=== PATIENT | female | born 1940 | race Caucasian/White ===

== ENCOUNTER 2020-07-30 08:57 | Outpatient (REF) | payer MEDICARE, SELFPAY ==
[2020-07-30 10:14] LABS: MANUAL DIFF FLAG NO
[2020-07-30 10:38] LABS: Basophils Absolute Auto 0.1 X10*3/uL (0.0-0.2); Basophils Percent Auto 0.8 % (0-2); Eosinophils Absolute Auto 0.1 X10*3/uL (0.0-0.4); Eosinophils Percent Auto 1.7 % (0-4); Hematocrit 41.1 % (37-47); Hemoglobin 13.2 g/dl (12.0-16.0); Imm Gran Abs Auto 0.02 X10*3/uL (0.00-0.03); Imm Gran Pct Auto 0.3 % (0.0-0.4); Lymphocytes Absolute Auto 2.2 X10*3/uL (1.2-4.9); Mean Corpuscular HGB Conc 32.1 g/dl (31.0-35.0); Mean Corpuscular Hemoglobin 30.7 pg (27.0-33.0); Mean Corpuscular Volume 95.6 fL (80-98); Mean Platelet Volume 9.7 fL (9.4-12.3); Monocytes Absolute Auto 0.6 X10*3/uL (0.1-1.2); Monocytes Percent Auto 9.7 % (2-11); Neutrophils Absolute Auto 3.4 X10*3/uL (2.0-8.3); Neutrophils Percent Auto 53.5 % (45-73); Platelet Count 222 X10*3/uL (160-400); Red Cell Distribution Width 13.2 % (11.0-16.0); White Blood Count 6.4 X10*3/uL (4.8-10.8)
[2020-07-30 10:57] LABS: Alanine Aminotransferase 15 U/L (0-31); Alkaline Phosphatase 66 U/L (39-117); Aspartate Amino Transferase 17 U/L (5-31); Bilirubin Total 0.7 mg/dL (0.0-1.0); Blood Urea Nitrogen 15 mg/dL (9-16); Calcium 9.6 mg/dL (8.4-10.2); Cholesterol 188 mg/dL; Estimated Glomerular Filt Rate > 60; Glucose Random 90 mg/dL (60-115); HDL Cholesterol 73 mg/dL; LDL Cholesterol Calculated 100 mg/dl; Total Protein 6.7 g/dL (6.5-8.0); Triglycerides 75 mg/dL
[2020-07-30 11:13] LABS: Anion Gap 10 (12-20); Carbon Dioxide 34 mmol/L (22-29); Chloride 100 mmol/L (96-108); Potassium 4.2 mmol/l (3.3-5.1); Sodium 140 mmol/L (135-145)
== END 2020-07-30 08:58 | disposition home or self-care (01) ==
LOC: HO.10HDL 08:57
PROVIDERS: Visit Provider Physician Assistant
DX: Z00.00 Encounter for general adult medical examination without abnormal findings (principal); Z13.6 Encounter for screening for cardiovascular disorders
CPT/HCPCS: 36415; 80053; 80061; 85025

== ENCOUNTER 2021-04-15 17:35 | Emergency (ER) | payer MEDICARE, SELFPAY ==
--- NOTE | ~2021-04-15 | XR_ITS ---
EXAMINATION: XR HAND, LEFT CLINICAL INFORMATION: Rule out foreign body COMPARISON: None TECHNIQUE: PA, lateral, and oblique views of the left hand. XR/XR hand LT 2V FINDINGS/IMPRESSION: No radiopaque foreign body. No acute fracture or dislocation. Small marginal osteophytes present throughout the interphalangeal joints. Small marginal osteophytes at the radiocarpal joint. 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 No radiopaque foreign body.
--- NOTE | ~2021-04-15 | XR_ITS ---
EXAMINATION: XR KNEE, LEFT CLINICAL INFORMATION: Rule out foreign body, glass. COMPARISON: None TECHNIQUE: AP and lateral views of the left knee. FINDINGS: Bones are osteopenic. There is moderate osteoarthritis in the lateral compartment with nonuniform joint space narrowing and marginal osteophytes. More mild osteoarthritis is present in the patellofemoral and medial compartment. Chondrocalcinosis is noted. Trace joint effusion. No acute fractures. Alignment is normal. Calcific atherosclerosis is present in the runoff arteries. No appreciable radiodense foreign bodies are identified. XR/XR knee LT 2V IMPRESSION: No radiodense foreign bodies are identified. Mild to moderate tricompartmental osteoarthritis, most pronounced in the lateral compartment
[2021-04-15 18:42] VITALS: BP 212/83; PULSE 69; RESP 18; TEMP 36.7; O2SAT 98; BMI 23.1
[2021-04-15 19:40] VITALS: BP 224/103; PULSE 73; RESP 12; O2SAT 97
[2021-04-15 19:48] VITALS: BP 200/86
[2021-04-15 20:27] VITALS: BP 200/86; PULSE 73
[2021-04-15] MEDS: hydroCHLOROthiazide 12.5 MG TABLET PO (20:27)
[2021-04-15] MEDS: Metoprolol Tartrate 25 MG TABLET PO (20:27)
[2021-04-15] MEDS: Diphth,Pertus(ACell),Tet Adult 0.5 ML SYRINGE IM (20:27)
[2021-04-15 20:39] VITALS: BP 200/86; PULSE 73
[2021-04-15] MEDS: Lidocaine HCl 1 % MPF 5 ML VIAL INFILTRATI (20:40)
[2021-04-15 21:13] VITALS: BP 176/80; PULSE 76; RESP 15
--- NOTE | 2021-04-15 21:19 | ED.SKABFB ---
HPI - Skin/Abscess/Foreign Bdy General Chief complaint: Skin/Abscess/Foreign Body Stated complaint: finger lac + fall Time Seen by Provider: 04/15/21 20:13 Source: patient Mode of arrival: ambulatory Limitations: no limitations History of Present Illness HPI narrative: 80-year-old female who presents emergency department for evaluation of lacerations to her left hand elbow and knee after falling at home. Patient states she was carrying a glass globe when she was walking upstairs and fell. The glass globe broken front of her and she states she landed on the globe with her left hand. The patient sustained multiple superficial lacerations with 1 full skin thickness laceration to the left ulnar aspect of the ring finger. The patient believes that her last tetanus vaccination was greater than 5 years prior but less than 10 years prior. She denies any other injury from the fall. She states she was feeling well prior to the fall and she believes that she does tripped causing her to fall forward on the stairs. She denied head injury, neck injury, chest injury, abdominal injury. Related Data Allergies Allergy/AdvReac Type Severity Reaction Status Date / Time No Known Allergies Allergy Verified 04/15/21 18:42 [No Known Allergies*] Review of Systems Review of Systems: Yes all other systems are reviewed and are negative [facility] Past Medical History [facility] Narrative: Social history: She denies tobacco, alcohol and drug use. Medical History Breast cancer COPD (chronic obstructive pulmonary disease) HTN (hypertension) Social History Social History Alcohol intake: never Patient Tobacco Use Status: Never used Tobacco Use of substances other than those prescribed or required for medical reasons: No Advance Directives: No Advance Directives Information Provided: Yes Physical Exam Vital Signs: Vital Signs: Last Vital Signs Temp 98.1 F 04/15/21 18:42 Pulse 76 04/15/21 21:13 Resp 15 04/15/21 21:13 BP 176/80 H 04/15/21 21:13 Pulse Ox 97 04/15/21 19:40 Body Mass Index 23.1 Const: General: cooperative and healthy appearing Orientation/consciousness: oriented to person and oriented to place Limitations: no limitations HENMT: Head: Yes normal to inspection, Yes normocephalic and Yes atraumatic Ears: external ears normal General nose exam: Normal external nose present Face and sinus: Yes normal facial exam Mouth: Normal oral and palatal mucosa present Throat: Yes posterior oropharynx normal Eyes: Periorbital: periorbital findings normal Eyelids: Yes eyelids normal Conjunctivae: conjunctivae normal Sclerae: sclerae normal Corneas: corneas normal Pupils: Equal, round and reactive pupils present Direct Ophthalmoscopy: normal light reflex Neck: Neck: Yes full ROM, Yes no lymphadenopathy, Yes no meningeal signs, Yes trachea midline and Yes supple Chest: Chest palpation & inspection: normal inspection of the chest and normal palpation of entire chest wall Resp: Effort & Inspection: normal respiratory effort and able to speak in complete sentences Auscultation: clear to auscultation bilaterally Cardio: Rate: regular rate Rhythm: regular rhythm Heart sounds: S1 normal heart sound present, S2 normal heart sound present and no murmurs GI: Inspection: Yes normal to inspection Palpation (GI): Soft to palpation, nontender, no guarding, not rigid and No hepatosplenomegaly present : General: Yes no CVA tenderness Back/Spine/Pelvis: Back: no CVA tenderness Cervical Spine: normal cervical lordosis Thoracic/Lumbar Spine: thoracic and lumbar spine normal to inspection Skin: Other: There is a 1.0 cm laceration to the left ulnar aspect of the ring finger which is a full skin thickness with a very small skin bleeding which did not stop with direct pressure. She has a full skin thickness laceration to the left middle finger, left ulnar aspect of the wrist, left elbow, each 1 of these lacerations are less than 1 cm in length. Neuro: General: oriented to person, oriented to place and no meningeal signs Cranial nerves: Yes CN's II-XII intact bilaterally and Yes Equal, round and reactive pupils present Cognition (Neuro): normal cognition Motor exam (neuro): 5/5 motor strength present throughout Extrem: General: Yes normal to inspection and Yes full ROM Psych: Appearance: well kempt Mental Status: mental status grossly normal Speech and movement: Normal speech and movement present Affect: normal affect Course Course Course Narrative: the patient did have 1 laceration to the ulnar aspect of the left ring finger required suture repair secondary to an active small skin bleeder. The other 3 lacerations repaired with Dermabond. The patient did have elevated blood pressure, she has essential hypertension and she was given her nighttime medications ( hydrochlorothiazide, metoprolol and lisinopril) in the emergency department with improvement of her hypertension. X-rays were obtained of the patient's knee and hand which revealed no glass foreign bodies. The patient's left he had an abrasion which was cleaned and dressed with bacitracin and a dry sterile dressing. Patient was advised to follow-up with her PCP to have the sutures removed in 7 days. The patient was given a Tdap vaccination in the emergency department. The patient was discharged home. The patient was given verbal and printed instructions prior to discharge. The patient was advised to follow-up with their PCP in 2 days and to return to the emergency department if their symptoms get worse or if they develop any new symptoms that are concerning to them . Procedures Procedure Narrative Procedure Narrative: 1. Left ring finger 1.0 cm laceration repair: The patient give me informed verbal consent to proceed. The laceration was clean sterile water and Betadine. The wound was then anesthetized with 1% lidocaine, 3 cc was used. The patient had a small active superficial skin bleeder which required 3 crossing sutures in order to stop the bleed, the patient had a total of 5 sutures. 5.0 Vicryl suture was used. The patient tolerated the procedure well. 2. lacerations to left hand ( 0.75 cm ), laceration to left wrist ( 0.75 cm), and left elbow ( V shaped, 0.75 cm ). These lacerations were cleaned with sterile water and Betadine . The lacerations were then repaired using skin glue. The patient tolerated the procedure well. Discharge Plan Discharge Clinical Impression: Laceration of multiple sites, Benign essential hypertension Fall Qualifiers: Encounter type: initial encounter Qualified Code(s): W19.XXXA - Unspecified fall, initial encounter Abrasion of knee, left Qualifiers: Encounter type: initial encounter Qualified Code(s): S80.212A - Abrasion, left knee, initial encounter Patient Disposition: Home, Self-Care Instructions: Laceration (ED), Skin Adhesive Care (ED) Additional Instructions: You have 5 stitches on the left ring finger laceration. These were needed to stop the small skin bleeders that you had in order to close the skin tightly. The stitches need to stay in for 7 days and your doctor should be able to remove these in their office. If they are unable to remove stitches then you can follow-up with the on-call surgeon. Apply bacitracin twice a day to this wound and keep it covered with gauze. Your other lacerations repaired with skin glue. Do not apply any bacitracin, ointments, gels or other products to the use wounds since oil based ointment skin breakdown the glue. You do not need to keep these lacerations covered. The glue should dissolve in 3-7 days. Watch for signs of infection which would include increased pain, increased swelling, redness around the lacerations and red streaks going away from the wounds. Follow-up with your doctor in 2 days. Please return to the emergency department if your symptoms get worse or if you develop any symptoms that are concerning to you. Interventions: ED Discharge Assessment Last Done: 04/15/21 21:33 Discharge Date/Time: 04/15/21 21:34
== END 2021-04-15 21:34 | disposition home or self-care (01) ==
PROVIDERS: Emergency Provider Emergency Medicine Emergency Medical Services; PCP Internal Medicine
DX: S61.215A Laceration without foreign body of left ring finger without damage to nail, initial encounter (principal); S61.512A Laceration without foreign body of left wrist, initial encounter; S51.012A Laceration without foreign body of left elbow, initial encounter; S60.512A Abrasion of left hand, initial encounter; W01.110A Fall on same level from slipping, tripping and stumbling with subsequent striking against sharp glass, initial encounter; I10 Essential (primary) hypertension; Y93.89 Activity, other specified; Y92.018 Other place in single-family (private) house as the place of occurrence of the external cause; Y99.9 Unspecified external cause status
CPT/HCPCS: 12002; 73120; 73560; 90471; 90715; 99284

== ENCOUNTER 2021-08-15 09:02 | Outpatient (REF) | payer MEDICARE, SELFPAY ==
[2021-08-15 10:29] LABS: MANUAL DIFF FLAG NO
[2021-08-15 10:31] LABS: Basophils Percent Auto 0.6 % (0-2); Eosinophils Absolute Auto 0.1 X10*3/uL (0.0-0.4); Eosinophils Percent Auto 2.9 % (0-4); Hematocrit 40.7 % (37.0-47.0); Hemoglobin 13.5 g/dl (12.0-16.0); Imm Gran Abs Auto 0.01 X10*3/uL (0.00-0.03); Imm Gran Pct Auto 0.2 % (0.0-0.4); Lymphocytes Absolute Auto 1.8 X10*3/uL (1.2-4.9); Mean Corpuscular HGB Conc 33.2 g/dl (31.0-35.0); Mean Corpuscular Hemoglobin 30.5 pg (27.0-33.0); Mean Corpuscular Volume 92.1 fL (80.0-98.0); Mean Platelet Volume 9.8 fL (9.4-12.3); Monocytes Absolute Auto 0.5 X10*3/uL (0.1-1.2); Monocytes Percent Auto 10.6 % (2-11); Neutrophils Absolute Auto 2.3 x10*3/uL (2.0-8.3); Neutrophils Percent Auto 47.7 % (45-73); Platelet Count 208 X10*3/uL (160-400); Red Blood Count 4.42 X10*6/uL (4.20-5.50); Red Cell Distribution Width 14.1 % (11.0-16.0); White Blood Count 4.8 X10*3/uL (4.8-10.8)
[2021-08-15 11:00] LABS: Alanine Aminotransferase 16 U/L (0-31); Albumin Level 3.8 g/dL (3.5-5.0); Alkaline Phosphatase 66 U/L (39-117); Anion Gap 9 (12-20); Aspartate Amino Transferase 18 U/L (5-31); Bilirubin Total 0.9 mg/dL (0.0-1.0); Blood Urea Nitrogen 14 mg/dL (9-16); Carbon Dioxide 34 mmol/L (22-29); Chloride 102 mmol/L (96-108); Cholesterol 186 mg/dL; Estimated Glomerular Filt Rate > 60; Glucose Random 94 mg/dL (60-115); HDL Cholesterol 69 mg/dL; LDL Cholesterol Calculated 104 mg/dl; Potassium 3.8 mmol/L (3.3-5.1); Sodium 141 mmol/L (135-145); Total Protein 6.4 g/dL (6.5-8.0); Triglycerides 66 mg/dL
== END 2021-08-15 09:03 | disposition home or self-care (01) ==
LOC: HO.10HDL 09:02
PROVIDERS: Visit Provider Physician Assistant
DX: I10 Essential (primary) hypertension (principal)
CPT/HCPCS: 36415; 80053; 80061; 85025

== ENCOUNTER 2021-10-08 17:54 | Emergency (ER) | payer MEDICARE, SELFPAY ==
--- NOTE | 2021-10-08 | ECG_ITS ---
Test Reason : HEADACHE Blood Pressure : / mmHG Vent. Rate : 054 BPM Atrial Rate : 054 BPM P-R Int : 162 ms QRS Dur : 140 ms QT Int : 450 ms P-R-T Axes : 061 083 -02 degrees QTc Int : 426 ms Sinus bradycardia Possible Left atrial enlargement Right bundle branch block T wave abnormality, consider inferior ischemia Abnormal ECG When compared with ECG of 22-NOV-2017 16:12, Premature atrial complexes are no longer Present Referred By: Generic ED Physician Electronically Signed By:Otto Ray
[2021-10-08 19:48] VITALS: BP 205/89; PULSE 57; RESP 16; TEMP 36.6; O2SAT 98; BMI 23.6
[2021-10-08 20:53] LABS: MANUAL DIFF FLAG NO
[2021-10-08 20:54] LABS: Basophils Percent Auto 0.5 % (0-2); Eosinophils Absolute Auto 0.1 X10*3/uL (0.0-0.4); Eosinophils Percent Auto 2.4 % (0-4); Hematocrit 43.3 % (37.0-47.0); Hemoglobin 14.5 g/dl (12.0-16.0); Imm Gran Abs Auto 0.01 X10*3/uL (0.00-0.03); Imm Gran Pct Auto 0.2 % (0.0-0.4); Lymphocytes Absolute Auto 2.6 X10*3/uL (1.2-4.9); Lymphocytes Percent Auto 44.4 % (20-40); Mean Corpuscular HGB Conc 33.5 g/dl (31.0-35.0); Mean Corpuscular Hemoglobin 30.5 pg (27.0-33.0); Mean Corpuscular Volume 91.2 fL (80.0-98.0); Mean Platelet Volume 9.2 fL (9.4-12.3); Monocytes Absolute Auto 0.5 X10*3/uL (0.1-1.2); Monocytes Percent Auto 8.6 % (2-11); Neutrophils Absolute Auto 2.5 x10*3/uL (2.0-8.3); Neutrophils Percent Auto 43.9 % (45-73); Platelet Count 204 X10*3/uL (160-400); Red Blood Count 4.75 X10*6/uL (4.20-5.50); Red Cell Distribution Width 13.5 % (11.0-16.0); White Blood Count 5.8 X10*3/uL (4.8-10.8)
[2021-10-08 21:14] LABS: Troponin-I High Sensitivity 41.3 ng/L (<3.5-17.0)
[2021-10-08 21:25] LABS: Alanine Aminotransferase 21 U/L (0-31); Alkaline Phosphatase 71 U/L (39-117); Anion Gap 9 (12-20); Aspartate Amino Transferase 22 U/L (5-31); Bilirubin Total 0.9 mg/dL (0.0-1.0); Blood Urea Nitrogen 8 mg/dL (9-16); Calcium 10.3 mg/dL (8.4-10.2); Carbon Dioxide 34 mmol/L (22-29); Chloride 102 mmol/L (96-108); Creatinine Clr Calc Pharmacy 50.6; Estimated Glomerular Filt Rate > 60; Glucose Random 104 mg/dL (60-115); Potassium 3.6 mmol/L (3.3-5.1); Sodium 141 mmol/L (135-145); Total Protein 7.1 g/dL (6.5-8.0)
[2021-10-08 21:28] VITALS: BP 207/100; PULSE 60; RESP 16; TEMP 36.7; O2SAT 98
--- NOTE | 2021-10-08 21:57 | ED_ITS ---
HPI - General Adult General Chief complaint: Headache Stated complaint: elevated blood pressure Time Seen by Provider: 10/08/21 20:51 Source: patient Mode of arrival: ambulatory Limitations: no limitations History of Present Illness HPI narrative: 80-year-old female who presents emergency department for evaluation of elevated blood pressure and headache. The patient states she has been on blood pressure medications for many years and normally her blood pressure is under good control. She states that the day after [place] (10/06/2021) she noted that her blood pressure was high in the 200/100 range. She states that she was getting an intermittent frontal headache which was a throbbing like sensation which was moderate in intensity that was associated with her higher readings She states she also felt a stiffness in her neck associated with high blood pressure. She states that over the past 1-2 days her blood pressure has been consistently high and she was concerned about her high reading so she came to the emergency department for evaluation. The patient has been compliant with her blood pressure medications. She states she does take a diuretic. She has not changed her fluid intake but she may have the more salty meals over the holiday. She denied fever, chills, chest pain, shortness of b reath, change in her urine output. She denied numbness, weakness. 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 She denies tobacco use. She drinks 4 half glasses of wine per week. She denies drug use. Medical History Breast cancer COPD (chronic obstructive pulmonary disease) HTN (hypertension) Social History Social History Alcohol intake: never Patient Tobacco Use Status: Never used Tobacco Advance Directives: No Advance Directives Information Provided: No Physical Exam Vital Signs: Vital Signs: Last Vital Signs Temp 97.8 F 10/08/21 22:36 Pulse 60 10/08/21 23:25 Resp 20 10/08/21 23:25 BP 182/66 H 10/08/21 23:25 Pulse Ox 96 10/08/21 23:25 BMI result Body Mass Index 23.6 Const: General: cooperative and no acute distress Orientation/consciousness: oriented to person and oriented to place Limitations: no limitations HENMT: Head: Yes normal to inspection, Yes normocephalic and Yes atraumatic Ears: external ears normal General nose exam: Normal external nose present Face and sinus: Yes normal facial exam Mouth: Normal oral and palatal mucosa present Throat: Yes posterior oropharynx normal Eyes: General: appearance normal, both eyes and all related structures Pupils: Equal, round and reactive pupils present Neck: Neck: Yes normal visual inspection, Yes no lymphadenopathy, Yes trachea midline and Yes supple Chest: Chest palpation & inspection: normal inspection of the chest and normal palpation of entire chest wall Resp: Effort & Inspection: normal respiratory effort and able to speak in complete sentences Auscultation: clear to auscultation bilaterally Cardio: Rate: regular rate Rhythm: regular rhythm Heart sounds: S1 normal heart sound present, S2 normal heart sound present and Murmur heart sound present systolic II/ (Mid systolic) GI: Inspection: Yes normal to inspection Palpation (GI): Soft to palpation, nontender and no guarding Auscultation: normal bowel sounds : General: Yes no CVA tenderness Back/Spine/Pelvis: Back: no CVA tenderness Skin: General skin exam: no rashes or lesions noted Neuro: General: oriented to person and oriented to place Cranial nerves: Yes CN's II-XII intact bilaterally and Yes Equal, round and reactive pupils present Cognition (Neuro): normal cognition Motor exam (neuro): 5/5 motor strength present throughout Extrem: General: Yes normal to inspection Psych: Appearance: grossly normal Speech and movement: Normal speech and movement present Affect: normal affect Attitude: cooperative Thought process: Normal thought process present Thought content: Normal thought content present Course Course Course Narrative: 80-year-old female with a history of hypertension who has been compliant with her medications presents emergency department for evaluation elevated blood pressure readings over the past several days with associated headache. The patient's vital signs did reveal an elevated blood pressures 205/89 and 207/100 otherwise were unremarkable. Patient's physical examination did reveal a mid systolic heart murmur but I do not think that this is related to hypertension. Patient's exam was otherwise unremarkable. Patient had no tenderness palpation over her temporal artery region of her head. Laboratory evaluation was obtained and the patient had a normal CBC. The patient's CMP revealed an elevated bicarb of 34 which she has had in the past. Her kidney function and liver tests were normal. Patient's 1st high sensitive troponin was elevated at 41.3 and I have no other values on the patient. A 3 hour troponin was ordered for 11:45 p.m.. Patient's 12 EKG revealed a right bundle-branch block which I believe is old. Patient's blood pressure elevation is most likely secondary to dietary indiscretions I did discuss this with her. 0051: The patient's repeat 3 hour high sensitivity troponin I was 47.5, this is not a greater than 50% increase from the 1st value. This time I do not think the patient has had any myocardial injury. The patient will be discharged home with printed and verbal instructions on managing essential hypertension. Medical Decision Making Lab Data Result diagrams: 10/08/21 20:48 10/08/21 20:48 Labs: Lab Results 10/08/21 10/08/21 10/08/21 Range/Units 20:48 20:48 20:48 WBC 5.8 (4.8-10.8) X10*3/uL RBC 4.75 (4.20-5.50) X10*6/uL Hgb 14.5 (12.0-16.0) g/dl Hct 43.3 (37.0-47.0) % MCV 91.2 (80.0-98.0) fL MCH 30.5 (27.0-33.0) pg MCHC 33.5 (31.0-35.0) g/dl RDW 13.5 (11.0-16.0) % Plt Count 204 (160-400) X10*3/uL MPV 9.2 L (9.4-12.3) fL Immature Gran % (Auto) 0.2 (0.0-0.4) % Neut % (Auto) 43.9 L (45-73) % Lymph % (Auto) 44.4 H (20-40) % Norton % (Auto) 8.6 (2-11) % Eos % (Auto) 2.4 (0-4) % Baso % (Auto) 0.5 (0-2) % Lymph # (Auto) 2.6 (1.2-4.9) X10*3/uL Norton # (Auto) 0.5 (0.1-1.2) X10*3/uL Eos # (Auto) 0.1 (0.0-0.4) X10*3/uL Baso # (Auto) 0.0 (0.0-0.2) X10*3/uL Abs Immat Gran (auto) 0.01 (0.00-0.03) X10*3/uL Absolute Neuts (auto) 2.5 (2.0-8.3) x10*3/uL Absolute Nucleated RBC 0.000 (0.0-0.012) X10*3/uL Nucleated RBC % (auto) 0.0 (0.0-0.2) /100WBC ESR (0-20) MM/HR Sodium 141 (135-145) mmol/L Potassium 3.6 (3.3-5.1) mmol/L Chloride 102 (96-108) mmol/L Carbon Dioxide 34 H (22-29) mmol/L Anion Gap 9 L (12-20) BUN 8 L (9-16) mg/dL Creatinine 0.63 (0.5-1.4) mg/dL Estim Creat Clear Calc 50.6 Estimated GFR > 60 Random Glucose 104 (60-115) mg/dL Calcium 10.3 H (8.4-10.2) mg/dL Total Bilirubin 0.9 (0.0-1.0) mg/dL AST 22 (5-31) U/L ALT 21 (0-31) U/L Alkaline Phosphatase 71 (39-117) U/L Troponin I High Sens 41.3 H (<3.5-17.0) ng/L Total Protein 7.1 (6.5-8.0) g/dL Albumin 4.0 (3.5-5.0) g/dL 10/08/21 10/08/21 Range/Units 20:48 23:44 WBC (4.8-10.8) X10*3/uL RBC (4.20-5.50) X10*6/uL Hgb (12.0-16.0) g/dl Hct (37.0-47.0) % MCV (80.0-98.0) fL MCH (27.0-33.0) pg MCHC (31.0-35.0) g/dl RDW (11.0-16.0) % Plt Count (160-400) X10*3/uL MPV (9.4-12.3) fL Immature Gran % (Auto) (0.0-0.4) % Neut % (Auto) (45-73) % Lymph % (Auto) (20-40) % Norton % (Auto) (2-11) % Eos % (Auto) (0-4) % Baso % (Auto) (0-2) % Lymph # (Auto) (1.2-4.9) X10*3/uL Norton # (Auto) (0.1-1.2) X10*3/uL Eos # (Auto) (0.0-0.4) X10*3/uL Baso # (Auto) (0.0-0.2) X10*3/uL Abs Immat Gran (auto) (0.00-0.03) X10*3/uL Absolute Neuts (auto) (2.0-8.3) x10*3/uL Absolute Nucleated RBC (0.0-0.012) X10*3/uL Nucleated RBC % (auto) (0.0-0.2) /100WBC ESR 13 (0-20) MM/HR Sodium (135-145) mmol/L Potassium (3.3-5.1) mmol/L Chloride (96-108) mmol/L Carbon Dioxide (22-29) mmol/L Anion Gap (12-20) BUN (9-16) mg/dL Creatinine (0.5-1.4) mg/dL Estim Creat Clear Calc Estimated GFR Random Glucose (60-115) mg/dL Calcium (8.4-10.2) mg/dL Total Bilirubin (0.0-1.0) mg/dL AST (5-31) U/L ALT (0-31) U/L Alkaline Phosphatase (39-117) U/L Troponin I High Sens 47.5 H (<3.5-17.0) ng/L Total Protein (6.5-8.0) g/dL Albumin (3.5-5.0) g/dL Discharge Plan Discharge Clinical Impression: Headache, BP (high blood pressure) Patient Disposition: Home, Self-Care Additional Instructions: Your laboratory evaluation was unremarkable. You did have a elevated high sensitivity troponin I but this did not change after 3 hours (1st value 41.3, 2nd value 47.5) which suggest that you did not have a heart attack as the cause your symptoms today. Your 12 EKG showed that you have a right bundle-branch block but I think that this is old and not new and not related to her symptoms. Sometimes high blood pressure can be caused by increase salt in your diet. Restrict the amount of salt that you take and also try to restrict the amount of fluid that you drink over the next 3-4 days to see if this improves her blood pressure. Keep taking your blood pressure medications. The reason to check your blood pressure at home is to give your doctor an idea of what your blood pressure does when you are not in the doctor's office. Take your blood pressure in the morning, Wednesday through Wednesday and then write down these readings to discuss them with your doctor at your next visit. If you doctor decides that your blood pressure readings are high than your doctor will start you on medications. If you get started you on medications or increases 1 of your medications, it often takes 1-2 months or longer to get your blood pressure under control. Lowering your blood pressure to rapidly or getting your blood pressure too low quickly can make you feel bad. Please return to the emergency department if you develops concerning symptoms such as severe headache, chest pain, shortness of breath, difficulty walking se condary to shortness of breath, numbness, weakness, difficulty talking. Take Tylenol (acetaminophen) 500 mg pills, 2 pills every 4 to 6 hours as needed for pain. Follow-up with your doctor to discuss your blood pressure readings. Please return to the emergency department if your symptoms get worse or if you develop any new symptoms that are concerning to you.
[2021-10-08 22:14] LABS: Erythrocyte Sedimentation Rate 13 MM/HR (0-20)
[2021-10-08 22:36] VITALS: BP 181/73; PULSE 70; RESP 16; TEMP 36.6; O2SAT 94
[2021-10-08 23:25] VITALS: BP 182/66; PULSE 60; RESP 20; O2SAT 96
[2021-10-08] MEDS: Acetaminophen 325 MG TABLET 975 MG PO (23:53)
[2021-10-09 00:11] LABS: Troponin-I High Sensitivity 47.5 ng/L (<3.5-17.0)
== END 2021-10-09 01:33 | disposition home or self-care (01) ==
PROVIDERS: Emergency Provider Emergency Medicine Emergency Medical Services; PCP Internal Medicine
DX: R51.9 Headache, unspecified (principal); I10 Essential (primary) hypertension; Z79.899 Other long term (current) drug therapy; Z85.3 Personal history of malignant neoplasm of breast
CPT/HCPCS: 36415; 80053; 84484; 85025; 85652; 93005; 99283; 99284

== ENCOUNTER 2022-08-03 08:04 | Outpatient (REF) | payer MEDICARE, SELFPAY ==
[2022-08-03 10:33] LABS: MANUAL DIFF FLAG NO
[2022-08-03 10:47] LABS: Basophils Percent Auto 0.9 % (0-2); Eosinophils Absolute Auto 0.1 X10*3/uL (0.0-0.4); Eosinophils Percent Auto 2.6 % (0-4); Hematocrit 39.9 % (37.0-47.0); Hemoglobin 13.4 g/dl (12.0-16.0); Lymphocytes Absolute Auto 2.1 X10*3/uL (1.2-4.9); Mean Corpuscular HGB Conc 33.6 g/dl (31.0-35.0); Mean Corpuscular Hemoglobin 29.5 pg (27.0-33.0); Mean Corpuscular Volume 87.9 fL (80.0-98.0); Monocytes Absolute Auto 0.5 X10*3/uL (0.1-1.2); Monocytes Percent Auto 10.6 % (2-11); Neutrophils Absolute Auto 1.9 x10*3/uL (2.0-8.3); Neutrophils Percent Auto 39.9 % (45-73); Platelet Count 212 X10*3/uL (160-400); Red Blood Count 4.54 X10*6/uL (4.20-5.50); Red Cell Distribution Width 13.7 % (11.0-16.0); White Blood Count 4.6 X10*3/uL (4.8-10.8)
[2022-08-03 11:18] LABS: Alanine Aminotransferase 19 U/L (0-31); Alkaline Phosphatase 69 U/L (39-117); Anion Gap 15 (12-20); Aspartate Amino Transferase 20 U/L (5-31); Bilirubin Total 0.8 mg/dL (0.0-1.0); Blood Urea Nitrogen 12 mg/dL (9-16); Calcium 9.7 mg/dL (8.4-10.2); Carbon Dioxide 30 mmol/L (22-29); Chloride 97 mmol/L (96-108); Cholesterol 178 mg/dL; Estimated Glomerular Filt Rate > 60; Glucose Fasting 89 mg/dL (60-99); HDL Cholesterol 63 mg/dL; LDL Cholesterol Calculated 99 mg/dl; Potassium 3.9 mmol/L (3.3-5.1); Sodium 138 mmol/L (135-145); Total Protein 6.9 g/dL (6.5-8.0); Triglycerides 82 mg/dL
== END 2022-08-03 08:05 | disposition home or self-care (01) ==
LOC: HO.10HDL 08:04
PROVIDERS: Visit Provider Physician Assistant
DX: J41.0 Simple chronic bronchitis (principal)
CPT/HCPCS: 36415; 80053; 80061; 85025

== ENCOUNTER 2023-03-29 08:16 | Outpatient (REF) | payer MEDICARE, SELFPAY ==
[2023-03-29 10:27] LABS: MANUAL DIFF FLAG NO
[2023-03-29 10:31] LABS: Basophils Absolute Auto 0.1 X10*3/uL (0.0-0.2); Basophils Percent Auto 1.1 % (0-2); Eosinophils Absolute Auto 0.2 X10*3/uL (0.0-0.4); Eosinophils Percent Auto 2.9 % (0-4); Hematocrit 40.6 % (37.0-47.0); Hemoglobin 13.3 g/dl (12.0-16.0); Imm Gran Abs Auto 0.02 X10*3/uL (0.00-0.03); Imm Gran Pct Auto 0.4 % (0.0-0.4); Lymphocytes Absolute Auto 1.7 X10*3/uL (1.2-4.9); Lymphocytes Percent Auto 31.4 % (20-40); Mean Corpuscular HGB Conc 32.8 g/dl (31.0-35.0); Mean Corpuscular Hemoglobin 29.5 pg (27.0-33.0); Mean Platelet Volume 9.9 fL (9.4-12.3); Monocytes Absolute Auto 0.5 X10*3/uL (0.1-1.2); Monocytes Percent Auto 9.1 % (2-11); Neutrophils Percent Auto 55.1 % (45-73); Platelet Count 266 X10*3/uL (160-400); Red Blood Count 4.51 X10*6/uL (4.20-5.50); Red Cell Distribution Width 13.6 % (11.0-16.0); White Blood Count 5.5 X10*3/uL (4.8-10.8)
[2023-03-29 10:53] LABS: Alanine Aminotransferase 15 U/L (0-31); Albumin Level 3.8 g/dL (3.5-5.0); Alkaline Phosphatase 77 U/L (39-117); Anion Gap 14 (12-20); Aspartate Amino Transferase 19 U/L (5-31); Bilirubin Total 0.8 mg/dL (0.0-1.0); Blood Urea Nitrogen 11 mg/dL (9-16); Calcium 10.4 mg/dL (8.4-10.2); Carbon Dioxide 31 mmol/L (22-29); Chloride 97 mmol/L (96-108); Cholesterol 176 mg/dL; Estimated Glomerular Filt Rate > 60; Glucose Random 84 mg/dL (60-115); HDL Cholesterol 62 mg/dL; Iron 88 mcg/dL (30-160); LDL Cholesterol Calculated 99 mg/dl; Percent Iron Saturation 33 % (15-50); Potassium 3.5 mmol/L (3.3-5.1); Sodium 138 mmol/L (135-145); Total Iron Binding Capacity 267 mcg/dL (228-428); Total Protein 7.2 g/dL (6.5-8.0); Triglycerides 78 mg/dL; Unsaturated Iron Binding 179 ug/dL
[2023-03-29 11:01] LABS: Ferritin 109 ng/mL (10-250)
== END 2023-03-29 08:17 | disposition home or self-care (01) ==
LOC: HO.10HDL 08:16
PROVIDERS: Visit Provider Physician Assistant
DX: J41.0 Simple chronic bronchitis (principal); I10 Essential (primary) hypertension; D64.9 Anemia, unspecified
CPT/HCPCS: 36415; 80053; 80061; 82728; 83540; 85025

== ENCOUNTER 2023-11-22 09:02 | Outpatient (REF) | payer MEDICARE, SELFPAY ==
[2023-11-22 11:14] LABS: MANUAL DIFF FLAG NO
[2023-11-22 11:23] LABS: Basophils Absolute Auto 0.1 X10*3/uL (0.0-0.2); Eosinophils Absolute Auto 0.1 X10*3/uL (0.0-0.4); Eosinophils Percent Auto 2.3 % (0-4); Hematocrit 40.4 % (37.0-47.0); Hemoglobin 13.6 g/dl (12.0-16.0); Imm Gran Abs Auto 0.01 X10*3/uL (0.00-0.03); Imm Gran Pct Auto 0.2 % (0.0-0.4); Lymphocytes Percent Auto 35.5 % (20-40); Mean Corpuscular HGB Conc 33.7 g/dl (31.0-35.0); Mean Platelet Volume 9.5 fL (9.4-12.3); Monocytes Absolute Auto 0.6 X10*3/uL (0.1-1.2); Monocytes Percent Auto 10.3 % (2-11); Neutrophils Absolute Auto 2.9 x10*3/uL (2.0-8.3); Neutrophils Percent Auto 50.7 % (45-73); Platelet Count 268 X10*3/uL (160-400); Red Blood Count 4.54 X10*6/uL (4.20-5.50); Red Cell Distribution Width 13.2 % (11.0-16.0); White Blood Count 5.7 X10*3/uL (4.8-10.8)
[2023-11-22 12:29] LABS: Alanine Aminotransferase 19 U/L (0-31); Albumin Level 3.9 g/dL (3.5-5.0); Alkaline Phosphatase 75 U/L (39-117); Anion Gap 11 (12-20); Aspartate Amino Transferase 20 U/L (5-31); Bilirubin Total 0.7 mg/dL (0.0-1.0); Blood Urea Nitrogen 12 mg/dL (9-16); Calcium 9.9 mg/dL (8.4-10.2); Carbon Dioxide 32 mmol/L (22-29); Chloride 99 mmol/L (96-108); Cholesterol 190 mg/dL (<200); Estimated Glomerular Filt Rate > 60; Glucose Random 68 mg/dL (60-115); HDL Cholesterol 71 mg/dL (>40); LDL Cholesterol Calculated 105 mg/dL (<100); Potassium 3.7 mmol/L (3.3-5.1); Sodium 138 mmol/L (135-145); Total Protein 7.2 g/dL (6.5-8.0); Triglycerides 72 mg/dL (<150)
== END 2023-11-22 09:03 | disposition home or self-care (01) ==
LOC: HO.10HDL 09:02
PROVIDERS: Visit Provider Physician Assistant
DX: Z00.00 Encounter for general adult medical examination without abnormal findings (principal)
CPT/HCPCS: 36415; 80053; 80061; 85025

== ENCOUNTER 2025-01-29 17:10 | Inpatient (IN) | payer MEDICARE, SELFPAY ==
--- NOTE | ~2025-01-29 | XR_ITS ---
CLINICAL HISTORY: high bp Two views of the chest. COMPARISON: None FINDINGS: Surgical clips in the right axilla. Cardiomegaly. Mitral annular calcifications. Globular configuration of the heart borders. Prominence of the central pulmonary vasculature. Blunting of the bilateral costophrenic angles. No pneumothorax. No consolidation. Scoliosis. Moderate spondylosis. No acute fracture identified. IMPRESSION: 1. Cardiomegaly with pulmonary vascular congestion. Appearance of the heart raises suspicion for pericardial effusion. 2. Small bilateral pleural effusions. This document has been electronically signed by: Hao Zee MD on 01/29/2025 18:33:30
--- NOTE | 2025-01-29 17:24 | ECG_ITS ---
Test Reason : chest pain Blood Pressure : */* mmHG Vent. Rate : 126 BPM Atrial Rate : * BPM P-R Int : * ms QRS Dur : 132 ms QT Int : 340 ms P-R-T Axes : * 91 -47 degrees QTcB Int : 492 ms Atrial fibrillation with rapid ventricular response Right bundle branch block T wave abnormality, consider inferolateral ischemia Abnormal ECG When compared with ECG of 08-Oct-2021 20:41, Atrial fibrillation has replaced Sinus rhythm Vent. rate has increased by 72 bpm Referred By: Codi Renee Electronically Signed By: CHRISTINE CAMPBELL
--- NOTE | 2025-01-29 17:24 | ED_ITS ---
HPI - General Adult General Chief complaint: Arrhythmia/Palpitations Stated complaint: high bp Time Seen by Provider: 01/29/25 17:48 Related Data Allergies Allergy/AdvReac Type Severity Reaction Status Date / Time No Known Allergies Allergy Verified 01/29/25 17:27 [No Known Allergies*] [facility] Past Medical History Medical History Breast cancer COPD (chronic obstructive pulmonary disease) HTN (hypertension) Social History Social History Alcohol intake: never Patient Tobacco Use Status: Never used Tobacco Smoked in Last 30 Days: No Use of substances other than those prescribed or required for medical reasons: No Advance Directives: No Advance Directives Information Provided: Yes Physical Exam ED Vital Signs: Vital Signs - 24 hr 01/29/25 17:25 01/29/25 18:00 01/29/25 18:01 Temperature 97.5 F 97.6 F Pulse Rate 133 H 120 H 127 H Respiratory Rate 16 17 Blood Pressure 168/112 H 145/105 H 145/105 H Pulse Oximetry 95 98 Oxygen Delivery Method Room Air Room Air Oxygen Flow Rate 01/29/25 18:05 01/29/25 19:10 Temperature 97.8 F Pulse Rate 75 50 Respiratory Rate 11 L 13 Blood Pressure 147/72 H 140/76 H Pulse Oximetry 99 Oxygen Delivery Method Nasal Cannula Oxygen Flow Rate 3 BMI result Body Mass Index 22.3 Course Course Course Narrative: This is a rapid medical exam performed by Jimi Renee NP: Additional HPI, ROS, PE not included below will be deferred to primary provider. Patient is an 84-year-old female with history of HTN, COPD, breast CA presenting with complaint of high blood pressure and palpitations which started yesterday, sxs worse today. Plan: EKG, labs, CXR Medications Administered Discontinued Medications Generic Name Dose Route Start Last Admin Trade Name Freq PRN Reason Stop Dose Admin Diltiazem HCl 25 mg 01/29/25 17:59 01/29/25 18:01 Diltiazem Hcl 50 Mg/10 Ml Vial IVPUSH 01/29/25 18:00 25 mg STAT STA Administration Medical Decision Making Medical Decision Making MDM Narrative: Patient is an 84-year-old female with no history of atrial fibrillation in the past. On arrival patient felt palpitation that is been ongoing for the last few hours. Heart rate was 150 my interpretation patient's initial EKG shows a new atrial fibrillation pattern heart rate is about 150. Patient has no history of congestive heart failure has a history of hypertension elected to give patient a dose of Cardizem only about 12 mg of Cardizem was given at the time when patient's heart rate came down tremendously. Heart rate is down to approximately 70 at times down to 50 in what appears to be an atrial fibrillation pattern. We repeated the EKG my interpretation of the 2nd EKG showed an atrial fibrillation pattern heart rate is 60. Patient troponin was negative TSH was normal no history drinking history consistent with having new onset atrial fibrillation cardiology was consulted hospitalist team consulted will admit for further evaluation and monitoring currently in stable condition. Differential Diagnosis Differential Diagnoses: The differential diagnosis associated with the presentation includes Atrial fibrillation, hyperthyroid, ACS Admission/Observation Consideration of admission/observation: Escalation of care including admission/observation considered Consult Healthcare Provider Management of the patient was discussed with: Hospitalist and Detail Technician (Cardiology) Lab Data MDM Lab Attestation statement: I reviewed the patient's lab results. 01/29/25 17:35 01/29/25 17:35 Labs: Lab Results 01/29/25 Range/Units 17:35 WBC 6.3 (4.8-10.8) X10*3/uL RBC 4.58 (4.20-5.50) X10*6/uL Hgb 13.7 (12.0-16.0) g/dl Hct 40.4 (37.0-47.0) % MCV 88.2 (80.0-98.0) fL MCH 29.9 (27.0-33.0) pg MCHC 33.9 (31.0-35.0) g/dl RDW 14.3 (11.0-16.0) % Plt Count 209 (160-400) X10*3/uL MPV 9.6 (9.4-12.3) fL Immature Gran % (Auto) 0.3 (0.0-0.4) % Neut % (Auto) 41.2 L (45-73) % Lymph % (Auto) 46.0 H (20-40) % [place] % (Auto) 9.7 (2-11) % Eos % (Auto) 2.2 (0-4) % Baso % (Auto) 0.6 (0-2) % Lymph # (Auto) 2.9 (1.2-4.9) X10*3/uL [place] # (Auto) 0.6 (0.1-1.2) X10*3/uL Eos # (Auto) 0.1 (0.0-0.4) X10*3/uL Baso # (Auto) 0.0 (0.0-0.2) X10*3/uL Abs Immat Gran (auto) 0.02 (0.00-0.03) X10*3/uL Absolute Neuts (auto) 2.6 (2.0-8.3) x10*3/uL Absolute Nucleated RBC 0.000 (0.0-0.012) X10*3/uL Nucleated RBC % (auto) 0.0 (0.0-0.2) /100WBC PT 13.1 H (10.9-12.4) SEC INR 1.1 (0.9-1.1) Sodium 141 (135-145) mmol/L Potassium 3.2 L (3.3-5.1) mmol/L Chloride 100 (96-108) mmol/L Carbon Dioxide 29 (22-29) mmol/L Anion Gap 15 (12-20) BUN 11 (9-16) mg/dL Creatinine 0.67 (0.5-1.4) mg/dL Estim Creat Clear Calc 40.3 Estimated GFR > 60 Random Glucose 100 (60-115) mg/dL Calcium 9.6 (8.4-10.2) mg/dL Magnesium 1.5 L (1.6-2.6) mg/dL Total Bilirubin 1.1 H (0.0-1.0) mg/dL AST 54 H (5-31) U/L ALT 92 H (0-31) U/L Alkaline Phosphatase 104 (39-117) U/L Troponin I High Sens 6.0 (<3.5-17.0) ng/L B-Natriuretic Peptide 593 H (<100) pg/mL Total Protein 6.8 (6.5-8.0) g/dL Albumin 3.9 (3.5-5.0) g/dL TSH 3.60 (0.32-4.0) uIU/mL Independent Interpretation I performed an independent interpretation of an: EKG (Please see above for EKG interpretation) External Record Review External record reviewed: Inpatient record Chronic Conditions Patient?s care impacted by: Hypertension Critical Care Time Critical Care Time Critical Care Time: Yes Total Critical Care Time: 40 Attestation: I have personally provided 40 minutes of critical care time exclusive of time spent on separately billable procedures. ?Time includes review of lab data, radiology results, discussion with consultants, and monitoring for potential decompensation. ?Interventions were performed as documented above Discharge Plan Discharge Clinical Impression: Atrial fibrillation Patient Disposition: Admitted As Inpatient Print Language: [place]erratian
[2025-01-29 17:25] VITALS: BP 168/112; PULSE 133; RESP 16; TEMP 36.4; O2SAT 95; BMI 22.3
[2025-01-29 17:48] LABS: MANUAL DIFF FLAG NO
[2025-01-29 17:52] LABS: Basophils Percent Auto 0.6 % (0-2); Eosinophils Absolute Auto 0.1 X10*3/uL (0.0-0.4); Eosinophils Percent Auto 2.2 % (0-4); Hematocrit 40.4 % (37.0-47.0); Hemoglobin 13.7 g/dl (12.0-16.0); Imm Gran Abs Auto 0.02 X10*3/uL (0.00-0.03); Imm Gran Pct Auto 0.3 % (0.0-0.4); Lymphocytes Absolute Auto 2.9 X10*3/uL (1.2-4.9); Mean Corpuscular HGB Conc 33.9 g/dl (31.0-35.0); Mean Corpuscular Hemoglobin 29.9 pg (27.0-33.0); Mean Corpuscular Volume 88.2 fL (80.0-98.0); Mean Platelet Volume 9.6 fL (9.4-12.3); Monocytes Absolute Auto 0.6 X10*3/uL (0.1-1.2); Monocytes Percent Auto 9.7 % (2-11); Neutrophils Absolute Auto 2.6 x10*3/uL (2.0-8.3); Neutrophils Percent Auto 41.2 % (45-73); Platelet Count 209 X10*3/uL (160-400); Red Blood Count 4.58 X10*6/uL (4.20-5.50); Red Cell Distribution Width 14.3 % (11.0-16.0); White Blood Count 6.3 X10*3/uL (4.8-10.8)
[2025-01-29 17:58] LABS: INTERNATIONAL NORM RATIO 1.1 (0.9-1.1); Prothrombin Time 13.1 SEC (10.9-12.4)
--- NOTE | 2025-01-29 17:59 | ED_ITS ---
HPI - Arrhythmia/Palpitations General Chief Complaint: Arrhythmia/Palpitations Stated Complaint: high bp Time Seen by Provider: 01/29/25 17:48 History of Present Illness HPI narrative: Patient is an 84-year-old female presented today with having palpitation starting approximately 2 hour prior to arrival. There is no chest pain there is no diaphoresis. There is no change in sleep pattern. Patient feels weak feels her heart was beating real fast no history of congestive heart failure no history of echocardiogram done in the past. No bloody stool. Seems to be fast and irregular. Related Data Allergies Allergy/AdvReac Type Severity Reaction Status Date / Time No Known Allergies Allergy Verified 01/29/25 17:27 [No Known Allergies*] Review of Systems 2 Review of Systems: Positive irregular heartbeat Yes all other systems are reviewed and are negative [facility] Past Medical History Attestation statement: The following information was validated with the patient. Medical History Breast cancer COPD (chronic obstructive pulmonary disease) HTN (hypertension) Social History Social History Alcohol intake: never Patient Tobacco Use Status: Never used Tobacco Physical Exam 2 Vital Signs: Vital Signs: Last Vital Signs Temp 97.5 F 01/29/25 17:25 Pulse 133 H 01/29/25 17:25 Resp 16 01/29/25 17:25 BP 168/112 H 01/29/25 17:25 Pulse Ox 95 01/29/25 17:25 O2 Del Method Room Air 01/29/25 17:25 BMI result Body Mass Index 22.3 Appearance: Alert. Oriented X3. No acute distress. Eyes: Pupils equal, round and reactive to light. ENT: Pharynx normal. Neck: Normal inspection. Neck supple. No lymph nodes noted. No crepitus CVS: Irregularly irregular tachycardic Respiratory: No respiratory distress. Breath sounds normal. No Wheezing. No rales Abdomen: Soft and nontender. No rigidity. No distention. good BS x4 Skin: Skin warm and dry. Normal skin color. Normal skin turgor. Extremities: No lower extremity edema. Neurovascular intact to all extremities. No Lacerations. No Rash Neuro: Oriented X 3. No motor deficit. No sensory deficit. Moving all extermities. No slurred speech Medical Decision Making Lab Data 01/29/25 17:35 01/29/25 17:35 Labs: Lab Results 01/29/25 Range/Units 17:35 WBC 6.3 (4.8-10.8) X10*3/uL RBC 4.58 (4.20-5.50) X10*6/uL Hgb 13.7 (12.0-16.0) g/dl Hct 40.4 (37.0-47.0) % MCV 88.2 (80.0-98.0) fL MCH 29.9 (27.0-33.0) pg MCHC 33.9 (31.0-35.0) g/dl RDW 14.3 (11.0-16.0) % Plt Count 209 (160-400) X10*3/uL MPV 9.6 (9.4-12.3) fL Immature Gran % (Auto) 0.3 (0.0-0.4) % Neut % (Auto) 41.2 L (45-73) % Lymph % (Auto) 46.0 H (20-40) % [place] % (Auto) 9.7 (2-11) % Eos % (Auto) 2.2 (0-4) % Baso % (Auto) 0.6 (0-2) % Lymph # (Auto) 2.9 (1.2-4.9) X10*3/uL [place] # (Auto) 0.6 (0.1-1.2) X10*3/uL Eos # (Auto) 0.1 (0.0-0.4) X10*3/uL Baso # (Auto) 0.0 (0.0-0.2) X10*3/uL Abs Immat Gran (auto) 0.02 (0.00-0.03) X10*3/uL Absolute Neuts (auto) 2.6 (2.0-8.3) x10*3/uL Absolute Nucleated RBC 0.000 (0.0-0.012) X10*3/uL Nucleated RBC % (auto) 0.0 (0.0-0.2) /100WBC PT 13.1 H (10.9-12.4) SEC INR 1.1 (0.9-1.1) Discharge Plan Discharge Print Language: [place]ian
[2025-01-29 18:00] VITALS: BP 145/105; PULSE 120; RESP 17; TEMP 36.4; O2SAT 98
[2025-01-29 18:01] VITALS: BP 145/105; PULSE 127
[2025-01-29] MEDS: dilTIAZem HCL 50 MG/10 ML VIAL 25 MG IVPUSH (18:01)
[2025-01-29 18:05] VITALS: BP 147/72; PULSE 75; RESP 11
[2025-01-29 18:07] LABS: Alanine Aminotransferase 92 U/L (0-31); Albumin Level 3.9 g/dL (3.5-5.0); Alkaline Phosphatase 104 U/L (39-117); Anion Gap 15 (12-20); Aspartate Amino Transferase 54 U/L (5-31); Bilirubin Total 1.1 mg/dL (0.0-1.0); Blood Urea Nitrogen 11 mg/dL (9-16); Calcium 9.6 mg/dL (8.4-10.2); Carbon Dioxide 29 mmol/L (22-29); Chloride 100 mmol/L (96-108); Creatinine Clr Calc Pharmacy 40.3; Estimated Glomerular Filt Rate > 60; Glucose Random 100 mg/dL (60-115); Magnesium 1.5 mg/dL (1.6-2.6); Potassium 3.2 mmol/L (3.3-5.1); Sodium 141 mmol/L (135-145); Total Protein 6.8 g/dL (6.5-8.0)
--- NOTE | 2025-01-29 18:07 | ECG_ITS ---
Test Reason : A-FIB Blood Pressure : */* mmHG Vent. Rate : 61 BPM Atrial Rate : * BPM P-R Int : * ms QRS Dur : 140 ms QT Int : 464 ms P-R-T Axes : * 92 -25 degrees QTcB Int : 467 ms Atrial fibrillation Right bundle branch block T wave abnormality, consider inferior ischemia Abnormal ECG When compared with ECG of 29-Jan-2025 17:30, Vent. rate has decreased by 65 bpm Referred By: Sarahi De Los Santos Electronically Signed By: CHRISTINE CAMPBELL
[2025-01-29 18:13] LABS: B Type Natriuretic Peptide 593 pg/mL (<100)
--- OUTSIDE RECORDS SUMMARY | 2025-01-29 18:57 | XMS_ITS | Data Portability ---
Author Organization [facility], Home Service Address [address] [place] [address] Assessment Encounter Date Assessment Date Assessment LastModified by Organization Details LastModified Time 11/03/2022 11/03/2022 The patient denies recent falls or recurrent falls. Denies instability, weakness, abnormal gait, or difficulties with movement. The patient wears correct, supportive shoes and is not otherwise severely visually impaired. The patient is full weight bearing and if using the assistance of a cane or walker feels supported and stable with the use of such devices. All medical conditions have been taken into account that may pose a risk for the patient for falls. Home steve, carpets and/or rugs do not pose a challenge for the patient. The patient has been educated about the use of vitamin D supplementation for bone health and prevention of hypotensive episodes that may increase risk for fall. All question and concerns were answered to the patient's satisfaction. [email or web address] Not available 11/03/2022 10:11:12 04/26/2023 04/26/2023 The patient denies little pleasure in activities they find enjoyable, feeling depressed, difficulties sleeping, feeling tired or having little energy, change in appetite, feeling guilty, overwhelmed or unmotivated. The patient denies suicidal ideation, thoughts of hurting themselves or others. Their mood is appropriate, they show good judgement and clear understanding of the conversation. They are orientated to time, place and person. They are not expressing any concerning thoughts or actions that would need further investigation and treatment for mental health. The patient denies recent falls or recurrent falls. Denies instability, weakness, abnormal gait, or difficulties with movement. The patient wears correct, supportive shoes and is not otherwise severely visually impaired. The patient is full weight bearing and if using the assistance of a cane or walker feels supported and stable with the use of such devices. All medical conditions have been taken into account that may pose a risk for the patient for falls. Home steve, carpets and/or rugs do not pose a challenge for the patient. The patient has been educated about the use of vitamin D supplementation for bone health and prevention of hypotensive episodes that may increase risk for fall. All question and concerns were answered to the patient's satisfaction. [email or web address] Not available 04/26/2023 09:42:05 10/19/2023 10/19/2023 Patient agreed and verbally consents to this audio and video Telehealth appt via a secure platform [email or web address] Not available 10/19/2023 10:04:49 04/04/2024 04/04/2024 The patient denies little pleasure in activities they find enjoyable, feeling depressed, difficulties sleeping, feeling tired or having little energy, change in appetite, feeling guilty, overwhelmed or unmotivated. The patient denies suicidal ideation, thoughts of hurting themselves or others. Their mood is appropriate, they show good judgement and clear understanding of the conversation. They are orientated to time, place and person. They are not expressing any concerning thoughts or actions that would need further investigation and treatment for mental health. The patient denies recent falls or recurrent falls. Denies instability, weakness, abnormal gait, or difficulties with movement. The patient wears correct, supportive shoes and is not otherwise severely visually impaired. The patient is full weight bearing and if using the assistance of a cane or walker feels supported and stable with the use of such devices. All medical conditions have been taken into account that may pose a risk for the patient for falls. Home steve, carpets and/or rugs do not pose a challenge for the patient. The patient has been educated about the use of vitamin D supplementation for bone health and prevention of hypotensive episodes that may increase risk for fall. All question and concerns were answered to the patient's satisfaction. [email or web address] Not available 04/04/2024 10:18:06 Plan of Treatment Reminders Order Date Submit Date Provider Last Modified By Organization Details Last Modified Time Details Appointments None recorded. Lab None recorded. Referral None recorded. Procedures None recorded. Surgeries None recorded. Imaging None recorded. Medication Orders albuterol sulfate HFA 90 mcg/actuat ion aerosol inhaler 2022 023 [email or web address] [facility] #[id number], [address] [facility], [place], [address], 09:54:01 Patient TargetsNo targets recorded. Patient Instructions Encounter Date Encounter Id Patient Instructions Last Modified By Organization Details Last Modified Time 04/26/2023 [id number] pulse oximetry* ARIANNA Not available 04/26/2023 09:49:45 Reason for Referral None Reported. Results Created Date Observation Date Name Description Value Unit Range Abnormal Flag Note LastModifiedBy Organization Detail LastModifiedTime 06/16/2006/16/2023 MAMMO , scree savannah, digit al, bilat eral No observ ation record ed. [email or web address] [facility] [address] [place] [address], [address], 06/16/2023 12:11:50 06/19/20 24 06/19/2024 MAMMO , scree savannah, digit al, bilat eral No observ ation record ed. [email or web address] [facility] [address] [place], [address], 06/19/2024 19:54:57 01/30/20 25 01/29/2025 imagi ng/daina mongeos tic resul t No observ ation record ed. [facility] (Medical Records) [address] [place] [address], [address], 01/29/2025 18:36:15 Result Notes None recorded. Problems Name Problem SNOMED Code Status Onset Date Resolution Date Notes Provider Name and Address Organization Details Recorded Time Osteopen ia 485849072 Active [address] [facility] 0 10:11:37 Chronic obstruct chriss pulmonar y disease 09017934 Active 2018 Zena flower [place] [facility] 0 10:11:36 Mild chronic obstruct chriss pulmonar y disease 355808121 Active 2017 Dr[address] Bojorquez, [facility] 10:[facility] Solitary nodule of lung 532408799 Active 2017 right upper lobe [facility] 10:11:[facility] hyperten shazia 66109782 Active 2017 [facility] 0 10:11:37 Personal history of primary malignan t neoplasm of breast 426882323 Active 1989 right, lumpecto my & radiatio n [employer] [facility] 0 10:11:37 Ventricu lar prematur e beats 64702982 Active 2017 [facility] 0 10:11:37 History of adenomat ous polyp of colon 180800634 Active 2012 [facility] 0 10:11:37 History of colonosc opy 0415726618 09 Completed 201201/12/2018 Removal Reason: to put in history Ora Bunch NP, S [address] [place] [address], [phone], [facility] 8 10:00:05 Problem Notes None recorded. Procedures Surgical History Date Name Laterality Status Provider Name and Address Organization Details Recorded Time 04/23/20 21 Suture/Staple removal completed SHAHRZAD ACEVES [address] [place] [address], [phone], [facility] 04/23/2021 10:32:54 10/11/18 99 Breast Surgery completed Ora Bunch NP, S [address] [place] [address], [phone], [facility] 12/21/2017 15:16:31 Unlisted px arthroscopy completed Ora Bunch NP, S [address] [place] [address], [phone], [facility] 12/21/2017 15:07:01 Imaging Results Imaging Date Name Status LastModified by Organiz ation Details LastModified Time 06/16/2023 MAMMO, screening, digital, bilateral completed [email or web address] [facility] [address] [place], [address], 06/16/2023 12:11:50 06/19/2024 MAMMO, screening, digital, bilateral completed [email or web address] [facility] [address] [place], [address], 06/19/2024 19:54:57 01/29/2025 imaging/diagno stic result active [facility] (Medical Records) [address] [place], [address], 01/29/2025 18:36:15 Procedure Notes None recorded. Medical Equipment None Reported. Allergies No known drug allergies Medications Name Sig Start Date Stop Date Status Note LastModified by Organization Details LastModified Time amoxicillin 500 mg capsule Take 1 capsule every 8 hours by oral route. 09/26 completed Not Available Not Available Not Available nystatin 100,000 unit/mL oral suspension Take 5 mL 4 times a day by oral route. 09/26 completed Not Available Not Available Not Available doxycycline hyclate 100 mg capsule Take 1 capsule twice a day by oral route for 7 days. 04/20 completed Not Available Not Available Not Available lisinopril 20 mg tablet TAKE 1 TABLET BY MOUTH DAILY active Not Available Not Available No t Available atenolol 25 mg tablet Take 1 tablet every day by oral route. 01/28 completed Not Available Not Available Not Available biotin 10,000 mcg capsule Take by oral route. 04/20 completed Not Available Not Available Not Available albuterol sulfate HFA 90 mcg/actuati on aerosol inhaler INHALE 2 PUFFS INTO THE LUNGS EVERY 4 HOURS NEEDED FOR 30 DAYS 04/04 completed Not Available Not Available Not Available Tylenol 650 mg tablet,exte nded release Take 2 tablets every 8 hours by oral route. 03/11 completed Not Available Not Available Not Available metoprolol tartrate 25 mg tablet TAKE 1 TABLET BY MOUTH TWICE DAILY 2023 active Not Available Not Available Not Avai lable multivitami n active Not Available Not Available Not Available Calcium with Vitamin D active Not Available Not Available No t Available hydrochloro thiazide 12.5 mg tablet TAKE 1 TABLET BY MOUTH TWICE DAILY active Not Available Not Available No t Available Breo Ellipta 100 mcg-25 mcg/dose powder for inhalation USE 1 INHALATIO N BY MOUTH DAILY 03/11 completed Not Available Not Available Not Available Probiotic (B. coagulans) active Not Available Not Available N ot Available Flowflex COVID-19 Antigen Home Test kit USE DIRECTED ON PACKAGING 11/03 completed Not Available Not Available Not Available Vitals Date Recorded Body height Body mass index (BMI) Body weight Oxygen saturation Oxygen saturation in Arterial blood by Pulse oximetry Heart rate Systolic blood pressure Diastolic blood pressure Provider Name and Address Organization Details Last Updated DateTime 3 147.32 cm 22.5 kg/m2 41126.2 6 g 99 % 99 % 95 /min 140 mm[Hg] 70 mm[Hg] Cyndi Ramesh [facility] 3 10:05:21 Date Recorded Body height Body mass index (BMI) Body weight Heart rate Oxygen saturation Oxygen saturation in Arterial blood by Pulse oximetry Systolic blood pressure Diastolic blood pressure Provider Name and Address Organization Details Last Updated DateTime 3 147.32 cm 21.6 kg/m2 68748.8 1 g 53 /min 99 % 99 % 152 mm[Hg] 70 mm[Hg] Indio Leigh [facility] 3 09:33:40 Date Recorded Body height Body mass index (BMI) Body weight Heart rate Oxygen saturation Oxygen saturation in Arterial blood by Pulse oximetry Systolic blood pressure Diastolic blood pressure Provider Name and Address Organization Details Last Updated DateTime 4 147.32 cm 20.7 kg/m2 85394.6 4 g 47 /min 99 % 99 % 118 mm[Hg] 68 mm[Hg] Nora Crawford [facility] 4 09:55:30 Date Recorded Body height Body mass index (BMI) Body weight Systolic blood pressure Diastolic blood pressure Provider Name and Address Organization Details Last Updated DateTime 10/09/2024 147.32 cm 21.1 kg/m2 28946.83 g 160 mm[Hg] 80 mm[Hg] Nora Crawford [facility] 4 16:26:22 Social History Question Answer Notes LastModified by Organizat ion Details LastModified Time Tobacco Smoking Status Former Smoker Ora Bunch NP, S [address] [facility], [place], [address], [facility] 12/21/2017 15:06:09 What Was The Date Of Your Most Recent Tobacco Screening? 10/09/2024 [email or web address] Information not available 10/09/2024 How Many Years Have You Smoked Tobacco? 45 [email or web address] Information not available 12/21/2017 Do You Or Have You Ever Used Any Other Forms Of Tobacco Or Nicotine? No [email or web address] Information not available 04/04/2024 Sex: Unknown Functional Status None recorded. Mental Status None recorded. Family History Nothing Reported. Medical History Condition Response Hypertension Y Polyps Y COPD Y Breast Cancer Y Gynecological HistoryNo gynecological history recorded. Obstetrics History GPAL:G 0 P 0 0 0 0 Immunizations Vaccine Type Date Status Note Provider Nam e and Address Organization Details Recorded Time Influenza, split virus, quadrivalent, preservative [address] [facility] 09/10/2020 10:11:31 COVID-19, mRNA, LNP-S, PF, 30 mcg/0.3 mL dose [address] [facility] 04/20/2022 08:14:02 COVID-19, mRNA, LNP-S, PF, 30 mcg/0.3 mL dose [address] [facility] 04/20/2022 08:14:10 COVID-19, mRNA, LNP-S, PF, 30 mcg/0.3 mL dose [address] [facility] 04/20/2022 08:14:17 COVID-19, mRNA, LNP-S, PF, 30 mcg/0.3 mL dose [address] [facility] 04/20/2022 08:14:24 COVID-19, mRNA, LNP-S, PF, 30 mcg/0.3 mL dose 2 completed Cyndi flower [facility] 11/03/2022 08:01:51 influenza, unspecified formulation 2 [facility] 11/03/2022 08:02:05 Pneumococcal conjugate PCV 13 2 completed [facility] 11/03/2022 08:02:30 Tdap 1 completed [facility] 11/03/2022 08:03:07 Pneumococcal Conjugate, unspecified formulation 3 completed SHAHRZAD ACEVES [address] [place], [address], [facility] 04/04/2024 10:09:09 Respiratory syncytial virus (RSV) MAB, unspecified 3 completed SHAHRZAD ACEVES [address] [place], [address], [facility] 04/04/2024 10:11:30 Influenza, split virus, quadrivalent, preservative 9 [facility] 09/10/2020 10:11:31 Influenza, split virus, quadrivalent, preservative 0 completed [facility] 09/10/2020 10:11:31 Influenza, adjuvanted, trivalent, PF 7 completed Zena flower [facility] 09/10/2020 10:11:31 Tdap 5 completed Zena flower [facility] 09/10/2020 10:11:31 pneumococcal, unspecified formulation 6 completed Zena flower [facility] 09/10/2020 10:11:31 pneumococcal, unspecified formulation 1 completed Zena flower [facility] 09/10/2020 10:11:31 Past Encounters Encounter ID Performer Location Encounter Start Date Encounter Closed Date Diagnosis/Indication Diagnosis SNOMED-CT Code Diagnosis ICD10 Code Diagnosis Note [id number] Ora Bunch NP, S [facility] [address] [facility] [address],[place] [address] 01/28/2018 11:08:11 01/28/2018 13:01:36 Candidiasis of mouth 62199170 B37.0 Essential hypertension 29013435 I10 stable [id number] Ora Bunch NP, S [facility] [address] [facility] [place] [address] 02/04/2018 09:35:54 02/04/2018 10:31:51 Chronic obstructive pulmonary disease 19651879 J44.9 stable with inhalers, no use rescue inhaler Solitary n odule of lung 381190545 R91.1 f/u Dr. Bojorquez Ventricula r premature beats 73120234 I49.3 stable with metoprolol Essential hypertension 40355457 I10 stable, given lab slip, pt. more comfortabl e with paper form Personal h istory of primary malignant neoplasm of breast 899651951 Z85.3 mammo due in March, order for diagnostic mammo provided, pt to schedule at [place] [id number] Ora Bunch NP, S [facility] [address] [facility] [place] [address] 06/10/2018 09:17:53 06/10/2018 12:18:07 Ventricular premature beats 54501741 I49.3 stable with metoprolol History of adenomatous polyp of colon 079469544 Z86.010 Personal h istory of primary malignant neoplasm of breast 013337113 Z85.3 up to date mammo Essential hypertension 83111478 I10 stable Solitary n odule of lung 062024682 R91.1 f/u Dr. Bojorquez External hordeolum 32828 08 H00.016 [id number] Ora Bunch NP, S [facility] [address] [facility] [address], [place] [address] 09/26/2018 09:33:52 09/26/2018 11:22:31 Essential hypertension 30842834 I10 stable History of adenomatous polyp of colon 035874006 Z86.010 up to date colonoscop y Ventricula r premature beats 62531916 I49.3 stable with metoprolol Solitary n odule of lung 980020578 R91.1 f/u Dr. Bojorquez, 2 mm no need f/u CT Mild chron ic obstructive pulmonary disease 252604925 J44.9 Breo helpful [id number] Ora Bunch NP, S [facility] [address] [facility],[place] [facility] [place] [address] 02/01/2019 09:22:00 02/01/2019 10:36:37 Screening procedure 63647424 Z13.9 Decreased estrogen level 160109505 E28.39 Essential hypertension 06755037 I10 stable Mild chron ic obstructive pulmonary disease 019081701 J44.9 Breo helpful History of adenomatous polyp of colon 452599427 Z86.010 up to date colonoscop y Ventricula r premature beats 02364450 I49.3 stable with metoprolol Solitary n odule of lung 676957036 R91.1 f/u Dr. Bojorquez, recent visit, will f/u 1 year [id number] January [facility] [address] [facility], [place] [address] 08/30/2019 09:28:17 08/30/2019 10:01:54 Chronic obstructive pulmonary disease 88902028 J44.9 breathing well sees pulm once per year Essential hypertension 52544664 I10 well controlled Ventricula r premature beats 08791775 I49.3 under control Solitary n odule of lung 852676493 R91.1 followed by pulm as well Advance care planning 71 2397730 Z71.89 HCP - daughter - tonai barton has advanced directives at home ppw provided to reevaluate Osteopenia 097528713 M85 .80 on vitamin d [id number] January [facility] [address] [facility],[place] [employer] [facility] [place] [address] 11/08/2019 09:19:25 11/08/2019 10:01:04 Chronic obstructive pulmonary disease 95678678 J44.9 breathing well sees pulm once per year Pain in ri ght hip joint 8572624495 61554 M25.551 Chronic back pain 020612 002 M54.5 [id number] SHAHRZAD ACEVES [facility] [address] [facility], [place] [address] 03/05/2020 09:18:58 03/05/2020 10:28:43 Adult health examination 730038285 Z00.00 no concerns Screening for cardiovascular system disease 944702730 Z13.6 bw Screening for malignant neoplasm of colon 153426561 Z12.11 no longer needs them per GI doctor had it done at [place] Screening for osteoporosis 342535063 Z13.820 had it done at [facility] Screening mammography 24 887704 Z12.31 already had it done at [facility] has it done every year Chronic ob structive pulmonary disease 58812309 J44.9 stable [id number] SHAHRZAD ACEVES [facility] [address] [facility], [facility] [place] [address] 09/10/2020 09:51:49 09/10/2020 10:41:08 Chronic obstructive pulmonary disease 42862974 J44.9 stable Ventricula r premature beats 09156613 I49.3 stable on metoprolol , will need refill med soon Essential hypertension 42968067 I10 BP stable, no side effects [id number] SHAHRZAD ACEVES [facility] [address] [facility] [place] [address] 03/11/2021 09:31:38 03/11/2021 10:00:40 Essential hypertension 52682083 I10 BP stable, no side effects Chronic ob structive pulmonary disease 56984804 J44.9 stable Degenerati on of lumbar intervertebral disc 18665496 M51.36 [place] [id number] SHAHRZAD ACEVES [facility] [address] [facility], [place] [address] 04/23/2021 10:11:11 04/23/2021 11:20:36 Cellulitis 957511226 L03.90 will start on doxy for infection Removal of suture 721414 01 Z48.02 sutures removeddue to infection wound did not close correctly Dehiscence of surgical wound 42964485 T81.30XA sutures did not take, the wound was open and underlying infectiona lot of pain with removal of sutures [id number] SHAHRZAD ACEVES [facility] [address] [facility],[place] [address] 09/24/2021 09:28:32 09/24/2021 11:30:07 Chronic obstructive pulmonary disease 98876936 J41.0 stable Essential hypertension 61627288 I10 BP stable, no side effects Osteopenia 549592515 M85 .80 stable Active or passive immunization 618178138 Z23 given locations for a pna vaccine [id number] SHAHRZAD ACEVES Internal [facility] [address] [facility] [address],[place] [address] 10/17/2021 09:02:59 10/17/2021 14:26:45 Chronic obstructive pulmonary disease 38457839 J41.0 stable Essential hypertension 55483085 I10 improved with HTCZ increasewi ll continue without changes for now [id number] SHAHRZAD ACEVES Internal [facility] [address] [facility] [address],[place] [address] 04/20/2022 11:07:58 04/20/2022 15:33:58 Chronic obstructive pulmonary disease 25585571 J41.0 stable Essential hypertension 34974129 I10 excellent control on her medication currently [id number] SHAHRZAD ACEVES Internal [facility] [address] [facility] [address],[place] [address] 11/03/2022 09:57:08 11/04/2022 10:12:19 Chronic obstructive pulmonary disease 03278134 J41.0 stablehas a f/u in the spring with Dr. Bojorquez will wait until she sees Dr. Bojorquez Essential hypertension 45347722 I10 excellent control on her medication currently Osteopenia 033449855 M85 .80 stabledecl ined repeat bone density at this time [id number] SHAHRZAD ACEVES Internal [facility] [address] [facility] [address],[place] [address] 04/26/2023 09:28:39 04/26/2023 10:46:43 Chronic obstructive pulmonary disease 43871345 J41.0 stable Essential hypertension 19783346 I10 excellent control on her medication currently (at ome is stable) recheck in office is always excellent [id number] SHAHRZAD ACEVES Internal [facility] [address] [facility] [address],[place] [address] 10/19/2023 08:00:18 10/19/2023 11:32:18 Chronic obstructive pulmonary disease 71507183 J41.0 stableno flare upsdoesn't use inhaler Essential hypertension 96822837 I10 excellent control on her medication currently Chronic ob structive pulmonary disease 08479904 J44.9 stable [id number] SHAHRZAD ACEVES Internal [facility] [address] [facility] [address],[place] [address] 04/04/2024 09:39:10 04/04/2024 10:39:12 Depression screening 338092559 Z13.31 negative Essential hypertension 07751838 I10 excellent control on her medication currently Chronic ob structive pulmonary disease 41237041 J41.0 J44.9 stableno flare upsdoesn't use inhaler [id number] SHAHRZAD ACEVES Internal [facility] [address] [facility] [address],[place] [address] 10/09/2024 15:52:29 10/10/2024 09:01:00 Essential hypertension 10241264 I10 excellent control on her medication currentlys tressed today about driving in the dark Chronic ob structive pulmonary disease 59821743 J41.0 J44.9 stableno flare upsdoesn't use inhaler Health Concerns Section Related Observation LastModified by Organization Detai ls LastModified Time None Recorded Concern Status LastModified by Organization Details LastModified Time None Recorded Advance Directives Directive None Recorded Payers Encounter Date Sequence Insurance Name Policy Number Policy Bai Covered Member ID Bai Member ID Guarantor Name 11/03/2022 2 [employer] OPTIONS (MEDICARE SUPPLEMENT) Ora Davis [id number] Ora Davis 11/03/2022 1 [place] Ora Davis [id number] Ora Davis 04/26/2023 2 [employer] OPTIONS (MEDICARE SUPPLEMENT) Ora Davis [id number] Ora Davis 04/26/2023 1 [place] Ora Davis [id number] Ora Davis 10/19/2023 2 [employer] OPTIONS (MEDICARE SUPPLEMENT) Ora Davis [id number] Ora Davis 10/19/2023 1 [place] Ora Davis [id number] Ora Davis 04/04/2024 2 [employer] OPTIONS (MEDICARE SUPPLEMENT) Ora Davis [id number] Ora Davis 04/04/2024 1 [place] Ora Davis [id number] Ora Davis 10/09/2024 2 [employer] OPTIONS (MEDICARE SUPPLEMENT) Ora Davis [id number] Ora Davis 10/09/2024 1 [place] Ora Davis [id number] Ora Davis Notes Date Note Type Note Provider Name and Address Organization Details Recorded Time 3 text/html 6 mos f/u COPD: stable, mild increase in symptoms after being sick after [facility] a fu with pulila in the [facility] hold off HTN: today in the office the patient BP is 140/70 L arm sitting; lower at home the patient is doing well on the BP medication with no side effects and no adjustment of their medications needed today at the appointment well-controlled on medication denies chest pain, sob, ankle swelling, orthopnea, palpitations will fu again in 6 mos osteopenia: declined repeat bone densityon top of her MMdoesn't feel like anything changed so will hold for now SHAHRZAD ACEVES [address] [place] [address], [place], [phone], [facility] 11/03/2022 10:21:50 3 text/html f/u COPD the patient reports that she did injury her toe while walking at [facility], stepped into a divot and most likely sprained it COPD: stabledoing wellthat patient sometimes uses the inhaler before she goes walking but it doesn't make much of a difference HTN: stable with recheckmedication list is still complete will set up with bannerelise call back for her regular fu and physical going on vacation (ruth) when she leaves appt today otherwise doing really well discussed her mood, did have a slump for a bit but is doing much better SHAHRZAD ACEVES [address] [place], [phone], [facility] 04/26/2023 09:47:37 4 text/html 6 mos f/u The patient is participating in this appointment via telemedicine communication with a phone call/video calling service ([employer])The patient consents to use of these platforms in place of an in-person appointment due to either sick symptoms the patient is presenting with or current office closure due to COVID exposure in order to keep our office staff and patients safe HTN is stable per patient, doing well on medicationsno side effects BP is 125/72 left arm sittingHR is 52 bpmO2 sat isWeight 104 pounds her breathing is good; she only notices it with muggy weather does admit she needs to get more activeshe is trying to start walking and pilates denies chest pain, sob, fever, chills, headaches, dizziness, urinary changes, bowel changes, MSK changes SHAHRZAD ACEVES [address] [place], [address], [facility] 10/19/2023 10:06:06 4 text/html 6 mos f/u depression screening is negative the patient is here for her 6 mos f/u appointmentreports no changes per the patient HTN: today in the office the patient BP is 118/68 L arm sitting the patient is doing well on the BP medication with no side effects and no adjustment of their medications needed today at the appointment well-controlled on medication denies chest pain, sob, ankle swelling, orthopnea, palpitations went through her vaccine h/xwould only be due for the Flu vaccine at this time, during may - july will f/u with patient in 6 mos SHAHRZAD ACEVES [address] [place], [phone], [facility] 04/04/2024 10:18:52 4 text/html 6 mos f/u HTN: today in the office the patient BP is 120/80 at home (hasn't taken her second dose of her meds)the patient is doing well on the BP medication with no side effects and no adjustment of their medications needed today at the appointmentwell-control led on medicationdenies chest pain, sob, ankle swelling, orthopnea, palpitations the patient is otherwise doing really wellwill fu with refills when do SHAHRZAD ACEVES [address] [place], [address], [facility] 10/09/2024 16:56:12 OBGyn Episode No OBEpisode recorded.
[2025-01-29 19:10] VITALS: BP 140/76; PULSE 50; RESP 13; TEMP 36.6; O2SAT 99
--- NOTE | 2025-01-29 19:10 | PC.NURSE ---
Patient continually desatting to 97 - 90% on RA. Placed on 3L sats 99%
--- NOTE | 2025-01-29 22:00 | PC.NURSE ---
This comic writer assumed care of this Pt at 1900. Pt A&Ox3, denies any pain/palpitations at this time. Pt SpO2 92% on RA, placed back on 2L via NC. Pt ambulated to BR independently with steady gait.
[2025-01-29 22:32] VITALS: BP 162/86; PULSE 68; RESP 16; O2SAT 94
--- NOTE | 2025-01-29 23:36 | PM.IMHP ---
History of Present Illness Date of Service: 01/29/25 Chief Complaint: Palpitations 84-year-old female with a past medical history of hypertension presented to the hospital with a chief complaint of palpitations. Patient reports since Wednesday she has been not feeling well. And yesterday she felt palpitations without any other associated nausea vomiting, lightheadedness, dizziness, chest pain, shortness of breath. Patient denies any fever chills. Denies any abdominal pain. Denies any urinary symptoms. Review of all other systems is negative except mentioned above ER course: Per ER team, patient reported having palpitations; EKG showed new onset AFib with rapid ventricular response. Patient's heart rate improved without any intervention. But remained in AFib. [facility] Medical History Breast cancer COPD (chronic obstructive pulmonary disease) HTN (hypertension) Social History Household Members: None Housing: Homeless Do you presently have visiting nurse or other home services: No Alcohol intake: never Patient Tobacco Use Status: Never used Tobacco Smoked in Last 30 Days: No Use of substances other than those prescribed or required for medical reasons: No Have you been hit, kicked, punched, or otherwise hurt by someone within the past year? If so, by whom?: No Are you made to feel afraid or neglected: No Advance Directives: No Advance Directives Information Provided: Yes Do you have a plan to hurt others: No Plan Recently lost weight without trying: No Patient : No Meds Allergies Allergy/AdvReac Type Severity Reaction Status Date / Time No Known Allergies Allergy Verified 01/29/25 17:27 [No Known Allergies*] Active Medications: Current Medications Acetaminophen (Acetaminophen 325 Mg Tablet) 650 mg PO Q6H PRN PRN Reason: Pain, Mild 1-3,fever,headache Calcium Carbonate (Calcium Carbonate 750 Mg Tab.Chew) 750 mg PO Q4H PRN PRN Reason: Heartburn Enoxaparin Sodium (Enoxaparin Sodium 40 Mg/0.4 Ml Syringe) 40 mg SUBCUT Q24H JOEY Magnesium Hydroxide (Milk Of Magnesia 30 Ml Oral.Susp) 30 ml PO DAILY PRN PRN Reason: Constipation Melatonin (Melatonin 3 Mg Tablet) 6 mg PO BEDTIME PRN PRN Reason: Insomnia Sodium Chloride (0.9 % Sodium Chloride Flush 3 Ml Syringe) 3 ml IVFLUSH QSHIFT JOEY Physical Exam Vital Signs and Narrative: Vital Signs: Last Vital Signs Temp 97.8 F 01/29/25 19:10 Pulse 68 01/29/25 22:32 Resp 16 01/29/25 22:32 BP 162/86 H 01/29/25 22:32 Pulse Ox 94 01/29/25 22:32 O2 Del Method Nasal Cannula 01/29/25 22:32 O2 Flow Rate 2 01/29/25 22:32 BMI result Body Mass Index 22.3 Gen: Appears be in no acute distress HEENT: NCAT, Moist mucosa. Pulmonary: Vesicular breath sounds, fair air entry CVS: Normal S1-S2 Abdomen: BS+, Soft, Nontender Extremities: Warm well perfused Neuro: Alert and awake. Results Labs 01/29/25 17:35 01/29/25 17:35 Labs: Laboratory Results - last 24 hr 01/29/25 17:35 MCV 88.2 MCH 29.9 MCHC 33.9 RDW 14.3 Plt Count 209 MPV 9.6 Immature Gran % (Auto) 0.3 Neut % (Auto) 41.2 L Lymph % (Auto) 46.0 H [place] % (Auto) 9.7 Eos % (Auto) 2.2 Baso % (Auto) 0.6 Lymph # (Auto) 2.9 [place] # (Auto) 0.6 Eos # (Auto) 0.1 Baso # (Auto) 0.0 Abs Immat Gran (auto) 0.02 Absolute Neuts (auto) 2.6 Absolute Nucleated RBC 0.000 Nucleated RBC % (auto) 0.0 PT 13.1 H INR 1.1 Anion Gap 15 Estim Creat Clear Calc 40.3 Estimated GFR > 60 Random Glucose 100 Calcium 9.6 Magnesium 1.5 L Total Bilirubin 1.1 H AST 54 H ALT 92 H Alkaline Phosphatase 104 B-Natriuretic Peptide 593 H Total Protein 6.8 Albumin 3.9 TSH 3.60 Assessment and Plan (1) Atrial fibrillation: Qualifiers: Atrial fibrillation type: unspecified Qualified Code(s): I48.91 - Unspecified atrial fibrillation Status: Acute Plan 84-year-old female with a past medical history of hypertension presented to the hospital with a chief complaint of palpitations. Noted have new onset AFib. New onset AFib: Patient initially had tachycardia which improved currently. Patient's CHADS-VASc score is 2 Will defer to Cardiology in regards to anticoagulation Will obtain echocardiogram Telemetry New onset CHF: Chest x-ray showed pulmonary congestion ProBNP elevated to 500s. Echocardiogram pending Daily weights and I's and O's Cardiology follow-up Hypertension: Hold hydrochlorothiazide. Continue metoprolol. DVT prophylaxis: Lovenox Code status: Full code Quality Stroke Does the patient have a stroke diagnosis?: No VTE Prior VTE?: No VTE Risk Level:: Medical - moderate - high VTE Device Contraindication: Treatment Not Indicated VTE Drug Contraindication: N/A - Med Ordered
[2025-01-30] VITALS (9 sets, daily range): BP systolic 145–184; BP diastolic 78–96; PULSE 77–122; RESP 13–20; TEMP 36.3–36.9; O2SAT 92–96; BMI 21.8
[2025-01-30] MEDS: 0.9 % Sodium Chloride Flush 3 ML SYRINGE IVFLUSH ×3 (00:22→21:15)
[2025-01-30] MEDS: Enoxaparin Sodium 40 MG/0.4 ML SYRINGE SUBCUT (00:22)
[2025-01-30] MEDS: Acetaminophen 325 MG TABLET 650 MG PO (03:14)
[2025-01-30] MEDS: Metoprolol Tartrate 25 MG TABLET PO (06:11)
[2025-01-30 06:36] LABS: MANUAL DIFF FLAG NO
[2025-01-30 06:46] LABS: Basophils Percent Auto 0.7 % (0-2); Eosinophils Absolute Auto 0.1 X10*3/uL (0.0-0.4); Eosinophils Percent Auto 1.9 % (0-4); Hematocrit 40.3 % (37.0-47.0); Hemoglobin 13.5 g/dl (12.0-16.0); Imm Gran Abs Auto 0.01 X10*3/uL (0.00-0.03); Imm Gran Pct Auto 0.2 % (0.0-0.4); Lymphocytes Absolute Auto 2.1 X10*3/uL (1.2-4.9); Lymphocytes Percent Auto 36.4 % (20-40); Mean Corpuscular HGB Conc 33.5 g/dl (31.0-35.0); Mean Corpuscular Hemoglobin 29.9 pg (27.0-33.0); Mean Corpuscular Volume 89.2 fL (80.0-98.0); Mean Platelet Volume 9.6 fL (9.4-12.3); Monocytes Absolute Auto 0.6 X10*3/uL (0.1-1.2); Monocytes Percent Auto 10.1 % (2-11); Neutrophils Percent Auto 50.7 % (45-73); Platelet Count 179 X10*3/uL (160-400); Red Blood Count 4.52 X10*6/uL (4.20-5.50); Red Cell Distribution Width 14.3 % (11.0-16.0); White Blood Count 5.8 X10*3/uL (4.8-10.8)
--- NOTE | 2025-01-30 07:00 | CA_ITS ---
Transthoracic Echocardiogram Patient (Last, First, Middle): Ora Davis, Gender: Female Date of : 1940 Age: 84 Procedure Date: 01/30/2025 Procedure Type: [place]ansthoracic [place] [facility] [place]: 147.32 cm Weight: 47.17 kg BSA: 1.38 m2 Heart Rate: bpm BP: 150 / 78 mmHg Stained Glass Window Designer: SB Referring MD: Jevon Lehman MD Symptoms: afib Study Quality: Adequate ECG Rhythm: Atrial Fibrillation Conclusions: - The left ventricular systolic function is normal. The visually estimated ejection fraction is between 55-60%. - The left atrium is severely dilated. - There is moderate to severe mitral valve regurgitation. - There is mild to moderate tricuspid valve regurgitation. - Mild pulmonary hypertension is present. - There is a moderate pericardial effusion. Findings Left Ventricle Normal left ventricular cavity size. There is mildly increased left ventricular wall thickness. The left ventricular systolic function is normal. The visually estimated ejection fraction is between 55-60%. There is no evidence of regional wall motion abnormalities. Diastolic function is indeterminate on the basis of available data. Right Ventricle Normal right ventricular cavity size. There is mildly decreased right ventricular systolic function. Atria The left atrium is severely dilated. The right atrium is normal in size. Aortic Valve There is a normal trileaflet aortic valve. There is no aortic valve stenosis. There is no aortic valve regurgitation. Mitral Valve There is moderate mitral annular calcification. There is moderate to severe mitral valve regurgitation. There is no mitral valve stenosis. Posterior mitral leaflet not well visualized, possible restriction. Pulmonic Valve There is trace to mild pulmonic valve regurgitation. Tricuspid Valve There is mild to moderate tricuspid valve regurgitation. Mild pulmonary hypertension is present. Great Vessels The asc aorta is normal in size. Venous The inferior vena cava is normal in size and collapses less than 50% with inspiration. Pericardium/Pleural There is a moderate pericardial effusion. There is a left sided pleural effusion. There are no definitive echocardiographic findings of tamponade physiology. Prior Study Comparison Changes noted compared to prior study dated: 07/16/2016. Increase in pericardial effusion. Moderate mitral regurgitation previously noted. Measurements 2D Linear Measurements IVSd: 1.21 0.6-0.9/0.6-1.0 cm LVIDd: 4.18 3.9-5.3/4.2-5.9 cm LVIDd Index: 3.03 2.4-3.2/2.2-3.1 cm/m2 LVIDs: 2.68 2.0-3.6 cm LVPWd: 1.17 0.7-1.1 cm LA Diam: 3.60 2.7-3.8/3.0-4.0 cm LAIDs Index: 2.61 1.5-2.3 cm/m2 LV Mass: 217.64 67-162/88-224 g LV Mass Index: 157.71 43-95/49-115 g/m2 LVOT Diam: 1.70 3.0+(-)1.3 cm 2D Systolic Function EF 4C: 47.80 >55% EF 2C: 58.00 >55% EF BiP: 54.20 >55% Mitral Valve MV Pk E: 1.29 MV Decel Time: 174.00 MR Vol - PW Dopp: 11.62 MR VTI: 1.66 MR ERO: 7.00 MR Alias Lavon: 0.39 MR RAD: 0.40 Aortic Valve AoV Pk Lavon: 1.43 AoV Pk Grad: 8.00 GLENDA: 1.35 LVOT LVOT Pk Lavon: 0.85 LVOT Mn Lavon: 0.57 LVOT VTI: 0.13 LVOT Pk Grad: 3.00 LVOT Mn Grad: 2.00 LVOT Diam: 1.70 LVOT Area: 2.27 Diastolic Function MV Pk E: 1.29 Right Ventricle TAPSE (mm): 15.70 TVS' Lavon: 9.14 Tricuspid Valve TR Pk Lavon: 2.75 TR Pk Grad: 30.00 RA Press: 8.00 RVSP: 38.00 Great Vessels Aorta Sinus of Valsalva: 3.00 2.0-3.5 cm Ao Asc: 3.20 2.1-3.4 cm Pulmonary Valve PV Pk Lavon: 0.74 Peak PV Grad: 2.00 AL Pk Lavon: 2.33 Updated in Other Vendor System with Status of Final Donnell Sapp MD electronically signed on 01/30/2025 3:21:25 PM with status of Final
[2025-01-30 07:05] LABS: Alanine Aminotransferase 74 U/L (0-31); Albumin Level 3.5 g/dL (3.5-5.0); Alkaline Phosphatase 93 U/L (39-117); Anion Gap 13 (12-20); Aspartate Amino Transferase 36 U/L (5-31); Bilirubin Total 1.3 mg/dL (0.0-1.0); Blood Urea Nitrogen 9 mg/dL (9-16); Calcium 9.1 mg/dL (8.4-10.2); Carbon Dioxide 29 mmol/L (22-29); Chloride 102 mmol/L (96-108); Creatinine Clr Calc Pharmacy 42.8; Estimated Glomerular Filt Rate > 60; Glucose Random 82 mg/dL (60-115); Sodium 141 mmol/L (135-145); Total Protein 6.1 g/dL (6.5-8.0)
--- NOTE | 2025-01-30 09:02 | P.CONCA_ITS ---
History of Present Illness History of Present Illness Date of Service: 01/30/25 Chief complaint: Afib Narrative: This is a cardiology consultation regarding atrial fibrillation. Apparently has a history of hypertension. Over this weekend, she apparently felt palpitations. She did not have any other complaints like angina or shortness of breath. No previous cardiac history. Denies any history of coronary disease or myocardial infarction or cardiomyopathy. She presented to the ER and found to have atrial fibrillation with rapid ventricular response. Subsequently, admitted for further care. Today, she states that she is feeling better. Review of Systems 2 Review of Systems: Yes all other systems are reviewed and are negative Constitutional: Constitutional: Reports as per HPI and Reports no additional constitutional complaints Eyes: Eyes: Reports as per HPI and Denies no additional eye complaints ENT: Denies system reviewed and no additional complaints, except as documented and Reports as per HPI Cardiovascular: Cardiovascular: Reports as per HPI, Reports no additional cardiovascular complaints, Denies acrocyanosis, Denies cool extremities, Denies chest pain, Denies leg edema, Denies lightheadedness, Reports palpitations and Denies dyspnea Respiratory: Respiratory: Reports as per HPI, Denies no additional respiratory complaints and Denies dyspnea Gastrointestinal: Gastrointestinal: Reports as per HPI and Denies no additional gastrointestinal complaints Genitourinary: Genitourinary: Reports as per HPI Musculoskeletal: Musculoskeletal: Reports no additional musculoskeletal complaints and Reports as per HPI Integumentary/Breasts: Skin/Breast: Reports system reviewed and no additional complaints, except as docu Neurologic: Reports system reviewed and no additional complaints, except as documented and Reports as per HPI Psychiatric: Psychiatric: Reports no additional psychiatric complaints and Reports as per HPI Endocrine: Endocrine: Reports no additional endocrine complaints, Reports as per HPI and Reports palpitations Hematologic/Lymphatic: Hematologic/Lymphatic: Reports no additional hematologic/lymphatic complaints and Reports as per HPI Allergic/Immunologic: Allergic/Immunologic: Reports no additional allergic/immunologic complaints and Reports as per HPI [facility] Past Medical History Medical History (Updated 01/30/25 @ 09:07 by Donnell Sapp MD) Primary hypertension Breast cancer COPD (chronic obstructive pulmonary disease) Family History Family History (Updated 01/30/25 @ 09:04 by Donnell Sapp MD) Unknown No problems noted. Pertinent family history: Patient not aware of family history details. Social History Social History (Updated 01/30/25 @ 09:04 by Donnell Sapp MD) Household Members: None Do you presently have visiting nurse or other home services: No Alcohol intake: never Patient Tobacco Use Status: Never used Tobacco Meds Allergies Allergy/AdvReac Type Severity Reaction Status Date / Time No Known Allergies Allergy Verified 01/29/25 17:27 [No Known Allergies*] Active Medications: Current Medications Acetaminophen (Acetaminophen 325 Mg Tablet) 650 mg PO Q6H PRN PRN Reason: Pain, Mild 1-3,fever,headache Last Admin: 01/30/25 03:14 Dose: 650 mg Calcium Carbonate (Calcium Carbonate 750 Mg Tab.Chew) 750 mg PO Q4H PRN PRN Reason: Heartburn Enoxaparin Sodium (Enoxaparin Sodium 40 Mg/0.4 Ml Syringe) 40 mg SUBCUT Q24H [facility] Last Admin: 01/30/25 00:22 Dose: 40 mg Magnesium Hydroxide (Milk Of Magnesia 30 Ml Oral.Susp) 30 ml PO DAILY PRN PRN Reason: Constipation Melatonin (Melatonin 3 Mg Tablet) 6 mg PO BEDTIME PRN PRN Reason: Insomnia Metoprolol Tartrate (Metoprolol Tartrate 25 Mg Tablet) 25 mg PO BID [facility]; Protocol Last Admin: 01/30/25 08:42 Dose: Not Given Sodium Chloride (0.9 % Sodium Chloride Flush 3 Ml Syringe) 3 ml IVFLUSH [facility] Last Admin: 01/30/25 08:43 Dose: Not Given Home Medications ?Medication ?Instructions ?Recorded ?Confirmed ?Last Taken ?Type hydrochlorothiazide 12.5 mg tablet 12.5 mg PO BID 01/30/25 Unknown History lisinopril 20 mg tablet 20 mg PO DAILY 01/30/25 Unknown History metoprolol tartrate 25 mg tablet 25 mg PO BID 01/30/25 Unknown History Physical Exam 2 Vital Signs: Vital Signs: Last Vital Signs Temp 98.0 F 01/30/25 07:30 Pulse 77 01/30/25 07:30 Resp 20 01/30/25 07:30 BP 150/78 H 01/30/25 07:30 Pulse Ox 95 01/30/25 07:30 O2 Del Method Room Air 01/30/25 07:30 O2 Flow Rate 2 01/29/25 22:32 BMI result Body Mass Index 21.8 Const: General: comfortable and no acute distress O rientation/consciousness: patient oriented x3 HEENT: Other: Unremarkable Head: Yes normal to inspection Neck: Neck: Yes normal visual inspection Chest: Chest palpation & inspection: normal inspection of the chest Resp: Auscultation: clear to auscultation bilaterally Cardio: Palpation: normal PMI Heart sounds: S1 normal heart sound present, S2 normal heart sound present, no gallops, no murmurs and no rubs GI: Palpation (GI): Soft to palpation Back/Spine/Pelvis: Other: unremarkable Skin: General skin exam: no rashes or lesions noted Neuro: General: patient oriented x3 Extrem: General: Yes normal to inspection Psych: Mental Status: mental status grossly normal Objective Labs and Meds 01/30/25 06:18 01/30/25 06:18 Lab results: Laboratory Results - last 24 hr 01/29/25 01/30/25 17:35 06:18 WBC 6.3 5.8 RBC 4.58 4.52 Hgb 13.7 13.5 Hct 40.4 40.3 MCV 88.2 89.2 MCH 29.9 29.9 MCHC 33.9 33.5 RDW 14.3 14.3 Plt Count 209 179 MPV 9.6 9.6 Immature Gran % (Auto) 0.3 0.2 Neut % (Auto) 41.2 L 50.7 Lymph % (Auto) 46.0 H 36.4 [place] % (Auto) 9.7 10.1 Eos % (Auto) 2.2 1.9 Baso % (Auto) 0.6 0.7 Lymph # (Auto) 2.9 2.1 [place] # (Auto) 0.6 0.6 Eos # (Auto) 0.1 0.1 Baso # (Auto) 0.0 0.0 Abs Immat Gran (auto) 0.02 0.01 Absolute Neuts (auto) 2.6 3.0 Absolute Nucleated RBC 0.000 0.000 Nucleated RBC % (auto) 0.0 0.0 PT 13.1 H INR 1.1 Sodium 141 141 Potassium 3.2 L 3.0 L Chloride 100 102 Carbon Dioxide 29 29 Anion Gap 15 13 BUN 11 9 Creatinine 0.67 0.63 Estim Creat Clear Calc 40.3 42.8 Estimated GFR > 60 > 60 Random Glucose 100 82 Calcium 9.6 9.1 Magnesium 1.5 L Total Bilirubin 1.1 H 1.3 H AST 54 H 36 H ALT 92 H 74 H Alkaline Phosphatase 104 93 Troponin I High Sens 6.0 B-Natriuretic Peptide 593 H Total Protein 6.8 6.1 L Albumin 3.9 3.5 TSH 3.60 ECG Interpretation: EKG with atrial fibrillation rate of 126/Min. Right bundle-branch block pattern. Inferior T inversions. In the follow-up EKG, atrial flutter possibly with rate of 61/Min. In a prior EKG from 2020, sinus bradycardia at 54/Min. Right bundle-branch block is again noted with inferior T inversions. Assessment and Plan (1) Atrial fibrillation with rapid ventricular response: Status: Acute Increase metoprolol dose to 50 mg b.i.d.. Leonel. She has got no bleeding concerns. Obtain echocardiogram. Possible outpatient cardioversion after 4 weeks of adequate anticoagulation. (2) Primary hypertension: Status: Acute Elevated blood pressures. Home medications listed as metoprolol, lisinopril, hydrochlorothiazide. Increase beta-az dose should help. Further titrations possibly as an outpatient. Plan Chest x-ray reported pulmonary vascular congestion but even the previous x-ray from few years back looks similar. Hence may be a chronic finding. Clinically, she has no overt CHF. No need for aggressive diuretics. Obtain echocardiogram. Procedures Date of Service Date of Service: 01/30/25
--- NOTE | 2025-01-30 09:37 | PHA.MEDREC ---
Addendum entered by Sima Fitch RPh 01/30/25 09:41: Reviewed by [facility] Original Note: Pharmacy Consult ? Medication Reconciliation Pharmacy has completed the medication reconciliation. Spoke with patient and she was able to confirm her medications. Patient states she takes Ibuprofen 200mg once a day as needed and Tylenol 325mg tabs only when absolutely needed.
--- NOTE | 2025-01-30 09:44 | P.PNIM_ITS ---
Subjective Subjective Date of Service: 01/30/25 Interval History: f/u on new afib with RVR HR is better but still in AFIB Physical Exam 2 Vital Signs: Vital Signs: Last Vital Signs Temp 98.0 F 01/30/25 07:30 Pulse 77 01/30/25 07:30 Resp 20 01/30/25 07:30 BP 150/78 H 01/30/25 07:30 Pulse Ox 95 01/30/25 07:30 O2 Del Method Room Air 01/30/25 07:30 O2 Flow Rate 2 01/29/25 22:32 BMI result Body Mass Index 21.8 General: AO X 3, no acute distress Resp: CTA bilateral CVS: S1,S2, iregular iregular GI: +BS, NT, no distention Skin: No rash Neuro: motor grossly intact Psych: appropriate affect Objective Data Active Medications Acetaminophen (Acetaminophen 325 Mg Tablet) 650 mg PO Q6H PRN PRN Reason: Pain, Mild 1-3,fever,headache Last Admin: 01/30/25 03:14 Dose: 650 mg Documented By: JASBIR Apixaban (Apixaban 5 Mg Tablet) 5 mg PO BID JOEY Calcium Carbonate (Calcium Carbonate 750 Mg Tab.Chew) 750 mg PO Q4H PRN PRN Reason: Heartburn Magnesium Hydroxide (Milk Of Magnesia 30 Ml Oral.Susp) 30 ml PO DAILY PRN PRN Reason: Constipation Melatonin (Melatonin 3 Mg Tablet) 6 mg PO BEDTIME PRN PRN Reason: Insomnia Metoprolol Tartrate (Metoprolol Tartrate 25 Mg Tablet) 25 mg PO Q6H JOEY; Protocol Sodium Chloride (0.9 % Sodium Chloride Flush 3 Ml Syringe) 3 ml IVFLUSH QSHIFT [facility] Last Admin: 01/30/25 08:43 Dose: Not Given Documented By: JOSE Non-Admin Reason: Patient eating Labs 01/30/25 06:18 01/30/25 06:18 Labs: Laboratory Results - last 24 hr 01/29/25 01/30/25 17:35 06:18 MCV 88.2 89.2 MCH 29.9 29.9 MCHC 33.9 33.5 RDW 14.3 14.3 Plt Count 209 179 MPV 9.6 9.6 Immature Gran % (Auto) 0.3 0.2 Neut % (Auto) 41.2 L 50.7 Lymph % (Auto) 46.0 H 36.4 [place] % (Auto) 9.7 10.1 Eos % (Auto) 2.2 1.9 Baso % (Auto) 0.6 0.7 Lymph # (Auto) 2.9 2.1 [place] # (Auto) 0.6 0.6 Eos # (Auto) 0.1 0.1 Baso # (Auto) 0.0 0.0 Abs Immat Gran (auto) 0.02 0.01 Absolute Neuts (auto) 2.6 3.0 Absolute Nucleated RBC 0.000 0.000 Nucleated RBC % (auto) 0.0 0.0 PT 13.1 H INR 1.1 Anion Gap 15 13 Estim Creat Clear Calc 40.3 42.8 Estimated GFR > 60 > 60 Random Glucose 100 82 Calcium 9.6 9.1 Magnesium 1.5 L Total Bilirubin 1.1 H 1.3 H AST 54 H 36 H ALT 92 H 74 H Alkaline Phosphatase 104 93 B-Natriuretic Peptide 593 H Total Protein 6.8 6.1 L Albumin 3.9 3.5 TSH 3.60 Assessment and Plan (1) Primary hypertension: Status: Acute (2) Atrial fibrillation: Status: Acute (3) Atrial fibrillation with rapid ventricular response: Status: Acute Plan 84-year-old female with a past medical history of hypertension on HCTZ and Lisinopril presented with palpitations and was found to have new-onset atrial fibrillation with rapid ventricular response (AFib with RVR) and a possible concern for heart failure.She was initially treated with IV Cardizem, followed by transition to metoprolol, with overall improvement in heart rate control. She was evaluated by cardiology, who recommended increasing metoprolol to 50 mg twice daily and initiating Eliquis for stroke prevention. No bleeding concerns were identified. An echocardiogram was also recommended. Regarding possible heart failure, the elevated BNP and CXR findings suggestive of CHF are likely related to AFib with RVR. The patient appears euvolemic at this time, so aggressive diuresis will be avoided. Hypertension: Restart home meds of lisinopril, metorprolol and HCTZ DVT prophylaxis: Lovenox Code status: Full code Probably dc later today after echocardiogrram Quality Stroke Does the patient have a stroke diagnosis?: No VTE Prior VTE?: No VTE Risk Level:: Medical - moderate - high VTE Device Contraindication: Treatment Not Indicated VTE Drug Contraindication: N/A - Med Ordered
--- NOTE | 2025-01-30 11:07 | MHC.CM.PN ---
CM met with Patient and her Daughter/HCP/Celia at bedside and addressed IMM with them (original was given to Patient and a copy has been placed on the chart). Patient lives alone in a house and required no services nor DME [employer]. Home/self care is the goal and CM has initiated and will follow for dc planning. PCP is Dr. Devante Leigh and Daughter will transport to home at time of dc.
[2025-01-30] MEDS: lisinopriL 20 MG TABLET PO (11:38)
[2025-01-30] MEDS: hydroCHLOROthiazide 12.5 MG TABLET PO ×2 (11:38→19:49)
[2025-01-30] MEDS: Apixaban 5 MG TABLET PO ×2 (11:38→19:49)
[2025-01-30] MEDS: Potassium Chloride Packet 20 MEQ PACKET 40 MEQ PO (16:09)
[2025-01-30] MEDS: Metoprolol Tartrate 5 MG/5 ML VIAL IVPUSH (16:10)
[2025-01-30] MEDS: Digoxin 0.5 MG/2 ML AMPUL 0.25 MG IVPUSH ×2 (16:14→21:15)
[2025-01-30] MEDS: Furosemide 20 MG/2 ML VIAL IVPUSH (16:16)
[2025-01-30] MEDS: lisinopriL 10 MG TABLET PO (18:14)
[2025-01-30] MEDS: Metoprolol Tartrate 50 MG TABLET PO (19:49)
[2025-01-31] VITALS: BP 147/70; PULSE 75; RESP 18; TEMP 36.8; O2SAT 97
[2025-01-31 03:21] VITALS: BP 139/69; PULSE 62; RESP 18; TEMP 36.8; O2SAT 95
[2025-01-31 07:02] VITALS: BP 156/84; PULSE 71; RESP 14; TEMP 36.8; O2SAT 92
[2025-01-31] MEDS: Apixaban 5 MG TABLET PO (08:09)
[2025-01-31] MEDS: hydroCHLOROthiazide 12.5 MG TABLET PO (08:09)
[2025-01-31] MEDS: 0.9 % Sodium Chloride Flush 3 ML SYRINGE IVFLUSH (08:10)
[2025-01-31] MEDS: Metoprolol Tartrate 50 MG TABLET PO (08:10)
[2025-01-31] MEDS: lisinopriL 40 MG TABLET PO (08:10)
[2025-01-31] MEDS: Metoprolol Tartrate 25 MG TABLET PO (08:52)
[2025-01-31] MEDS: Furosemide 20 MG TABLET PO (08:52)
[2025-01-31] MEDS: Digoxin 0.5 MG/2 ML AMPUL 0.25 MG IVPUSH (08:53)
--- NOTE | 2025-01-31 09:18 | PM.PNCARD ---
Subjective Subjective Date of Service: 01/31/25 Interval history: She states she is feeling better. Review of Systems Review of Systems Yes all other systems are reviewed and are negative Constitutional: Reports as per HPI and Reports no additional constitutional complaints Eyes: Reports as per HPI and Denies no additional eye complaints Denies system reviewed and no additional complaints, except as documented and Reports as per HPI Cardiovascular: Reports as per HPI, Reports no additional cardiovascular complaints, Denies acrocyanosis, Denies cool extremities, Denies chest pain, Denies leg edema, Denies lightheadedness, Denies palpitations and Denies dyspnea Respiratory: Reports as per HPI, Denies no additional respiratory complaints and Denies dyspnea Gastrointestinal: Reports as per HPI and Denies no additional gastrointestinal complaints Genitourinary: Reports as per HPI Musculoskeletal: Reports no additional musculoskeletal complaints and Reports as per HPI Skin/Breast: Reports system reviewed and no additional complaints, except as docu Reports system reviewed and no additional complaints, except as documented and Reports as per HPI Psychiatric: Reports no additional psychiatric complaints and Reports as per HPI Endocrine: Reports no additional endocrine complaints, Reports as per HPI and Denies palpitations Hematologic/Lymphatic: Reports no additional hematologic/lymphatic complaints and Reports as per HPI Allergic/Immunologic: Reports no additional allergic/immunologic complaints and Reports as per HPI Physical Exam Vital Signs: Last Vital Signs Temp 98.2 F 01/31/25 07:02 Pulse 71 01/31/25 07:02 Resp 14 01/31/25 07:02 BP 156/84 H 01/31/25 07:02 Pulse Ox 92 01/31/25 07:02 O2 Del Method Room Air 01/31/25 07:02 O2 Flow Rate 2 01/29/25 22:32 BMI result Body Mass Index 21.8 Const General: comfortable and no acute distress Orientation/consciousness: patient oriented x3 HEENT Other: Unremarkable Head: Yes normal to inspection Neck Neck: Yes normal visual inspection Chest Chest palpation & inspection: normal inspection of the chest Resp Other: Fine basal crackles Cardio Palpation: normal PMI Heart sounds: S1 normal heart sound present, S2 normal heart sound present, no gallops, Murmur heart sound present systolic II/ and at the apex and no rubs GI Palpation (GI): Soft to palpation Back/Spine/Pelvis Other: unremarkable Skin General skin exam: no rashes or lesions noted Neuro General: patient oriented x3 Extrem General: Yes normal to inspection Psych Mental Status: mental status grossly normal Objective Labs and Meds 01/30/25 06:18 01/30/25 06:18 Progress Note: A&P Assessment and plan (1) Atrial fibrillation with rapid ventricular response: Status: Acute Assessment and Plan: Increase metoprolol dose 75 mg b.i.d.. Add digoxin. Eliquis. Rates are reasonably well controlled on telemetry at around 90/Min. Some increase with activity. Hopefully with the additional meds, it should settle down. (2) Nonrheumatic mitral valve regurgitation: Status: Acute Assessment and Plan: In the echocardiogram, suggestion of [id number] mitral regurgitation. Previously, she indeed had moderate mitral regurgitation several years ago. We will follow up as an outpatient and decide if she needs a ELVIN extra. (3) Pericardial effusion: Status: Acute Assessment and Plan: Moderate pericardial effusion on echocardiogram. No indication for drainage at this time. We will follow. (4) Primary hypertension: Status: Acute Assessment and Plan: Lisinopril dose has been increased. Increase beta-az dose should also help. Plan Discussed with Dr. Adames and RN. Time Spent With Patient Time: Total time managing care of this patient today ____ minutes. Progress Note: Quality Stroke Does the patient have a stroke diagnosis?: No Procedures Date of Service Date of Service: 01/31/25
--- NOTE | 2025-01-31 09:40 | P.DS_ITS ---
DS: Providers Provider Date of Service: 01/31/25 Date of admission: 01/29/25 22:39 Date of discharge: 01/31/25 Primary care physician: Devante Leigh MD Consults: 01/29/25 22:39 Consult to Cardiology Routine Consulting Provider: [facility] Reason for consultation: afib DS: Diagnosis Discharge Diagnosis (1) Primary hypertension: Status: Acute (2) Atrial fibrillation: Status: Acute (3) Atrial fibrillation with rapid ventricular response: Status: Acute DS: Summary Hospital Course Hospital Course: 84-year-old female with a past medical history of hypertension on HCTZ and Lisinopril presented with palpitations and was found to have new-onset atrial fibrillation with rapid ventricular response (AFib with RVR) and a possible concern for heart failure.She was initially treated with IV Cardizem, followed by transition to metoprolol, with overall improvement in heart rate control. She was evaluated by cardiology, who recommended increasing metoprolol to 75 mg twice daily, digoxin 125 mcg daily (loaded with IV in the hospital ) and initiating Eliquis for stroke prevention. No bleeding concerns were identified. An echocardiogram . And cardiology will arrage for outpatient cardioversion in 4 to 6 weeks. Regarding possible heart failure, the elevated BNP and CXR findings suggestive of CHF are likely related to AFib with RVR. The patient appears euvolemic at this time, so aggressive diuresis will be avoided. Hypertension: Restart home meds of lisinopril, metorprolol and HCTZ Time Attestation Discharge Coordination Time (in mins): 40 Quality: Safe Use of Opioids Does Pt have an Active Cancer Diagnosis on the Problem List?: No Quality: Stroke Does the patient have a stroke diagnosis?: No Physical Exam Vital Signs: Vital Signs: Selected Entries 01/31/25 07:02 Temperature 98.2 F Pulse Rate 71 Respiratory Rate 14 Blood Pressure 156/84 H Pulse Oximetry 92 Oxygen Delivery Me thod Room Air General: AO X 3, no acute distress Resp: CTA bilateral CVS: S1,S2, iregular iregular GI: +BS, NT, no distention Skin: No rash Neuro: motor grossly intact Psych: appropriate affect DS: Data Data Completed and Pending Labs on day of discharge: Laboratory Results - last 24 hr 01/29/25 01/30/25 17:35 06:18 WBC 6.3 5.8 RBC 4.58 4.52 Hgb 13.7 13.5 Hct 40.4 40.3 MCV 88.2 89.2 MCH 29.9 29.9 MCHC 33.9 33.5 RDW 14.3 14.3 Plt Count 209 179 MPV 9.6 9.6 Immature Gran % (Auto) 0.3 0.2 Neut % (Auto) 41.2 L 50.7 Lymph % (Auto) 46.0 H 36.4 [place] % (Auto) 9.7 10.1 Eos % (Auto) 2.2 1.9 Baso % (Auto) 0.6 0.7 Lymph # (Auto) 2.9 2.1 [place] # (Auto) 0.6 0.6 Eos # (Auto) 0.1 0.1 Baso # (Auto) 0.0 0.0 Abs Immat Gran (auto) 0.02 0.01 Absolute Neuts (auto) 2.6 3.0 Absolute Nucleated RBC 0.000 0.000 Nucleated RBC % (auto) 0.0 0.0 PT 13.1 H INR 1.1 Sodium 141 141 Potassium 3.2 L 3.0 L Chloride 100 102 Carbon Dioxide 29 29 Anion Gap 15 13 BUN 11 9 Creatinine 0.67 0.63 Estim Creat Clear Calc 40.3 42.8 Estimated GFR > 60 > 60 Random Glucose 100 82 Calcium 9.6 9.1 Magnesium 1.5 L Total Bilirubin 1.1 H 1.3 H AST 54 H 36 H ALT 92 H 74 H Alkaline Phosphatase 104 93 Troponin I High Sens 6.0 B-Natriuretic Peptide 593 H Total Protein 6.8 6.1 L Albumin 3.9 3.5 TSH 3.60 Discharge Plan Discharge Anticipated Discharge Date/Time: 01/31/25 09:46 Patient Disposition: Home, Self-Care Discharge Diagnosis: New onset of AFIB Referrals: Devante Leigh MD [Primary Care Provider] - 1 Week Discharge Medications: New metoprolol tartrate 50 mg Tablet 50 mg PO BID Qty: 180 0RF Protocol: Hold for SBP/HR < HOLD for SBP < : 90 HOLD for HR < : 60 digoxin 125 mcg (0.125 mg) tablet 125 mcg PO DAILY Qty: 90 0RF Eliquis 5 mg Tablet 5 mg PO BID Qty: 180 0RF lisinopril 40 mg Tablet 40 mg PO DAILY Qty: 90 0RF Protocol: Hold for SBP< HOLD for SBP < : 90 metoprolol tartrate 25 mg Tablet 75 mg PO BID Qty: 180 0RF Protocol: Hold for SBP/HR < HOLD for SBP < : 90 HOLD for HR < : 60 Continued hydrochlorothiazide 12.5 mg tablet 12.5 mg PO BID acetaminophen [Tylenol] 325 mg Tablet 325 mg PO DAILY PRN (Reason: Pain) ibuprofen 200 mg Tablet 200 mg PO Q6H PRN (Reason: Pain) Discontinued lisinopril 20 mg tablet 20 mg PO DAILY metoprolol tartrate 25 mg tablet 25 mg PO BID Diet: Advance to usual diet Activity on Discharge: As tolerated Stand Alone Forms: Patient Portal Discharge page Print Language: Faroese Care Plan Goals: Achieve and maintain rate control in atrial fibrillation, initiate stroke prevention with anticoagulation, monitor for signs of heart failure, and optimize volume status without over-diuresis Health Concerns: New AFIB with RVR Plan of Treatment: Continue metoprolol at increased dose of 75 mg BID for heart rate control and blood pressure control Take digoxin 125 mcg daily Take Eliquis for stroke prevention, follow up on outpatient basis with cardiology Lisinopril dose doubled to 40 mg daily for better blood pressure control Follow up with your Doctot in a week Follow up with cardiology office Assessment: see above
[2025-01-31 10:54] VITALS: BP 146/71; PULSE 73; RESP 14; TEMP 36.3; O2SAT 92
--- NOTE | 2025-01-31 15:18 | MHC.CM.PN ---
Patient has been medically cleared for dc to home today, self care. Last IMM was addressed on 01/30/25.
[2025-01-31 15:57] VITALS: BP 136/76; PULSE 98; RESP 16; TEMP 37.6; O2SAT 95
== END 2025-01-31 16:00 | disposition home or self-care (01) | DRG 310 ==
LOC: HO.ED 20:13 → HO.EDOVER 22:43 → HO.IMC 01-30 01:42
PROVIDERS: Registered Nurse Emergency; Admitting Provider Hospitalist; Emergency Provider Emergency Medicine Emergency Medical Services; PCP Internal Medicine; Visit Provider Internal Medicine
DX: I48.91 Unspecified atrial fibrillation (principal); I45.10 Unspecified right bundle-branch block; I10 Essential (primary) hypertension; I34.0 Nonrheumatic mitral (valve) insufficiency; Z79.899 Other long term (current) drug therapy
CPT/HCPCS: 36415; 71046; 80053; 83735; 83880; 84443; 84484; 85025; 85610; 93005; 93306; 99285; J1160; J1650; J1938; Q9957

== ENCOUNTER → 2025-01-29 17:24 | Outpatient (BNV) | payer MEDICARE, SELFPAY | PROVIDERS: Emergency Provider Emergency Medicine Emergency Medical Services; PCP Internal Medicine; Visit Provider Radiology Diagnostic Radiology | DX: J90 Pleural effusion, not elsewhere classified (principal) | CPT/HCPCS: 71046 ==

== ENCOUNTER 2025-01-29 22:39 | Outpatient (BNV) | payer MEDICARE, SELFPAY | END 2025-01-30 07:00 | PROVIDERS: Admitting Provider Hospitalist; Emergency Provider Emergency Medicine Emergency Medical Services; PCP Internal Medicine; Visit Provider Internal Medicine | DX: I48.91 Unspecified atrial fibrillation (principal) | CPT/HCPCS: 93306 ==

== ENCOUNTER → 2025-01-29 22:39 | Outpatient (BNV) | payer MEDICARE, SELFPAY | PROVIDERS: Admitting Provider Hospitalist; Emergency Provider Emergency Medicine Emergency Medical Services; PCP Internal Medicine; Visit Provider Internal Medicine | DX: I48.91 Unspecified atrial fibrillation (principal); I34.0 Nonrheumatic mitral (valve) insufficiency; I31.39 Other pericardial effusion (noninflammatory); I10 Essential (primary) hypertension | CPT/HCPCS: 93010; 99223; 99233 ==

== ENCOUNTER → 2025-01-29 22:39 | Outpatient (BNV) | payer MEDICARE, SELFPAY | PROVIDERS: Admitting Provider Hospitalist; Emergency Provider Emergency Medicine Emergency Medical Services; PCP Internal Medicine; Visit Provider Internal Medicine | DX: I10 Essential (primary) hypertension (principal); I48.91 Unspecified atrial fibrillation | CPT/HCPCS: 99223; 99232; 99239 ==

== ENCOUNTER 2025-02-03 08:32 | Outpatient (REF) | payer MEDICARE, SELFPAY ==
--- OUTSIDE RECORDS SUMMARY | 2025-02-03 08:36 | XMS_ITS | Data Portability ---
Author Organization [facility], Home Service Address [address] [place] [address] Assessment Encounter Date Assessment Date Assessment LastModified [...] ion aerosol inhaler 2022 023 [email or web address] 5 [facility]/Pharmacy #[id number], [address] [facility], [place], [address], 09:54:01 Patient TargetsNo targets recorded. Patient Instructions Encounter Date Encounter Id Patient Instructions Last Modified By Organization Details Last Modified Time 04/26/2023 [id number] pulse oximetry* ARIANNA Not available 04/26/2023 09:49:45 Reason for Referral None Reported. Results Created Date Observation Date Name Description Value Unit Range Abnormal Flag Note LastModifiedBy Organization Detail LastModifiedTime 06/16/2006/16/2023 MAMMO , scree savannah, digit al, bilat eral No observ ation record ed. [email or web address] [facility] [address] [place] [address], [address], 06/16/2023 12:11:50 06/19/20 24 06/19/2024 MAMMO , scree savannah, digit al, bilat eral No observ ation record ed. [email or web address] [facility] [address] [place], [address], 06/19/2024 19:54:57 01/30/20 25 01/29/2025 XR, chest , 2 view No observ ation record ed. [email or web address] [facility] (Medical Records) [address] [facility], [place], [address], 01/30/2025 08:41:52 Result Notes None recorded. Problems Name Problem SNOMED Code Status Onset Date Resolution Date Notes Provider Name and Address Organization Details Recorded Time Osteopen ia 853313907 Active 2018 [facility] 0 10:11:37 Chronic obstruct chriss pulmonar y disease 57106665 Active 2018 [facility] 0 10:11:36 Mild chronic obstruct chriss pulmonar y disease 395114401 Active 2017 Dr. Bojorquez, pulmonol ogist [facility] 0 10:11:37 Solitary nodule of lung 807891886 Active 2017 right upper lobe [facility] 0 10:11:36 [facility] hyperten shazia 09870217 Active 2017 [facility] 0 10:11:37 Personal history of primary malignan t neoplasm of breast 592191252 Active 1989 right, lumpecto my & radiatio n [facility] 0 10:11:37 Ventricu lar prematur e beats 65131223 Active [address] [facility] 0 10:11:37 History of adenomat ous polyp of colon 403522241 Active [address] [facility] [address] [facility] 0 10:11:37 History of colonosc opy 1792376847 09 Completed 201201/12/2018 Removal Reason: to put in history Ora Bunch NP, S [address] [place] [address], [phone], [facility] 8 10:00:05 Problem Notes None recorded. Procedures Surgical History Date Name Laterality Status Provider Name and Address Organization Details Recorded Time 04/23/20 21 Suture/Staple removal completed SHAHRZAD ACEVES [address] [place] [address], [address], [facility] 04/23/2021 10:32:54 10/11/18 99 Breast Surgery completed Ora Bunch NP, S [address] [place] [address], [address], [facility] 12/21/2017 15:16:31 Unlisted px arthroscopy completed Ora Bunch NP, S [address] [place] [address], [phone], [facility] 12/21/2017 15:07:01 Imaging Results Imaging Date Name Status LastModified by Organiz ation Details LastModified Time 06/16/2023 MAMMO, screening, digital, bilateral completed [email or web address] [facility] [address] [place], [address], 06/16/2023 12:11:50 06/19/2024 MAMMO, screening, digital, bilateral completed [email or web address] [facility] [address] [place], [address], 06/19/2024 19:54:57 01/29/2025 XR, chest, 2 view completed [email or web address] [facility] (Medical Records) [address] [place], [address], 01/30/2025 08:41:52 Procedure Notes None recorded. Medical Equipment None [...] Updated DateTime 3 147.32 cm 22.5 kg/m2 11075.2 6 g 99 % 99 % 95 /min 140 mm[Hg] 70 mm[Hg] Cyndi Ramesh [facility] 3 10:05:21 Date Recorded Body height Body mass index (BMI) Body weight Heart rate Oxygen saturation Oxygen saturation in Arterial blood by Pulse oximetry Systolic blood pressure Diastolic blood pressure Provider Name and Address Organization Details Last Updated DateTime 3 147.32 cm 21.6 kg/m2 07181.8 1 g 53 /min 99 % 99 % 152 mm[Hg] 70 mm[Hg] Indio Leigh [facility] 3 09:33:40 Date Recorded Body height Body mass index (BMI) Body weight Heart rate Oxygen saturation Oxygen saturation in Arterial blood by Pulse oximetry Systolic blood pressure Diastolic blood pressure Provider Name and Address Organization Details Last Updated DateTime 4 147.32 cm 20.7 kg/m2 76354.6 4 g 47 /min 99 % 99 % 118 mm[Hg] 68 mm[Hg] Nora Crawford [facility] 4 09:55:30 Date Recorded Body height Body mass index (BMI) Body weight Systolic blood pressure Diastolic blood pressure Provider Name and Address Organization Details Last Updated DateTime 10/09/2024 147.32 cm 21.1 kg/m2 29250.83 g 160 mm[Hg] 80 mm[Hg] Nora Crawford [facility] 4 16:26:22 Social History Question Answer Notes LastModified by Organizat ion Details LastModified Time Tobacco Smoking Status Former Smoker Ora Bunch, DILMA, S [address] [facility], [place], [address], [facility] 12/21/2017 15:06:09 What Was The Date Of Your Most Recent Tobacco Screening? 10/09/2024 [email or web address] Information not available 10/09/2024 How Many Years Have You Smoked Tobacco? 45 [email or web address] Information not available 12/21/2017 Do You Or Have You Ever Used Any Other Forms Of Tobacco Or Nicotine? No [email or web address] Information not available 04/04/2024 Sex: Unknown Functional Status None recorded. Mental Status None recorded. Family History Nothing Reported. Medical History Condition Response Polyps Y Breast Cancer Y Hypertension Y COPD Y Gynecological HistoryNo gynecological history recorded. Obstetrics History GPAL:G 0 P 0 0 0 0 Immunizations Vaccine Type Date Status Note Provider Nam e and Address Organization Details Recorded Time Influenza, split virus, quadrivalent, preservative 8 completed Zena flower [facility] 09/10/2020 10:11:31 COVID-19, mRNA, LNP-S, PF, 30 mcg/0.3 mL dose 1 completed [facility] 04/20/2022 08:14:02 COVID-19, mRNA, LNP-S, PF, 30 mcg/0.3 mL dose 1 completed Cyndi flower [facility] 04/20/2022 08:14:10 COVID-19, mRNA, LNP-S, PF, 30 mcg/0.3 mL dose 1 completed Cyndi flower [facility] 04/20/2022 08:14:17 COVID-19, mRNA, LNP-S, PF, 30 mcg/0.3 mL dose 2 completed Cyndi flower [facility] 04/20/2022 08:14:24 COVID-19, mRNA, LNP-S, PF, 30 mcg/0.3 mL dose 2 completed Cyndi flower [facility] 11/03/2022 08:01:51 influenza, unspecified formulation 2 completed [facility] 11/03/2022 08:02:05 Pneumococcal conjugate PCV 13 2 completed [facility] 11/03/2022 08:02:30 Tdap 1 completed Cyndi flower, [facility] 11/03/2022 08:03:07 Pneumococcal Conjugate, unspecified formulation 3 completed SHAHRZAD ACEVES [address] [place], [address], [facility] 04/04/2024 10:09:09 Respiratory syncytial virus (RSV) MAB, unspecified 3 completed SHAHRZAD ACEVES [address] [place], [address], [facility] 04/04/2024 10:11:30 Influenza, split virus, quadrivalent, preservative 9 completed [facility] 09/10/2020 10:11:31 Influenza, split virus, quadrivalent, preservative 0 completed [facility] 09/10/2020 10:11:31 Influenza, adjuvanted, trivalent, PF 7 completed Zena flower [facility] 09/10/2020 10:11:31 Tdap 5 completed Zena flower [facility] 09/10/2020 10:11:31 pneumococcal, unspecified formulation 6 completed Zena flower [facility] 09/10/2020 10:11:31 pneumococcal, unspecified formulation 1 completed Zena flower [facility] 09/10/2020 10:11:31 Past Encounters Encounter ID Performer Location Encounter Start Date Encounter Closed Date Diagnosis/Indication Diagnosis SNOMED-CT Code Diagnosis ICD10 Code Diagnosis Note [id number] Ora Bunch NP, S [facility] [address] [facility] [place], [place] [address] 01/28/2018 11:08:11 01/28/2018 13:01:36 Candidiasis of mouth 63615381 B37.0 Essential hypertension 04228014 I10 stable [id number] Ora Bunch NP, S [facility] [address] [facility], [facility] [place] [address] 02/04/2018 09:35:54 02/04/2018 10:31:51 Chronic obstructive pulmonary disease 99621425 J44.9 stable with inhalers, no use rescue inhaler Solitary n odule of lung 889107315 R91.1 f/u Dr. Bojorquez Ventricula r premature beats 83915325 I49.3 stable with metoprolol Essential hypertension 64480242 I10 stable, given lab slip, pt. more comfortabl e with paper form Personal h istory of primary malignant neoplasm of breast 697511567 Z85.3 mammo due in March, order for diagnostic mammo provided, [place] to [place] [id number] Ora Bunch NP, S [facility] Internal [facility] [address] [facility], [place] [facility] [place] [address] 06/10/2018 09:17:53 06/10/2018 12:18:07 Ventricular premature beats 77050353 I49.3 stable with metoprolol History of adenomatous polyp of colon 515513274 Z86.010 Personal h istory of primary malignant neoplasm of breast 061598392 Z85.3 up to date mammo Essential hypertension 96568777 I10 stable Solitary n odule of lung 747867928 R91.1 f/u Dr. Bojorquez External hordeolum 04232 08 H00.016 [id number] Ora Bunch NP, S [facility] [address] [facility], [place] [facility] [place] [address] 09/26/2018 09:33:52 09/26/2018 11:22:31 Essential hypertension 14436357 I10 stable History of adenomatous polyp of colon 404639806 Z86.010 up to date colonoscop y Ventricula r premature beats 67090056 I49.3 stable with metoprolol Solitary n odule of lung 963016857 R91.1 f/u Dr. Bojorquez, 2 mm no need f/u CT Mild chron ic obstructive pulmonary disease 563504046 J44.9 Breo helpful [id number] Ora Bunch NP, S [facility] Internal Medicine [address] [facility],[place] [address] 02/01/2019 09:22:00 02/01/2019 10:36:37 Screening procedure 82700307 Z13.9 Decreased estrogen level 315389828 E28.39 Essential hypertension 22722975 I10 stable Mild chron ic obstructive pulmonary disease 360106448 J44.9 Breo helpful History of adenomatous polyp of colon 007816261 Z86.010 up to date colonoscop y Ventricula r premature beats 69368331 I49.3 stable with metoprolol Solitary n odule of lung 333724210 R91.1 f/u Dr. Bojorquez, recent visit, will f/u 1 year [id number] January [facility] [address] [facility],[place] [address] 08/30/2019 09:28:17 08/30/2019 10:01:54 Chronic obstructive pulmonary disease 36285322 J44.9 breathing well sees pulm once per year Essential hypertension 69596097 I10 well controlled Ventricula r premature beats 19308363 I49.3 under control Solitary n odule of lung 895643251 R91.1 followed by pulm as well Advance care planning 71 4302821 Z71.89 HCP - daughter - tonia barton has advanced directives at home ppw provided to reevaluate Osteopenia 829722944 M85 .80 on vitamin d [id number] January [facility] Medicine [address] [facility],[place] [address] 11/08/2019 09:19:25 11/08/2019 10:01:04 Chronic obstructive pulmonary disease 12732739 J44.9 breathing well sees pulm once per year Pain of ri ght hip joint 3541656204 14428 M25.551 Chronic back pain 259927 002 M54.5 [id number] SHAHRZAD ACEVES [facility] Internal Medicine [address] [facility],[place] [address] 03/05/2020 09:18:58 03/05/2020 10:28:43 Adult health examination 195242913 Z00.00 no concerns Screening for cardiovascular system disease 533716790 Z13.6 bw Screening for malignant neoplasm of colon 599767386 Z12.11 no longer needs them per GI doctor had it done at [facility] Screening for osteoporosis 572014890 Z13.820 had it done at [facility] Screening mammography 24 652667 Z12.31 already had it done at [facility] has it done every year Chronic ob structive pulmonary disease 59055970 J44.9 stable [id number] SHAHRZAD ACEVES [facility] Internal Medicine [address] [facility], [place] [address] 09/10/2020 09:51:49 09/10/2020 10:41:08 Chronic obstructive pulmonary disease 68357478 J44.9 stable Ventricula r premature beats 77687668 I49.3 stable on metoprolol , will need refill med soon Essential hypertension 67220535 I10 BP stable, no side effects [id number] SHAHRZAD ACEVES [facility] Internal Medicine [address] [facility], [place] [address] 03/11/2021 09:31:38 03/11/2021 10:00:40 Essential hypertension 75901962 I10 BP stable, no side effects Chronic ob structive pulmonary disease 30850113 J44.9 stable Degenerati on of lumbar intervertebral disc 45429942 M51.36 [place] [id number] SHAHRZAD ACEVES [facility] Internal Medicine [address] [facility], [place] [address] 04/23/2021 10:11:11 04/23/2021 11:20:36 Cellulitis 161352778 L03.90 will start on doxy for infection Removal of suture 695623 01 Z48.02 sutures removeddue to infection wound did not close correctly Dehiscence of surgical wound 35406754 T81.30XA sutures did not take, the wound was open and underlying infectiona lot of pain with removal of sutures [id number] SHAHRZAD ACEVES [facility] Internal Medicine [address] [facility],[place] [address] 09/24/2021 09:28:32 09/24/2021 11:30:07 Chronic obstructive pulmonary disease 82852287 J41.0 stable Essential hypertension 48303348 I10 BP stable, no side effects Osteopenia 441023781 M85 .80 stable Active or passive immunization 819249736 Z23 given locations for a pna vaccine [id number] SHAHRZAD ACEVES Internal [facility] [address] [facility],[place] [address] 10/17/2021 09:02:59 10/17/2021 14:26:45 Chronic obstructive pulmonary disease 25121620 J41.0 stable Essential hypertension 85176276 I10 improved with HTCZ increasewi ll continue without changes for now [id number] SHAHRZAD ACEVES Internal [facility] [address] [facility],[place] [address] 04/20/2022 11:07:58 04/20/2022 15:33:58 Chronic obstructive pulmonary disease 34867702 J41.0 stable Essential hypertension 68015395 I10 excellent control on her medication currently [id number] SHAHRZAD ACEVES [facility] [address] [facility],[place] [address] 11/03/2022 09:57:08 11/04/2022 10:12:19 Chronic obstructive pulmonary disease 66412888 J41.0 stablehas a f/u in the spring with Dr. Bojorquez will wait until she sees Dr. Bojorquez Essential hypertension 42115745 I10 excellent control on her medication currently Osteopenia 940334314 M85 .80 stabledecl ined repeat bone density at this time [id number] SHAHRZAD ACEVES [facility] [address] [facility],[place] [address] 04/26/2023 09:28:39 04/26/2023 10:46:43 Chronic obstructive pulmonary disease 64916550 J41.0 stable Essential hypertension 01666303 I10 excellent control on her medication currently (at ome is stable) recheck in office is always excellent [id number] SHAHRZAD ACEVES Internal [facility] [address] [facility] [address],[place] [address] 10/19/2023 08:00:18 10/19/2023 11:32:18 Chronic obstructive pulmonary disease 33358690 J41.0 stableno flare upsdoesn't use inhaler Essential hypertension 67533135 I10 excellent control on her medication currently Chronic ob structive pulmonary disease 08522388 J44.9 stable [id number] SHAHRZAD ACEVES Internal [facility] [address] [facility] [address],[place] [address] 04/04/2024 09:39:10 04/04/2024 10:39:12 Depression screening 710457684 Z13.31 negative Essential hypertension 28637985 I10 excellent control on her medication currently Chronic ob structive pulmonary disease 24112689 J41.0 J44.9 stableno flare upsdoesn't use inhaler [id number] SHAHRZAD ACEVES Internal [facility] [address] [facility] [address],[place] [address] 10/09/2024 15:52:29 10/10/2024 09:01:00 Essential hypertension 51016590 I10 excellent control on her medication currentlys tressed today about driving in the dark Chronic ob structive pulmonary disease 47052833 J41.0 J44.9 stableno flare upsdoesn't use inhaler Health Concerns Section Related Observation LastModified by Organization Detai ls LastModified Time None Recorded Concern Status LastModified by Organization Details LastModified Time None Recorded Advance Directives Directive None Recorded Payers Encounter Date Sequence Insurance Name Policy Number Policy Bai Covered Member ID Bai Member ID Guarantor Name 11/03/2022 2 [employer] (MEDICARE SUPPLEMENT) Ora Davis [id number] Ora Davis 11/03/2022 1 [place] [employer] Ora Davis [id number] Ora Davis 04/26/2023 2 [employer] (MEDICARE SUPPLEMENT) Ora Davis [id number] Ora Davis 04/26/2023 1 [place] [employer] [place] Ora Davis [id number] Ora Davis 10/19/2023 2 [employer] OPTIONS (MEDICARE SUPPLEMENT) Ora Davis [id number] Ora Davis 10/19/2023 1 [place] Ora Davis [id number] Ora Davis 04/04/2024 2 [employer] OPTIONS (MEDICARE SUPPLEMENT) Ora Davis [id number] Ora Davis 04/04/2024 1 [place] Ora Davis [id number] Ora Davis 10/09/2024 2 [employer] OPTIONS (MEDICARE SUPPLEMENT) Ora Dvais [id number] Ora Davis 10/09/2024 1 [place] Ora Davis [id number] Ora Davis Notes Date Note Type Note Provider Name and Address Organization Details Recorded Time 3 text/html 6 mos f/u COPD: stable, mild increase in symptoms [facility] hold off HTN: today in the office [...] so will hold for now SHAHRZAD ACEVES [address] [place] [address], [address], [facility] 11/03/2022 10:21:50 3 text/html f/u COPD the patient reports that she did injury her toe while walking at [facility], stepped into a divot and most likely sprained it COPD: stabledoing wellthat patient sometimes uses the inhaler before she goes walking but it doesn't make much of a difference HTN: stable with recheckmedication list is still complete will set up with manjinder call back for her regular fu and physical going on vacation ([place]) when she leaves appt today otherwise doing really well discussed her mood, did have a slump for a bit but is doing much better SHAHRZAD ACEVES [address] [place], [address], [facility] 04/26/2023 09:47:37 4 text/html 6 mos f/u The patient is participating in this appointment via telemedicine communication with a phone call/video calling service ([employer])The patient consents to use of these platforms [...] bowel changes, MSK changes SHAHRZAD ACEVES [address] [place], [address], [facility] 10/19/2023 10:06:06 4 text/html 6 [...] patient in 6 mos SHAHRZAD ACEVES [address] [place], [address], [facility] 04/04/2024 10:18:52 4 text/html 6 mos f/u [...] fu with refills when do SHAHRZAD ACEVES [address] [place] [address], [address], [place] [facility] 10/09/2024 16:56:12 OBGyn Episode No OBEpisode recorded.
[2025-02-03 11:19] LABS: Anion Gap 12 (12-20); Blood Urea Nitrogen 17 mg/dL (9-16); Calcium 9.8 mg/dL (8.4-10.2); Carbon Dioxide 32 mmol/L (22-29); Chloride 99 mmol/L (96-108); Estimated Glomerular Filt Rate > 60; Glucose Fasting 94 mg/dL (60-99); Potassium 3.5 mmol/L (3.3-5.1); Sodium 139 mmol/L (135-145)
== END 2025-02-03 08:33 | disposition home or self-care (01) ==
LOC: HO.LAB 08:32
PROVIDERS: PCP Internal Medicine; Visit Provider Internal Medicine
DX: E87.6 Hypokalemia (principal)
CPT/HCPCS: 36415; 80048

== ENCOUNTER → 2025-02-05 08:47 | Outpatient (REF) | payer MEDICARE, SELFPAY ==
--- OUTSIDE RECORDS SUMMARY | 2025-02-05 09:20 | XMS_ITS | Data Portability ---
Author Organization [facility] Internal Medicine, Home Service Address [address] [place] [address] Assessment Encounter Date Assessment Date Assessment LastModified [...] ion aerosol inhaler 2022 023 [email or web address] 5 [facility]/Pharmacy #[id number], [address], [place], [address], 09:54:01 Patient TargetsNo targets recorded. Patient Instructions Encounter Date Encounter Id Patient Instructions Last Modified By Organization Details Last Modified Time 04/26/2023 [id number] pulse oximetry* ARIANNA Not available 04/26/2023 09:49:45 Reason for Referral None Reported. Results Created Date Observation Date Name Description Value Unit Range Abnormal Flag Note LastModifiedBy Organization Detail LastModifiedTime 06/16/2006/16/2023 MAMMO , scree savannah, digit al, bilat eral No observ ation record ed. [email or web address] [facility] Imaging [facility] [address] [place] [address], [address], 06/16/2023 12:11:50 06/19/20 24 06/19/2024 MAMMO , scree savannah, digit al, bilat eral No observ ation record ed. [email or web address] [facility]osit Imaging Dept [address] [place], [address], 06/19/2024 19:54:57 01/30/20 25 01/29/2025 XR, chest , 2 view No observ ation record ed. [email or web address] [facility] (Medical Records) [address] [facility], [place], [address], 01/30/2025 08:41:52 Result Notes None recorded. Problems Name Problem SNOMED Code Status Onset Date Resolution Date Notes Provider Name and Address Organization Details Recorded Time Osteopen ia 824539414 Active 2018 YUAN Salcedo [facility] 0 10:11:37 Chronic obstruct chriss pulmonar y disease 51075963 Active 2018 YUAN Salcedo [facility] 0 10:11:36 Mild chronic obstruct chriss pulmonar y disease 033517107 Active 2017 Dr. Bojorquez, pulmonol ogist [facility] 0 10:11:37 Solitary nodule of lung 826774273 Active 2017 right upper lobe [facility] 0 10:11:36 Essentia l hyperten shazia 78533338 Active 2017 [facility] 0 10:11:37 Personal history of primary malignan t neoplasm of breast 624086302 Active 1989 right, lumpecto my & radiatio n Zenaper [facility] 0 10:11:37 Ventricu lar prematur e beats 35051959 Active 2017 Zenaper Caceresyajaira [facility] 0 10:11:37 History of adenomat ous polyp of colon 465324266 Active 2012 [facility] Morrisyajaira [facility] 0 10:11:37 History of colonosc opy 8279773734 09 Completed 201201/12/2018 Removal Reason: to put in history Ora Bunch NP, S [address] [place] [address], [phone], [facility] 8 10:00:05 Problem Notes None recorded. Procedures Surgical History Date Name Laterality Status Provider Name and Address Organization Details Recorded Time 04/23/20 21 Suture/Staple removal completed SHAHRZAD ACEVES [address] [place] [address], [phone], [facility] 04/23/2021 10:32:54 10/11/18 99 Breast Surgery completed Ora Bunch NP, S [address] [place] [address], [address], [facility] 12/21/2017 15:16:31 Unlisted px arthroscopy completed Ora Bunch NP, S [address] [place] [address], [address], [facility] 12/21/2017 15:07:01 Imaging Results Imaging Date Name Status LastModified by Organiz ation Details LastModified Time 06/16/2023 MAMMO, screening, digital, bilateral completed [email or web address] [facility] [address] [place], [address], 06/16/2023 12:11:50 06/19/2024 MAMMO, screening, digital, bilateral completed [email or web address] [facility] Dept [address] [place], [address], 06/19/2024 19:54:57 01/29/2025 XR, chest, 2 view completed [email or web address] [facility] (Medical Records) [address] [place], [address], 01/30/2025 08:41:52 Procedure Notes None recorded. Medical [...] Updated DateTime 3 147.32 cm 22.5 kg/m2 34098.2 6 g 99 % 99 % 95 /min 140 mm[Hg] 70 mm[Hg] Cyndi Ramesh [facility] 3 10:05:21 Date Recorded Body height Body mass index (BMI) Body weight Heart rate Oxygen saturation Oxygen saturation in Arterial blood by Pulse oximetry Systolic blood pressure Diastolic blood pressure Provider Name and Address Organization Details Last Updated DateTime 3 147.32 cm 21.6 kg/m2 85644.8 1 g 53 /min 99 % 99 % 152 mm[Hg] 70 mm[Hg] Indio Leigh [facility] 3 09:33:40 Date Recorded Body height Body mass index (BMI) Body weight Heart rate Oxygen saturation Oxygen saturation in Arterial blood by Pulse oximetry Systolic blood pressure Diastolic blood pressure Provider Name and Address Organization Details Last Updated DateTime 4 147.32 cm 20.7 kg/m2 03029.6 4 g 47 /min 99 % 99 % 118 mm[Hg] 68 mm[Hg] Nora Crawford [facility] 4 09:55:30 Date Recorded Body height Body mass index (BMI) Body weight Systolic blood pressure Diastolic blood pressure Provider Name and Address Organization Details Last Updated DateTime 10/09/2024 147.32 cm 21.1 kg/m2 09942.83 g 160 mm[Hg] 80 mm[Hg] Nora Crawford [facility] 4 16:26:22 Social History Question Answer Notes LastModified by Organizat ion Details LastModified Time Tobacco Smoking Status Former Smoker Ora Bunch, DILMA, S [address] [facility], [place], [address], [facility] Internal [facility] 12/21/2017 15:06:09 What Was The Date Of Your Most Recent Tobacco Screening? 10/09/2024 Information not available 10/09/2024 How Many Years Have You Smoked Tobacco? 45 reanna Information not available 12/21/2017 Do You Or Have You Ever Used Any Other Forms Of Tobacco Or Nicotine? No Information not available 04/04/2024 Sex: Unknown Functional Status None recorded. Mental Status None recorded. Family History Nothing Reported. Medical History Condition Response Hypertension Y COPD Y Polyps Y Breast Cancer Y Gynecological HistoryNo gynecological history recorded. Obstetrics History GPAL:G 0 P 0 0 0 0 Immunizations Vaccine Type Date Status Note Provider Nam e and Address Organization Details Recorded Time Influenza, split virus, quadrivalent, preservative 8 completed Zena flower [facility] Internal [facility] 09/10/2020 10:11:31 COVID-19, mRNA, LNP-S, PF, 30 mcg/0.3 mL dose 1 completed [facility] 04/20/2022 08:14:02 COVID-19, mRNA, LNP-S, PF, 30 mcg/0.3 mL dose 1 completed Cyndi flower [facility] Internal [facility] 04/20/2022 08:14:10 COVID-19, mRNA, LNP-S, PF, 30 mcg/0.3 mL dose 1 completed Cyndi flower [facility] Internal [facility] 04/20/2022 08:14:17 COVID-19, mRNA, LNP-S, PF, 30 mcg/0.3 mL dose 2 completed Cyndi flower [facility] Internal [facility] 04/20/2022 08:14:24 COVID-19, mRNA, LNP-S, PF, 30 mcg/0.3 mL dose 2 completed Cyndi flower [facility] 11/03/2022 08:01:51 influenza, unspecified formulation 2 completed [facility] 11/03/2022 08:02:05 Pneumococcal conjugate PCV 13 2 completed [facility] 11/03/2022 08:02:30 Tdap 1 completed Cyndi flower, [facility] 11/03/2022 08:03:07 Pneumococcal Conjugate, unspecified formulation 3 completed SHAHRZAD ACEVES [address] [place], [address], [facility] 04/04/2024 10:09:09 Respiratory syncytial virus (RSV) MAB, unspecified 3 completed SHAHRZAD ACEVES [address] [place], [address], [facility] 04/04/2024 10:11:30 Influenza, split virus, quadrivalent, preservative 9 completed [facility] 09/10/2020 10:11:31 Influenza, split virus, quadrivalent, preservative 0 completed [facility] 09/10/2020 10:11:31 Influenza, adjuvanted, trivalent, PF 7 completed Zena flower [facility] 09/10/2020 10:11:31 Tdap 5 completed Zena flower [facility] 09/10/2020 10:11:31 pneumococcal, unspecified formulation 6 completed Zena flower [facility] 09/10/2020 10:11:31 pneumococcal, unspecified formulation 1 completed Zena flower [facility] 09/10/2020 10:11:31 Past Encounters Encounter ID Performer Location Encounter Start Date Encounter Closed Date Diagnosis/Indication Diagnosis SNOMED-CT Code Diagnosis ICD10 Code Diagnosis Note [id number] Ora Bunch NP, S [facility] Internal Medicine [address] [facility] [address], [place] [address] 01/28/2018 11:08:11 01/28/2018 13:01:36 Candidiasis of mouth 27331121 B37.0 Essential hypertension 68232429 I10 stable [id number] Ora Bunch NP, S [facility] Internal Medicine [address] [facility], [place] [facility] [place] [address] 02/04/2018 09:35:54 02/04/2018 10:31:51 Chronic obstructive pulmonary disease 00166380 J44.9 stable with inhalers, no use rescue inhaler Solitary n odule of lung 471916107 R91.1 f/u Dr. Bojorquez Ventricula r premature beats 09090434 I49.3 stable with metoprolol Essential hypertension 72649736 I10 stable, given lab slip, pt. more comfortabl e with paper form Personal h istory of primary malignant neoplasm of breast 873177595 Z85.3 mammo due in March, order for diagnostic mammo provided, pt to schedule [place] [id number] Ora Bunch NP, S [facility] Internal Medicine [address] [facility], [place] [facility] [place] [place] [address] 06/10/2018 09:17:53 06/10/2018 12:18:07 Ventricular premature beats 64261651 I49.3 stable with metoprolol History of adenomatous polyp of colon 114005948 Z86.010 Personal h istory of primary malignant neoplasm of breast 816541365 Z85.3 up to date mammo Essential hypertension 72768155 I10 stable Solitary n odule of lung 619162672 R91.1 f/u Dr. Bojorquez External hordeolum [address]697 08 H00.016 [id number] Ora Bunch NP, S [facility] Internal Medicine [address] [facility], [place] [facility] [place] [place] [address] 09/26/2018 09:33:52 09/26/2018 11:22:31 Essential hypertension 10654553 I10 stable History of adenomatous polyp of colon 132940142 Z86.010 up to date colonoscop y Ventricula r premature beats 64518828 I49.3 stable with metoprolol Solitary n odule of lung 393875606 R91.1 f/u Dr. Bojorquez, 2 mm no need f/u CT Mild chron ic obstructive pulmonary disease 109211218 J44.9 Breo helpful [id number] Ora Bunch NP, S [facility] Internal Medicine [address] [facility],[place] [address] 02/01/2019 09:22:00 02/01/2019 10:36:37 Screening procedure 94019218 Z13.9 Decreased estrogen level 913134745 E28.39 Essential hypertension 24859970 I10 stable Mild chron ic obstructive pulmonary disease 732180274 J44.9 Breo helpful History of adenomatous polyp of colon 144888685 Z86.010 up to date colonoscop y Ventricula r premature beats 87762395 I49.3 stable with metoprolol Solitary n odule of lung 481775033 R91.1 f/u Dr. Bojorquez, recent visit, will f/u 1 year [id number] January [facility] Internal Medicine [address] [facility],[place] [address] 08/30/2019 09:28:17 08/30/2019 10:01:54 Chronic obstructive pulmonary disease 67780576 J44.9 breathing well sees pulm once per year Essential hypertension 25101741 I10 well controlled Ventricula r premature beats 36718362 I49.3 under control Solitary n odule of lung 280180935 R91.1 followed by pulm as well Advance care planning 71 6928197 Z71.89 HCP - daughter - tonia braton has advanced directives at home ppw provided to reevaluate Osteopenia 896486829 M85 .80 on vitamin d [id number] January [facility] Medicine [address] [facility],[place] [address] 11/08/2019 09:19:25 11/08/2019 10:01:04 Chronic obstructive pulmonary disease 34248127 J44.9 breathing well sees pulm once per year Pain of ri ght hip joint 6558105989 88354 M25.551 Chronic back pain 810494 002 M54.5 [id number] SHAHRZAD ACEVES [facility] Internal Medicine [address] [facility],[place] [address] 03/05/2020 09:18:58 03/05/2020 10:28:43 Adult health examination 997106977 Z00.00 no concerns Screening for cardiovascular system disease 531153994 Z13.6 bw Screening for malignant neoplasm of colon 025621622 Z12.11 no longer needs them per GI doctor had it done at [facility] Screening for osteoporosis 089797891 Z13.820 had it done at [facility] Screening mammography 24 826550 Z12.31 already had it done at [facility] has it done every year Chronic ob structive pulmonary disease 85727058 J44.9 stable [id number] SHAHRZAD ACEVES [facility] Internal Medicine [address] [facility], [place] [address] 09/10/2020 09:51:49 09/10/2020 10:41:08 Chronic obstructive pulmonary disease 40021017 J44.9 stable Ventricula r premature beats 52471731 I49.3 stable on metoprolol , will need refill med soon Essential hypertension 97805061 I10 BP stable, no side effects [id number] SHAHRZAD ACEVES [facility] Internal Medicine [address] [facility], [employer] [facility] [place] [address] 03/11/2021 09:31:38 03/11/2021 10:00:40 Essential hypertension 21760761 I10 BP stable, no side effects Chronic ob structive pulmonary disease 96754575 J44.9 stable Degenerati on of lumbar intervertebral disc 82082068 M51.36 [place] [id number] SHAHRZAD ACEVES [facility] Internal Medicine [address] [facility], [place] [address] 04/23/2021 10:11:11 04/23/2021 11:20:36 Cellulitis 695717362 L03.90 will start on doxy for infection Removal of suture 418905 01 Z48.02 sutures removeddue to infection wound did not close correctly Dehiscence of surgical wound 30864905 T81.30XA sutures did not take, the wound was open and underlying infectiona lot of pain with removal of sutures [id number] SHAHRZAD ACEVES [facility] Internal Medicine [address] [facility],[place] [address] 09/24/2021 09:28:32 09/24/2021 11:30:07 Chronic obstructive pulmonary disease 60742775 J41.0 stable Essential hypertension 05707605 I10 BP stable, no side effects Osteopenia 555563660 M85 .80 stable Active or passive immunization 849307479 Z23 given locations for a pna vaccine [id number] SHAHRZAD ACEVES Internal Medicine [address] [facility],[place] [address] 10/17/2021 09:02:59 10/17/2021 14:26:45 Chronic obstructive pulmonary disease 10602525 J41.0 stable Essential hypertension 79371289 I10 improved with HTCZ increasewi ll continue without changes for now [id number] SHAHRZAD ACEVES Internal Medicine [address] [facility],[place] [address] 04/20/2022 11:07:58 04/20/2022 15:33:58 Chronic obstructive pulmonary disease 10624272 J41.0 stable Essential hypertension 18431771 I10 excellent control on her medication currently [id number] SHAHRZAD ACEVES Internal Medicine [address] [facility],[place] [address] 11/03/2022 09:57:08 11/04/2022 10:12:19 Chronic obstructive pulmonary disease 69009522 J41.0 stablehas a f/u in the spring with Dr. Bojorquez will wait until she sees Dr. Bojorquez Essential hypertension 09756841 I10 excellent control on her medication currently Osteopenia 337115111 M85 .80 stabledecl ined repeat bone density at this time [id number] SHAHRZAD ACEVES Internal Medicine [address] [facility],[place] [address] 04/26/2023 09:28:39 04/26/2023 10:46:43 Chronic obstructive pulmonary disease 92744784 J41.0 stable Essential hypertension 02669513 I10 excellent control on her medication currently (at ome is stable) recheck in office is always excellent [id number] SHAHRZAD ACEVES Internal Medicine [address] [facility] [address],[place] [address] 10/19/2023 08:00:18 10/19/2023 11:32:18 Chronic obstructive pulmonary disease 54211599 J41.0 stableno flare upsdoesn't use inhaler Essential hypertension 34284302 I10 excellent control on her medication currently Chronic ob structive pulmonary disease 82655192 J44.9 stable [id number] SHAHRZAD ACEVES Internal Medicine [address] [facility] [address],[place] [address] 04/04/2024 09:39:10 04/04/2024 10:39:12 Depression screening 884699557 Z13.31 negative Essential hypertension 02953665 I10 excellent control on her medication currently Chronic ob structive pulmonary disease 54472453 J41.0 J44.9 stableno flare upsdoesn't use inhaler [id number] SHAHRZAD ACEVES Internal Medicine [address] [facility] [address],[place] [address] 10/09/2024 15:52:29 10/10/2024 09:01:00 Essential hypertension 95305099 I10 excellent control on her medication currentlys tressed today about driving in the dark Chronic ob structive pulmonary disease 08031607 J41.0 J44.9 stableno flare upsdoesn't use inhaler Health Concerns Section Related Observation LastModified by Organization Detai ls LastModified Time None Recorded Concern Status LastModified by Organization Details LastModified Time None Recorded Advance Directives Directive None Recorded Payers Encounter Date Sequence Insurance Name Policy Number Policy Bai Covered Member ID Bai Member ID Guarantor Name 11/03/2022 2 [employer] (MEDICARE SUPPLEMENT) Ora Davis [id number] Ora Davis 11/03/2022 1 [place] [employer] Ora Davis [id number] Ora Davis 04/26/2023 2 [employer] OPT[employer] (MEDICARE SUPPLEMENT) Ora Davis [id number] Ora Davis 04/26/2023 1 [place] [employer]MENT [employer] Ora Davis [id number] Ora Davis 10/19/2023 2 [employer] HE[employer] OPTIONS (MEDICARE SUPPLEMENT) Ora Dvais [id number] Ora Davis 10/19/2023 1 [place] Ora Davis [id number] Ora Davis 04/04/2024 2 [employer] OPTIONS (MEDICARE SUPPLEMENT) Ora Davis [id number] Ora Davis 04/04/2024 1 [place] Ora Davis [id number] Ora Davis 10/09/2024 2 [employer] HE[employer] OPTIONS (MEDICARE SUPPLEMENT) Ora Davis [id number] Ora Davis 10/09/2024 1 [place] Ora Davis [id number] Ora Davis Notes Date Note Type Note Provider Name and Address Organization Details Recorded Time 3 text/html 6 mos f/u COPD: stable, mild increase in symptoms [facility] HTN: today in the [...] so will hold for now SHAHRZAD ACEVES [address] [place] [address], [address], [facility] 11/03/2022 10:21:50 3 text/html f/u COPD the patient reports that she did injury her toe while walking at [facility], stepped into a divot and most likely sprained it COPD: stabledoing wellthat patient sometimes uses the inhaler before she goes walking but it doesn't make much of a difference HTN: stable with recheckmedication list is still complete will set up with manjinder call back for her regular fu and physical [place] when she leaves appt today otherwise doing really well discussed her mood, did have a slump for a bit but is doing much better SHAHRZAD ACEVES [address] [place], [address], [facility] Internal Medicine 04/26/2023 09:47:37 4 text/html 6 mos f/u The patient is participating in this appointment via telemedicine communication with a phone call/video calling service ([employer])The patient consents to use of these platforms [...] bowel changes, MSK changes SHAHRZAD ACEVES [address] [place], [address], [facility] Internal Medicine 10/19/2023 10:06:06 4 text/html [...] patient in 6 mos SHAHRZAD ACEVES [address] [place], [address], [facility] Internal [facility] 04/04/2024 10:18:52 4 text/html 6 mos f/u [...] fu with refills when do SHAHRZAD ACEVES [address] [place] [address], [address], [place] YUAN Fisher Internal [facility] 10/09/2024 16:56:12 OBGyn Episode No OBEpisode recorded.
--- OUTSIDE RECORDS SUMMARY | 2025-02-05 09:21 | XMS_ITS | Clinical Summary ---
Author Organization [facility] Address [address] [place] [address] Care Team Providers Care Hair Or Beauty Salon Manager Name Role Phone Devante Leigh DO Primary Care Provider Unavaila ble Allergies Active Allergy Reactions Severity Noted Date Comments No Known Drug Allergies 01/19/2017 Medications Medication Sig Dispensed Refills Start Date End Date Status lisinopril (PRINIVIL,ZESTRIL) 20 MG tablet Take 20 mg by mouth daily. 0 Active hydrochlorothiazide (MICROZIDE) 12.5 MG capsule Take 12.5 mg by mouth 2 times daily. 0 Active metoprolol (TOPROL-XL) 25 MG 24 hr tablet Take 25 mg by mouth 2 times daily. 0 Active Active Problems Problem Noted Date Sprain of sacroiliac ligament 07/31/2019 Somatic dysfunction of pelvic region Chronic obstructive pulmonary disease Restrictive lung disease 07/05/2017 Pulmonary nodule 03/24/2017 Immunizations Name Administration Dates Next Due COVID-19 (Pfizer) Pt Reported 08/04/2022 ,01/14/2022,07/15/2021,12/06,11/15/2020 Influenza Flu (PT Reported) 06/11/2021 Pneumoccoccal(Adult) Polysac charide PPSV23 01/01/2023 Social History Tobacco Use Types Packs/Day Years Used Date Smoking Tobacco: Former Cigarettes 1 40 Smokeless Tobacco: Former Quit: 1992 Alcohol Use Standard Drinks/Week Comments No 0 (1 standard drink = 0.6 oz pur e alcohol) Sex Assigned at Date Recorded Not on file Job Start Date Occupation Industry Not on file Not on file Not on file Last Filed Vital Signs Vital Sign Reading Time Taken Comments Blood Pressure 148/66 01/15/2023 11:09 AM EDT Pulse 62 01/15/2023 11:09 AM EDT Temperature 36.2 ??C (97.1 ??F) 01/15/2023 1 1:09 AM EDT Respiratory Rate 16 01/15/2023 11:0 9 AM EDT Oxygen Saturation 98% 01/15/2023 11: 09 AM EDT Inhaled Oxygen Concentration - - Weight 47.5 kg (104 lb 12.8 oz) 023 11:09 AM EDT Height 147.3 cm (4' 10 ) 01/15/2023 11: 09 AM EDT Body Mass Index 21.9 01/15/2023 11:09 AM EDT Plan of Treatment Health Maintenance Due Date Last Done Comments DEPRESSION SCREEN 1952 CHOLESTEROL SCREENING 1960 MAMMOGRAM 1980 SHINGLES VACCINE (1 of 2) 1990 BONE DENSITY SCREENING 2005 FALL RISK ASSESSMENT 2005 PNEUMOCOCCAL VACCINE (2 - PCV) 01/02/2024 01/01/2023 Covid-19 Vaccine (6 - 2022-2 4 season) 2024 08/04/2022, 01/14/2022, 07/15/2021, Additional history exists INFLUENZA (Season Ended) 2025 06/11/2021, 12/2017 DTAP/TDAP/TD (3 - Td or Tdap) 04/15/2031 04/15/2021, 12/09/2014 Insurance Payer Benefit Plan / Group Subscriber ID Effective Dates Phone Address Type [place]/MEDICA RE/$0 [id number] 2005-Pre sent [phone] [address] [place] [address] MEDICARE [id number]-HTZ-ERYEVAC [facility]/AARP/20%/ F/MEDSUP [id number] 2018-Pre sent [facility] CARE/AARP [address] [place] [address] MEDICARE SUPPLE[place]AL [place] [id number] 2005-Pre sent [address] [place] [address] MEDICARE [id number] [facility] AARP MEDICARE SUPP $0 IRRIGON [id number] 2018-Pre sent [phone] [facility] CLAIM DIVISION [address] [place] [address] MEDICARE SUPPLEMENTAL Care Teams Hair Or Beauty Salon Manager Relationship Specialty Start Date End Date Devante Leigh DO PCP - General Internal Medicine 12/23/17
--- OUTSIDE RECORDS SUMMARY | 2025-02-05 09:21 | XMS_ITS | Encounter Summary ---
Author Organization [facility] Address [facility] [place] [address] Care Team Providers Care Planning Consultant Name Role Phone Devante Leigh DO Primary Care Provider Unavaila ble Encounter Details Date Type Department Care Team Description 01/26/2018 Transfer Records Medical Records [address] [place] [id number] Abstract, Provider Social History Tobacco Use Types Packs/Day Years Used Date Smoking Tobacco: Former Cigarettes 1 40 Smokeless Tobacco: Former Quit: 1992 Alcohol Use Standard Drinks/Week Comments No 0 (1 standard drink = 0.6 oz pur e alcohol) Sex Assigned at Date Recorded Not on file Job Start Date Occupation Industry Not on file Not on file Not on file documented as of this encounter Plan of Treatment Not on file documented as of this encounter Visit Diagnoses Not on filedocumented in this encounter Care Teams Planning Consultant Relationship Specialty Start Date End Date Devante Leigh DO PCP - General Internal Medicine 12/23/17 documented as of this encounter
--- OUTSIDE RECORDS SUMMARY | 2025-02-05 09:21 | XMS_ITS | Encounter Summary ---
Author Organization [facility] Address [address] [place] [address] Care Team Providers Care Concrete Mixer Name Role Phone Community, Pcp Primary Care Provider Devante Cook DO Primary Care Provider Kailee masters Encounter Details Date Type Department Care Team Description 07/11/2012 Old Medical Records Medical Records [address] [place] [address] Abstract, Provider Social History Tobacco Use Types Packs/Day Years Used Date Smoking Tobacco: Never Assessed Sex Assigned at Date Recorded Not on file Job Start Date Occupation Industry Not on file Not on file Not on file documented as of this encounter Plan of Treatment Not on file documented as of this encounter Visit Diagnoses Not on filedocumented in this encounter Care Teams Concrete Mixer Relationship Specialty Start Date End Date Community, Pcp PCP - General 09/07/05 12/22/17 Devante Leigh DO PCP - General Internal Medicine 12/23/17 documented as of this encounter
--- OUTSIDE RECORDS SUMMARY | 2025-02-05 09:21 | XMS_ITS | Encounter Summary ---
Author Organization [facility] Address [facility] [place] [address] Care Team Providers Care Pipe And Boiler Covers Supervisor Name Role Phone Devante Leigh DO Primary Care Provider Unavaila ble Encounter Details Date Type Department Care Team Description 01/27/2018 Release of Information Medical Records [address] [place] [id number] Abstract, Provider Social History Tobacco Use Types [...] on filedocumented in this encounter Care Teams Pipe And Boiler Covers Supervisor Relationship Specialty Start Date End Date Devante Leigh DO PCP - General Internal Medicine 12/23/17 documented as of this encounter
--- OUTSIDE RECORDS SUMMARY | 2025-02-05 09:21 | XMS_ITS | Encounter Summary ---
Author Organization [facility] Address [address] [place] [address] Care Team Providers Care Copywriting Intern Name Role Phone Devante Leigh DO Primary Care Provider Unavaila ble Encounter Details Date Type Department Care Team Description 01/26/2018 Orders Only Medical Records [address] [place] [id number] Abstract, Provider Social History Tobacco Use Types [...] on file documented as of this encounter Procedures Procedure Name Priority Date/Time Associated Diagnosis Comments OUTSIDE CT Routine 06/21/[address] Routine 01/05/2017 documented in this encounter Results * OUTSIDE CT (06/21/2017) Provider Abstract RADIOLOGY * OUTSIDE CT (01/05/2017) Provider Abstract RADIOLOGY documented in this encounter Visit Diagnoses Not on filedocumented in this encounter Care Teams Copywriting Intern Relationship Specialty Start Date End Date Devante Leigh DO PCP - General Internal Medicine 12/23/17 documented as of this encounter
[2025-02-05 14:36] LABS: Alanine Aminotransferase 33 U/L (0-31); Albumin Level 4.1 g/dL (3.5-5.0); Alkaline Phosphatase 82 U/L (39-117); Anion Gap 13 (12-20); Aspartate Amino Transferase 23 U/L (5-31); Bilirubin Total 0.9 mg/dL (0.0-1.0); Blood Urea Nitrogen 21 mg/dL (9-16); Calcium 9.4 mg/dL (8.4-10.2); Carbon Dioxide 34 mmol/L (22-29); Chloride 101 mmol/L (96-108); Estimated Glomerular Filt Rate > 60; Glucose Random 84 mg/dL (60-115); Potassium 3.8 mmol/L (3.3-5.1); Sodium 144 mmol/L (135-145); Total Protein 7.6 g/dL (6.5-8.0)
== END ==
LOC: HO.CARD 08:47
PROVIDERS: Physician Assistant; Absent Provider Internal Medicine; PCP Internal Medicine; Visit Provider Internal Medicine
DX: I48.91 Unspecified atrial fibrillation (principal); E87.6 Hypokalemia
CPT/HCPCS: 36415; 80053; 93242

== ENCOUNTER → 2025-02-05 08:50 | Outpatient (BNV) | payer MEDICARE, SELFPAY | PROVIDERS: Absent Provider Internal Medicine; PCP Internal Medicine; Visit Provider Internal Medicine | DX: I48.91 Unspecified atrial fibrillation (principal) | CPT/HCPCS: 93227 ==

== ENCOUNTER 2025-02-26 08:55 | Outpatient (AMB) | payer MEDICARE, SELFPAY ==
--- OUTSIDE RECORDS SUMMARY | 2025-02-26 09:05 | XMS_ITS | Data Portability ---
Author Organization [facility], Home Service Address [address] [place] [address] Assessment Encounter Date Assessment Date Assessment LastModified by Organization Details LastModified Time 04/26/2023 04/26/2023 The patient denies little pleasure [...] Organization Details Last Modified Time Details Appointments FOLLOW UP 15 2024 10:45A M SHAHRZAD ACEVES Not available Not available Not available Lab CMP, serum or plasma 2024 025 [facility], [address] [place] [address], [place], [address], 02/12/2025 15:30:09 Referral None recorded . Procedures None recorded . Surgeries None recorded . Imaging None recorded . Medication Orders None recorded . Patient TargetsNo targets recorded. Patient Instructions Encounter Date Encounter Id Patient Instructions Last Modified By Organization Details Last Modified Time 04/26/2023 [id number] pulse oximetry* ARIANNA Not available 04/26/2023 09:49:45 Reason for Referral None Reported. Results Created Date Observation Date Name Description Value Unit Range Abnormal Flag Note LastModifiedBy Organization Detail LastModifiedTime 06/16/20 23 06/16/2023 zafar BELLO, nadine al, bilat eraclifford No observ ation record ed. [email or web address] [facility] Imaging Dept [address] [place], [address], 06/16/2023 12:11:50 06/19/20 24 06/19/2024 MAMMO , scree savannah, digit al, bilat eral No observ ation record ed. [email or web address] [facility] Diagnosit Imaging Dept [address] [place], [address], 06/19/2024 19:54:57 01/30/20 25 01/29/2025 XR, chest , 2 view No observ ation record ed. [facility] (Medical Records) [address] [place], [address], 02/12/2025 15:26:22 Result Notes None recorded. Problems Name Problem SNOMED Code Status Onset Date Resolution Date Notes Provider Name and Address Organization Details Recorded Time Osteopen ia 241601864 Active 2018 Zena flower [facility] 0 10:11:37 Chronic obstruct chriss pulmonar y disease 93845746 Active 2018 Zena flower [facility] 0 10:11:36 Mild chronic obstruct chriss pulmonar y disease 228410591 Active 2017 Dr. Bojorquez, pulmonol ogist Zenaper flower [facility] 0 10:11:37 Solitary nodule of lung 195253310 Active 2017 right upper lobe Zena flower [facility] 0 10:11:36 [facility] l hyperten shazia 38949250 Active 2017 Zena flower [facility] Internal [facility] 0 10:11:37 Personal history of primary malignan t neoplasm of breast 668620835 Active 1989 right, lumpecto my & radiatio n Zena flower [facility] 0 10:11:37 Ventricu lar prematur e beats 70432850 Active 2017 [facility] 0 10:11:37 History of adenomat ous polyp of colon 027666095 [facility] 10:11:37 History of colonosc opy 6078043222 09 Completed 201201/12/2018 Removal Reason: to put in history Ora Bunch NP, S [address] [place] [address], [phone], [facility] 8 10:00:05 Hypokale jeanine 83662047 Active 2024 SHAHRZAD ACEVES [address] [place] [address], [address], [facility] 5 10:19:06 Paroxysm al atrial fibrilla tion 467657000 Active 2024 SHAHRZAD ACEVES [address] [place] [address], [phone], [facility] 5 15:20:47 Problem Notes None recorded. Procedures Surgical History Date Name Laterality Status Provider Name and Address Organization Details Recorded Time 04/23/20 21 Suture/Staple removal completed SHAHRZAD ACEVES [address] [place] [address], [phone], [facility] Internal [facility] 04/23/2021 10:32:54 10/11/18 99 Breast Surgery completed Ora Bunch NP, S [address] [place] [address], [phone], [facility] Internal [facility] 12/21/2017 15:16:31 Unlisted px arthroscopy completed Ora Bunch NP, Raina [address] [place] [address], [address], [facility] 12/21/2017 15:07:01 Imaging Results Imaging Date Name Status LastModified by Organiz ation Details LastModified Time 06/16/2023 MAMMO, screening, digital, bilateral completed [facility] Diagnosit Imaging Dept [address] [place] [address], [address], 06/16/2023 12:11:50 06/19/2024 MAMMO, screening, digital, bilateral completed [email or web address] [facility] Diagnosit Imaging Dept [address] [place], [address], 06/19/2024 19:54:57 01/29/2025 XR, chest, 2 view completed [facility] (Medical Records) [address] [place], [address], 02/12/2025 15:26:22 Procedure Notes None recorded. Medical Equipment None [...] tablet TAKE 1 TABLET BY MOUTH DAILY 02/12 completed Not Available Not Available Not Available atenolol 25 mg tablet Take 1 tablet every day by oral route. 01/28 completed Not Available Not Available Not Available potassium chloride 20 mEq/15 mL oral liquid TAKE 15ML BY MOUTH DAILY FOR 30 DAYS 02/12 completed Not Available Not Available Not Available biotin 10,000 mcg capsule Take by oral route. 04/20 completed Not Available Not Available Not Available digoxin 125 mcg (0.125 mg) tablet TAKE 1 TABLET BY MOUTH DAILY active Not Available Not Available No t Available furosemide 20 mg tablet TAKE 1 TABLET BY MOUTH DAILY active Not Available Not Available No t Available albuterol sulfate HFA 90 mcg/actuati on aerosol inhaler INHALE 2 PUFFS INTO THE LUNGS EVERY 4 HOURS NEEDED FOR 30 DAYS 04/04 completed Not Available Not Available Not Available lisinopril 40 mg tablet TAKE 1 TABLET BY MOUTH DAILY active Not Available Not Available No t Available Tylenol 650 mg tablet,exte nded release Take 2 tablets every 8 hours by oral route. 03/11 completed Not Available Not Available Not Available metoprolol tartrate 25 mg tablet TAKE 1 TABLET BY MOUTH TWICE DAILY 2023 active 3X TABS BID Not Available Not Available Not Available multivitami n active Not Available Not Available Not Available Calcium with Vitamin D active Not Available Not Available No t Available hydrochloro thiazide 12.5 mg tablet TAKE 1 TABLET BY MOUTH TWICE DAILY 02/12 completed Not Available Not Available Not Available Eliquis 5 mg tablet TAKE 1 TABLET BY MOUTH [...] Updated DateTime 3 147.32 cm 21.6 kg/m2 60167.8 1 g 53 /min 99 % 99 % 152 mm[Hg] 70 mm[Hg] Indio Leigh [facility] 3 09:33:40 Date Recorded Body height Body mass index (BMI) Body weight Heart rate Oxygen saturation Oxygen saturation in Arterial blood by Pulse oximetry Systolic blood pressure Diastolic blood pressure Provider Name and Address Organization Details Last Updated DateTime 4 147.32 cm 20.7 kg/m2 20885.6 4 g 47 /min 99 % 99 % 118 mm[Hg] 68 mm[Hg] Nora Crawford [facility] 4 09:55:30 Date Recorded Body height Body mass index (BMI) Body weight Systolic blood pressure Diastolic blood pressure Provider Name and Address Organization Details Last Updated DateTime 10/09/2024 147.32 cm 21.1 kg/m2 68308.83 g 160 mm[Hg] 80 mm[Hg] Nora Crawford MA [facility] 4 16:26:22 Date Recorded Body height Body mass index (BMI) Body weight Heart rate Oxygen saturation Oxygen saturation in Arterial blood by Pulse oximetry Systolic blood pressure Diastolic blood pressure Provider Name and Address Organization Details Last Updated DateTime 5 147.32 cm 21.2 kg/m2 94445.5 5 g 56 /min 97 % 97 % 128 mm[Hg] 86 mm[Hg] Julia Herrera [facility] 5 15:11:00 Social History Question Answer Notes LastModified by Organizat ion Details LastModified Time Tobacco Smoking Status Former Smoker Ora Bunch, PREVENTIVE MEDICINE SPECIALIST, [address] [place], [address], [facility] 12/21/2017 15:06:09 What Was The Date Of Your Most Recent Tobacco Screening? 02/12/2025 [email or web address] Information not available 02/12/2025 How Many Years Have You Smoked Tobacco? 45 [email or web address] Information not available 12/21/2017 Sex: Unknown Functional Status Question Answer Note LastModified by Organization D etails LastModified Time Do you or have you ever used any other forms of tobacco or nicotine? No [email or web address] Information not available 04/04/2024 Mental Status None recorded. Family History Nothing Reported. Medical History Condition Response Breast Cancer Y COPD Y Polyps Y Hypertension Y Gynecological HistoryNo gynecological history recorded. Obstetrics History GPAL:G 0 P 0 0 0 0 Immunizations Vaccine Type Date Status Note Provider Nam e and Address Organization Details Recorded Time Influenza, split virus, quadrivalent, preservative 8 completed Zena flower [facility] 09/10/2020 10:11:31 COVID-19, mRNA, LNP-S, PF, 30 mcg/0.3 mL dose 1 completed Cyndi flower [facility] Internal [facility] 04/20/2022 08:14:02 COVID-19, mRNA, LNP-S, PF, 30 mcg/0.3 mL dose 1 completed Cyndi flower [facility] Internal [facility] 04/20/2022 08:14:10 COVID-19, mRNA, LNP-S, PF, 30 mcg/0.3 mL dose 1 completed [facility] [place] [facility] 04/20/2022 08:14:17 COVID-19, mRNA, LNP-S, PF, 30 mcg/0.3 mL dose 2 completed [facility] 04/20/2022 08:14:24 COVID-19, mRNA, LNP-S, PF, 30 mcg/0.3 mL dose 2 completed [facility] 11/03/2022 08:01:51 influenza, unspecified formulation 2 completed [facility] 11/03/2022 08:02:05 Pneumococcal conjugate PCV 13 2 completed [facility] 11/03/2022 08:02:30 Tdap 1 completed [facility] 11/03/2022 08:03:07 Pneumococcal Conjugate, unspecified formulation 3 completed SHAHRZAD ACEVES [address] [place], [address], [facility] 04/04/2024 10:09:09 Respiratory syncytial virus (RSV) MAB, unspecified 3 completed SHAHRZAD ACEVES [address] [place], [address], [facility] 04/04/2024 10:11:30 Influenza, split virus, quadrivalent, preservative 9 completed [facility] 09/10/2020 10:11:31 Influenza, split virus, quadrivalent, preservative 0 completed Zena flower [facility] 09/10/2020 10:11:31 Influenza, adjuvanted, trivalent, PF 7 completed [facility] 09/10/2020 10:11:31 Tdap 5 completed Zena flower [facility] 09/10/2020 10:11:31 pneumococcal, unspecified formulation 6 completed Zena flower [facility] 09/10/2020 10:11:31 pneumococcal, unspecified formulation 1 completed Zena flower [facility] 09/10/2020 10:11:31 Past Encounters Encounter ID Performer Location Encounter Start Date Encounter Closed Date Diagnosis/Indication Diagnosis SNOMED-CT Code Diagnosis ICD10 Code Diagnosis Note [id number] Devante Leigh [address],[place] [address] 01/28/2018 11:08:11 01/28/2018 13:01:36 Candidiasis of mouth 51571837 B37.0 Essential hypertension 56682514 I10 stable [id number],[place] [address] 02/04/2018 09:35:54 02/04/2018 10:31:51 Chronic obstructive pulmonary disease 57682839 J44.9 stable with inhalers, no use rescue inhaler Solitary n odule of lung 552294004 R91.1 f/u Dr. Bojorquez Ventricula r premature beats 53679005 I49.3 stable with metoprolol Essential hypertension 47141956 I10 stable, given lab slip, pt. more comfortabl e with paper form Personal h istory of primary malignant neoplasm of breast 507947392 Z85.3 mammo due in March, order for diagnostic mammo provided, pt to schedule at [place] [id number] Devante Leigh [address],[place] [address] 06/10/2018 09:17:53 06/10/2018 12:18:07 Ventricular premature beats 35957732 I49.3 stable with metoprolol History of adenomatous polyp of colon 171129017 Z86.010 Personal h istory of primary malignant neoplasm of breast 365754144 Z85.3 up to date mammo Essential hypertension 49750413 I10 stable Solitary n odule of lung 563404462 R91.1 f/u Dr. Bojorquez External hordeolum 62510 08 H00.016 [id number] Devante Leigh [address],[place] [address] 09/26/2018 09:33:52 09/26/2018 11:22:31 Essential hypertension 16730591 I10 stable History of adenomatous polyp of colon 371212086 Z86.010 up to date colonoscop y Ventricula r premature beats 28862189 I49.3 stable with metoprolol Solitary n odule of lung 521398761 R91.1 f/u Dr. Bojorquez, 2 mm no need f/u CT Mild chron ic obstructive pulmonary disease 217916302 J44.9 [facility] [id number] [facility] [address] [facility],[place] [address] 02/01/2019 09:22:00 02/01/2019 10:36:37 Screening procedure 50591301 Z13.9 Decreased estrogen level 980384305 E28.39 Essential hypertension 59732039 I10 stable Mild chron ic obstructive pulmonary disease 404166520 J44.9 Breo helpful History of adenomatous polyp of colon 176081408 Z86.010 up to date colonoscop y Ventricula r premature beats 24926187 I49.3 stable with metoprolol Solitary n odule of lung 978709929 R91.1 f/u Dr. Bojorquez, recent visit, will f/u 1 year [id number] [facility] [address] [facility],[place] [address] 08/30/2019 09:28:17 08/30/2019 10:01:54 Chronic obstructive pulmonary disease 50337202 J44.9 breathing well sees pulm once per year Essential hypertension 72360573 I10 well controlled Ventricula r premature beats 90186305 I49.3 under control Solitary n odule of lung 393243809 R91.1 followed by pulm as well Advance care planning 71 8039234 Z71.89 HCP - daughter - tonia barton has advanced directives at home ppw provided to reevaluate Osteopenia 856573750 M85 .80 on vitamin d [id number] [facility] [address] [facility], [place] [address] 11/08/2019 09:19:25 11/08/2019 10:01:04 Chronic obstructive pulmonary disease 83007900 J44.9 breathing well sees pulm once per year Pain of ri ght hip joint 0139590163 40389 M25.551 Chronic back pain 218763 002 M54.5 [id number] Devante Leigh [facility] [address] [facility],[place] [address] 03/05/2020 09:18:58 03/05/2020 10:28:43 Adult health examination 315003618 Z00.00 no concerns Screening for cardiovascular system disease 868519267 Z13.6 bw Screening for malignant neoplasm of colon 120060271 Z12.11 no longer needs them per GI doctor had it done at [place] Screening for osteoporosis 771798169 Z13.820 had it done at [facility] Screening mammography 24 757174 Z12.31 already had it done at [facility] has it done every year Chronic ob structive pulmonary disease 47367908 J44.9 stable [id number] Devante Leigh [facility] [address] [facility],[place] [address] 09/10/2020 09:51:49 09/10/2020 10:41:08 Chronic obstructive pulmonary disease 48564846 J44.9 stable Ventricula r premature beats 15375221 I49.3 stable on metoprolol , will need refill med soon Essential hypertension 92490587 I10 BP stable, no side effects [id number] Devante Leigh [facility] [address] [facility],[place] [address] 03/11/2021 09:31:38 03/11/2021 10:00:40 Essential hypertension 85965761 I10 BP stable, no side effects Chronic ob structive pulmonary disease 01676373 J44.9 stable Degenerati on of lumbar intervertebral disc 53561939 M51.36 [place] [id number] Devante Leigh [facility] [address] [facility],[place] [address] 04/23/2021 10:11:11 04/23/2021 11:20:36 Cellulitis 989634169 L03.90 will start on doxy for infection Removal of suture 329360 01 Z48.02 sutures removeddue to infection wound did not close correctly Dehiscence of surgical wound 16132052 T81.30XA sutures did not take, the wound was open and underlying infectiona lot of pain with removal of sutures [id number] Devante Leigh [facility] [address] [facility],[place] [address] 09/24/2021 09:28:32 09/24/2021 11:30:07 Chronic obstructive pulmonary disease 07590405 J41.0 stable Essential hypertension 40435811 I10 BP stable, no side effects Osteopenia 857041222 M85 .80 stable Active or passive immunization 604322626 Z23 given locations for a pna vaccine [id number] Devante Leigh [facility] [address] [facility],[place] [address] 10/17/2021 09:02:59 10/17/2021 14:26:45 Chronic obstructive pulmonary disease 57688877 J41.0 stable Essential hypertension 20086286 I10 improved with HTCZ increasewi ll continue without changes for now [id number] Devante Leigh [facility] [address] [facility],[place] [address] 04/20/2022 11:07:58 04/20/2022 15:33:58 Chronic obstructive pulmonary disease 62048066 J41.0 stable Essential hypertension 72952157 I10 excellent control on her medication currently [id number] Devante Leigh [facility] [address] [facility],[place] [address] 11/03/2022 09:57:08 11/04/2022 10:12:19 Chronic obstructive pulmonary disease 40998488 J41.0 stablehas a f/u in the spring with Dr. Bojorquez will wait until she sees Dr. Bojorquez Essential hypertension 07332974 I10 excellent control on her medication currently Osteopenia 972308532 M85 .80 stabledecl ined repeat bone density at this time [id number] Devante Leigh [facility] [address] [facility] [address],[place] [address] 04/26/2023 09:28:39 04/26/2023 10:46:43 Chronic obstructive pulmonary disease 01858947 J41.0 stable Essential hypertension 08447065 I10 excellent control on her medication currently (at ome is stable) recheck in office is always excellent [id number] Devante Leigh [facility] [address] [facility], [place] [address] 10/19/2023 08:00:18 10/19/2023 11:32:18 Chronic obstructive pulmonary disease 35607325 J41.0 stableno flare upsdoesn't use inhaler Essential hypertension 52771166 I10 excellent control on her medication currently Chronic ob structive pulmonary disease 79258829 J44.9 stable [id number] Devante Leigh [facility] [address] [facility], [place] [address] 04/04/2024 09:39:10 04/04/2024 10:39:12 Depression screening 561929013 Z13.31 negative Essential hypertension 38164706 I10 excellent control on her medication currently Chronic ob structive pulmonary disease 20986869 J41.0 J44.9 stableno flare upsdoesn't use inhaler [id number] Devante Leigh [facility] [address] [facility], [place] [address] 10/09/2024 15:52:29 10/10/2024 09:01:00 Essential hypertension 84560870 I10 excellent control on her medication currentlys tressed today about driving in the dark Chronic ob structive pulmonary disease 23261130 J41.0 J44.9 stableno flare upsdoesn't use inhaler [id number] Devante Leigh [facility] [address] [facility], [place] [address] 02/12/2025 14:55:43 02/12/2025 15:59:44 Paroxysmal atrial fibrillation 385630567 I48.0 all meds reviewed with patientswi tched the dose of the metoprolol Hypokalemia 10612911 E87 .6 will need a recheck after she stops it in two to three weeks Essential hypertension 94896757 I10 stable Health Concerns Section Related Observation LastModified by Organization Detai ls LastModified Time None Recorded Concern Status LastModified by Organization Details LastModified Time None Recorded Advance Directives Directive None Recorded Payers Encounter Date Sequence Insurance Name Policy Number Policy Bai Covered Member ID Bai Member ID Guarantor Name 04/26/2023 2 [employer] OPTIONS (MEDICARE SUPPLEMENT) Ora Davis [id number] Ora Davis 04/26/2023 1 [place] Ora F Davis [id number] Ora Davis 10/19/2023 2 [employer] OPTIONS (MEDICARE SUPPLEMENT) Ora Davis [id number] Ora Davis 10/19/2023 1 [place] Ora F Davis [id number] Ora Davis 04/04/2024 2 [employer] OPTIONS (MEDICARE SUPPLEMENT) Ora Davis [id number] Ora Davis 04/04/2024 1 [place] Ora F Davis [id number] Ora Davis 10/09/2024 2 [employer] OPTIONS (MEDICARE SUPPLEMENT) Ora Davis [id number] Ora Davis 10/09/2024 1 [place] Ora F Davis [id number] Ora Davis 02/12/2025 2 [employer] OPTIONS (MEDICARE SUPPLEMENT) Ora Davis [id number] Ora Davis 02/12/2025 1 [place] Ora F Davis [id number] Ora Davis Notes Date Note Type Note Provider Name and Address Organization Details Recorded Time 3 text/html f/u COPD the patient reports that she did injury her toe while walking at [facility], stepped into a divot and most likely sprained it COPD: stabledoing wellthat patient sometimes uses the inhaler before she goes walking but it doesn't make much of a difference HTN: stable with recheckmedication list is still complete will set up with manjinder call back for her regular fu and physical going on vacation ([place]) when she leaves [facility] today otherwise doing really well discussed her mood, did have a slump for a bit but is doing much better SHAHRZAD ACEVES [address] [place], [address], [facility] 04/26/2023 09:47:37 4 text/html 6 mos f/u The patient is participating in this appointment via telemedicine communication with a phone call/video calling service ([employer])The patient consents to use of these platforms [...] bowel changes, MSK changes SHAHRZAD ACEVES [address] [place], [address], [facility] 10/19/2023 10:06:06 4 text/html 6 [...] patient in 6 mos SHAHRZAD ACEVES [address] [place], [address], [facility] 04/04/2024 10:18:52 4 text/html 6 [...] with refills when do SHAHRZAD ACEVES [address] [place], [address], [facility] 10/09/2024 16:56:12 5 text/html hospital. f/u the patient reports that she was admitted to the hospitalthe patient reports she was having increased afib symptomswas started on potassium supplement due to hypokalemiathe patient will d/c and f/u with repeat bw has a cardio f/u on 03/02 is feeling better, her breathing is fine, no sob today in the office the patient BP is 128/86 L arm sitting the patient is doing well on the BP medication with no side effects and no adjustment of their medications needed today at the appointment well-controlled on medication denies chest pain, sob, ankle swelling, orthopnea, palpitations the patient weight has been consistent at homeno sig swelling will recheck her K levels in a few weeks SHAHRZAD ACEVES [address] [facility], [place], [address], [facility] 02/12/2025 15:30:55 OBGyn Episode No OBEpisode recorded.
[2025-02-26 09:12] VITALS: BP 140/60; PULSE 50; BMI 21.7
--- NOTE | 2025-02-26 09:12 | MHC.OFFVIS ---
Vital Signs 02/26/25 09:12 Height 4 ft 10 in Weight 103 lb 9.876 oz BMI 21.7 BP 140/60 H Blood Pressure Location Lt brachial Position Sitting Pulse 50 Pulse Source Monitor Intake Visit Reasons: PERSONAL INJURY LITIGATION [facility]-Discharge/AFIB/Follow up Web Site Specialist Required: No Allergies No Known Allergies [No Known Allergies*] Allergy (Verified 02/26/25 09:14) HPI HPI PERSONAL INJURY LITIGATION [place]/C-Discharge/AFIB/Follow up: Details: Ora is an 84-year-old female with past medical history of hypertension, mitral regurgitation who was recently admitted to [facility] with heart palpitations and found to have atrial fibrillation. She was treated with heart rate control using metoprolol and digoxin. She was started on Eliquis for anticoagulation. An echocardiogram showed normal EF, moderate to severe mitral regurgitation with moderate pericardial effusion. Today she reports that she has not been feeling well overall. She notices the heart palpitations and anxiety feeling in her chest. She denies chest discomfort at rest or with activity. She is noticing more shortness of breath and fatigue with activity, no PND, orthopnea or edema. No lightheadedness, presyncope, syncope, falls. She did have a nosebleed on 02/24 and stopped her Eliquis for 2 days. She did take Eliquis this morning. She states that even prior to going into the hospital and starting anticoagulation she had a nosebleed as well. She has no signs of active bleeding at this time. He has been doing only light physical activity. Her blood pressure has been variable at home with systolic 120 to as high as 170. [facility] Medical History Primary hypertension Breast cancer COPD (chronic obstructive pulmonary disease) Family History Unknown No problems noted. Social History Household Members: None Do you presently have visiting nurse or other home services: No Alcohol intake: never Comment: Independent Patient Tobacco Use Status: Never used Tobacco service: No Review of Systems Const All systems reviewed & are unremarkable except as noted in HPI and below ENT Denies dizziness Card Details: palpitations, anxiety in chest Denies chest pain, Denies chest pain at rest, Denies chest pain with activity, Denies rapid heart rate, Denies pedal edema, Denies edema, Denies leg edema, Denies lightheadedness, Denies palpitations, Denies dyspnea, Reports dyspnea on exertion and Denies orthopnea Resp Denies cough, Denies dyspnea and Reports dyspnea on exertion GI Denies hematochezia and Denies change in stool character Musc Denies abnormal gait, Reports limited range of motion, Reports muscle cramps, Denies muscle weakness, Denies numbness, Denies radiating pain into limb, Denies stiffness and Denies tingling Neuro Denies abnormal gait, Denies dizziness, Denies numbness and Denies tingling Endo Denies palpitations Physical Exam Vital Signs: Last Vital Signs Pulse 50 02/26/25 09:12 BP 140/60 H 02/26/25 09:12 BMI result Body Mass Index 21.7 Const General: cooperative, healthy appearing, comfortable and no acute distress Orientation/consciousness: patient oriented x3 Neck Neck: Yes normal visual inspection Resp Effort & Inspection: normal respiratory effort Auscultation: clear to auscultation bilaterally, no crackles, no rales, no rhonchi and no wheezes Cardio Rate: regular rate Rhythm: abnormal rhythm Heart sounds: S2 normal heart sound present, no gallops, Murmur heart sound present (systolic, mitral region) and no rubs Neuro General: patient oriented x3 Extrem General: Yes normal to inspection, No no pedal edema and No calf tenderness Psych Appearance: grossly normal Mental Status: mental status grossly normal Speech and movement: Normal speech and movement present Office Procedures EKG Details: Today, read by me, atrial flutter with variable AV block, RBBB, T wave abnromality inferolateral leads, rate 50, Qtc 390ms [id number], Complete Results Reviewed Results Reviewed: 01/30/25 Echocardiogram Conclusions: - The left ventricular systolic function is normal. The visually estimated ejection fraction is between 55-60%. - The left atrium is severely dilated. - There is moderate to severe mitral valve regurgitation. - There is mild to moderate tricuspid valve regurgitation. - Mild pulmonary hypertension is present. - There is a moderate pericardial effusion. 02/05/25 Holter Total monitoring time 2 days. Underlying rhythm is atrial fibrillation with an average rate of 68/Min. Ventricular ectopy noted with a burden of 1.9%. Rare couplets, bigeminy, trigeminy. One run of 4 beats. Cannot exclude aberrant conduction. No significant pauses or high-grade AV blocks. No patient markers or diary events. Assessment & Plan Assessment & Plan (1) Atrial fibrillation: Code(s): I48.91 - Unspecified atrial fibrillation Category: Medical Qualifiers: Atrial fibrillation type: unspecified Qualified Code(s): I48.91 - Unspecified atrial fibrillation Plan: New atrial fibrillation during admission January 2025 that is currently being treated with heart rate control. She is on Eliquis for anticoagulation and did stop Eliquis for 48 hours due to epistaxis and restarted it this a.m.. Reviewed that she will need to take Eliquis 3-4 weeks prior to a cardioversion procedure. She is fearful for recurrent epistaxis. Will refer her to ENT for evaluation. Suggested the use of saline nasal spray. A Holter monitor was done 01/30/2025 which did show atrial fibrillation with average heart rate 68. Her echocardiogram had shown EF 55-60% with left atrium severely dilated, right atrium normal. Will plan for a cardioversion in 3-4 weeks. Procedure reviewed with her in detail. If she needs to stop Eliquis, this will interfere with plan for cardioversion. She will notify this office if she has bleeding issues. Will have her check digoxin level and plan to stop digoxin 1 day prior to cardioversion. (2) Nonrheumatic mitral valve regurgitation: Code(s): I34.0 - Nonrheumatic mitral (valve) insufficiency Category: Medical Plan: Recent echocardiogram showing moderate to severe mitral regurgitation which could be exacerbated by atrial fibrillation. Plan for repeat echocardiogram once sinus rhythm has been restored and maintained. (3) Pericardial effusion: Code(s): I31.39 - Other pericardial effusion (noninflammatory) Category: Medical Plan: Last echocardiogram showed moderate effusion, asymptomatic. Will reassess this on repeat echo. (4) Epistaxis: Code(s): R04.0 - Epistaxis Category: Medical Plan: As above (5) Anticoagulated: Code(s): Z79.01 - prison (current) use of anticoagulants Category: Medical Plan: As above Plan Time spent on chart review, documentation, interview assessment Patient was informed and verbally consented to the use of an ambient scribe for clinic note documentation during this visit. We discussed the management of atrial fibrillation and flutter, highlighting the etiology linked to mitral valve regurgitation. After reviewing symptoms, I suggested cardioversion with continued Eliquis use, despite the patient's prior epistaxis, emphasizing the importance of anticoagulation in stroke prevention.The necessity of controlling her blood pressure via metoprolol, lisinopril was reinforced, with lifestyle modifications mentioned for reducing risk factors. Potential risks related to future interventions, benefits, and alternatives, including possible diagnostics, were explained without additional recommendations during this visit. Orders: Referrals Ear/Nose/Throat Referral I48.91 - Unspecified atrial fibrillation, R04.0 - Epistaxis, Z79.01 - prison (current) use of anticoagulants Medications: Discontinued apixaban (Eliquis) Discontinued Reason: Patient no longer taking 5 mg PO BID 180 tabs 0RF potassium chloride Discontinued Reason: Patient Completed Course 20 mEq (15 mL) PO DAILY 30 days 450 mL 0RF Patient Instructions: - Take Eliquis as prescribed to reduce stroke risk - Referral to ENT will be ordered - Monitor blood pressure regularly and report significant changes - Use saline nasal spray to keep nasal passages moist - Continue medications as prescribed; monitor how symptoms respond - Report recurrent or worsening symptoms promptly - Attend follow-up appointments as scheduled - Seek immediate care for uncontrolled bleeding or severe symptoms Coding Level of Care Code Est Pt Level 4 (28618) Complex EM visit Add On G2211 Diagnoses Atrial fibrillation, unspecified type I48.91 Atrial fibrillation type: unspecified Nonrheumatic mitral valve regurgitation I34.0 Pericardial effusion I31.39 Epistaxis R04.0 Anticoagulated Z79.01 CPT Codes EKG - CPT: 19434-[id number], Complete ([id number]) Time Spent (min) 36
== END 2025-02-26 10:09 | disposition home or self-care (01) ==
LOC: HO.HCS 08:56
PROVIDERS: PCP Internal Medicine; Visit Provider Nurse Practitioner Family
DX: I48.91 Unspecified atrial fibrillation (principal); I34.0 Nonrheumatic mitral (valve) insufficiency; I31.39 Other pericardial effusion (noninflammatory); R04.0 Epistaxis; Z79.01 Long term (current) use of anticoagulants
CPT/HCPCS: 93010; 99214; G2211

== ENCOUNTER → 2025-02-26 08:55 | Outpatient (BNVA) | payer MEDICARE, SELFPAY | PROVIDERS: PCP Internal Medicine; Visit Provider Nurse Practitioner Family | DX: I48.91 Unspecified atrial fibrillation (principal); I34.0 Nonrheumatic mitral (valve) insufficiency; I31.39 Other pericardial effusion (noninflammatory); R04.0 Epistaxis; Z79.01 Long term (current) use of anticoagulants | CPT/HCPCS: 93005; 99212 ==

== ENCOUNTER 2025-03-20 11:42 | Outpatient (REF) | payer MEDICARE, SELFPAY ==
[2025-03-20 12:00] LABS: MANUAL DIFF FLAG NO
[2025-03-20 12:35] LABS: Basophils Absolute Auto 0.1 X10*3/uL (0.0-0.2); Basophils Percent Auto 1.3 % (0-2); Eosinophils Absolute Auto 0.2 X10*3/uL (0.0-0.4); Eosinophils Percent Auto 2.8 % (0-4); Hematocrit 43.3 % (37.0-47.0); Hemoglobin 13.9 g/dl (12.0-16.0); Imm Gran Abs Auto 0.02 X10*3/uL (0.00-0.03); Imm Gran Pct Auto 0.4 % (0.0-0.4); Lymphocytes Percent Auto 37.6 % (20-40); Mean Corpuscular HGB Conc 32.1 g/dl (31.0-35.0); Mean Corpuscular Hemoglobin 29.3 pg (27.0-33.0); Mean Corpuscular Volume 91.4 fL (80.0-98.0); Mean Platelet Volume 9.7 fL (9.4-12.3); Monocytes Absolute Auto 0.6 X10*3/uL (0.1-1.2); Monocytes Percent Auto 11.2 % (2-11); Neutrophils Absolute Auto 2.5 x10*3/uL (2.0-8.3); Neutrophils Percent Auto 46.7 % (45-73); Platelet Count 226 X10*3/uL (160-400); Red Blood Count 4.74 X10*6/uL (4.20-5.50); Red Cell Distribution Width 14.7 % (11.0-16.0); White Blood Count 5.4 X10*3/uL (4.8-10.8)
[2025-03-20 12:58] LABS: Digoxin 1.2 ng/mL (0.8-2.0)
[2025-03-20 13:02] LABS: Alanine Aminotransferase 50 U/L (0-31); Albumin Level 4.1 g/dL (3.5-5.0); Alkaline Phosphatase 90 U/L (39-117); Anion Gap 9 (12-20); Aspartate Amino Transferase 29 U/L (5-31); Bilirubin Total 1.3 mg/dL (0.0-1.0); Blood Urea Nitrogen 15 mg/dL (9-16); Calcium 9.4 mg/dL (8.4-10.2); Carbon Dioxide 37 mmol/L (22-29); Chloride 103 mmol/L (96-108); Estimated Glomerular Filt Rate > 60; Glucose Random 75 mg/dL (60-115); Potassium 3.7 mmol/L (3.3-5.1); Sodium 145 mmol/L (135-145)
--- OUTSIDE RECORDS SUMMARY | 2025-03-20 14:03 | XMS_ITS | Data Portability ---
Author Organization [facility] Internal Medicine, Telehealth Patient Home Address [address] [place] [address] Assessment Encounter Date Assessment Date Assessment LastModified by Organization Details LastModified Time 10/19/2023 10/19/2023 Patient agreed and verbally consents [...] Time Details Appointments FOLLOW UP 15 2024 10:15A M SHAHRZAD ACEVES Not available Not available Not available Lab digoxin, serum 2024 025 [facility], [address] [place] [address], [id number], 03/19/2025 11:14:30 CBC w/ auto diff 2024 025 [facility], [address] [place] [address], [id number], 03/19/2025 11:14:29 CMP, serum or plasma 2024 025 [facility], [address] [place] [address], [id number], 03/19/2025 11:14:29 CMP, serum or plasma 2024 025 [facility], [address] [place] [address], [id number], 02/12/2025 15:30:09 Referral None recorded. Procedures None recorded. Surgeries None recorded. Imaging None recorded. Medication Orders albuterol sulfate HFA 90 mcg/actua tion aerosol inhaler 2024 025 [id number], [address], [place], [id number], 03/19/2025 11:08:23 Trelegy Ellipta 100 mcg-62.5 mcg-25 mcg powder for inhalatio n 2024 025 [facility] #[id number], [address], [place], [id number], 03/19/2025 11:08:22 Patient TargetsNo targets recorded. Patient InstructionsNo instructions recorded. Reason for Referral None Reported. Results Created Date Observation Date Name Description Value Unit Range Abnormal Flag Note LastModifiedBy Organization Detail LastModifiedTime 06/19/20 24 06/19/2024 MAMMO , scree savannah, digit al, bilat eral No observ ation record ed. [email or web address] [facility] [address] [place], [address], 06/19/2024 19:54:57 01/30/20 25 01/29/2025 XR, chest , 2 view No observ ation record ed. [facility] (Medical Records) [address] [place] [address], [id number], 02/12/2025 15:26:22 Result Notes None recorded. Problems Name Problem SNOMED Code Status Onset Date Resolution Date Notes Provider Name and Address Organization Details Recorded Time Osteopen ia 463270248 Active 2018 Zena flower [facility] 0 10:11:37 Chronic obstruct chriss pulmonar y disease 44050043 Active 2018 Zena flower [facility] 0 10:11:36 Mild chronic obstruct chriss pulmonar y disease 382262551 Active 2017 Dr. Bojorquez, pulmonol ogist Zenaper flower [facility] 0 10:11:37 Solitary nodule of lung 821239859 Active 2017 right upper lobe Zena flower [facility] 0 10:11:36 [facility] l hyperten shazia 63142187 Active 2017 Zena flower [facility] 0 10:11:37 Personal history of primary malignan t neoplasm of breast 672029190 Active 1989 right, lumpecto my & radiatio n Zena flower [facility] 0 10:11:37 Ventricu lar prematur e beats 05597456 Active 2017 Zena flower [facility] 0 10:11:37 History of adenomat ous polyp of colon 081165605 Active 2012 Zena flower [facility] 0 10:11:37 History of colonosc opy 7872641789 09 Completed 201201/12/2018 Removal Reason: to put in history Ora Bunch NP, S [address] [place] [address], [phone], [facility] 8 10:00:05 Hypokale jeanine 78023487 Active 2024 SHAHRZAD ACEVES [address] [place] [address], [phone], [facility] 5 10:19:06 Paroxysm al atrial fibrilla tion 674921245 Active 2024 SHAHRZAD ACEVES [address] [place] [address], [address], [facility] 5 15:20:47 Non-rheu matic mitral regurgit ation 285381482 Active 2024 SHAHRZAD ACEVES [address] [place] [address], [address], [facility] 5 09:30:26 Problem Notes None recorded. Procedures Surgical History Date Name Laterality Status Provider Name and Address Organization Details Recorded Time 04/23/20 21 Suture/Staple removal completed SHAHRZAD ACEVES [address] [place] [address], [phone], [facility] 04/23/2021 10:32:54 10/11/18 99 Breast Surgery completed Ora Bunch NP, S [address] [place] [address], [phone], [facility] 12/21/2017 15:16:31 Unlisted px arthroscopy completed Ora Bunch NP, Raina [address] [place] [address], [phone], [facility] 12/21/2017 15:07:01 Imaging Results None recorded. Procedure Notes None recorded. Medical Equipment None [...] sulfate HFA 90 mcg/actuati on aerosol inhaler Inhale 2 puffs every 4 hours by inhalatio n route as needed for 30 days. 2024 active Not Available Not Available Not Avai lable lisinopril 40 mg tablet TAKE 1 TABLET [...] Not Available Not Available N ot Available Trelegy Ellipta 100 mcg-62.5 mcg-25 mcg powder for inhalation Inhale 1 puff every day by inhalatio n route as directed for 30 days. 2024 active Not Available Not Available Not Avai lable Flowflex COVID-19 Antigen Home Test kit USE DIRECTED ON PACKAGING 11/03 completed Not Available Not Available Not Available Vitals Date Recorded Body height Body mass index (BMI) Body weight Heart rate Oxygen saturation Oxygen saturation in Arterial blood by Pulse oximetry Systolic blood pressure Diastolic blood pressure Provider Name and Address Organization Details Last Updated DateTime 5 147.32 cm 21.2 kg/m2 20430.5 5 g 56 /min 97 % 97 % 128 mm[Hg] 86 mm[Hg] Julia Herrera [facility] 5 15:11:00 Date Recorded Body height Body mass index (BMI) Body weight Heart rate Oxygen saturation Oxygen saturation in Arterial blood by Pulse oximetry Systolic blood pressure Diastolic blood pressure Provider Name and Address Organization Details Last Updated DateTime 5 147.32 cm 21.4 kg/m2 85920.8 6 g 41 /min 96 % 96 % 130 mm[Hg] 88 mm[Hg] [facility] 5 10:52:08 Date Recorded Body height Body mass index (BMI) Body weight Heart rate Oxygen saturation Oxygen saturation in Arterial blood by Pulse oximetry Systolic blood pressure Diastolic blood pressure Provider Name and Address Organization Details Last Updated DateTime 4 147.32 cm 20.7 kg/m2 41832.6 4 g 47 /min 99 % 99 % 118 mm[Hg] 68 mm[Hg] Nora Crawford [facility] Internal Medicine 4 09:55:30 Date Recorded Body height Body mass index (BMI) Body weight Systolic blood pressure Diastolic blood pressure Provider Name and Address Organization Details Last Updated DateTime 10/09/2024 147.32 cm 21.1 kg/m2 85084.83 g 160 mm[Hg] 80 mm[Hg] Nora Crawford [facility] Internal Medicine 4 16:26:22 Social History Question Answer Notes LastModified by Organizat ion Details LastModified Time Tobacco Smoking Status Former Smoker Ora Bunch NP, S [address] [place], [address], [facility] 12/21/2017 15:06:09 What Was The Date Of Your Most Recent Tobacco Screening? 03/19/2025 [email or web address] Information not available 03/19/2025 How Many Years Have You Smoked Tobacco? 45 [email or web address] Information not available 12/21/2017 Sex: Unknown Functional Status Question Answer Note LastModified by Organization D etails LastModified Time Do you or have you ever used any other forms of tobacco or nicotine? No [email or web address] Information not available 04/04/2024 Mental Status None recorded. Family History Nothing Reported. Medical History Condition Response Breast Cancer Y COPD Y Polyps Y Hypertension Y Gynecological HistoryNo gynecological history recorded. Obstetrics History GPAL:G 0 P 0 0 0 0 Immunizations Vaccine Type Date Status Note Provider Nam e and Address Organization Details Recorded Time Influenza, split virus, quadrivalent, preservative 8 [facility] 10:11:31 COVID-19, mRNA, LNP-S, PF, 30 mcg/0.3 mL dose 1 completed Cyndi Ramesh [facility] 04/20/2022 08:14:02 COVID-19, mRNA, LNP-S, PF, 30 mcg/0.3 mL dose 1 completed Cyndi Ramesh [facility] 04/20/2022 08:14:10 COVID-19, mRNA, LNP-S, PF, 30 mcg/0.3 mL dose 1 completed Cyndi Ramesh null, [facility] 04/20/2022 08:14:17 COVID-19, mRNA, LNP-S, PF, 30 mcg/0.3 mL dose 2 [facility] 04/20/2022 08:14:24 COVID-19, mRNA, LNP-S, PF, 30 mcg/0.3 mL dose 2 [facility] 11/03/2022 08:01:51 influenza, unspecified formulation 2 completed Cyndi flower [facility] 11/03/2022 08:02:05 Pneumococcal conjugate PCV 13 2 completed Cyndi flower [facility] 11/03/2022 08:02:30 Tdap 1 completed Cyndi flower [facility] 11/03/2022 08:03:07 Pneumococcal Conjugate, unspecified formulation 3 completed SHAHRZAD ACEVES [address] [place] [address], [address], [facility] 04/04/2024 10:09:09 Respiratory syncytial virus (RSV) MAB, unspecified 3 completed SHAHRZAD ACEVSE [address] [place] [address], [address], [facility] 04/04/2024 10:11:30 Influenza, split virus, quadrivalent, preservative 9 completed Zena flower [facility] 09/10/2020 10:11:31 Influenza, split virus, quadrivalent, preservative 0 completed Zena flower [facility] 09/10/2020 10:11:31 Influenza, adjuvanted, trivalent, PF 7 completed Zena flower [facility] 09/10/2020 10:11:31 Tdap 5 completed eZna flower [facility] 09/10/2020 10:11:31 pneumococcal, unspecified formulation 6 mariela flower [facility] 09/10/2020 10:11:31 pneumococcal, unspecified formulation 1 mariela flower [facility] 09/10/2020 10:11:31 Past Encounters Encounter ID Performer Location Encounter Start Date Encounter Closed Date Diagnosis/Indication Diagnosis SNOMED-CT Code Diagnosis ICD10 Code Diagnosis Note [id number] Devante Leigh DO [facility] [address] [facility],[place] [address] 01/28/2018 11:08:11 01/28/2018 13:01:36 Candidiasis of mouth 73606502 B37.0 Essential hypertension 25845589 I10 stable [id number] [facility] [address],[place] [address] 02/04/2018 09:35:54 02/04/2018 10:31:51 Chronic obstructive pulmonary disease 31508700 J44.9 stable with inhalers, no use rescue inhaler Solitary n odule of lung 885458040 R91.1 f/u Dr. Bojorquez Ventricula r premature beats 03707010 I49.3 stable with metoprolol Essential hypertension 02583936 I10 stable, given lab slip, pt. more comfortabl e with paper form Personal h istory of primary malignant neoplasm of breast 150723615 Z85.3 mammo due in March, order for diagnostic mammo provided, [place] to [place] [id number] Devante Leigh [facility] [address],[place] [address] 06/10/2018 09:17:53 06/10/2018 12:18:07 Ventricular premature beats 00443100 I49.3 stable with metoprolol History of adenomatous polyp of colon 269770574 Z86.010 Personal h istory of primary malignant neoplasm of breast 892822832 Z85.3 up to date mammo Essential hypertension 25901879 I10 stable Solitary n odule of lung 040397897 R91.1 f/[facility] [address] 08 H00.016 [id number] [facility] [address],[place] [address] 09/26/2018 09:33:52 09/26/2018 11:22:31 Essential hypertension 23516902 I10 stable History of adenomatous polyp of colon 267816508 Z86.010 up to date colonoscop y Ventricula r premature beats 74917859 I49.3 stable with metoprolol Solitary n odule of lung 832315084 R91.1 f/u Dr. Bojorquez, 2 mm no need f/u CT Mild chron ic obstructive pulmonary disease 842103509 J44.9 Breo helpful [id number] Devante Leigh [facility] Internal Medicine [address] [facility],[place] [address] 02/01/2019 09:22:00 02/01/2019 10:36:37 Screening procedure 95825842 Z13.9 Decreased estrogen level 010247377 E28.39 Essential hypertension 45376462 I10 stable Mild chron ic obstructive pulmonary disease 408756324 J44.9 Breo helpful History of adenomatous polyp of colon 904473407 Z86.010 up to date colonoscop y Ventricula r premature beats 78058040 I49.3 stable with metoprolol Solitary n odule of lung 969693527 R91.1 f/u Dr. Bojorquez, recent visit, will f/u 1 year [id number] Devante Leigh [facility] [address] [facility] [address] 08/30/2019 09:28:17 08/30/2019 10:01:54 Chronic obstructive pulmonary disease 11809558 J44.9 breathing well sees pulm once per year Essential hypertension 22365012 I10 well controlled Ventricula r premature beats 37364162 I49.3 under control Solitary n odule of lung 427600991 R91.1 followed by pulm as well Advance care planning 71 2322333 Z71.89 HCP - daughter - tonia barton has advanced directives at home ppw provided to reevaluate Osteopenia 295669811 M85 .80 on vitamin d [id number] Devante Leigh [facility] Internal Medicine [address] [facility] [address] 11/08/2019 09:19:25 11/08/2019 10:01:04 Chronic obstructive pulmonary disease 18543373 J44.9 breathing well sees pulm once per year Pain of ri ght hip joint 9546754906 46874 M25.551 Chronic back pain 910506 002 M54.5 [id number] Devante Leigh [facility] Internal [facility] [address] [facility],[place] [address] 03/05/2020 09:18:58 03/05/2020 10:28:43 Adult health examination 011950776 Z00.00 no concerns Screening for cardiovascular system disease 362922122 Z13.6 bw Screening for malignant neoplasm of colon 994772310 Z12.11 no longer needs them per GI doctor had it done at [place] Screening for osteoporosis 551643105 Z13.820 had it done at [facility] Screening mammography 24 231972 Z12.31 already had it done at [facility] has it done every year Chronic ob structive pulmonary disease 62407524 J44.9 stable [id number] Devante Leigh [facility] Internal Medicine [address] [facility],[place] [address] 09/10/2020 09:51:49 09/10/2020 10:41:08 Chronic obstructive pulmonary disease 63112263 J44.9 stable Ventricula r premature beats 58460394 I49.3 stable on metoprolol , will need refill med soon Essential hypertension 95798026 I10 BP stable, no side effects [id number] Devante Leigh [facility] [address] [facility],[place] [address] 03/11/2021 09:31:38 03/11/2021 10:00:40 Essential hypertension 16530063 I10 BP stable, no side effects Chronic ob structive pulmonary disease 27641310 J44.9 stable Degenerati on of lumbar intervertebral disc 11255600 M51.36 [place] [id number] Devante Leigh [facility] Internal Medicine [address] [facility],[place] [address] 04/23/2021 10:11:11 04/23/2021 11:20:36 Cellulitis 389678436 L03.90 will start on doxy for infection Removal of suture 317670 01 Z48.02 sutures removeddue to infection wound did not close correctly Dehiscence of surgical wound 43247060 T81.30XA sutures did not take, the wound was open and underlying infectiona lot of pain with removal of sutures [id number] Devante Leigh [facility] [address] [facility],[place] [address] 09/24/2021 09:28:32 09/24/2021 11:30:07 Chronic obstructive pulmonary disease 57124233 J41.0 stable Essential hypertension 62004384 I10 BP stable, no side effects Osteopenia 656166732 M85 .80 stable Active or passive immunization 665655369 Z23 given locations for a pna vaccine [id number] Devante Leigh [facility] [address] [facility] [address],[place] [address] 10/17/2021 09:02:59 10/17/2021 14:26:45 Chronic obstructive pulmonary disease 35320099 J41.0 stable Essential hypertension 29554978 I10 improved with HTCZ increasewi ll continue without changes for now [id number] Devante Leigh [facility] [address] [facility] [address],[place] [address] 04/20/2022 11:07:58 04/20/2022 15:33:58 Chronic obstructive pulmonary disease 53017824 J41.0 stable Essential hypertension 60880303 I10 excellent control on her medication currently [id number] Devante Leigh [facility] [address] [facility] [address],[place] [address] 11/03/2022 09:57:08 11/04/2022 10:12:19 Chronic obstructive pulmonary disease 33693912 J41.0 stablehas a f/u in the spring with Dr. Bojorquez will wait until she sees Dr. Bojorquez Essential hypertension 14684385 I10 excellent control on her medication currently Osteopenia 652246089 M85 .80 stabledecl ined repeat bone density at this time [id number] Devante Leigh [facility] [address] [facility] [address],[place] [address] 04/26/2023 09:28:39 04/26/2023 10:46:43 Chronic obstructive pulmonary disease 72483395 J41.0 stable Essential hypertension 88784273 I10 excellent control on her medication currently (at ome is stable) recheck in office is always excellent [id number] Devante Leigh [facility] [address] [facility] [address],[place] [address] 10/19/2023 08:00:18 10/19/2023 11:32:18 Chronic obstructive pulmonary disease 94499646 J41.0 stableno flare upsdoesn't use inhaler Essential hypertension 37421115 I10 excellent control on her medication currently Chronic ob structive pulmonary disease 32382514 J44.9 stable [id number] Devante Leigh [facility] [address] [facility] [address],[place] [address] 04/04/2024 09:39:10 04/04/2024 10:39:12 Depression screening 137616512 Z13.31 negative Essential hypertension 22508038 I10 excellent control on her medication currently Chronic ob structive pulmonary disease 94915314 J41.0 J44.9 stableno flare upsdoesn't use inhaler [id number] Devante Leigh [facility] [address] [facility] [address], [place] [address] 10/09/2024 15:52:29 10/10/2024 09:01:00 Essential hypertension 22211413 I10 excellent control on her medication currentlys tressed today about driving in the dark Chronic ob structive pulmonary disease 98074825 J41.0 J44.9 stableno flare upsdoesn't use inhaler [id number] Devante Leigh, [facility] [address] [facility] [address] [address] 02/12/2025 14:55:43 02/12/2025 15:59:44 Paroxysmal atrial fibrillation 001997751 I48.0 all meds reviewed with patientswi tched the dose of the metoprolol Hypokalemia 70660868 E87 .6 will need a recheck after she stops it in two to three weeks Essential hypertension 86676977 I10 stable [id number] Devante Leigh [facility] [address] [facility] [address],[place] [address] 03/19/2025 10:40:16 03/19/2025 16:07:28 Essential hypertension 93742112 I10 stable Paroxysmal atrial fibrillation 855103574 I48.0 all meds reviewed with patientswi tched the dose of the metoprolol Hypokalemia 75805661 E87 .6 will need a recheck after she stops it in two to three weeks Non-rheuma tic mitral regurgitation 041319919 I34.0 will fu with cardio about the echo Depression screening 171 321350 Z13.31 negative Chronic ob structive pulmonary disease 76198187 J41.0 J44.9 stableno flare upsdoesn't use inhaler Health Concerns Section Related Observation LastModified by Organization Detai ls LastModified Time None Recorded Concern Status LastModified by Organization Details LastModified Time None Recorded Advance Directives Directive None Recorded Payers Encounter Date Sequence Insurance Name Policy Number Policy Bai Covered Member ID Bai Member ID Guarantor Name 10/19/2023 2 [employer] (MEDICARE SUPPLEMENT) Ora Davis [id number] Ora Davis 10/19/2023 1 MEDICARE B-DE: NATIONAL [employer] Ora F Davis [id number] Ora Davis 04/04/2024 2 [employer] (MEDICARE SUPPLEMENT) Ora Davis [id number] Ora Davis 04/04/2024 1 MEDICARE B-DE: NATIONAL [employer]MENT [employer] Ora F Davis [id number] Ora Davis 10/09/2024 2 [employer] (MEDICARE SUPPLEMENT) Ora Davis [id number] Ora Davis 10/09/2024 1 MEDICARE B-DE: [employer] Ora F Davis [id number] Ora Davis 02/12/2025 2 [employer] (MEDICARE SUPPLEMENT) Ora Davis [id number] Ora Davis 02/12/2025 1 MEDICARE B-DE: [employer]ATIONAL [employer] Ora F Davis [id number] Ora Davis 03/19/2025 2 [employer] (MEDICARE SUPPLEMENT) Ora Davis [id number] Ora Davis 03/19/2025 1 MEDICARE B-DE: [employer] Ora F Davis [id number] Ora Davis Notes Date Note Type Note Provider Name and Address Organization Details Recorded Time 4 text/html 6 mos f/u The patient is participating in this appointment via telemedicine communication with a phone call/video calling service (Doxy)The patient consents to use of these platforms [...] bowel changes, MSK changes SHAHRZAD ACEVES [address] [place], [address], [facility] 10/19/2023 10:06:06 [...] patient in 6 mos SHAHRZAD ACEVES [address] [place], [address], [facility] 04/04/2024 10:18:52 [...] with refills when do SHAHRZAD ACEVES [address] [place], [address], [facility] 10/09/2024 16:56:12 [...] in a few weeks SHAHRZAD ACEVES [address] [facility], [place], [address], [facility] 02/12/2025 15:30:55 5 text/html one month f/u patient had recent new diagnosis of afib with moderate mitral regurgitation and severely dilated left atriathe patient's EF was normalher HR was low, though in afib at the time of check at cardio they are planning a cardioversion procedure which she will need to hold digoxin a day prior to the procedureshe is also having some issues with the eliquis, noted recurrent nosebleeds, though not sure if it is specifically the eliquis as she had them prior to starting the blood thinnercardio recommended normal saline nasal spray and referred out for an ENT consultwill not be able to get the cardioversion unless she maintains consistent use of the blood thinner patient noted a cardio still getting the uncomfortable palpitation sensation which feels like anxiety current on digoxin (levels monitored by cardio), metoprolol, eliquis for treatment of her afiblast draw for her K levels was normal will be having a repeat echo in one month after the cardioversion for better eval during normal sinus rhythmno plans for treatment of mitral regurg until more accurate studies can be performed s/p cardioversion TODAY:the patient reports that she was doing wellthe patient reports that she cancelled the cardioversion [facility] will be starting her on treatment for her breathing, COPD seems to be worsening on top of everything else will set up [place] Echo if cardio hasn't put in for the referral will fu with screening with lab work SHAHRZAD ACEVES [address] [facility], [place], [address], [facility] 03/19/2025 11:13:09 OBGyn Episode No OBEpisode recorded.
== END 2025-03-20 11:43 | disposition home or self-care (01) ==
LOC: HO.LAB 11:42
PROVIDERS: PCP Physician Assistant; Visit Provider Physician Assistant
DX: I48.0 Paroxysmal atrial fibrillation (principal); E87.6 Hypokalemia
CPT/HCPCS: 36415; 80053; 80162; 85025

== ENCOUNTER 2025-04-05 13:42 | Outpatient (AMB) | payer MEDICARE, SELFPAY ==
[2025-04-05 13:51] VITALS: BP 162/80; PULSE 81; BMI 21.6
--- NOTE | 2025-04-05 13:51 | MHC.OFFVIS ---
Vital Signs 04/05/25 13:51 Height 4 ft 10 in Weight 103 lb 2.821 oz BMI 21.6 BP 162/80 H Blood Pressure Location Lt brachial Position Sitting Pulse 81 Pulse Source Monitor Intake Visit Reasons: f/up pt canc cvr HS Public Health Internship Required: No Allergies No Known Allergies (No Known Allergies*) Allergy (Verified 04/05/25 13:53) Medication List - Last Reconciled 04/05/25 by Sabi Guallpa NP-C acetaminophen (Tylenol) 325 mg PO DAILY PRN apixaban (Eliquis) 5 mg PO BID 90 days digoxin 125 mcg PO DAILY furosemide (Lasix) 20 mg PO DAILY ibuprofen 200 mg PO Q6H PRN lisinopril 40 mg See Protocol PO DAILY metoprolol tartrate 75 mg See Protocol PO BID HPI HPI f/up pt canc cvr HS: Details: Ora is an 84-year-old female with past medical history of hypertension, mitral regurgitation who was recently admitted to [facility] with heart palpitations and found to have atrial fibrillation. She was treated with heart rate control using metoprolol and digoxin. She was started on Eliquis for anticoagulation. An echocardiogram showed normal EF, moderate to severe mitral regurgitation with moderate pericardial effusion. On last visit the plan was for cardioversion however she called and canceled the procedure stating she was feeling fine. Today she reports that she has not been feeling well well in the last few weeks. She is noticing increased shortness of breath. She is waking up in the night at times with shortness of breath and then needs to lay on the couch. She has leg edema which is increasing. No chest discomfort at rest or with activity. No lightheadedness, presyncope, syncope, falls. No recurrent epistaxis. She has been taking Eliquis b.i.d. without interruption since last visit.. Has been doing only light physical activity. Her blood pressure has been variable at home with systolic 120 to as high as 170. [facility] History Primary hypertension Breast cancer COPD (chronic obstructive pulmonary disease) Family History Unknown No problems noted. Social History Household Members: None Do you presently have visiting nurse or other home services: No Alcohol intake: never Comment: Independent Patient Tobacco Use Status: Never used Tobacco service: No Review of Systems Const All systems reviewed & are unremarkable except as noted in HPI and below ENT Denies dizziness Card Denies chest pain, Denies chest pain at rest, Denies chest pain with activity, Denies rapid heart rate, Denies pedal edema, Denies edema, Reports leg edema, Denies lightheadedness, Reports palpitations, Reports dyspnea, Denies dyspnea on exertion and Reports orthopnea Resp Denies cough, Reports dyspnea and Denies dyspnea on exertion GI Denies hematochezia and Denies change in stool character Musc Denies abnormal gait, Denies limited range of motion, Denies muscle cramps, Denies muscle weakness, Denies numbness, Denies radiating pain into limb, Denies stiffness and Denies tingling Neuro Denies abnormal gait, Denies dizziness, Denies numbness and Denies tingling Endo Reports palpitations Physical Exam Vital Signs: BMI result Body Mass Index 21.6 Const General: cooperative, healthy appearing, comfortable and no acute distress Orientation/consciousness: patient oriented x3 Neck Neck: Yes normal visual inspection Resp Other: fine rales noted in bases Effort & Inspection: normal respiratory effort Auscultation: clear to auscultation bilaterally, rales, no rhonchi and no wheezes Cardio Rate: regular rate Rhythm: abnormal rhythm Heart sounds: S2 normal heart sound present, no gallops, Murmur heart sound present (systolic, mitral region) and no rubs Neuro General: patient oriented x3 Extrem Other: bilateral lower leg and foot edema to level of upper calf General: No calf tenderness Psych Appearance: grossly normal Mental Status: mental status grossly normal Speech and movement: Normal speech and movement present Office Procedures EKG Details: Today, read by me atrial fibrillation with PVC, right bundle branch block, T-wave abnormality inferior lateral leads, rate 81, QTC 436 milliseconds [id number], Complete Assessment & Plan Assessment & Plan (1) Atrial fibrillation: Code(s): I48.91 - Unspecified atrial fibrillation Category: Medical Qualifiers: Atrial fibrillation type: unspecified Qualified Code(s): I48.91 - Unspecified atrial fibrillation Plan: New atrial fibrillation during admission January 2025 that is currently being treated with heart rate control. She is on Eliquis for anticoagulation without interruption since last visit ( 02/26/25). A Holter monitor was done 01/30/2025 which did show atrial fibrillation with average heart rate 68. Her echocardiogram had shown EF 55-60% with left atrium severely dilated, right atrium normal. After last visit we plan for cardioversion which she called and canceled as she did not feel she needed it. At this time she has evidence of fluid retention. Will increase her Lasix from 20 mg up to 40 mg daily. Labs in 1 week. Will plan for cardioversion in the next few weeks. Reason for the procedure, risks, potential outcomes reviewed. Will have her hold digoxin the morning of the cardioversion. - for now continue Eliquis without interruption, continue metoprolol and will have her reduce digoxin to 5 days weekly. She did have a digoxin level on 03/20/2025 which was 1.2 however she believes she took her medication that day. (2) Nonrheumatic mitral valve regurgitation: Code(s): I34.0 - Nonrheumatic mitral (valve) insufficiency Category: Medical Plan: Recent echocardiogram showing moderate to severe mitral regurgitation which could be exacerbated by atrial fibrillation. Plan for repeat echocardiogram once sinus rhythm has been restored and maintained. (3) Pericardial effusion: Code(s): I31.39 - Other pericardial effusion (noninflammatory) Category: Medical Plan: Last echocardiogram showed moderate effusion, asymptomatic. Will reassess this on repeat echo. (4) Epistaxis: Code(s): R04.0 - Epistaxis Category: Medical Plan: One episode after the start of anticoagulation however none since then. She was referred to ENT last visit and she did not go. (5) Anticoagulated: Code(s): Z79.01 - debone supervisor (current) use of anticoagulants Category: Medical Plan: As above (6) Edema: Code(s): R60.9 - Edema, unspecified Category: Medical Plan: On exam she has bilateral pitting lower leg edema from the knees to her feet. She also has fine rales in her bases on examination and reports of PND. Increasing Lasix. Plan T Orders: Orders B Type Natriuretic Peptide 04/12/25 I48.91 - Unspecified atrial fibrillation Cardioversion Today I48.91 - Unspecified atrial fibrillation Medications: New furosemide (Lasix) dose increased 40 mg PO DAILY 90 tabs 1RF 90 days Changed From digoxin 125 mcg PO DAILY 90 tabs 0RF To digoxin 125 mcg orally 5 days per week; HOLD on Wednesday and Wednesday ( may not need refill yet) 60 tabs 1RF 90 days Discontinued furosemide (Lasix) Discontinued Reason: Doctor's Order 20 mg PO DAILY 90 tabs 0RF Coding Level of Care Code Est Pt Level 4 (07480) Complex EM visit Add On G2211 Diagnoses Atrial fibrillation, unspecified type I48.91 Atrial fibrillation type: unspecified Nonrheumatic mitral valve regurgitation I34.0 Pericardial effusion I31.39 Epistaxis R04.0 Anticoagulated Z79.01 Edema R60.9 CPT Codes EKG - CPT: [id number], Complete ([id number]) Time Spent (min) 30
--- OUTSIDE RECORDS SUMMARY | 2025-04-05 16:33 | XMS_ITS | Patient Health Record ---
Author Organization [facility] Address [address] [place] [address] Care Team Providers Care Life Sciences Instructor Name Role Phone Osiel Maxwell MD Primary Care Provider Benson Carey Unavailable [phone] Reason For Referral No Information Medications Medication SIG (Take, Route, Frequency, Duration) Notes Start Date End Date Status hydroCHLOROthiazide 12.5mg Active Atenolol 25mg Active Lisinopril 20mg Acti ve Multi Vitamin/Minerals 10/11/20242024 Active Colyte with Flavor Packs 240 GM As directed Orally once for 1 dose 10/28/2012 Active Problems Problem Type SNOMED Code ICD Code Onset Dates Problem Status W/U Status Risk Notes Problem Long-term current use of drug therapy (581228234) Encounter for long-term (current) use of other medications (V58.69) Active confirmed Problem Colon cancer screening (V76.51) Active confirmed Problem History of adenomatous polyp of colon (568330961) History of adenomatous polyp of colon (V12.72) Active confirmed Plan Of Treatment Future Test Test Name Order Date COLONOSCOPY 10/28/2012 Insurance Providers Payer Name Payer Address Payer Phone Subscriber Number Group Number Insured Name Patient Relationship to Insured Coverage Start Date Coverage End Date MEDICARE OF [place] [address] [place] [id number] DARIN THOMPSON Self - patient is the insured [facility] [employer] [address] [place] [address] [id number] DARIN THOMPSON Self - patient is the insured Medical (General) History Medical History History ICD Code colonoscopy 04-17-2008-negative colon polyps-tubular adenomas removed in 2002 Right breast cancer with lumpectomy and radiation in November of 1998 hypertension Denies HI,DM,CVA,Lung disease,renal dise ase Surgical History Surgery Date(Month/Year) breast lumpectomy on right in 1998 for c carl, and had XRT 1998 left knee surgery 2010
== END 2025-04-05 14:28 | disposition home or self-care (01) ==
LOC: HO.HCS 13:42
PROVIDERS: PCP Internal Medicine; Visit Provider Nurse Practitioner Family
DX: I48.91 Unspecified atrial fibrillation (principal); I34.0 Nonrheumatic mitral (valve) insufficiency; I31.39 Other pericardial effusion (noninflammatory); Z79.01 Long term (current) use of anticoagulants; R60.9 Edema, unspecified; R04.0 Epistaxis
CPT/HCPCS: 93010; 99214; G2211

== ENCOUNTER → 2025-04-05 13:42 | Outpatient (BNVA) | payer MEDICARE, SELFPAY | PROVIDERS: PCP Internal Medicine; Visit Provider Nurse Practitioner Family | DX: I34.0 Nonrheumatic mitral (valve) insufficiency (principal); R60.9 Edema, unspecified; I48.91 Unspecified atrial fibrillation; I31.39 Other pericardial effusion (noninflammatory); R04.0 Epistaxis; R94.31 Abnormal electrocardiogram [ECG] [EKG]; I45.10 Unspecified right bundle-branch block; Z79.01 Long term (current) use of anticoagulants | CPT/HCPCS: 93005; 99212 ==

== ENCOUNTER 2025-04-07 08:05 | Emergency (ER) | payer MEDICARE, SELFPAY ==
--- NOTE | 2025-04-07 08:07 | ECG_ITS ---
Test Reason : aFIB Blood Pressure : */* mmHG Vent. Rate : 96 BPM Atrial Rate : * BPM P-R Int : * ms QRS Dur : 134 ms QT Int : 388 ms P-R-T Axes : * 95 -52 degrees QTcB Int : 490 ms Atrial fibrillation with premature ventricular or aberrantly conducted complexes Right bundle branch block T wave abnormality, consider inferolateral ischemia Abnormal ECG When compared with ECG of 29-Jan-2025 18:10, Vent. rate has increased by 35 bpm Referred By: Generic ED Physician Electronically Signed By: CHRISTINE CAMPBELL
--- NOTE | 2025-04-07 08:13 | ED_ITS ---
HPI - General Adult General Chief complaint: Arrhythmia/Palpitations Stated complaint: afib Time Seen by Provider: 04/07/25 08:12 Source: patient and family (patient's daughter) Mode of arrival: ambulatory Limitations: no limitations History of Present Illness ED Provider: Geovanna Roberson PA-C HPI narrative: Patient is an 84 year old assigned female at with a history of atrial fib on eliquis and mitral valve regurg presenting to the emergency department today after feeling her heart begin to race. Patient states that she was recently hospitalized for atrial fibrillation with RVR for days and has been feeling better then this morning had an episode of her heart racing. Patient states she has a cardioversion scheduled on April 10, 2025. Patient denies any dizziness, lightheadedness, abdominal pain, nausea, vomiting, fever, chills, blurry vision, double vision, loss of vision, chest pain, difficulty breathing, shortness of breath, back pain, night sweats, pain with urination, increased urinary frequency, increased urinary urgency, blood in her urine or stool, syncope or a near syncopal episode, recent trauma or falls, bowel incontinence, bladder incontinence, or any other complaints at this time. Relieving factors: none Exacerbating factors: none Associated symptoms: denies other symptoms Related Data Home Medications ?Medication ?Instructions ?Recorded ?Confirmed acetaminophen 325 mg tablet 325 mg PO DAILY PRN Pain 0 01/30/25 04/05/25 (Tylenol) ibuprofen 200 mg tablet 200 mg PO Q6H PRN Pain 01/3004/05/25 Previous Rx's ?Medication ?Instructions ?Recorded lisinopril 40 mg tablet 40 mg PO DAILY #90 tabs 01/10 01/02 metoprolol tartrate 25 mg tablet 75 mg PO BID #180 tab s 01/31/25 apixaban 5 mg tablet (Eliquis) 5 mg PO BID 90 days #18 0 tabs 02/27/25 digoxin 125 mcg (0.125 mg) tablet 125 mcg PO .COMPLEX 90 days #60 04/05/25 tabs furosemide 40 mg tablet (Lasix) 40 mg PO DAILY 90 days #90 tabs 04/05/25 Allergies Allergy/AdvReac Type Severity Reaction Status Date / Time No Known Allergies (No Known Allergy Verified 04/07/25 08:18 Allergies*) Review of Systems 2 Constitutional: Constitutional: Reports no additional constitutional complaints, Denies chills, Denies fever(s) and Denies night sweats Eyes: Eyes: Reports no additional eye complaints, Denies blurry vision, Denies change in vision, Denies diplopia, Denies eye discharge, Denies loss of vision and Denies eye pain ENT: Denies dizziness Cardiovascular: Cardiovascular: Reports no additional cardiovascular complaints, Denies chest pain, Denies lightheadedness, Denies Loss of Consciousness, Reports palpitations and Denies dyspnea Respiratory: Respiratory: Reports no additional respiratory complaints and Denies dyspnea Gastrointestinal: Gastrointestinal: Reports no additional gastrointestinal complaints, Denies abdominal pain, Denies melena, Denies hematochezia, Denies change in bowel habits and Denies change in stool character Genitourinary: Genitourinary: Denies hematuria, Denies urinary frequency, Denies dysuria, Denies urinary incontinence, Denies urinary hesitancy and Denies urinary urgency Musculoskeletal: Musculoskeletal: Reports no additional musculoskeletal complaints, Denies numbness and Denies tingling Neurologic: Denies dizziness, Denies loss of vision, Denies numbness and Denies tingling Psychiatric: Psychiatric: Reports no additional psychiatric complaints Endocrine: Endocrine: Reports no additional endocrine complaints and Reports palpitations Hematologic/Lymphatic: Hematologic/Lymphatic: Reports no additional hematologic/lymphatic complaints Allergic/Immunologic: Allergic/Immunologic: Reports no additional allergic/immunologic complaints PMF Past Medical History Attestation statement: The following information was validated with the patient. (all information validated with the patient's daughter) Source: old records reviewed, obtained from family (patient's daughter provided additional history and confirmed the history provided by the patient) and nursing notes reviewed Medical History Primary hypertension Breast cancer COPD (chronic obstructive pulmonary disease) Family History Family History Unknown No problems noted. Social History Social History Household Members: None Do you presently have visiting nurse or other home services: No Alcohol intake: never Comment: Independent Patient Tobacco Use Status: Never used Tobacco Smoked in Last 30 Days: No Use of substances other than those prescribed or required for medical reasons: No Advance Directives: No Advance Directives Information Provided: Yes Do you have a plan to hurt others: No Plan service: No Physical Exam ED Vital Signs: Vital Signs - 24 hr 04/07/25 08:14 04/07/25 08:42 04/07/25 09:19 Temperature 98.3 F 98.5 F Pulse Rate 86 69 Pulse Rate [Left Apical] 82 Respiratory Rate 20 19 Blood Pressure 195/95 H 167/62 H Pulse Oximetry 94 100 Oxygen Delivery Method Room Air Room Air BMI result Body Mass Index 21.2 Const General: cooperative, no acute distress, alert and awake Nutritional Appearance: well nourished Orientation/consciousness: patient oriented x3 HENMT Head: Yes normal to inspection and Yes atraumatic Ears: hearing grossly normal bilaterally and external ears normal General nose exam: Normal external nose present, no nasal discharge noted and no epistaxis Face and sinus: Yes normal facial exam, No abrasion and No laceration Mouth: Normal oral and palatal mucosa present, no drooling and no muffled voice Eyes General: appearance normal, both eyes and all related structures Periorbital: periorbital findings normal Eyelids: Yes eyelids normal Conjunctivae: conjunctivae normal Pupils: Equal, round and reactive pupils present EOM: EOMs intact bilaterally Neck Neck: Yes normal visual inspection, Yes full ROM and Yes no lymphadenopathy Resp Effort & Inspection: normal respiratory effort and able to speak in complete sentences Cardio Rate: regular rate Rhythm: abnormal rhythm irregularly irregular Neuro General: patient oriented x3, moves all extremities and CN's II-XI intact bilaterally Cranial nerves: Yes Equal, round and reactive pupils present Cognition (Neuro): normal cognition Extrem General: Yes normal to inspection, Yes full ROM and Yes capillary refill normal Psych Appearance: grossly normal Mental Status: mental status grossly normal Affect: normal affect Attitude: cooperative Thought process: Normal thought process present Thought content: Normal thought content present Insight: Good insight present (Psych) Medical Decision Making Medical Decision Making MDM Narrative: Patient is an 84 year old assigned female at with a history of atrial fib on eliquis and mitral valve regurg presenting to the emergency department today after feeling her heart begin to race. Patient's physical exam was as noted in the physical exam portion of this note. Patient is in atrial fib with a normal rate. Patient's blood work was unremarkable. Patient's EKG showed rate controlled atrial fib. I explained my physical exam findings as well as all test results to the patient. I answered all questions asked by the patient. I stressed the importance of the patient taking her medication as directed (either prescribed or as the over the counter packaging recommends). I stressed the importance of the patient following up with her primary care provider and her counter tender. I stressed the importance of the patient returning to the emergency department immediately if her symptoms were to worsen or if she were to develop any dizziness, shortness of breath, difficulty breathing, chest pain, blurry vision, loss of vision, nausea, vomiting, abdominal pain, fever, chills, back pain, or any other complaints. Patient verbalized agreement and understanding with this treatment plan and discharge. Differential Diagnosis Differential Diagnoses: The differential diagnosis associated with the presentation includes Atrial fibrillation Atrial fibrillation with RVR Admission/Observation Consideration of admission/observation: Escalation of care including admission/observation considered Patient would have been admitted to the hospital had her work up had any findings where hospital admission was appropriate and her clinical presentation warranted hospital admission. Lab Data [facility] Lab Attestation statement: I reviewed the patient's lab results. My interpretation of these results are in the [facility] Rationale portion of this note. 04/07/25 08:27 04/07/25 08:55 Labs: Lab Results 04/07/25 04/07/25 Range/Units 08:27 08:55 WBC 6.1 (4.8-10.8) X10*3/uL RBC 4.71 (4.20-5.50) X10*6/uL Hgb 14.0 (12.0-16.0) g/dl Hct 41.6 (37.0-47.0) % MCV 88.3 (80.0-98.0) fL MCH 29.7 (27.0-33.0) pg MCHC 33.7 (31.0-35.0) g/dl RDW 14.6 (11.0-16.0) % Plt Count 226 (160-400) X10*3/uL MPV 9.0 L (9.4-12.3) fL Immature Gran % (Auto) 0.3 (0.0-0.4) % Neut % (Auto) 55.8 (45-73) % Lymph % (Auto) 31.0 (20-40) % Saline % (Auto) 10.1 (2-11) % Eos % (Auto) 2.1 (0-4) % Baso % (Auto) 0.7 (0-2) % Lymph # (Auto) 1.9 (1.2-4.9) X10*3/uL Saline # (Auto) 0.6 (0.1-1.2) X10*3/uL Eos # (Auto) 0.1 (0.0-0.4) X10*3/uL Baso # (Auto) 0.0 (0.0-0.2) X10*3/uL Abs Immat Gran (auto) 0.02 (0.00-0.03) X10*3/uL Absolute Neuts (auto) 3.4 (2.0-8.3) x10*3/uL Absolute Nucleated RBC 0.000 (0.0-0.012) X10*3/uL Nucleated RBC % (auto) 0.0 (0.0-0.2) /100WBC Sodium 142 (135-145) mmol/L Potassium 3.4 (3.3-5.1) mmol/L Chloride 101 (96-108) mmol/L Carbon Dioxide 31 H (22-29) mmol/L Anion Gap 13 (12-20) BUN 18 H (9-16) mg/dL Creatinine 0.68 (0.5-1.4) mg/dL Estim Creat Clear Calc 39.7 Estimated GFR > 60 Random Glucose 94 (60-115) mg/dL Calcium 9.4 (8.4-10.2) mg/dL Magnesium 1.7 (1.6-2.6) mg/dL Total Bilirubin 1.6 H (0.0-1.0) mg/dL Direct Bilirubin 0.4 (0.0-0.5) mg/dL AST 33 H (5-31) U/L ALT 42 H (0-31) U/L Alkaline Phosphatase 96 (39-117) U/L Troponin I High Sens 11.3 D (<3.5-17.0) ng/L B-Natriuretic Peptide 558 H (<100) pg/mL Total Protein 7.1 (6.5-8.0) g/dL Albumin 4.1 (3.5-5.0) g/dL Independent Interpretation I performed an independent interpretation of an: EKG Interpretation: I independently interpreted this EKG and am in agreement with the below findings: Vent. Rate: 96 BPM Atrial Rate: * BPM P-R Int: * ms QRS Dur: 134 ms QT Int: 388 ms P-R-T Axes: * 95 -52 degrees QTcB Int: 490 ms Atrial fibrillation with premature ventricular or aberrantly conductedcomplexes Right bundle branch block T wave abnormality, consider inferolateral ischemia When compared with ECG of 29-Jan-2025 18:10, Vent. rate has increased by 35 bpm Inverted T waves have replaced nonspecific T wave abnormality in Lateral leads DD/ 0810 Independent Historian Clinical information obtained from an independent historian. History obtained from or confirmed by: Other (Patient's daughter provided additional history and confirmed the history provided by the patient.) Discharge Plan Discharge Clinical Impression: Atrial fibrillation Qualifiers: Atrial fibrillation type: unspecified Qualified Code(s): I48.91 - Unspecified atrial fibrillation Patient Disposition: Home, Self-Care Instructions: A-fib (Atrial Fibrillation) (ED) Additional Instructions: Continue taking your medication as prescribed. Follow up with your counter tender as scheduled. Follow up with your primary care provider. Return to the emergency department immediately if your symptoms worsen or if you develop any numbness, tingling, dizziness, shortness of breath, difficulty breathing, chest pain, blurry vision, loss of vision, nausea, vomiting, abdominal pain, fever, chills, back pain, or any other complaints. Please see the information below about our Patient Portal. If you are not yet enrolled in the [facility] Patient Portal, you will receive an enrollment email invitation following your visit to any [facility] care setting. You may also self-enroll in the Patient Portal by visiting our website: [email or web address] The following information is required to access the Patient Portal: - Your [facility] Medical Record Number - Your personal home email address (must match what is in your electronic medical record, Registration staff can assist with this) - Name - Date of Capabilities of the Patient Portal: - Message some providers - View upcoming appointments - Access your health summary, medical history, and visit history - View current conditions and allergies - View procedure and lab results - View your medications, including guidelines, side effects, and precautions - Complete pre-appointment questionnaires requested by your provider - Ready summary reports of your office visits and procedures To access the Patient Portal Mobile [employer], follow these directions: - Search Admeld in the [employer] Store or [employer] Store - Download the [employer] - Search for [facility] - Enter your login/password Prescriptions: No Action Eliquis 5 mg tablet 5 mg PO BID 90 Days Qty: 180 3RF acetaminophen [Tylenol] 325 mg Tablet 325 mg PO DAILY PRN (Reason: Pain) ibuprofen 200 mg Tablet 200 mg PO Q6H PRN (Reason: Pain) lisinopril 40 mg Tablet 40 mg PO DAILY Qty: 90 0RF Protocol: Hold for SBP< HOLD for SBP < : 90 metoprolol tartrate 25 mg Tablet 75 mg PO BID Qty: 180 0RF Protocol: Hold for SBP/HR < HOLD for SBP < : 90 HOLD for HR < : 60 digoxin 125 mcg (0.125 mg) tablet 125 mcg PO .COMPLEX 90 Days Qty: 60 1RF Rx Instructions: 125 mcg orally 5 days per week; HOLD on Wednesday and Wednesday ( may not need refill yet) furosemide [Lasix] 40 mg tablet 40 mg PO DAILY 90 Days Qty: 90 1RF Rx Instructions: dose increased Referrals: Devante Leigh MD [Primary Care Provider, Medical] Interventions: ED Discharge Assessment Last Done: 04/07/25 09:37 Print Language: Romanian
[2025-04-07 08:14] VITALS: BP 195/95; PULSE 86; RESP 20; TEMP 36.8; O2SAT 94; BMI 21.2
[2025-04-07 08:31] LABS: MANUAL DIFF FLAG NO
[2025-04-07 08:33] LABS: Basophils Percent Auto 0.7 % (0-2); Eosinophils Absolute Auto 0.1 X10*3/uL (0.0-0.4); Eosinophils Percent Auto 2.1 % (0-4); Hematocrit 41.6 % (37.0-47.0); Imm Gran Abs Auto 0.02 X10*3/uL (0.00-0.03); Imm Gran Pct Auto 0.3 % (0.0-0.4); Lymphocytes Absolute Auto 1.9 X10*3/uL (1.2-4.9); Mean Corpuscular HGB Conc 33.7 g/dl (31.0-35.0); Mean Corpuscular Hemoglobin 29.7 pg (27.0-33.0); Mean Corpuscular Volume 88.3 fL (80.0-98.0); Monocytes Absolute Auto 0.6 X10*3/uL (0.1-1.2); Monocytes Percent Auto 10.1 % (2-11); Neutrophils Absolute Auto 3.4 x10*3/uL (2.0-8.3); Neutrophils Percent Auto 55.8 % (45-73); Platelet Count 226 X10*3/uL (160-400); Red Blood Count 4.71 X10*6/uL (4.20-5.50); Red Cell Distribution Width 14.6 % (11.0-16.0); White Blood Count 6.1 X10*3/uL (4.8-10.8)
[2025-04-07 08:42] VITALS: PULSE 82
[2025-04-07 08:52] LABS: Troponin-I High Sensitivity 11.3 ng/L (<3.5-17.0)
[2025-04-07 08:53] LABS: B Type Natriuretic Peptide 558 pg/mL (<100)
[2025-04-07 09:15] LABS: Alanine Aminotransferase 42 U/L (0-31); Albumin Level 4.1 g/dL (3.5-5.0); Alkaline Phosphatase 96 U/L (39-117); Anion Gap 13 (12-20); Aspartate Amino Transferase 33 U/L (5-31); Bilirubin Direct 0.4 mg/dL (0.0-0.5); Bilirubin Total 1.6 mg/dL (0.0-1.0); Blood Urea Nitrogen 18 mg/dL (9-16); Calcium 9.4 mg/dL (8.4-10.2); Carbon Dioxide 31 mmol/L (22-29); Chloride 101 mmol/L (96-108); Creatinine Clr Calc Pharmacy 39.7; Estimated Glomerular Filt Rate > 60; Glucose Random 94 mg/dL (60-115); Magnesium 1.7 mg/dL (1.6-2.6); Potassium 3.4 mmol/L (3.3-5.1); Sodium 142 mmol/L (135-145); Total Protein 7.1 g/dL (6.5-8.0)
[2025-04-07 09:19] VITALS: BP 167/62; PULSE 69; RESP 19; TEMP 36.9; O2SAT 100
[2025-04-07 09:37] VITALS: BP 167/62; PULSE 69; RESP 19; TEMP 36.9; O2SAT 100
== END 2025-04-07 09:38 | disposition home or self-care (01) ==
PROVIDERS: Physician Assistant Medical; Emergency Provider Emergency Medicine; PCP Internal Medicine
DX: I48.91 Unspecified atrial fibrillation (principal); I49.9 Cardiac arrhythmia, unspecified; Z79.01 Long term (current) use of anticoagulants; Z79.899 Other long term (current) drug therapy
CPT/HCPCS: 36415; 80048; 80076; 83735; 83880; 84484; 85025; 93005; 99285

== ENCOUNTER → 2025-04-07 08:07 | Outpatient (BNV) | payer MEDICARE, SELFPAY | PROVIDERS: Emergency Provider Emergency Medicine; PCP Internal Medicine; Visit Provider Internal Medicine | DX: I48.92 Unspecified atrial flutter (principal); I45.10 Unspecified right bundle-branch block | CPT/HCPCS: 93010 ==

== ENCOUNTER 2025-04-10 08:53 | Day surgery (SDC) | payer MEDICARE, SELFPAY ==
--- NOTE | 2025-04-09 13:16 | P.CONAN_ITS ---
Documented by User: Rubia Aguilar NP 04/09/25 13:19 HPI - Anesthesia Eval Consult details Narrative: 84yo F for Cardioversion Eliquis for afib PMFSH Active Problems Active Problems: All Active Problems Edema (Acute) Anticoagulated (Acute) Epistaxis (Acute) Hypokalemia (Acute) Pericardial effusion (Acute) Nonrheumatic mitral valve regurgitation (Acute) Atrial fibrillation (Acute) Past Medical History Medical History Primary hypertension Breast cancer COPD (chronic obstructive pulmonary disease) Family History Family History Unknown No problems noted. Social History Social History Household Members: None Are you a primary resident care manager rn to a significant other at home: No Do you presently have visiting nurse or other home services: No Alcohol intake: never Comment: Independent Patient Tobacco Use Status: Former Tobacco user Use of substances other than those prescribed or required for medical reasons: No Have you been hit, kicked, punched, or otherwise hurt by someone within the past year? If so, by whom?: No Advance Directives: No Advance Directives Information Provided: Yes Patient : No Poor oral hygiene: Yes service: No Meds Allergies Allergy/AdvReac Type Severity Reaction Status Date / Time No Known Allergies (No Known Allergy Verified 04/10/25 09:17 Allergies*) Home Medications ?Medication ?Instructions ?Recorded ?Confirmed ?Last Taken ?Type acetaminophen 325 mg tablet 325 mg PO DAILY PRN Pain 0 01/30/25 04/05/25 Unknown History (Tylenol) ibuprofen 200 mg tablet 200 mg PO Q6H PRN Pain 01/3004/05/25 Unknown History Exam Pertinent Lab Results Pertinent Lab Results: Laboratory Tests 04/07/25 04/07/25 08:27 08:55 WBC 6.1 Hgb 14.0 Hct 41.6 Plt Count 226 Sodium 142 Potassium 3.4 Chloride 101 Carbon Dioxide 31 H BUN 18 H Creatinine 0.68 Narrative Narrative: EKG 03/2025 Vent. Rate: 96 BPM Atrial Rate: * BPM P-R Int: * ms QRS Dur: 134 ms QT Int: 388 ms P-R-T Axes: * 95 -52 degrees QTcB Int: 490 ms Atrial fibrillation with premature ventricular or aberrantly conductedcomplexes Right bundle branch block T wave abnormality, consider inferolateral ischemia When compared with ECG of 29-Jan-2025 18:10, Vent. rate has increased by 35 bpm Inverted T waves have replaced nonspecific T wave abnormality in Lateral leads ECHO 01/2025 Conclusions: - The left ventricular systolic function is normal. The visually estimated ejection fraction is between 55-60%. - The left atrium is severely dilated. - There is moderate to severe mitral valve regurgitation. - There is mild to moderate tricuspid valve regurgitation. - Mild pulmonary hypertension is present. - There is a moderate pericardial effusion. Assessment and Plan Assessment Anesthesia Assessment: Chart Reviewed Documented by User: Irma Grimm MD 04/10/25 10:08 [facility] Past Medical History Medical History Primary hypertension Breast cancer COPD (chronic obstructive pulmonary disease) Family History Family History Unknown No problems noted. Surgical History History of Problems with Anesthesia: No Social History Social History Household Members: None Are you a primary resident care manager rn to a significant other at home: No Do you presently have visiting nurse or other home services: No Alcohol intake: never Comment: Independent Patient Tobacco Use Status: Former Tobacco user Use of substances other than those prescribed or required for medical reasons: No Have you been hit, kicked, punched, or otherwise hurt by someone within the past year? If so, by whom?: No Advance Directives: No Advance Directives Information Provided: Yes Patient : No Poor oral hygiene: Yes service: No Meds Allergies Allergy/AdvReac Type Severity Reaction Status Date / Time No Known Allergies (No Known Allergy Verified 04/10/25 09:17 Allergies*) Home Medications ?Medication ?Instructions ?Recorded ?Confirmed ?Last Taken ?Type acetaminophen 325 mg tablet 325 mg PO DAILY PRN Pain 0 01/30/25 04/05/25 Unknown History (Tylenol) ibuprofen 200 mg tablet 200 mg PO Q6H PRN Pain 01/3004/05/25 Unknown History Exam Airway Mallampati Class: II TM Dist: >3cm Neck ROM: Full Denture: Upper Partial: Lower Loose/Missing/Broken Teeth: Yes, Upper and Lower Heart: irregularly irregular rhythm Lungs: CTA Assessment and Plan Assessment Anesthesia Assessment: Anesthesia Plan Discussed Final Anesthetic Review History of Problems with Anesthesia: No NPO: Yes ASA Class: III Final Preanesthetic Review: Meds/Allgs Chart Reviewed, Consent Obtained/Reviewed and Anes Risks/Benef Reviewed Patient Risk: Intermediate Procedure Risk: Intermediate Anesthetic Plan Anesthetic Plan: MAC: Disposition: Standard PACU
--- NOTE | 2025-04-10 08:30 | MHC.SHP ---
Pre-Procedural Eval Section A - 24 Hr Update-Section A only Date of Service: 04/10/25 The patient is an INPATIENT: No Changes since office visit: Yes Patient answered all questions; No Cold of Flu in the past 2 weeks, No New Medical Problems and No Changes in Medication The patient has been examined within 24 hours of the surgical procedure. The History & Physical has been completed within 30 days and I have reviewed it.: Yes Section B - Complete if H&P > 30 days Chief Complaint: Paroxysmal atrial fibrillation Allergies: Allergies Allergy/AdvReac Type Severity Reaction Status Date / Time No Known Allergies (No Known Allergy Verified 04/07/25 08:18 Allergies*) Plan I have reviewed the history and physical and performed a pertinent physical examination on my patient. No changes have occurred unless specified. Time Spent With Patient Time: Total time managing care of this patient today ____ minutes.
[2025-04-10 09:21] VITALS: BP 154/88; PULSE 69; RESP 12; TEMP 36.9; O2SAT 95; BMI 20.7
[2025-04-10] MEDS: Lactated Ringers 1,000 ML 50 ML IVCONT (09:33)
--- NOTE | 2025-04-10 10:28 | ECG_ITS ---
Test Reason : post cardioversion Blood Pressure : */* mmHG Vent. Rate : 65 BPM Atrial Rate : 65 BPM P-R Int : 176 ms QRS Dur : 134 ms QT Int : 442 ms P-R-T Axes : 70 91 -42 degrees QTcB Int : 459 ms Sinus rhythm with marked sinus arrhythmia with Premature supraventricular complexes Right bundle branch block T wave abnormality, consider inferolateral ischemia Abnormal ECG When compared with ECG of 07-Apr-2025 08:10, Sinus rhythm has replaced Atrial fibrillation Referred By: Hima Ochoa Electronically Signed By: HIMA OCHOA MD
[2025-04-10 10:30] VITALS: BP 92/50; PULSE 57; RESP 18; TEMP 36.2; O2SAT 99
[2025-04-10 10:35] VITALS: BP 105/45; PULSE 56; RESP 19; O2SAT 99
[2025-04-10 10:40] VITALS: BP 108/52; PULSE 61; RESP 17; O2SAT 100
[2025-04-10 10:45] VITALS: BP 112/55; PULSE 60; RESP 17; O2SAT 99
[2025-04-10 11:00] VITALS: BP 136/64; PULSE 60; RESP 18; TEMP 36.2; O2SAT 96
--- NOTE | 2025-04-10 11:00 | HO.CARDIVERS ---
Cardioversion Procedure Note Cardioversion Date of Procedure: 04/10/2025 Ordering Provider: Sabi Guallpa Performing Provider: Abraham Ochoa Indication for Procedure: Persistent atrial fibrillation Pre-Op Diagnosis: Persistent atrial fibrillation Post-Op Diagnosis: Same History: See office note Consent: Verbal and Written consent was obtained from the patient before starting and confirming oral anticoagulation. The patient was made aware of the risk of synchronized cardioversion including benefits and alternatives Procedure: After consent obtained, cardioversion pads were attached in anteroposterior configuration and the patient was sedated by the anesthesia team. Once adequate sedation achieved, patient was delivered 200 joules of biphasic synchronized energy in anteroposterior configuration Complications: Patient developed bradycardia with prolonged sinus bradycardia as well as junctional escape beats with heart rate in the 20s and was given 1 mg atropine total. Patient then recuperated with persistent sinus bradycardia with junctional escape beats and PACs. Impression: Successful conversion Recommendations: 1. Stopped digoxin and reduce metoprolol to 50 mg b.i.d. 2. Continue Eliquis 5 mg b.i.d. 3. EKG in the office in 1 week to discuss further treatment options most likely will require amiodarone 200 mg b.i.d. with reduction in overall metoprolol dose including possibly discontinuation given his significant left atrial enlargement
== END 2025-04-10 11:49 | disposition home or self-care (01) ==
PROVIDERS: PCP Physician Assistant; Visit Provider Internal Medicine Cardiovascular Disease
PROC: 5A2204Z Restoration of Cardiac Rhythm, Single (ICD-10-PCS; principal; 2025-04-10 10:30)
DX: I48.19 Other persistent atrial fibrillation (principal); Z79.01 Long term (current) use of anticoagulants; R00.1 Bradycardia, unspecified; I34.0 Nonrheumatic mitral (valve) insufficiency; I31.39 Other pericardial effusion (noninflammatory); I10 Essential (primary) hypertension; J44.9 Chronic obstructive pulmonary disease, unspecified; R60.9 Edema, unspecified; R04.0 Epistaxis; Z85.3 Personal history of malignant neoplasm of breast; Z79.1 Long term (current) use of non-steroidal anti-inflammatories (NSAID); Z79.899 Other long term (current) drug therapy; Z87.891 Personal history of nicotine dependence
CPT/HCPCS: 92960; 93005; J0168; J0461; J2003; J2704

== ENCOUNTER → 2025-04-10 08:53 | Outpatient (BNV) | payer MEDICARE, SELFPAY | PROVIDERS: PCP Physician Assistant; Visit Provider Internal Medicine Cardiovascular Disease | DX: I48.91 Unspecified atrial fibrillation (principal); I47.10 Supraventricular tachycardia, unspecified | CPT/HCPCS: 92960; 93010 ==

== ENCOUNTER 2025-04-16 08:28 | Inpatient (IN) | payer MEDICARE, SELFPAY ==
[2025-04-16] VITALS (13 sets, daily range): BP systolic 141–187; BP diastolic 54–100; PULSE 54–70; RESP 18–20; TEMP 36.4–36.8; O2SAT 92–100; BMI 23.0; BMI 20.7
--- NOTE | 2025-04-16 | ECG_ITS ---
Test Reason : chest pressure Blood Pressure : */* mmHG Vent. Rate : 63 BPM Atrial Rate : 53 BPM P-R Int : * ms QRS Dur : 134 ms QT Int : 432 ms P-R-T Axes : 56 100 -20 degrees QTcB Int : 442 ms Normal sinus rhythm with frequent PACs Right bundle branch block T wave abnormality, consider inferior ischemia Abnormal ECG When compared with ECG of 10-Apr-2025 10:30, Current undetermined rhythm precludes rhythm comparison, needs review Referred By: Generic ED Physician Electronically Signed By: Otto Ray
--- NOTE | ~2025-04-16 | XR_ITS ---
EXAMINATION: XR CHEST CLINICAL INFORMATION: Shortness of breath COMPARISON: January 29, 2025 TECHNIQUE: Frontal view of the chest was obtained. FINDINGS: Surgical clips project in the right axilla. There is cardiomegaly. Extensive mitral annular calcification is again noted. There are basilar opacities likely related to pleural fluid. Pulmonary markings are mildly prominent. XR/XR chest 1V IMPRESSION: Increasing basilar densities likely represent increasing pleural effusions and atelectasis, pneumonia not ruled out. Mild pulmonary vascular congestion and cardiomegaly. Electronically signed by: Arslan Frey MD 04/16/2025 01:57 PM EDT
--- NOTE | 2025-04-16 09:02 | PC.NURSE ---
PAtient A&O x 3 PMH a-fib patient on eliquis. Patient presents to ED c/o chest pressure and headache rated 8/10 non radiating. c/o SOB 95% RA. Patient recently cardioverted on 04/10 but over the last couple days symptoms have been increasing. -n/v 20G in left forearm. EKG = NSR, BP 180/82 all other VSS and up to date. Blood collected/sent Provider in to see patient. Plan of care on going
--- NOTE | 2025-04-16 09:08 | ED_ITS ---
HPI - Chest Pain General Chief Complaint: Chest Pain Stated Complaint: AFIB,CHEST PRESSURE,SOB,BP 194/92 PER EMS Time Seen by Provider: 04/16/25 09:03 Source: patient Mode of arrival: EMS Limitations: no limitations History of Present Illness HPI narrative: This is 84 years old the patient with a history of atrial fibrillation on apixaban recently cardioverted presented to the emergency department complaining of chest pain headache palpitation. She states also the her blood pressure was elevated at home MD complaint: chest pain Onset (ago): hour(s) (4) Timing of current episode: episodic Onset: during rest Pain location: substernal Pain radiation: none Severity: mild Quality: aching Exacerbating factors: nothing Risk Factors Coronary artery disease risk factors: none Related Data Home Medications ?Medication ?Instructions ?Recorded ?Confirmed acetaminophen 325 mg tablet 325 mg PO DAILY PRN Pain 0 01/30/25 04/16/25 (Tylenol) ibuprofen 200 mg tablet 200 mg PO Q6H PRN Pain 01/3004/16/25 albuterol sulfate 90 mcg/actuation 2 puff inhalation Q 4H PRN 04/16/25 04/16/25 aerosol inhaler Shortness Of Breath Or Wheez ing fluticasone fur. 100 mcg-umeclid 1 ea inhalation DAILY 04/16/25 04/16/25 62.5 mcg-vilant 25 mcg inhalat.powder (Trelegy Ellipta) Previous Rx's ?Medication ?Instructions ?Recorded lisinopril 40 mg tablet 40 mg PO DAILY #90 tabs 01/10 01/02 apixaban 5 mg tablet (Eliquis) 5 mg PO BID 90 days #18 0 tabs 02/27/25 metoprolol tartrate 50 mg tablet 50 mg PO BID #60 tabs 04/10/25 Allergies Allergy/AdvReac Type Severity Reaction Status Date / Time No Known Allergies (No Known Allergy Verified 04/16/25 08:47 Allergies*) Review of Systems 2 Constitutional: Constitutional: Reports no additional constitutional complaints ENT: Reports system reviewed and no additional complaints, except as documented Cardiovascular: Cardiovascular: Reports as per [facility] Past Medical History Attestation statement: The following information was validated with the patient. Medical History Primary hypertension Breast cancer COPD (chronic obstructive pulmonary disease) Family History Family History Unknown No problems noted. Social History Social History Household Members: None Are you a primary healthcare network consultant to a significant other at home: No Do you presently have visiting nurse or other home services: No Alcohol intake: never Comment: Independent Patient Tobacco Use Status: Former Tobacco user Smoked in Last 30 Days: No Use of substances other than those prescribed or required for medical reasons: No Advance Directives: No Advance Directives Information Provided: Yes Do you have a plan to hurt others: No Plan service: No Physical Exam 2 Vital Signs: Vital Signs: Last Vital Signs Temp 98.0 F 04/16/25 14:45 Pulse 57 04/16/25 14:45 Resp 18 04/16/25 14:45 BP 156/73 H 04/16/25 14:45 Pulse Ox 93 04/16/25 14:45 O2 Del Method Room Air 04/16/25 14:45 BMI result Body Mass Index 23.0 Const: General: cooperative Nutritional Appearance: average body habitus Orientation/consciousness: patient oriented x3 Limitations: no limitations HEENT: Head: Yes normal to inspection Ears: hearing grossly normal bilaterally General nose exam: Normal external nose present Face and sinus: Yes normal facial exam Mouth: Normal oral and palatal mucosa present Throat: Yes posterior oropharynx normal Neck: Neck: Yes normal visual inspection Chest: Chest palpation & inspection: normal inspection of the chest Resp: Effort & Inspection: normal respiratory effort Auscultation: clear to auscultation bilaterally Cardio: Jugular venous distension: no JVD Rate: regular rate Rhythm: r egular rhythm GI: Inspection: Yes normal to inspection Palpation (GI): Soft to palpation, not firm and nontender Auscultation: normal bowel sounds Skin: General skin exam: no rashes or lesions noted and elasticity normal L esions: no lesions Rashes: no rashes Neuro: General: patient oriented x3 Course Reevaluation(s) Reevaluation #1: Patient remained stable of the delta trop is flat she was observed few hours in the monitor she remained in sinus rhythm. The case was reviewed with Dr. Ray, labs as well. Blood pressure elevated discussed with Dr Ray he recommended to add Norvasc 2.5 mg daily to the regimen Time: 13:02 Medications Administered Discontinued Medications Generic Name Dose Route Start Last Admin Trade Name Luz PRN Reason Stop Dose Admin Amlodipine Besylate 2.5 mg 04/16/25 11:06 04/16/25 11:28 Amlodipine Besylate 2.5 Mg Tablet PO 04/16/25 11:07 2.5 mg ONCE ONE Administration Protocol Furosemide 20 mg 04/16/25 13:18 04/16/25 13:27 Furosemide 20 Mg/2 Ml Vial IVPUSH 04/16/25 13:19 20 mg ONCE ONE Administration Protocol Hydrochlorothiazide 25 mg 04/16/25 09:12 04/16/25 09:26 Hydrochlorothiazide 25 Mg Tablet PO 04/16/25 09:13 25 mg ONCE ONE Administration Protocol Medical Decision Making Medical Decision Making [facility] Narrative: Patient is here complaining of elevated blood pressure and palpitation we will obtain labs electrocardiogram 13:00 patient remained stable she was monitor for about 4 or 5 hours no AFib seen she stayed in sinus rhythm. Delta trop is flat as therefore acute coronary syndrome is ruled out. I discussed at length the case with the grants assistant of duty Dr Ray because the elevated blood pressure we will add to the regimen amlodipine 2.5 daily, she already on lisinopril 40 and metoprolol 50 14:24 P.M. ON RE-EXAMINATION SHE STILL COMPLAINING OF SHORTNESS A BREATH CHEST X-RAY CONSISTENT WITH CHF SHE WAS GIVEN IV LASIX AT THIS POINT WE WILL ADMIT THE PATIENT FOR OBSERVATION Differential Diagnosis Differential Diagnoses: The differential diagnosis associated with the presentation includes Viral syndrome ACS noncardiac chest pain Admission/Observation Consideration of admission/observation: Escalation of care including admission/observation considered Consult Healthcare Provider Management of the patient was discussed with: Leather Heel Breaster Dr Ray Lab Data [facility] Lab Attestation statement: I reviewed the patient's lab results. 04/16/25 09:04 04/16/25 09:04 Labs: Lab Results 04/16/25 04/16/25 Range/Units 09:04 11:05 WBC 5.0 (4.8-10.8) X10*3/uL RBC 4.33 (4.20-5.50) X10*6/uL Hgb 12.9 (12.0-16.0) g/dl Hct 38.4 (37.0-47.0) % MCV 88.7 (80.0-98.0) fL MCH 29.8 (27.0-33.0) pg MCHC 33.6 (31.0-35.0) g/dl RDW 14.4 (11.0-16.0) % Plt Count 192 (160-400) X10*3/uL MPV 9.4 (9.4-12.3) fL Immature Gran % (Auto) 0.4 (0.0-0.4) % Neut % (Auto) 56.1 (45-73) % Lymph % (Auto) 29.9 (20-40) % [place] % (Auto) 10.0 (2-11) % Eos % (Auto) 3.0 (0-4) % Baso % (Auto) 0.6 (0-2) % Lymph # (Auto) 1.5 (1.2-4.9) X10*3/uL [place] # (Auto) 0.5 (0.1-1.2) X10*3/uL Eos # (Auto) 0.2 (0.0-0.4) X10*3/uL Baso # (Auto) 0.0 (0.0-0.2) X10*3/uL Abs Immat Gran (auto) 0.02 (0.00-0.03) X10*3/uL Absolute Neuts (auto) 2.8 (2.0-8.3) x10*3/uL Absolute Nucleated RBC 0.000 (0.0-0.012) X10*3/uL Nucleated RBC % (auto) 0.0 (0.0-0.2) /100WBC PT 20.0 H D (10.9-12.4) SEC INR 1.7 H (0.9-1.1) Sodium 139 (135-145) mmol/L Potassium 3.6 (3.3-5.1) mmol/L Chloride 103 (96-108) mmol/L Carbon Dioxide 28 (22-29) mmol/L Anion Gap 12 (12-20) BUN 14 (9-16) mg/dL Creatinine 0.62 (0.5-1.4) mg/dL Estim Creat Clear Calc 47.4 Estimated GFR > 60 Random Glucose 95 (60-115) mg/dL Calcium 9.2 (8.4-10.2) mg/dL Magnesium 1.9 (1.6-2.6) mg/dL Total Bilirubin 1.1 H (0.0-1.0) mg/dL AST 29 (5-31) U/L ALT 29 (0-31) U/L Alkaline Phosphatase 76 (39-117) U/L Troponin I High Sens 8.1 9.1 (<3.5-17.0) ng/L B-Natriuretic Peptide 483 H (<100) pg/mL Total Protein 6.6 (6.5-8.0) g/dL Albumin 3.7 (3.5-5.0) g/dL Independent Interpretation I performed an independent interpretation of an: EKG Interpretation: EKG was reviewed interpreted by me as sinus rhythm right bundle-branch block rate 63 Radiology Impression Discussion of test interpretation with radiology: I have reviewed the radiologist's reading. Independent Historian Clinical information obtained from an independent historian. History obtained from or confirmed by: EMS External Record Review External record reviewed: Inpatient record Chronic Conditions Patient?s care impacted by: [facility] Discharge Plan Discharge Clinical Impression: Pleural effusion CHF (congestive heart failure) Qualifiers: Heart failure type: unspecified Heart failure chronicity: acute Qualified Code(s): I50.9 - Heart failure, unspecified Hypertension Qualifiers: Hypertension type: unspecified Qualified Code(s): I10 - Essential (primary) hypertension Patient Disposition: Admitted As Inpatient
[2025-04-16 09:11] LABS: MANUAL DIFF FLAG NO
[2025-04-16 09:16] LABS: Hematocrit 38.4 % (37.0-47.0); Hemoglobin 12.9 g/dl (12.0-16.0); Imm Gran Abs Auto 0.02 X10*3/uL (0.00-0.03); Imm Gran Pct Auto 0.4 % (0.0-0.4); Lymphocytes Absolute Auto 1.5 X10*3/uL (1.2-4.9); Mean Corpuscular HGB Conc 33.6 g/dl (31.0-35.0); Mean Corpuscular Hemoglobin 29.8 pg (27.0-33.0); Mean Corpuscular Volume 88.7 fL (80.0-98.0); NRBC Abs Auto 0.000 X10*3/uL (0.0-0.012); NRBC Pct Auto 0.0 /100WBC (0.0-0.2); Platelet Count 192 X10*3/uL (160-400); Red Blood Count 4.33 X10*6/uL (4.20-5.50); White Blood Count 5.0 X10*3/uL (4.8-10.8)
[2025-04-16 09:21] LABS: INTERNATIONAL NORM RATIO 1.7 (0.9-1.1); Prothrombin Time 20.0 SEC (10.9-12.4)
[2025-04-16 09:39] LABS: B Type Natriuretic Peptide 483 pg/mL (<100)
[2025-04-16 09:40] LABS: Alanine Aminotransferase 29 U/L (0-31); Albumin Level 3.7 g/dL (3.5-5.0); Alkaline Phosphatase 76 U/L (39-117); Anion Gap 12 (12-20); Aspartate Amino Transferase 29 U/L (5-31); Blood Urea Nitrogen 14 mg/dL (9-16); Calcium 9.2 mg/dL (8.4-10.2); Carbon Dioxide 28 mmol/L (22-29); Chloride 103 mmol/L (96-108); Creatinine Clr Calc Pharmacy 47.4; Estimated Glomerular Filt Rate > 60; Magnesium 1.9 mg/dL (1.6-2.6); Potassium 3.6 mmol/L (3.3-5.1); Sodium 139 mmol/L (135-145); Total Protein 6.6 g/dL (6.5-8.0)
[2025-04-16 09:41] LABS: Troponin-I High Sensitivity 8.1 ng/L (<3.5-17.0)
--- OUTSIDE RECORDS SUMMARY | 2025-04-16 10:09 | XMS_ITS | Data Portability ---
Author Organization [facility], Telehealth Patient Home Address [address] [place] [address] Assessment Encounter Date Assessment Date Assessment LastModified [...] Not available Lab digoxin, serum 2024 025 [facility], [address] [place] [address], [id number], 03/19/2025 11:14:30 CBC w/ auto diff 2024 025 [facility], [address] [place] [address], [id number], 03/21/2025 12:16:18 CMP, serum or plasma 2024 025 [facility], [address] [place] [address], [id number], 03/21/2025 12:16:18 CMP, serum or plasma 2024 025 [facility], [address] [place] [address], [id number], 02/12/2025 15:30:09 Referral None recorded. Procedures None recorded. Surgeries None recorded. Imaging None recorded. Medication Orders albuterol sulfate HFA 90 mcg/actua tion aerosol inhaler 2024 025 [facility] #[id number], [address], [place], [id number], 03/19/2025 11:08:23 Trelegy Ellipta 100 mcg-62.5 mcg-25 mcg powder for inhalatio n 2024 025 [facility] #[id number], [address], [place], [phone], 03/19/2025 11:08:22 Patient TargetsNo targets recorded. Patient InstructionsNo instructions recorded. Reason for Referral None Reported. Results Created Date Observation Date Name Description Value Unit Range Abnormal Flag Note LastModifiedBy Organization Detail LastModifiedTime 06/19/20 24 06/19/2024 MAMMO , scree savannah, digit al, bilat eral No observ ation record ed. [email or web address] [facility] [address] [place], [address], 06/19/2024 19:54:57 01/30/20 25 01/29/2025 XR, chest , 2 view No observ ation record ed. [facility] (Medical Records) [address] [place] [address], [address], 02/12/2025 15:26:22 Result Notes None recorded. Problems Name Problem SNOMED Code Status Onset Date Resolution Date Notes Provider Name and Address Organization Details Recorded Time Osteopen ia 851436879 Active 2018 Zena flower [facility] 0 10:11:37 Chronic obstruct chriss pulmonar y disease 63841995 Active 2018 Zena flower [facility] 0 10:11:36 Mild chronic obstruct chriss pulmonar y disease 012762809 Active 2017 Dr. Bojorquez, pulmonol ogist Zena floewr [facility] 0 10:11:37 Solitary nodule of lung 941744222 Active 2017 right upper lobe Zena flower [facility] 0 10:11:36 [facility] hyperten shazia 40416252 Active 2017 Zena flower [facility] 0 10:11:37 Personal history of primary malignan t neoplasm of breast 055930128 Active 1989 right, lumpecto my & radiatio n Zena flower [facility] 0 10:11:37 Ventricu lar prematur e beats 21307832 Active 2017 Zena flower [facility] 0 10:11:37 History of adenomat ous polyp of colon 234333761 Active 2012 Zena flower [facility] 0 10:11:37 History of colonosc opy 0653444954 09 Completed 201201/12/2018 Removal Reason: to put in history Ora Bunch NP, S [address] [place] [address], [phone], [facility] 8 10:00:05 Hypokale jeanine 41904925 Active 2024 SHAHRZAD ACEVES [address] [place] [address], [address], [facility] 5 10:19:06 Paroxysm al atrial fibrilla tion 280060820 Active 2024 SHAHRZAD ACEVES [address] [place] [address], [phone], [facility] 5 15:20:47 Non-rheu matic mitral regurgit ation 628337066 Active 2024 SHAHRZAD ACEVES [address] [place] [address], [address], [facility] 5 09:30:26 Edema of lower extremit y 095777207 Active 2024 SHAHRZAD ACEVES [address] [place] [address], [address], [facility] 5 13:24:19 Problem Notes None recorded. Procedures Surgical History Date Name Laterality Status Provider Name and Address Organization Details Recorded Time 04/23/20 21 Suture/Staple removal completed SHAHRZAD ACEVES [address] [place] [address], [phone], [facility] 04/23/2021 10:32:54 10/11/18 99 Breast Surgery completed Ora Bunch NP, S [address] [place] [address], [phone], [facility] 12/21/2017 15:16:31 Unlisted px arthroscopy completed Ora Bunch NP, S [address] [place] [address], [phone], [facility] 12/21/2017 15:07:01 Imaging Results None recorded. Procedure Notes None recorded. Medical Equipment None Reported. Allergies No known drug allergies Medications Name Sig Start Date Stop Date Status Note LastModified by Organization Details LastModified Time amoxicillin 500 mg capsule Take 1 capsule every 8 hours by oral route. 09/26 completed Not Available Not Available Not Available furosemide 40 mg tablet Take 1 tablet every day by oral route for 30 days. 2024 active Not Available Not Available Not Avai lable nystatin 100,000 unit/mL oral suspension Take 5 [...] Available Not Available Not Available metoprolol tartrate 50 mg tablet TAKE 1 TABLET BY MOUTH TWICE DAILY active Not Available Not Available No t Available digoxin 125 mcg (0.125 mg) tablet TAKE 1 TABLET BY MOUTH DAILY active Not Available Not Available No t Available furosemide 20 mg tablet TAKE 1 TABLET BY MOUTH DAILY active Not Available Not Available No t Available albuterol sulfate HFA 90 mcg/actuati on aerosol inhaler INHALE 2 PUFFS BY MOUTH EVERY 4 HOURS NEEDED active Not Available Not Available No t Available lisinopril 40 mg tablet TAKE 1 TABLET BY MOUTH DAILY active Not Available Not Available No t Available Tylenol 650 mg tablet,exte nded release Take 2 tablets every 8 hours by oral route. 03/11 completed Not Available Not Available Not Available metoprolol tartrate 25 mg tablet TAKE 3 TABLETS BY MOUTH TWICE DAILY active Not Available Not Available No t Available multivitami n active Not Available Not [...] 100 mcg-62.5 mcg-25 mcg powder for inhalation INHALE 1 PUFF BY MOUTH EVERY DAY DIRECTED active Not Available Not Available No t Available Flowflex COVID-19 Antigen Home Test kit USE DIRECTED ON PACKAGING 11/03 completed Not Available Not Available Not Available Vitals Date Recorded Body height Body mass index (BMI) Body weight Heart rate Oxygen saturation Oxygen saturation in Arterial blood by Pulse oximetry Systolic And Diastolic Provider Name and Address Organization Details Last Updated DateTime 5 147.32 cm 21.2 kg/m2 21026.5 5 g 56 /min 97 % 97 % 128/86 mm[Hg] Julia Herrera [facility] 5 15:11:00 Date Recorded Body height Body mass index (BMI) Body weight Heart rate Oxygen saturation Oxygen saturation in Arterial blood by Pulse oximetry Systolic And Diastolic Provider Name and Address Organization Details Last Updated DateTime 5 147.32 cm 21.4 kg/m2 52409.8 6 g 41 /min 96 % 96 % 130/88 mm[Hg] Julia Herrera [facility] 5 10:52:08 Date Recorded Body height Body mass index (BMI) Body weight Heart rate Oxygen saturation Oxygen saturation in Arterial blood by Pulse oximetry Systolic And Diastolic Provider Name and Address Organization Details Last Updated DateTime 4 147.32 cm 20.7 kg/m2 16575.6 4 g 47 /min 99 % 99 % 118/68 mm[Hg] Nora Crawford [facility] 4 09:55:30 Date Recorded Body height Body mass index (BMI) Body weight Systolic And Diastolic Provider Name and Address Organization Details Last Updated DateTime 10/09/2024 147.32 cm 21.1 kg/m2 19063.83 g 160/80 mm[Hg] Nora Crawford [facility] 10/09/2024 16:26:22 Social History Question Answer Notes LastModified by Organizat ion Details LastModified Time Tobacco Smoking Status Former Smoker Ora Bunch, DILMA, S [address] [facility], [place], [address], [facility] 12/21/2017 15:06:09 What Was The Date Of Your Most Recent Tobacco Screening? 03/19/2025 [email or web address] Information not available 03/19/2025 How Many Years Have You Smoked Tobacco? 45 [email or web address] Information not available 12/21/2017 Sex: Unknown Functional Status Question Answer Note LastModified by Organization D etails LastModified Time Do you or have you ever used any other forms of tobacco or nicotine? No [email or web address] Information not available 04/04/2024 Mental Status None recorded. Family History Nothing Reported. Medical History Condition Response Polyps Y Breast Cancer Y COPD Y Hypertension Y Gynecological HistoryNo gynecological history recorded. Obstetrics History GPAL:G 0 P 0 0 0 0 Immunizations Vaccine Type Date Status Note Provider Nam e and Address Organization Details Recorded Time Influenza, split virus, quadrivalent, preservative 8 [facility] 10:11:31 COVID-19, mRNA, LNP-S, PF, 30 mcg/0.3 mL dose 1 [facility] 04/20/2022 08:14:02 COVID-19, mRNA, LNP-S, PF, 30 mcg/0.3 mL dose 1 completed Cyndi flower, [facility] 04/20/2022 08:14:10 COVID-19, mRNA, LNP-S, PF, 30 mcg/0.3 mL dose 1 completed Cyndi flower, [facility] 04/20/2022 08:14:17 COVID-19, mRNA, LNP-S, PF, 30 mcg/0.3 mL dose 2 completed Cyndi flower [facility] 04/20/2022 08:14:24 COVID-19, mRNA, LNP-S, PF, 30 mcg/0.3 mL dose 2 completed Cyndi flower [facility] 11/03/2022 08:01:51 influenza, unspecified formulation [facility] 08:02:05 Pneumococcal conjugate PCV 13 2 [facility]/03[facility]2022 08:02:30 Tdap 1 [facility] 11/03/2022 08:03:07 Pneumococcal Conjugate, unspecified formulation 3 completed SHAHRZAD ACEVES [address] [place] [address], [address], [facility] 04/04/2024 10:09:09 Respiratory syncytial virus (RSV) MAB, unspecified 3 completed SHAHRZAD ACEVES [address] [place] [address], [address], [facility] 04/04/2024 10:11:30 Influenza, split virus, quadrivalent, preservative 9 [facility] 09/10/2020 10:11:31 Influenza, split virus, quadrivalent, preservative 0 [facility] 09/10/2020 10:11:31 Influenza, adjuvanted, trivalent, PF 7 completed Zena flower [facility] 09/10/2020 10:11:31 Tdap 5 completed Zena flower [facility] 09/10/2020 10:11:31 pneumococcal, unspecified formulation 6 completed Zena flower [facility] 09/10/2020 10:11:31 pneumococcal, unspecified formulation 1 completed Zena flower [facility] 09/10/2020 10:11:31 Past Encounters Encounter ID Performer Location Encounter Start Date Encounter Closed Date Diagnosis/Indication Diagnosis SNOMED-CT Code Diagnosis ICD10 Code Diagnosis Note [id number] [address] [place] [address] 01/28/2018 11:08:11 01/28/2018 13:01:36 Candidiasis of mouth 43126937 B37.0 Essential hypertension 08396259 I10 stable [id number] Devante MadisonPadilla Leigh [facility] [address] [facility],[place] [address] 02/04/2018 09:35:54 02/04/2018 10:31:51 Chronic obstructive pulmonary disease 71475222 J44.9 stable with inhalers, no use rescue inhaler Solitary n odule of lung 130842173 R91.1 f/u Dr. Bojorquez Ventricula r premature beats 78559687 I49.3 stable with metoprolol Essential hypertension 99807906 I10 stable, given lab slip, pt. more comfortabl e with paper form Personal h istory of primary malignant neoplasm of breast 039697242 Z85.3 mammo due in March, order for diagnostic mammo provided, pt [place] [id number] [facility] [address],[place] [address] 06/10/2018 09:17:53 06/10/2018 12:18:07 Ventricular premature beats 02910044 I49.3 stable with metoprolol History of adenomatous polyp of colon 655300355 Z86.010 Personal h istory of primary malignant neoplasm of breast 305365773 Z85.3 up to date mammo Essential hypertension 11362949 I10 stable Solitary n odule of lung 813026442 R91.1 f/u Dr. Bojorquez External hordeol 40716 08 H00.016 [id number] Devante Leigh [facility] [address] [place] [address] 09/26/2018 09:33:52 09/26/2018 11:22:31 Essential hypertension 34258152 I10 stable History of adenomatous polyp of colon 490175020 Z86.010 up to date colonoscop y Ventricula r premature beats 42816338 I49.3 stable with metoprolol Solitary n odule of lung 069436902 R91.1 f/u Dr. Bojorquez, 2 mm no need f/u CT Mild chron ic obstructive pulmonary disease 971544944 J44.9 [facility]o helpful [id number] [facility] [address] [facility],[place] [address] 02/01/2019 09:22:00 02/01/2019 10:36:37 Screening procedure 62958018 Z13.9 Decreased estrogen level 569388487 E28.39 Essential hypertension 67910013 I10 stable Mild chron ic obstructive pulmonary disease 902012761 J44.9 Breo helpful History of adenomatous polyp of colon 698493924 Z86.010 up to date colonoscop y Ventricula r premature beats 71707540 I49.3 stable with metoprolol Solitary n odule of lung 494081995 R91.1 f/u Dr. Bojorquez, recent visit, will f/u 1 year [id number] [facility] [address] [facility],[place] [address] 08/30/2019 09:28:17 08/30/2019 10:01:54 Chronic obstructive pulmonary disease 58908497 J44.9 breathing well sees pulm once per year Essential hypertension 24521723 I10 well controlled Ventricula r premature beats 59719699 I49.3 under control Solitary n odule of lung 624342732 R91.1 followed by pulm as well Advance care planning 71 8303876 Z71.89 HCP - daughter - tonia barton has advanced directives at home ppw provided to reevaluate Osteopenia 694332425 M85 .80 on vitamin d [id number] [facility] [address] [facility], [place] [address] 11/08/2019 09:19:25 11/08/2019 10:01:04 Chronic obstructive pulmonary disease 30257910 J44.9 breathing well sees pulm once per year Pain of ri ght hip joint 3432027258 11080 M25.551 Chronic back pain 579176 002 M54.5 [id number] [facility] [address] [facility],[place] [address] 03/05/2020 09:18:58 03/05/2020 10:28:43 Adult health examination 878675563 Z00.00 no concerns Screening for cardiovascular system disease 138274610 Z13.6 bw Screening for malignant neoplasm of colon 178424169 Z12.11 no longer needs them per GI doctor had it done at [place] Screening for osteoporosis 125859345 Z13.820 had it done at [facility] Screening mammography 24 625115 Z12.31 already had it done at [facility] has it done every year Chronic ob structive pulmonary disease 73263288 J44.9 stable [id number] Devante Leigh [facility] [address] [facility], [place] [address] 09/10/2020 09:51:49 09/10/2020 10:41:08 Chronic obstructive pulmonary disease 61794803 J44.9 stable Ventricula r premature beats 12984036 I49.3 stable on metoprolol , will need refill med soon Essential hypertension 81892638 I10 BP stable, no side effects [id number] Devante Leigh [facility] [address] [facility], [place] [address] 03/11/2021 09:31:38 03/11/2021 10:00:40 Essential hypertension 63332095 I10 BP stable, no side effects Chronic ob structive pulmonary disease 45468312 J44.9 stable Degenerati on of lumbar intervertebral disc 94218630 M51.36 [place] [id number] Devante Leigh [facility] [address] [facility], [place] [address] 04/23/2021 10:11:11 04/23/2021 11:20:36 Cellulitis 520327770 L03.90 will start on doxy for infection Removal of suture 707377 01 Z48.02 sutures removeddue to infection wound did not close correctly Dehiscence of surgical wound 11270726 T81.30XA sutures did not take, the wound was open and underlying infectiona lot of pain with removal of sutures [id number] Devante Leigh DO [facility] [address] [facility] [address] [address] 09/24/2021 09:28:32 09/24/2021 11:30:07 Chronic obstructive pulmonary disease 40138564 J41.0 stable Essential hypertension 70724810 I10 BP stable, no side effects Osteopenia 549521013 M85 .80 stable Active or passive immunization 546336371 Z23 given locations for a pna vaccine [id number] Devante Leigh [facility] [address] [facility] [address] [address] 10/17/2021 09:02:59 10/17/2021 14:26:45 Chronic obstructive pulmonary disease 35989652 J41.0 stable Essential hypertension 12917981 I10 improved with HTCZ increasewi ll continue without changes for now [id number] Devante Leigh [facility] [address] [facility],[place] [address] 04/20/2022 11:07:58 04/20/2022 15:33:58 Chronic obstructive pulmonary disease 81643493 J41.0 stable Essential hypertension 98661449 I10 excellent control on her medication currently [id number] Devante Leigh DO [facility] [address] [facility],[place] [address] 11/03/2022 09:57:08 11/04/2022 10:12:19 Chronic obstructive pulmonary disease 94866978 J41.0 stablehas a f/u in the spring with Dr. Bojorquez will wait until she sees Dr. Bojorquez Essential hypertension 19218237 I10 excellent control on her medication currently Osteopenia 799320677 M85 .80 stabledecl ined repeat bone density at this time [id number] Devante Leigh [facility] [address] [facility] [address] [address] 04/26/2023 09:28:39 04/26/2023 10:46:43 Chronic obstructive pulmonary disease 92510087 J41.0 stable Essential hypertension 35699512 I10 excellent control on her medication currently (at ome is stable) recheck in office is always excellent [id number] Devante Leigh [facility] [address] [facility] [address],[place] [address] 10/19/2023 08:00:18 10/19/2023 11:32:18 Chronic obstructive pulmonary disease 05953759 J41.0 stableno flare upsdoesn't use inhaler Essential hypertension 92665638 I10 excellent control on her medication currently Chronic ob structive pulmonary disease 76165560 J44.9 stable [id number] Devante GriceldaPadilla Reese [facility] [address] [facility] [address],[place] [address] 04/04/2024 09:39:10 04/04/2024 10:39:12 Depression screening 321983499 Z13.31 negative Essential hypertension 14219789 I10 excellent control on her medication currently Chronic ob structive pulmonary disease 25641897 J41.0 J44.9 stableno flare upsdoesn't use inhaler [id number] Devante Leigh [facility] [address] [facility] [address],[place] [address] 10/09/2024 15:52:29 10/10/2024 09:01:00 Essential hypertension 55542904 I10 excellent control on her medication currentlys tressed today about driving in the dark Chronic ob structive pulmonary disease 27791841 J41.0 J44.9 stableno flare upsdoesn't use inhaler [id number] Devante Leigh [facility] [address] [facility] [address],[place] [address] 02/12/2025 14:55:43 02/12/2025 15:59:44 Paroxysmal atrial fibrillation 377308635 I48.0 all meds reviewed with patientswi tched the dose of the metoprolol Hypokalemia 04552515 E87 .6 will need a recheck after she stops it in two to three weeks Essential hypertension 95983979 I10 stable [id number] Devante Leigh [facility] [address] [facility] [address],[place] [address] 03/19/2025 10:40:16 03/19/2025 16:07:28 Essential hypertension 90266567 I10 stable Paroxysmal atrial fibrillation 417838984 I48.0 all meds reviewed with patientswi tched the dose of the metoprolol Hypokalemia 33377727 E87 .6 will need a recheck after she stops it in two to three weeks Non-rheuma tic mitral regurgitation 808931677 I34.0 will fu with cardio about the echo Depression screening 171 401217 Z13.31 negative Chronic ob structive pulmonary disease 40563058 J41.0 J44.9 stableno flare upsdoesn't use inhaler Health Concerns Section Related Observation LastModified by Organization Detai ls LastModified Time None Recorded Concern Status LastModified by Organization Details LastModified Time None Recorded Advance Directives Directive None Recorded Payers Insurance Date Sequence Insurance Name Policy Number Policy Bai Covered Member ID Bai Member ID Guarantor Name 03/16/2025 2 [employer] (MEDICARE SUPPLEMENT) Ora Halle [id number] Ora Ryan 03/16/2025 1 MEDICARE B-[place]: [employer] SERVICES Ora Davis [id number] Ora Davis Notes Date Note Type Note Provider Name and Address Organization Details Recorded Time 4 text/html 6 mos f/u The patient is participating in this appointment via telemedicine communication with a phone call/video calling service (crossvertise)The patient consents to use of these platforms [...] bowel changes, MSK changes SHAHRZAD ACEVES [address] [facility], [place], [address], [facility] 10/19/2023 10:06:06 4 text/html 6 [...] patient in 6 mos SHAHRZAD ACEVES [address] [place], [address], [facility] 04/04/2024 10:18:52 4 text/html [...] with refills when do SHAHRZAD ACEVES [address] [place], [address], [facility] 10/09/2024 16:56:12 5 text/html hospital. [...] in a few weeks SHAHRZAD ACEVES [address] [place], [address], [facility] 02/12/2025 15:30:55 5 text/html one [...] cardioversion the patient [facility] patient reports poor energy level will be starting her on treatment for her breathing, COPD seems to be worsening on top of everything else will set up [place] [facility] if cardio hasn't put in for the referral will fu with screening with lab work SHAHRZAD ACEVES [address] [place] [address], [place], [address], [place] [facility] 03/19/2025 11:13:09 OBGyn Episode No OBEpisode recorded.
--- OUTSIDE RECORDS SUMMARY | 2025-04-16 10:09 | XMS_ITS | Patient Health Record ---
Author Organization [facility] Address [address] [place] [address] Care Team Providers Care School Psychometrist Name Role Phone Osiel Maxwell MD Primary Care Provider Benson Carey Unavailable [phone] Reason For Referral No Information Medications Medication [...] Problem Long-term current use of drug therapy (829607977) Encounter for long-term (current) use of other medications (V58.69) Active confirmed Problem Colon cancer screening (V76.51) Active confirmed Problem History of adenomatous polyp of colon (197351503) History of adenomatous polyp of colon (V12.72) Active confirmed Plan Of Treatment Future Test Test Name Order Date COLONOSCOPY 10/28/2012 Insurance Providers Payer Name Payer Address Payer Phone Subscriber Number Group Number Insured Name Patient Relationship to Insured Coverage Start Date Coverage End Date [place] [address] [place] [id number] DARIN THOMPSON Self - patient is the insured [facility] [employer] [address] [place] [address] [id number] DARIN THOMPSON Self - patient is the insured Medical (General) History Medical History History ICD Code colonoscopy 04-17-2008-negative colon polyps-tubular adenomas removed in 2002 Right breast cancer with lumpectomy and radiation in November of 1998 hypertension Denies MA,DM,CVA,Lung disease,renal dise ase Surgical History Surgery Date(Month/Year) breast lumpectomy on right in 1998 for c carl, and had XRT 1998 left knee surgery 2010
[2025-04-16 11:32] LABS: Troponin-I High Sensitivity 9.1 ng/L (<3.5-17.0)
[2025-04-16] MEDS: Furosemide 20 MG/2 ML VIAL IVPUSH (13:27)
--- NOTE | 2025-04-16 14:49 | P.HPHOSP_ITS ---
History of Present Illness Date of Service: 04/16/25 Chief Complaint: Hypertension 84 yo female with PMH of atrial fibrillation on Eliquis, per reports was succesfully cardioverted on 04/10/25, mitral valve regurgitation, and hypertension. Presents to emergency room with complaints of high blood pressure at home. States her reading was 160/50 which made her nervous. Indicates she has been feeling overall unwell, even prior to her recent cardioversion. Reports intermittent frontal headaches, which resolve with Tylenol, feels intermittent fluttering/palpitations, harder to take deep breathes when sitting forward or laying flat- all of which were present prior to cardioversion, but have been worsening over the last few 3-4 days. While in the ED she was found to be in a normal simus rythm on rn dermatology. EKG ordered. CXR showed Increasing basilar densities likely represent increasing pleural effusions and atelectasis, pneumonia not ruled out, and mild pulmonary vascular congestion and cardiomegaly. PT 20, INR 1.7. BNP 483, down from recent visit on 04/07/25 (558). Labs otherwise unremarkable. She was evaluated by cardiology, Dr. Ray, who recommended adding 2.5 amlodipine daily to her current regimine. Review of Systems 2 Review of Systems: Gen: no fever Resp: no sob, no cough CV: no chest, no MEDINA, + leg edema GI: No n/v, no abd pain Neuro: No confusion [facility] Medical History Primary hypertension Breast cancer COPD (chronic obstructive pulmonary disease) Family History Unknown No problems noted. Social History Household Members: None Housing: House Are you a primary pet care assistant to a significant other at home: No Do you presently have visiting nurse or other home services: No Alcohol intake: never Comment: Independent Patient Tobacco Use Status: Former Tobacco user Smoked in Last 30 Days: No Use of substances other than those prescribed or required for medical reasons: No Have you been hit, kicked, punched, or otherwise hurt by someone within the past year? If so, by whom?: No Is there a partner from a previous relationship who is making you feel unsafe now?: No Are you made to feel afraid or neglected: No Advance Directives: No Advance Directives Information Provided: Yes Do you have a plan to hurt others: No Plan Patient : No service: No Meds Allergies Allergy/AdvReac Type Severity Reaction Status Date / Time No Known Allergies (No Known Allergy Verified 04/16/25 08:47 Allergies*) Home Medications ?Medication ?Instructions ?Recorded ?Confirmed ?Last Taken ?Type acetaminophen 325 mg tablet 325 mg PO DAILY PRN Pain 0 01/30/25 04/16/25 Unknown History (Tylenol) ibuprofen 200 mg tablet 200 mg PO Q6H PRN Pain 01/3004/16/25 Unknown History albuterol sulfate 90 mcg/actuation 2 puff inhalation Q 4H PRN 04/16/25 04/16/25 Unknown History aerosol inhaler Shortness Of Breath Or Wheez ing fluticasone fur. 100 mcg-umeclid 1 ea inhalation DAILY 04/16/25 04/16/25 04/16/25 History 62.5 mcg-vilant 25 mcg inhalat.powder (Trelegy Ellipta) Physical Exam 2 Vital Signs and Narrative: Vital Signs: Last Vital Signs Temp 98.0 F 04/16/25 14:45 Pulse 57 04/16/25 14:45 Resp 18 04/16/25 14:45 BP 156/73 H 04/16/25 14:45 Pulse Ox 93 04/16/25 14:45 O2 Del Method Room Air 04/16/25 14:45 BMI result Body Mass Index 23.0 Const: Other: not toxic appearing, AOX3, interactive, following commands HEENT: Other: NC/AT, PERRL, EOMs intact, mucous membranes moist, pink, without discharge, sclera white. Eyes: Other: see HEENT Neck: Other: supple, without notable JVD, lymphadenopathy, normal ROM Resp: Other: normal rate and effort, dimiinshed lung sounds bilateral bases, fine crackles noted to LLL Cardio: Other: normal rate, murmur noted on ascultation, 2+ pitting edema to BLE GI: Other: soft, round, non-tender, no masses Skin: Other: intact, warm, dry, and without pallor Neuro: Other: AOX x 3, Cn II-VII intact, no asymmetry, reflexes intact Psych: Appearance: grossly normal Attitude: cooperative Results Labs 04/16/25 09:04 04/17/25 06:36 Labs: Laboratory Results - last 24 hr 04/16/25 09:04 MCV 88.7 MCH 29.8 MCHC 33.6 RDW 14.4 Plt Count 192 MPV 9.4 Immature Gran % (Auto) 0.4 Neut % (Auto) 56.1 Lymph % (Auto) 29.9 Dyer % (Auto) 10.0 Eos % (Auto) 3.0 Baso % (Auto) 0.6 Lymph # (Auto) 1.5 Dyer # (Auto) 0.5 Eos # (Auto) 0.2 Baso # (Auto) 0.0 Abs Immat Gran (auto) 0.02 Absolute Neuts (auto) 2.8 Absolute Nucleated RBC 0.000 Nucleated RBC % (auto) 0.0 PT 20.0 H D INR 1.7 H Anion Gap 12 Estim Creat Clear Calc 47.4 Estimated GFR > 60 Random Glucose 95 Calcium 9.2 Magnesium 1.9 Total Bilirubin 1.1 H AST 29 ALT 29 Alkaline Phosphatase 76 B-Natriuretic Peptide 483 H Total Protein 6.6 Albumin 3.7 Imaging Radiologist's Impressions: Impressions Chest X-Ray 04/16/25 12:41 IMPRESSION: Increasing basilar densities likely represent increasing pleural effusions and atelectasis, pneumonia not ruled out. Mild pulmonary vascular congestion and cardiomegaly. Electronically signed by: Arslan Frey MD 04/16/2025 01:57 PM EDT Assessment and Plan (1) Hypertension: Qualifiers: Hypertension type: unspecified Qualified Code(s): I10 - Essential (primary) hypertension Status: Acute (2) CHF (congestive heart failure): Qualifiers: Heart failure chronicity: acute Heart failure type: unspecified Q ualified Code(s): I50.9 - Heart failure, unspecified Status: Acute Plan 84 yo female who presented with an elevated home blood pressure reading of 160/50, with associated intermittent palpitations/flutter, headaches, SOB sitting upright, orthopnea, and an overall of feeling not well x few weeks- months. Not toxic appearing, AOX3 neck is supple, without notable JVD, lymphadenopathy, normal ROM. Lungs dimished in bases with slight fine crackles noted to LLL, is not tachynpeic or SOB, on RA. Normal heart rate and rhythm, positive for murmur, and 2+ pitting BLE edema. VS 98, HR 57, RR 17, BP 156/73, 93% RA. Normal ROM to all extremities. Hypertention, Highly anxious about high BP and concern that anything above systolic of 160 cardiologyv advises adding Norvasc 2.5 mg daily to Lisinopril 40 mg daily, metoprolol 50 bid cardiology consult Orthopnea/SOB- and CXR finding c/w with acute HFpEF Given IV Lasix 20 mg once Monitor I/O cara Paroxysmal Atrial fibrillationm, presently in sinus Continue fatoumata Castaneda Code status: Full code DVT prophylaxis: on Eliquis Quality Stroke Does the patient have a stroke diagnosis?: No VTE Prior VTE?: No VTE Risk Level:: Medical - moderate - high VTE Device Contraindication: Treatment Not Indicated VTE Drug Contraindication: N/A - Med Ordered
--- NOTE | 2025-04-16 15:06 | PHA.MEDREC ---
Addendum entered by Alem Gamez RPh 04/16/25 15:18: MED REC WAS REVIEWED BY [facility] Original Note: Pharmacy Consult ? Medication Reconciliation Pharmacy has completed the medication reconciliation. Spoke with pt and she confirmed her medications. Pt confirmed she stopped taking the Digoxin, Furosemide and Hydrochlorothiazide about 1 week ago when the pt had a Cardioversion procedure done.
--- NOTE | 2025-04-16 19:11 | ECG_ITS ---
Test Reason : VTACH Blood Pressure : */* mmHG Vent. Rate : 69 BPM Atrial Rate : * BPM P-R Int : * ms QRS Dur : 130 ms QT Int : 426 ms P-R-T Axes : * 87 -30 degrees QTcB Int : 456 ms Sinus with PACs and a competing junctional rhythm. Non-specific intra-ventricular conduction block T wave abnormality, consider inferior ischemia T wave abnormality, consider anterior ischemia Abnormal ECG When compared with ECG of 16-Apr-2025 08:52, PACs present Referred By: Josiah Galvez Electronically Signed By: Otto Ray
--- NOTE | 2025-04-16 19:30 | PC.NURSE ---
Pt had multiple episodes of Afib, this RN priority messaged Dr Galvez copy of rhythm strip, priority message this RN placed order for EKG. no new orders from admitting provider. Dr Rogers made aware of event, EKG signed by Dr Rogers. copy of EKG sent to Dr Galvez Per Dr Rogers give 2100 PM dose of metoprolol, 50 mg at this time. Per MD escalona to give early with b/p of 141/56 Dr Galvez made aware metoprolol give.
--- NOTE | 2025-04-16 20:49 | ECG_ITS ---
Test Reason : NERY Blood Pressure : */* mmHG Vent. Rate : 43 BPM Atrial Rate : 43 BPM P-R Int : 164 ms QRS Dur : 138 ms QT Int : 446 ms P-R-T Axes : 28 94 -16 degrees QTcB Int : 376 ms Marked sinus bradycardia with Premature atrial complexes and junctional beats Rightward axis Non-specific intra-ventricular conduction block T wave abnormality, consider anterior ischemia Abnormal ECG When compared with ECG of 16-Apr-2025 19:09, Vent. rate has decreased by 26 bpm QT has shortened Referred By: Josiah Galvez Electronically Signed By: Otto Ray
--- NOTE | 2025-04-16 21:03 | PC.NURSE ---
pt sinus lauren down to 38 on monitor, EKG done, Dr Antonio Ponce made aware of event, EKG picture sent. No new orders placed, per MD pt okay to go to bed assignment.
[2025-04-17] VITALS (12 sets, daily range): BP systolic 121–184; BP diastolic 58–79; PULSE 43–71; RESP 14–18; TEMP 36.8–37.1; O2SAT 92–95
[2025-04-17 07:35] LABS: Anion Gap 12 (12-20); Blood Urea Nitrogen 13 mg/dL (9-16); Calcium 8.9 mg/dL (8.4-10.2); Carbon Dioxide 32 mmol/L (22-29); Chloride 100 mmol/L (96-108); Creatinine Clr Calc Pharmacy 43.6; Estimated Glomerular Filt Rate > 60; Potassium 3.2 mmol/L (3.3-5.1); Sodium 141 mmol/L (135-145)
--- NOTE | 2025-04-17 09:25 | MHC.CM.PN ---
IMM 04/17. Pt self-care, lives at home alone. Pt will arrange her own transport home at discharge. Pt states she has a HCP, copy requested. PCP: Brandi MARKHAM
--- NOTE | 2025-04-17 10:49 | P.PNIM_ITS ---
Subjective Subjective Date of Service: 04/17/25 Interval History: Reports feeling somewhat better than yesterday. Headache is now only ?slight?. Continues to feel limited in deep breathes. Flutter feeling still present intermittently. No mireya with episodes of bradycardia, HR in 40s and 50's, junctional rhythm? Physical Exam 2 Vital Signs: Vital Signs: Last Vital Signs Temp 98.5 F 04/17/25 07:16 Pulse 43 L 04/17/25 10:34 Resp 18 04/17/25 08:49 BP 131/79 04/17/25 08:49 Pulse Ox 93 04/17/25 07:16 O2 Del Method Room Air 04/17/25 07:16 BMI result Body Mass Index 20.7 Const: Orientation/consciousness: patient oriented x3 Resp: Effort & Inspection: normal respiratory effort and able to speak in complete sentences Auscultation: clear to auscultation bilaterally and diminished lung sounds bilateral (bases) Cardio: Jugular venous distension: no JVD Rate: bradycardic Rhythm: a bnormal rhythm Heart sounds: Murmur heart sound present GI: Auscultation: normal bowel sounds Neuro: General: patient oriented x3, moves all extremities and no focal motor deficits Cranial nerves: Yes CN's II-XII intact bilaterally and Yes Bilaterally intact EOM present Objective Data Active Medications Acetaminophen (Acetaminophen 325 Mg Tablet) 650 mg PO Q6H PRN PRN Reason: Pain, Mild 1-3,fever,headache Last Admin: 04/17/25 07:25 Dose: 650 mg Documented By: SCARLETT Albuterol Sulfate (Albuterol Sulfate 90 Mcg 8 Gm Inhaler) 2 puff INHALE Q4H PRN PRN Reason: Shortness Of Breath Or Wheezing Apixaban (Apixaban 5 Mg Tablet) 5 mg PO BID [facility] Last Admin: 04/17/25 07:25 Dose: 5 mg Documented By: SCARLETT Fluticasone/Umeclidinium/Vilanterol (Fluticasone/Umeclidinium/Vilanterol 100/62.5/25 Blst.W.Dev) 1 puff INHALE RDAILY [facility] Lisinopril (Lisinopril 40 Mg Tablet) 40 mg PO DAILY [facility]; Protocol Last Admin: 04/17/25 05:24 Dose: 40 mg Documented By: ARACELI Comments: per MD to administer now Magnesium Hydroxide (Milk Of Magnesia 30 Ml Oral.Susp) 30 ml PO DAILY PRN PRN Reason: Constipation Metoprolol Tartrate (Metoprolol Tartrate 50 Mg Tablet) 50 mg PO BID [facility]; Protocol Last Admin: 04/17/25 10:34 Dose: Not Given Documented By: KIKO Non-Admin Reason: Decreased Heart Rate Labs 04/16/25 09:04 04/17/25 06:36 Labs: Laboratory Results - last 24 hr 04/17/25 06:36 Anion Gap 12 Estim Creat Clear Calc 43.6 Estimated GFR > 60 Random Glucose 83 Calcium 8.9 Assessment and Plan (1) Hypertension: Status: Acute (2) CHF (congestive heart failure): Status: Acute Plan Plan 84 yo female who presented with an elevated home blood pressure reading of 160/50, with associated intermittent palpitations/flutter, headaches, SOB sitting upright, orthopnea, and an overall of feeling not well x few weeks- months. Admitted for further management of Uncontrolled HTN, cardiomyopathy/chf Hypertension cardiology advised adding Norvasc 2.5 mg daily to Lisinopril 40 mg daily, metoprolol 50 bid, BP is overall better awaiting on further changes from cardiology Acue systolic Heart failure, likely triggered by elevated BP, treat underlying HTN as above Diuretics Monitor i/O, weight, and monitor electrolytes Paroxysmal Atrial fibrillation, presently with a junctional rhythm and PACs, bradycardic (40's) Continue Eliquis, consider lower metropolol dose to 25mg cardiology to advise further hypokalemia, replace orally, check mag Code status: Full code DVT prophylaxis: on Eliquis Quality Stroke Does the patient have a stroke diagnosis?: No VTE Prior VTE?: No VTE Risk Level:: Medical - moderate - high VTE Device Contraindication: Treatment Not Indicated VTE Drug Contraindication: N/A - Med Ordered
[2025-04-17] MEDS: Fluticasone/Umeclidinium/Vilanterol 100/62.5/25 BLST.W.DEV 1 PUFF INHALE (11:46)
[2025-04-17] MEDS: Potassium Chloride ER 20 MEQ TAB.ER.PRT 40 MEQ PO (13:27)
--- NOTE | 2025-04-17 13:28 | PC.NURSE ---
Cardiac rhythm sinus lauren with junctional beats as low ad 43, metoprolol 50 mg po held this am , MD aware. Pt had 3 episodes of burst atrial tachycardia this afternoon . Dr Adames was notified , Metoprolol 50 mg PO administered now , Potassium level 3.2 , replaced with oral KCL, blood work for magnesium serum level ordered
[2025-04-17 13:38] LABS: Magnesium 1.6 mg/dL (1.6-2.6)
--- NOTE | 2025-04-17 14:06 | P.CONCA_ITS ---
History of Present Illness History of Present Illness Date of Service: 04/17/25 Requesting physician: Galo Adames Chief complaint: Heart Failure Narrative: [age] year female with paroxysmal atrial fibrillation who underwent cardioversion recently in his now presenting with shortness of breath and palpitations. She was noticed not to be in AFib but blood pressure was significantly elevated and chest x-ray raise concern for mild congestive heart failure. She has known history of [id number] mitral valve regurgitation. She is saying her blood pressure mostly has been controlled until recently. Denying any chest discomfort. She has been given diuretics and overall is feeling better. She also received 2.5 mg amlodipine and blood pressure is improving. At home she takes lisinopril 40 mg and metoprolol tartrate 25 mg twice a day. [facility] Past Medical History Medical History Primary hypertension Breast cancer COPD (chronic obstructive pulmonary disease) Family History Family History Unknown No problems noted. Social History Social History Household Members: None Housing: House Are you a primary animal care service worker to a significant other at home: No Do you presently have visiting nurse or other home services: No Alcohol intake: never Comment: Independent Patient Tobacco Use Status: Former Tobacco user Smoked in Last 30 Days: No Use of substances other than those prescribed or required for medical reasons: No Have you been hit, kicked, punched, or otherwise hurt by someone within the past year? If so, by whom?: No Is there a partner from a previous relationship who is making you feel unsafe now?: No Are you made to feel afraid or neglected: No Advance Directives: No Advance Directives Information Provided: Yes Do you have a plan to hurt others: No Plan Patient : No service: No Meds Allergies Allergy/AdvReac Type Severity Reaction Status Date / Time No Known Allergies (No Known Allergy Verified 04/16/25 08:47 Allergies*) Active Medications: Current Medications Acetaminophen (Acetaminophen 325 Mg Tablet) 650 mg PO Q6H PRN PRN Reason: Pain, Mild 1-3,fever,headache Last Admin: 04/17/25 07:25 Dose: 650 mg Albuterol Sulfate (Albuterol Sulfate 90 Mcg 8 Gm Inhaler) 2 puff INHALE Q4H PRN PRN Reason: Shortness Of Breath Or Wheezing Apixaban (Apixaban 5 Mg Tablet) 5 mg PO BID [facility] Last Admin: 04/17/25 07:25 Dose: 5 mg Fluticasone/Umeclidinium/Vilanterol (Fluticasone/Umeclidinium/Vilanterol 100/62.5/25 Blst.W.Dev) 1 puff INHALE RDAILY [facility] Last Admin: 04/17/25 11:46 Dose: 1 puff Magnesium Sulfate (Magnesium Sulfate/H2o) 2 gm in 50 mls @ 25 mls/hr IV ONCE ONE Stop: 04/17/25 15:55 Lisinopril (Lisinopril 40 Mg Tablet) 40 mg PO DAILY [facility]; Protocol Last Admin: 04/17/25 05:24 Dose: 40 mg Magnesium Hydroxide (Milk Of Magnesia 30 Ml Oral.Susp) 30 ml PO DAILY PRN PRN Reason: Constipation Metoprolol Tartrate (Metoprolol Tartrate 50 Mg Tablet) 50 mg PO BID [facility]; Protocol Last Admin: 04/17/25 13:21 Dose: 50 mg Spironolactone (Spironolactone 25 Mg Tablet) 25 mg PO DAILY [facility]; Protocol Home Medications ?Medication ?Instructions ?Recorded ?Confirmed ?Last Taken ?Type acetaminophen 325 mg tablet 325 mg PO DAILY PRN Pain 0 01/30/25 04/16/25 Unknown History (Tylenol) ibuprofen 200 mg tablet 200 mg PO Q6H PRN Pain 01/3004/16/25 Unknown History albuterol sulfate 90 mcg/actuation 2 puff inhalation Q 4H PRN 04/16/25 04/16/25 Unknown History aerosol inhaler Shortness Of Breath Or Wheez ing fluticasone fur. 100 mcg-umeclid 1 ea inhalation DAILY 04/16/25 04/16/25 04/16/25 History 62.5 mcg-vilant 25 mcg inhalat.powder (Trelegy Ellipta) Physical Exam 2 Vital Signs: Vital Signs: Last Vital Signs Temp 98.4 F 04/17/25 11:09 Pulse 70 04/17/25 11:47 Resp 16 04/17/25 11:47 BP 134/61 04/17/25 11:09 Pulse Ox 93 04/17/25 11:09 O2 Del Method Room Air 04/17/25 11:09 BMI result Body Mass Index 20.7 GENERAL APPEARANCE: in no acute distress, pleasant. NECK: no carotid bruit, mild jugular venous distention. SKIN: no suspicious lesions, warm and dry. HEART: Holosystolic murmur at the apex, regular rate and rhythm. LUNGS: Left-sided crackles. ABDOMEN: soft, nontender. EXTREMITIES: no edema. PERIPHERAL PULSES: equal. NEUROLOGIC: No gross deficits, AAO X 3 Objective Labs and Meds 04/16/25 09:04 04/17/25 06:36 Lab results: Laboratory Results - last 24 hr 04/17/25 06:36 Sodium 141 Potassium 3.2 L Chloride 100 Carbon Dioxide 32 H Anion Gap 12 BUN 13 Creatinine 0.62 Estim Creat Clear Calc 43.6 Estimated GFR > 60 Random Glucose 83 Calcium 8.9 Magnesium 1.6 Assessment and Plan (1) Hypertension: Qualifiers: Hypertension type: unspecified Qualified Code(s): I10 - Essential (primary) hypertension Status: Acute (2) CHF (congestive heart failure): Qualifiers: Heart failure chronicity: acute Heart failure type: unspecified Q ualified Code(s): I50.9 - Heart failure, unspecified Status: Acute (3) Nonrheumatic mitral valve regurgitation: Status: Acute Plan Pleasant 84 year female who is known to have atrial fibrillation underwent cardioversion few days ago now presenting with elevated blood pressure and shortness of breath. She was clinically noticed to be in heart failure. Was given IV diuretics. Volume status appears to be good at this point. She has ofwexhfj-om-xpjvnt mitral valve regurgitation and was hypotensive. I think this is likely reason she developed heart failure. Blood pressure has improved after getting some amlodipine. She is hypokalemic. I think she should be started on spironolactone 25 mg daily. Continue the lisinopril 40 mg daily and metoprolol tartrate 50 mg twice a day. Start her on 20 mg p.o. Lasix from tomorrow morning. A blood pressure improving and she feels fine then she can be discharged back home by tomorrow. Thank you for allowing me to participate in the care of your patient. Please feel free to contact me if you have any questions. Procedures Date of Service Date of Service: 04/17/25
[2025-04-17] MEDS: Magnesium Sulfate/H2O 2 GM/50 ML PIGGYBACK IV (14:11)
[2025-04-18] VITALS (7 sets, daily range): BP systolic 129–189; BP diastolic 63–80; PULSE 42–78; RESP 15–16; TEMP 36.3–37.4; O2SAT 92–98
[2025-04-18] MEDS: Fluticasone/Umeclidinium/Vilanterol 100/62.5/25 BLST.W.DEV 1 PUFF INHALE (08:06)
--- NOTE | 2025-04-18 09:48 | P.PNIM_ITS ---
Subjective Subjective Date of Service: 04/18/25 Interval History: Reporting episodes of palpitations corresponding to PATs on monitor Physical Exam 2 Vital Signs: Vital Signs: Last Vital Signs Temp 97.4 F 04/18/25 08:00 Pulse 78 04/18/25 09:00 Resp 15 04/18/25 08:07 BP 162/80 H 04/18/25 09:00 Pulse Ox 95 04/18/25 08:00 O2 Del Method Room Air 04/18/25 08:00 BMI result Body Mass Index 20.7 Const: Orientation/consciousness: patient oriented x3 Resp: Effort & Inspection: normal respiratory effort and able to speak in complete sentences Auscultation: clear to auscultation bilaterally and diminished lung sounds bilateral (bases) Cardio: Jugular venous distension: no JVD Rate: bradycardic Rhythm: a bnormal rhythm Heart sounds: Murmur heart sound present GI: Auscultation: normal bowel sounds Neuro: General: patient oriented x3, moves all extremities and no focal motor deficits Cranial nerves: Yes CN's II-XII intact bilaterally and Yes Bilaterally intact EOM present Objective Data Active Medications Acetaminophen (Acetaminophen 325 Mg Tablet) 650 mg PO Q6H PRN PRN Reason: Pain, Mild 1-3,fever,headache Last Admin: 04/17/25 20:04 Dose: 650 mg Documented By: IZZY Albuterol Sulfate (Albuterol Sulfate 90 Mcg 8 Gm Inhaler) 2 puff INHALE Q4H PRN PRN Reason: Shortness Of Breath Or Wheezing Apixaban (Apixaban 5 Mg Tablet) 5 mg PO BID [facility] Last Admin: 04/18/25 09:00 Dose: 5 mg Documented By: VIRGINIA Fluticasone/Umeclidinium/Vilanterol (Fluticasone/Umeclidinium/Vilanterol 100/62.5/25 Blst.W.Dev) 1 puff INHALE RDAILY [facility] Last Admin: 04/18/25 08:06 Dose: 1 puff Documented By: WILBER Lisinopril (Lisinopril 40 Mg Tablet) 40 mg PO DAILY [facility]; Protocol Last Admin: 04/18/25 09:00 Dose: 40 mg Documented By: VIRGINIA Magnesium Hydroxide (Milk Of Magnesia 30 Ml Oral.Susp) 30 ml PO DAILY PRN PRN Reason: Constipation Metoprolol Tartrate (Metoprolol Tartrate 50 Mg Tablet) 50 mg PO BID [facility]; Protocol Last Admin: 04/18/25 09:00 Dose: 50 mg Documented By: VIRGINIA Spironolactone (Spironolactone 25 Mg Tablet) 25 mg PO DAILY [facility]; Protocol Last Admin: 04/18/25 09:00 Dose: 25 mg Documented By: VIRGINIA Labs 04/16/25 09:04 04/17/25 06:36 Labs: Laboratory Results - last 24 hr 04/17/25 06:36 Magnesium 1.6 Assessment and Plan (1) Hypertension: Status: Acute (2) CHF (congestive heart failure): Status: Acute Plan Plan 84 yo female who presented with an elevated home blood pressure reading of 160/50, with associated intermittent palpitations/flutter, headaches, SOB sitting upright, orthopnea, and an overall of feeling not well x few weeks- months. Admitted for further management of Uncontrolled HTN, cardiomyopathy/chf Paroxysmal Atrial fibrillation, intermittent episodes of PATs, junctional bradyc continue Metoprolol, Eliquis cardiology to advise on further mangement. Hypertension, BP still high continue Lisinopril 40, metoprolol 50 bid, and Norvasc 2.5 daily Acue systolic Heart failure, likely triggered by elevated BP treat underlying HTN as above Diuretics Monitor i/O, weight, and monitor electrolytes hypokalemia, replace orally, check mag recheck labs today Code status: Full code DVT prophylaxis: on Cellectis Quality Stroke Does the patient have a stroke diagnosis?: No VTE Prior VTE?: No VTE Risk Level:: Medical - moderate - high VTE Device Contraindication: Treatment Not Indicated VTE Drug Contraindication: N/A - Med Ordered
[2025-04-18 10:54] LABS: Anion Gap 9 (12-20); Blood Urea Nitrogen 10 mg/dL (9-16); Calcium 9.0 mg/dL (8.4-10.2); Carbon Dioxide 31 mmol/L (22-29); Chloride 104 mmol/L (96-108); Creatinine Clr Calc Pharmacy 44.3; Estimated Glomerular Filt Rate > 60; Potassium 3.8 mmol/L (3.3-5.1); Sodium 140 mmol/L (135-145)
[2025-04-18] MEDS: Furosemide 20 MG/2 ML VIAL IVPUSH ×2 (11:35→17:42)
--- NOTE | 2025-04-18 14:24 | PM.PNCARD ---
Subjective Subjective Date of Service: 04/18/25 Interval history: She said she woke up and she was short of breath. It appears her blood pressure was elevated in the morning. Since she got her medications she is feeling back to normal. She has had bradycardic episodes and telemetry has been showing significant premature atrial complexes which has been documented on her EKG too. Physical Exam Vital Signs: Last Vital Signs Temp 97.7 F 04/18/25 11:36 Pulse 42 L 04/18/25 11:36 Resp 16 04/18/25 11:36 BP 144/67 H 04/18/25 11:36 Pulse Ox 97 04/18/25 11:36 O2 Del Method Room Air 04/18/25 11:36 BMI result Body Mass Index 20.7 GENERAL APPEARANCE: in no acute distress, pleasant. NECK: no carotid bruit, mild jugular venous distention. SKIN: no suspicious lesions, warm and dry. HEART: Holosystolic murmur at the apex, regular rate and rhythm. LUNGS: Left-sided crackles. ABDOMEN: soft, nontender. EXTREMITIES: no edema. PERIPHERAL PULSES: equal. NEUROLOGIC: No gross deficits, AAO X 3 Objective Labs and Meds 04/16/25 09:04 04/18/25 10:17 Lab results: Laboratory Results - last 24 hr 04/18/25 10:17 Sodium 140 Potassium 3.8 Chloride 104 Carbon Dioxide 31 H Anion Gap 9 L BUN 10 Creatinine 0.61 Estim Creat Clear Calc 44.3 Estimated GFR > 60 Random Glucose 119 H Calcium 9.0 Progress Note: A&P Assessment and plan (1) Hypertension: Status: Acute (2) CHF (congestive heart failure): Status: Acute (3) Nonrheumatic mitral valve regurgitation: Status: Acute Plan [age] year female with atrial fibrillation for which she underwent cardioversion recently, [id number] mitral valve regurgitation, moderate pericardial effusion and congestive heart failure. She is presenting for dyspnea and CHF. Clinically was hypertensive and volume overloaded and so far volume status is improving with diuresis. Blood pressure continues to be uncontrolled and we are titrating the medications. She has mecepujg-kc-jlnwth mitral valve regurgitation by recent echocardiography. She also has moderate pericardial effusion. She has been bradycardic and we have decided to cut back the metoprolol from 50 mg twice a day to 50 daily. No obvious indication for pacemaker currently but we will continue to monitor her on telemetry. One episode of what appears to be short run of atrial fibrillation and yesterday 04/17/2025. She is in sinus rhythm but has a lot of premature atrial complexes. High-risk of going back into atrial fibrillation. Thank you for allowing me to participate in the care of your patient. Please feel free to contact me if you have any questions. Time Spent With Patient Time: Total time managing care of this patient today ____ minutes. Progress Note: Quality Stroke Does the patient have a stroke diagnosis?: No Procedures Date of Service Date of Service: 04/18/25
[2025-04-19] VITALS (7 sets, daily range): BP systolic 116–155; BP diastolic 63–70; PULSE 58–99; RESP 16–18; TEMP 36.4–37.1; O2SAT 93–98
[2025-04-19] MEDS: Fluticasone/Umeclidinium/Vilanterol 100/62.5/25 BLST.W.DEV 1 PUFF INHALE (07:39)
[2025-04-19] MEDS: Metoprolol Succinate ER 50 MG TAB.ER.24H PO (09:08)
[2025-04-19] MEDS: Furosemide 20 MG/2 ML VIAL IVPUSH ×2 (09:08→17:44)
--- NOTE | 2025-04-19 09:51 | P.PNIM_ITS ---
Subjective Subjective Date of Service: 04/19/25 Interval History: ilene feeling better today, she still has mild sob and continues to have episodes of intermitten tachycardia, presently in afib with RVR 140s to 150 Physical Exam 2 Vital Signs: Vital Signs: Last Vital Signs Temp 98.0 F 04/19/25 07:33 Pulse 58 04/19/25 07:41 Resp 18 04/19/25 07:41 BP 155/67 H 04/19/25 07:33 Pulse Ox 93 04/19/25 07:33 O2 Del Method Room Air 04/19/25 07:33 BMI result Body Mass Index 20.7 Objective Data Active Medications Acetaminophen (Acetaminophen 325 Mg Tablet) 650 mg PO Q6H PRN PRN Reason: Pain, Mild 1-3,fever,headache Last Admin: 04/17/25 20:04 Dose: 650 mg Documented By: IZZY Albuterol Sulfate (Albuterol Sulfate 90 Mcg 8 Gm Inhaler) 2 puff INHALE Q4H PRN PRN Reason: Shortness Of Breath Or Wheezing Amlodipine Besylate (Amlodipine Besylate 2.5 Mg Tablet) 2.5 mg PO DAILY [facility]; Protocol Last Admin: 04/19/25 09:09 Dose: 2.5 mg Documented By: VIRGINIA Apixaban (Apixaban 5 Mg Tablet) 5 mg PO BID [facility] Last Admin: 04/19/25 09:08 Dose: 5 mg Documented By: VIRGINIA Fluticasone/Umeclidinium/Vilanterol (Fluticasone/Umeclidinium/Vilanterol 100/62.5/25 Blst.W.Dev) 1 puff INHALE RDAILY [facility] Last Admin: 04/19/25 07:39 Dose: 1 puff Documented By: SHERRIE Furosemide (Furosemide 20 Mg/2 Ml Vial) 20 mg IVPUSH BID@0900,1800 [facility]; Protocol Last Admin: 04/19/25 09:08 Dose: 20 mg Documented By: VIRGINIA Lisinopril (Lisinopril 40 Mg Tablet) 40 mg PO DAILY [facility]; Protocol Last Admin: 04/19/25 09:08 Dose: 40 mg Documented By: VIRGINIA Magnesium Hydroxide (Milk Of Magnesia 30 Ml Oral.Susp) 30 ml PO DAILY PRN PRN Reason: Constipation Metoprolol Succinate (Metoprolol Succinate Er 50 Mg Tab.Er.24h) 50 mg PO DAILY [facility]; Protocol Last Admin: 04/19/25 09:08 Dose: 50 mg Documented By: VIRGINIA Spironolactone (Spironolactone 25 Mg Tablet) 25 mg PO DAILY [facility]; Protocol Last Admin: 04/19/25 09:08 Dose: 25 mg Documented By: VIRGINIA Labs 04/16/25 09:04 04/18/25 10:17 Labs: Laboratory Results - last 24 hr 04/18/25 10:17 Anion Gap 9 L Estim Creat Clear Calc 44.3 Estimated GFR > 60 Random Glucose 119 H Calcium 9.0 Assessment and Plan (1) Hypertension: Status: Acute (2) CHF (congestive heart failure): Status: Acute Plan 84 yo female who presented with an elevated home blood pressure reading of 160/50, with associated intermittent palpitations/flutter, headaches, SOB sitting upright, orthopnea, and an overall of feeling not well x few weeks- months. Admitted for further management of Uncontrolled HTN, cardiomyopathy/chf Paroxysmal Atrial fibrillation, intermittent episodes of PATs, junctional bradyc continue Metoprolol, Eliquis cardiology to advise on further mangement, ? need for pacer or ablation IV PRN metoprolol for tachcardia HypErtension, BP still high continue Lisinopril 40, metoprolol 50 bid, and Norvasc 2.5 daily Acue systolic Heart failure, likely triggered by elevated BP treat underlying HTN as above Diuretics Monitor i/O, weight, and monitor electrolytes hypokalemia, replace orally, check mag recheck labs today Code status: Full code DVT prophylaxis: on Eliquis Quality Stroke Does the patient have a stroke diagnosis?: No VTE Prior VTE?: No VTE Risk Level:: Medical - moderate - high VTE Device Contraindication: Treatment Not Indicated VTE Drug Contraindication: N/A - Med Ordered
--- NOTE | 2025-04-19 14:15 | PM.DS ---
DS: Providers Provider Date of Service: 04/19/25 Date of admission: 04/16/25 14:10 Date of discharge: 04/19/25 Primary care physician: SHAHRZAD Carr Consults: 04/16/25 15:59 Consult to Cardiology Routine Consulting Provider: [facility] Reason for consultation: acute heart failure DS: Diagnosis Discharge Diagnosis (1) Hypertension: Status: Acute (2) CHF (congestive heart failure): Status: Acute DS: Summary Hospital Course Hospital Course: admission hpi Chief Complaint: Hypertension 84 yo female with PMH of atrial fibrillation on Eliquis, per reports was succesfully cardioverted on 04/10/25, mitral valve regurgitation, and hypertension. Presents to emergency room with complaints of high blood pressure at home. States her reading was 160/50 which made her nervous. Indicates she has been feeling overall unwell, even prior to her recent cardioversion. Reports intermittent frontal headaches, which resolve with Tylenol, feels intermittent fluttering/palpitations, harder to take deep breathes when sitting forward or laying flat- all of which were present prior to cardioversion, but have been worsening over the last few 3-4 days. While in the ED she was found to be in a normal simus rythm on nurse monitoring. EKG ordered. CXR showed Increasing basilar densities likely represent increasing pleural effusions and atelectasis, pneumonia not ruled out, and mild pulmonary vascular congestion and cardiomegaly. PT 20, INR 1.7. BNP 483, down from recent visit on 04/07/25 (558). Labs otherwise unremarkable. She was evaluated by cardiology, Dr. Ray, who recommended adding 2.5 amlodipine daily to her current regime. Hospital course: 84 yo female who presented with an elevated home blood pressure reading of 160/50, with associated intermittent palpitations/flutter, headaches, SOB sitting upright, orthopnea, and an overall feeling of not being well x few weeks?months. Admitted for further management of uncontrolled HTN, cardiomyopathy/CHF, and episodes of tachycardia and bradycardia. Patient has been experiencing shortness of breath associated with palpitations. On presentation, was noted to have elevated blood pressure that she attributes to her symptoms. While on cardiac monitoring, she was noted to have an episode of AFIB with RVR reaching 100 beats per minute, intermittent episodes of fast PATs that were equally symptomatic, and episodes of junctional bradycardia in the 30s and 40s. The combination of these rhythms is making medication adjustment difficult. She has been on Toprol XL 50 mg daily to better manage her heart rate. Cardiology is advising possible pacemaker and therefore she is being referred to [facility] for consideration of pacemaker. Was followed by cardiology (Dr. Ray), who guided us with her management. AFIB, on Eliquis for stroke prevention and metoprolol for rate control. Again, given episodes of tachycardia and bradycardia, we think a pacemaker may be necessary. Hypertension, BP is overall better with Lisinopril 40 mg, Metoprolol XL 50 mg, and Norvasc 5 mg daily. Acute HFpEF, as evident on CXR and elevated BNP and symptoms of shortness of breath. Last echo from January 2025 showed EF of 55 to 60 percent, likely triggered by elevated BP and tachycardia. Aldactone 25 mg daily and Lasix 20 mg daily added. hypokalemia, replaced K is presently 3.6, Mag 1.7 Time Attestation Discharge Coordination Time (in mins): 45 Quality: Safe Use of Opioids Does Pt have an Active Cancer Diagnosis on the Problem List?: No Quality: Stroke Does the patient have a stroke diagnosis?: No Physical Exam Vital Signs: Vital Signs: Last Vital Signs Temp 97.5 F 04/19/25 11:07 Pulse 99 04/19/25 11:07 Resp 18 04/19/25 11:07 BP 116/65 04/19/25 11:07 Pulse Ox 96 04/19/25 11:07 O2 Del Method Room Air 04/19/25 11:07 BMI result Body Mass Index 20.7 Discharge Plan Discharge Anticipated Discharge Date/Time: 04/19/25 14:11 Patient Disposition: Xfer Acute Care Hospital Discharge Diagnosis: Tachy-Bradycardia syndrome, heart failure, uncontrolled HTN Referrals: Brandi Owens PA [Primary Care Provider, Internal Medicine] - 1 Week Discharge Medications: New spironolactone 25 mg Tablet 25 mg PO DAILY Qty: 30 0RF Protocol: Hold for SBP< HOLD for SBP < : 90 metoprolol succinate 50 mg Tablet Extended Release 24 Hr 50 mg PO DAILY Qty: 30 0RF Protocol: Hold for SBP/HR < HOLD for SBP < : 90 HOLD for HR < : 60 furosemide [Lasix] 20 mg tablet 20 mg PO DAILY Qty: 30 0RF amlodipine 5 mg Tablet 5 mg PO DAILY Qty: 30 0RF Protocol: Hold for SBP< HOLD for SBP < : 90 Continued Eliquis 5 mg tablet 5 mg PO BID 90 Days Qty: 180 3RF acetaminophen [Tylenol] 325 mg Tablet 325 mg PO DAILY PRN (Reason: Pain) ibuprofen 200 mg Tablet 200 mg PO Q6H PRN (Reason: Pain) lisinopril 40 mg Tablet 40 mg PO DAILY Qty: 90 0RF Protocol: Hold for SBP< HOLD for SBP < : 90 Trelegy Ellipta 100-62.5-25 mcg blister with device 1 ea INHALATION DAILY albuterol sulfate 90 mcg/actuation HFA aerosol inhaler 2 puff INHALATION Q4H PRN (Reason: Shortness Of Breath Or Wheezing) Discontinued metoprolol tartrate 50 mg tablet 50 mg PO BID Qty: 60 2RF Discharge Orders: Discharge Order (Routine); Ordered 04/19/25 Ordered By: Galo Adames Diet: Advance to usual diet Activity on Discharge: As tolerated Stand Alone Forms: Patient Portal Discharge page Print Language: French Care Plan Goals: To stabilize and manage the patient?s blood pressure, control arrhythmias (both tachycardia and bradycardia), optimize heart failure symptoms, and evaluate for pacemaker placement to improve cardiac rhythm stability and overall quality of life. Health Concerns: accelerated HTN Bradycarcardia-Tachycardia syndrome Heart failure Plan of Treatment: Transfer to [facility] for possible pacemaker Assessment: see above Patient Instructions: Spironolactone (By mouth)
[2025-04-19 15:11] LABS: Anion Gap 14 (12-20); Blood Urea Nitrogen 12 mg/dL (9-16); Calcium 9.6 mg/dL (8.4-10.2); Carbon Dioxide 30 mmol/L (22-29); Chloride 101 mmol/L (96-108); Creatinine Clr Calc Pharmacy 32.9; Estimated Glomerular Filt Rate > 60; Magnesium 1.7 mg/dL (1.6-2.6); Potassium 3.6 mmol/L (3.3-5.1); Sodium 141 mmol/L (135-145)
--- NOTE | 2025-04-19 15:22 | PM.PNCARD ---
Subjective Subjective Date of Service: 04/19/25 Interval history: Seen examined at bedside. She unfortunately went back into atrial fibrillation this morning. Heart rates are under 100. She is not feeling any significant change in her symptoms. She did have some shortness of breath in the morning like yesterday but this improved after she received her medications. Physical Exam Vital Signs: Last Vital Signs Temp 97.5 F 04/19/25 11:07 Pulse 99 04/19/25 11:07 Resp 18 04/19/25 11:07 BP 116/65 04/19/25 11:07 Pulse Ox 96 04/19/25 11:07 O2 Del Method Room Air 04/19/25 11:07 BMI result Body Mass Index 20.7 GENERAL APPEARANCE: in no acute distress, pleasant. NECK: no carotid bruit, no jugular venous distention. SKIN: no suspicious lesions, warm and dry. HEART: Holosystolic murmur apex. Irregularly regular rhythm. LUNGS: clear to auscultation bilaterally. ABDOMEN: soft, nontender. EXTREMITIES: no edema. PERIPHERAL PULSES: equal. NEUROLOGIC: No gross deficits, AAO X 3 Objective Labs and Meds 04/16/25 09:04 04/19/25 14:46 Lab results: Laboratory Results - last 24 hr 04/19/25 14:46 Sodium 141 Potassium 3.6 Chloride 101 Carbon Dioxide 30 H Anion Gap 14 BUN 12 Creatinine 0.82 Estim Creat Clear Calc 32.9 Estimated GFR > 60 Random Glucose 164 H Calcium 9.6 D Magnesium 1.7 Progress Note: A&P Assessment and plan (1) CHF (congestive heart failure): Status: Acute (2) Nonrheumatic mitral valve regurgitation: Status: Acute (3) Atrial fibrillation: Status: Acute Plan [age] year female who recently underwent cardioversion for atrial fibrillation. She was noticed to have eqjwakbl-wl-rjvsum mitral valve regurgitation by echocardiography along with moderate pericardial effusion. She has presented with shortness of breath and congestive heart failure. She was noticed to be hypertensive and blood pressure medications were added and adjusted. She was noticed to be bradycardic on telemetry and her metoprolol was decreased and she eventually went back into atrial fibrillation. She is not symptomatic from AFib currently. She is acting like tachy-lauren syndrome. We had a detailed discussion with patient and her son and daughter in the room about management strategies. I have explained to the patient that we can try amiodarone to see if she can convert to sinus rhythm but there is a possibility that she may have significant sinus bradycardia or conversion pauses. Also she lives alone and is quite active and risk of bradycardia with falls can be quite detrimental at her age. After discussion the patient has agreed to undergo pacemaker placement. We will try to do micra leadless pacemaker. I am going to transfer her to [facility] for that. Eliquis should not be stopped given the fact that she recently underwent cardioversion and has high stroke risk due to atrial stunning post cardioversion. This has been relayed to electrophysiology team and they will not be stopping the Eliquis on this patient and she will have the procedure with anticoagulation nurse system. Qirjmiuz-zy-sedjde mitral valve regurgitation. Clinically euvolemic at this point. Moderate pericardial effusion but no concern for tamponade clinically. Thank you for allowing me to participate in the care of your patient. Please feel free to contact me if you have any questions. Time Spent With Patient Time: Total time managing care of this patient today ____ minutes. Progress Note: Quality Stroke Does the patient have a stroke diagnosis?: No Procedures Date of Service Date of Service: 04/19/25
--- NOTE | 2025-04-19 22:08 | PC.NURSE ---
patient transferred to [facility] via EMS around 8:40pm, eliquis given prior to departure
== END 2025-04-19 20:40 | disposition short-term general hospital (02) | DRG 291 ==
LOC: HO.ED 14:23 → HO.EDOVER 14:31 → HO.IMC 19:27
PROVIDERS: Admitting Provider Internal Medicine; Emergency Provider Emergency Medicine; PCP Physician Assistant; Visit Provider Internal Medicine
DX: I11.0 Hypertensive heart disease with heart failure (principal); I50.21 Acute systolic (congestive) heart failure; I34.0 Nonrheumatic mitral (valve) insufficiency; I42.9 Cardiomyopathy, unspecified; I49.5 Sick sinus syndrome; E87.6 Hypokalemia; I48.0 Paroxysmal atrial fibrillation; Z87.891 Personal history of nicotine dependence; Z79.01 Long term (current) use of anticoagulants; Z79.899 Other long term (current) drug therapy
CPT/HCPCS: 36415; 71045; 80048; 80053; 83735; 83880; 84484; 85025; 85610; 93005; 94640; 99285; J0616; J1938; J3475

== ENCOUNTER → 2025-04-16 08:52 | Outpatient (BNV) | payer MEDICARE, SELFPAY | PROVIDERS: Admitting Provider Internal Medicine; Emergency Provider Emergency Medicine; PCP Physician Assistant; Visit Provider Internal Medicine Cardiovascular Disease | DX: I49.1 Atrial premature depolarization (principal); I45.4 Nonspecific intraventricular block; R00.1 Bradycardia, unspecified | CPT/HCPCS: 93010 ==

== ENCOUNTER → 2025-04-16 12:41 | Outpatient (BNV) | payer MEDICARE, SELFPAY | PROVIDERS: Emergency Provider Emergency Medicine; PCP Physician Assistant; Visit Provider Radiology Diagnostic Radiology | DX: R52 Pain, unspecified (principal) | CPT/HCPCS: 71045 ==

== ENCOUNTER → 2025-04-16 14:10 | Outpatient (BNV) | payer MEDICARE, SELFPAY | PROVIDERS: Admitting Provider Internal Medicine; Emergency Provider Emergency Medicine; PCP Physician Assistant; Visit Provider Internal Medicine Cardiovascular Disease | DX: I50.9 Heart failure, unspecified (principal); I34.0 Nonrheumatic mitral (valve) insufficiency; I48.91 Unspecified atrial fibrillation | CPT/HCPCS: 99223; 99233 ==

== ENCOUNTER → 2025-04-16 14:10 | Outpatient (BNV) | payer MEDICARE, SELFPAY | PROVIDERS: Admitting Provider Internal Medicine; Emergency Provider Emergency Medicine; PCP Physician Assistant; Visit Provider Internal Medicine | DX: I10 Essential (primary) hypertension (principal); I50.9 Heart failure, unspecified | CPT/HCPCS: 99223; 99232 ==

== ENCOUNTER 2025-04-30 13:03 | Outpatient (AMB) | payer MEDICARE, SELFPAY ==
[2025-04-30 13:08] VITALS: BP 120/72; PULSE 104; BMI 20.3
--- NOTE | 2025-04-30 13:08 | A.OFFVIS_ITS ---
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: No Allergies No Known Allergies (No Known Allergies*) Allergy (Verified 04/30/25 13:09) Medication List - Last Reconciled 04/30/25 by KYLER Falcon acetaminophen (Tylenol) 325 mg PO DAILY PRN albuterol sulfate 90 mcg/actuation 2 puffs inhalation Q4H PRN apixaban (Eliquis) 5 mg PO BID 90 days ocslsksrlyy-inelieqpy-zplucqzp 100-62.5-25 mcg (Trelegy Ellipta) 1 ea inhalation DAILY furosemide (Lasix) 20 mg PO DAILY ibuprofen 200 mg PO Q6H PRN lisinopril 40 mg See Protocol PO DAILY metoprolol succinate ER 50 mg See Protocol PO DAILY HPI HPI follow up cv & wound ck: Details: Ora is an 84-year-old female with past medical history of hypertension, mitral regurgitation, symptomatic AFib which was persistent. She underwent cardioversion with Dr. Ochoa on 04/10/2024 and had significant bradycardia requiring atropine. Her rhythm stabilized and she was discharged home. She presented to the ER on 04/16/2025 with chest discomfort, shortness of breath and heart palpitations. She was found to have recurrent AFib alternating with junct ional bradycardia, rates 30s to 40s. Her BNP was elevated and she was treated for mild heart failure. She was transferred to [facility] where she underwent a Medtronic micra leadless pacemaker. This device was chosen due to her low BMI and thin chest wall. She now presents for follow-up. Today she reports that she has been feeling weak since her hospital discharge. She still has some shortness of breath with activity and lower leg and foot edema. She feels intermittent heart palpitations. No chest discomfort at rest or with activity. No lightheadedness, presyncope, syncope, falls. No PND, orthopnea. Pacer access site right groin is healing well. No bleeding issues reported. Taking all meds as directed. [facility] Medical History Primary hypertension Breast cancer COPD (chronic obstructive pulmonary disease) Family History Unknown No problems noted. Social History Household Members: None Housing: House Are you a primary direct care staffer to a significant other at home: No Do you presently have visiting nurse or other home services: No Alcohol intake: never Comment: steady gait noted. Patient Tobacco Use Status: Former Tobacco user service: No Review of Systems Const All systems reviewed & are unremarkable except as noted in HPI and below ENT Denies dizziness Card Denies chest pain, Denies chest pain at rest, Denies chest pain with activity, Denies rapid heart rate, Denies pedal edema, Denies edema, Reports leg edema, Denies lightheadedness, Denies palpitations, Denies dyspnea, Reports dyspnea on exertion and Denies orthopnea Resp Denies cough, Denies dyspnea and Reports dyspnea on exertion GI Denies hematochezia and Denies change in stool character Musc Denies abnormal gait, Denies limited range of motion, Denies muscle cramps, Denies muscle weakness, Denies numbness, Denies radiating pain into limb, Denies stiffness and Denies tingling Neuro Denies abnormal gait, Denies dizziness, Denies numbness and Denies tingling Endo Denies palpitations Physical Exam Vital Signs: Last Vital Signs Pulse 104 H 04/30/25 13:08 BP 120/72 04/30/25 13:08 BMI result Body Mass Index 20.3 Const General: cooperative, healthy appearing, comfortable and no acute distress Orientation/consciousness: patient oriented x3 Neck Neck: Yes normal visual inspection Resp Effort & Inspection: normal respiratory effort Auscultation: clear to auscultation bilaterally, rales, no rhonchi and no wheezes Cardio Rate: tachycardic Rhythm: abnormal rhythm Heart sounds: S2 normal heart sound present, no gallops, Murmur heart sound present (systolic, mitral region) and no rubs Neuro General: patient oriented x3 Extrem Other: bilateral lower leg and foot edema to level of upper calf, R>L General: No calf tenderness Psych Appearance: grossly normal Mental Status: mental status grossly normal Speech and movement: Normal speech and movement present Office Procedures EKG Details: Today, read by me, atrial fibrillation with rapid ventricular response, right bundle branch block, T-wave abnormality inferior leads, T-wave abnormality anteriorly consistent with right bundle branch block, rate 104, QTC 412 millisecond [id number], Complete Assessment & Plan Assessment & Plan (1) Atrial fibrillation: Code(s): I48.91 - Unspecified atrial fibrillation Category: Medical Qualifiers: Atrial fibrillation type: unspecified Qualified Code(s): I48.91 - Unspecified atrial fibrillation Plan: New atrial fibrillation during admission January 2025 that was persistent, symptomatic. She was initially managed with rate control and put on Eliquis for anticoagulation without interruption since last visit ( 02/26/25). A Holter monitor was done 01/30/2025 which did show atrial fibrillation with average heart rate 68. Her echocardiogram had shown EF 55-60% with left atrium severely dilated, right atrium normal. Cardioversion was done 04/10/2025 with significant bradycardia requiring atropine. Her rhythm stabilized and she had recurrent admission a week later for symptomatic PAF alternating with junctional bradycardia: Tachy-lauren syndrome. She underwent Medtronic micra leadless pacemaker placement. EKG done today showing atrial fibrillation with rapid ventricular response, right bundle branch block, rate 104. She is on metoprolol XL 100 mg daily. Will add amiodarone 400 mg b.i.d. for 2 weeks then plan to reduce amiodarone to 200 mg once daily. Office EKG in 1 week. Continue Eliquis without interruption. (2) Nonrheumatic mitral valve regurgitation: Code(s): I34.0 - Nonrheumatic mitral (valve) insufficiency Category: Medical Plan: Recent echocardiogram showing moderate to severe mitral regurgitation which could be exacerbated by atrial fibrillation. Plan was for repeat echocardiogram once sinus rhythm restored. She did have repeat echocardiogram while at [facility] 04/20/2025 which showed EF 65-70%, no regional wall motion abnormalities moderate mitral regurgitation mgcks-zq-qwraifla pericardial effusion no evidence of cardiac tamponade. (3) Pericardial effusion: Code(s): I31.39 - Other pericardial effusion (noninflammatory) Category: Medical Plan: Ywkot-bz-lvaphslm as above, no tamponade. (4) Epistaxis: Code(s): R04.0 - Epistaxis Category: Medical Plan: One episode after the start of anticoagulation however none since then. She was referred to ENT last visit and she did not go. 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 No other signs of heart failure. Continue Lasix. (7) Hospital discharge follow-up: Code(s): Z09 - Encounter for follow-up examination after completed treatment for conditions other than malignant neoplasm Category: Medical Plan: Discharge summary reviewed (8) Pacemaker: Comment: Medtronic micra pacemaker placement 04/20/25 Code(s): Z95.0 - Presence of cardiac pacemaker Category: Medical Plan: Device interrogation planned for 05/21/2025. (9) Tachy-lauren syndrome: Code(s): I49.5 - Sick sinus syndrome Category: Medical Plan: As above Plan I discussed with the patient the initiation of amiodarone for atrial fibrillation management, including the loading and maintenance doses. I explained the potential side effects and the importance of monitoring liver, thyroid, lung, and vision health. We discussed the need for regular eye exams and follow-up labs. I advised continuing current medications and scheduled an EKG in one week to evaluate treatment efficacy. We also considered the possibility of ablation therapy if atrial fibrillation persists. Medications: New amiodarone 200 mg orally 2 tablets twice daily for 14 days then reduce dose to 1 tablet daily; 70 tabs 1RF 30 days Patient Instructions: - Start amiodarone as prescribed: 400 mg twice daily for two weeks, then 200 mg daily. - Continue taking metoprolol, furosemide, lisinopril, and Eliquis as directed. - Schedule and attend an EKG appointment in one week. - Monitor for any side effects, such as changes in vision or breathing difficulties, and report them immediately. - Arrange for regular eye exams and follow-up lab tests. Patient was informed and verbally consented to the use of an ambient scribe for clinic note documentation during this visit. Visit time spent on chart review, interview, assessment, orders, documentation. Coding Level of Care Code Est Pt Level 4 (10620) Complex EM visit Add On G2211 Diagnoses Atrial fibrillation, unspecified type I48.91 Atrial fibrillation type: unspecified Nonrheumatic mitral valve regurgitation I34.0 Pericardial effusion I31.39 Epistaxis R04.0 Anticoagulated Z79.01 Edema R60.9 Hospital discharge follow-up Z09 Pacemaker Z95.0 Tachy-lauren syndrome I49.5 CPT Codes EKG - CPT: 36502-Bjhlfyjwejstdqbin, Complete ([id number]) Time Spent (min) 32
--- OUTSIDE RECORDS SUMMARY | 2025-04-30 13:48 | XMS_ITS | Clinical Summary ---
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 Not on jackie e 04/23/2025 Are you concerned about learning? Not on file 04/23/2025 No 04/23/2025 No 04/23/2025 Digital Access Answer Date Recorded No 04/23/2025 No 04/23/2025 Reliable internet access at home? Not on file 04/23/2025 Device with a working camera? Not on file Comments Unknown Sex and Gender Information Value Date Recorded Sex Assigned at Not on file Legal Sex Female 10:38 PM EDT Gender Identity Not on file Sexual Orientation Not on file Last Filed Vital Signs Vital Sign Reading Time Taken Comments Blood Pressure 136/82 12/30/2012 3:22 AM EDT Pulse - - Temperature - - Respiratory Rate - - Oxygen Saturation - - Inhaled Oxygen Concentration - - Weight 56.7 kg (125 lb) 12/30/2012 3:22 AM EDT Height 147.3 cm (4' 10 ) 12/30/2012 3:22 AM EDT Body Mass Index 26.13 12/30/2012 3:22 AM EDT Plan of Treatment Upcoming Encounters Date Type Department Care Team (Late st Contact Info) Description 04/24/2025 Procedure Pass Non-Invasive Cardiology [address] [place] [address] 05/10/2025 10:00 AM EDT Appointment Non-Invasive Cardiology [address] [place] [address] Howie Terrell MD [address] [place] [phone] [email or web address] Health Maintenance Due Date Last Done Comments Adult Td,Tdap Booster 1940 DEPRESSION SCREENING 1952 PNEUMOCOCCAL VACCINES (50+ y ears) (1 of 1 - PCV) 1990 ZOSTER VACCINES (1 of 2) 1990 OSTEOPOROSIS SCREENING INITI AL (ONE-TIME) 2005 RSV VACCINE (1 - 1-dose 75+ series) 12/15/2015 COVID-19 VACCINE ( - 2023-2 5 season) 2024 HEPATITIS A VACCINES Aged Out No long er eligible based on patient's age to complete this topic HIB VACCINES Aged Out No longer eligi ble based on patient's age to complete this topic MENINGOCOCCAL VACCINES (ACWY) Aged Out No longer eligible based on patient's age to complete this topic MENINGOCOCCAL VACCINES (B) Aged Out N o longer eligible based on patient's age to complete this topic Medical Devices Not on file Insurance MEDICARE PART A & B [facility] MEDICARE SUPPLEMENT MEDICARE PART A & B [facility] MEDICARE SUPPLEMENT MEDICARE PART A & B MEDICARE SUPPLEMENT MEDICARE PART A & B MEDICARE SUPPLEMENT MEDICARE PART A & B MEDICARE SUPPLEMENT MEDICARE PART A & B [id number] [place] [address] MEDICARE SUPPLEMENT Care Teams Wood Heel Fitter Machine Relationship Specialty Start Date End Date Brandi Owens PA [address] [place] [id number] PCP - General Physician Cardiology Associate 04/23/25 Ronaldo Lou MD [address] [place] [address] Historical LMR Provider 07/28/17 Osiel Maxwell MD [address] [place] [address] [place] [address] Historical LMR Provider 07/28/17 Additional Source Comments The information contained in this document represents components of the legal health record. It is not the complete legal health record.[facility]
--- OUTSIDE RECORDS SUMMARY | 2025-04-30 13:48 | XMS_ITS | Continuity of Care Document ---
Author Organization [facility], [facility] Address [address] [facility] [place] [address] Assessment No assessment recorded. Plan of Treatment Reminders Order Date Submit Date Provider Last Modified By Organization Details Last Modified Time Details Appointments FOLLOW UP 15 2024 11:45A M SHAHRZAD ACEVES Not available Not available Not available Lab None recorded. Referral None recorded. Procedures None recorded. Surgeries None recorded. Imaging None recorded. Medication Orders Trelegy Ellipta 100 mcg-62.5 mcg-25 mcg powder for inhalatio n 2024 025 [id number], [address] [place], [place], [id number], 04/27/2025 15:23:11 Patient TargetsNo targets recorded. Patient InstructionsNo instructions recorded. Reason for Referral None Reported. Results Created Date Observation Date Name Description Value Unit Range Abnormal Flag Note LastModifiedBy Organization Detail LastModifiedTime 04/16/20 25 04/16/2025 XR, chest , 2 view No observ ation record ed. [facility] (Medical Records) [address] [place], [address], 04/16/2025 14:03:04 Result Notes None recorded. Problems Name Problem SNOMED Code Status Onset Date Resolution Date Notes Provider Name and Address Organization Details Recorded Time Personal history of primary malignan t neoplasm of breast 113141681 Active 1989 right, lumpecto my & radiatio n Zena flower [facility] 0 10:11:37 History of adenomat ous polyp of colon 336891790 Active 2012 Zena flower [facility] 0 10:11:37 History of colonosc opy 5602946270 09 Completed 201201/12/2018 Removal Reason: to put in history Ora Bunch NP, [address] [place], [address], [facility] 8 10:00:05 Mild chronic obstruct chriss pulmonar y disease 874069068 Active 2017 Dr. Bojorquez, [facility]ol [facility] 0 10:11:37 Solitary nodule of lung 431364815 Active 2017 right upper lobe [facility] 0 10:11:36 [facility] hyperten shazia 25238208 Active 2017 [facility] 0 10:11:37 Ventricu lar prematur e beats 45217935 Active 2017 [facility] 0 10:11:37 Osteopen ia 149489620 Active 2018 [facility] 0 10:11:37 Chronic obstruct chriss pulmonar y disease 77086053 Active 2018 [facility] 0 10:11:36 Hypokale jeanine 09277936 Active 2024 SHAHRZAD ACEVES [address] [place], [address], [place] [facility] 5 10:19:06 Paroxysm al atrial fibrilla tion 960773363 Active 2024 SHAHRZAD ACEVES [address] [place], [address], [place] [facility] 5 15:20:47 Non-rheu matic mitral regurgit ation 144138031 Active 2024 SHAHRZAD ACEVES [address] [place], [address], [facility] 5 09:30:26 Edema of lower extremit y 777756592 Active 2024 SHAHRZAD ACEVES [address] [place], [address], [facility] 5 13:24:19 Problem Notes None recorded. Procedures Surgical History Date Name Laterality Status Provider Name and Address Organization Details Recorded Time 04/23/20 21 Suture/Staple removal completed SHAHRZAD ACEVES [address] [place], [address], [facility] 04/23/2021 10:32:54 10/11/18 99 Breast Surgery completed Ora Bunch NP, S [address] [place] [address], [phone], [facility] 12/21/2017 15:16:31 Unlisted px arthroscopy completed Ora Bunch NP, S [address] [place] [address], [phone], [facility] 12/21/2017 15:07:01 Imaging Results None recorded. [...] Not Available Not Available Not Available metoprolol succinate ER 100 mg tablet,exte nded release 24 hr TAKE 1 TABLET BY MOUTH EVERY DAY active Not Available Not Available No t Available atenolol 25 mg tablet Take 1 tablet every day by oral route. 01/28 completed Not Available Not Available Not Available amlodipine 2.5 mg tablet Take 1 tablet every day by oral route. 04/27 completed Not Available Not Available Not Available potassium chloride 20 mEq/15 mL oral liquid TAKE 15ML BY MOUTH DAILY FOR 30 DAYS 02/12 completed Not Available Not Available Not Available biotin 10,000 mcg capsule Take by oral route. 04/20 completed Not Available Not Available Not Available metoprolol tartrate 50 mg tablet TAKE 1 TABLET BY MOUTH TWICE DAILY 04/27 completed Not Available Not Available Not Available digoxin 125 mcg (0.125 mg) tablet TAKE 1 TABLET BY MOUTH DAILY 04/27 completed Not Available Not Available Not Available furosemide 20 mg tablet TAKE 1 TABLET BY MOUTH DAILY 04/27 completed Not Available Not Available Not Available [...] TAKE 3 TABLETS BY MOUTH TWICE DAILY 04/27 completed Not Available Not Available Not Available multivitami n active Not Available Not Available Not Available Calcium with Vitamin D active Not Available Not Available No t Available hydrochloro thiazide 12.5 mg tablet TAKE 1 TABLET BY MOUTH TWICE DAILY 02/12 completed Not Available Not Available Not Available Eliquis 5 mg tablet TAKE 1 TABLET BY MOUTH TWICE DAILY 04/27 completed Not Available Not Available Not Available Eliquis 2.5 mg tablet Take 1 tablet twice a day by oral route. active Not Available Not Available No t [...] Details Last Updated DateTime 5 147.32 cm 20.3 kg/m2 56240.4 6 g 81 /min 95 % 95 % 120/80 mm[Hg] Julia Javier [facility] 5 15:04:58 Social History Question Answer Notes LastModified by Organizat ion Details LastModified Time Tobacco Smoking Status Former Smoker Ora Bunch NP, [address] [facility], [place], [address], [facility] 12/21/2017 15:06:09 What Was The Date Of Your Most Recent Tobacco Screening? 04/27/2025 [email or web address] Information not available 04/27/2025 How Many Years Have You Smoked Tobacco? 45 [email or web address] Information not available 12/21/2017 Sex: Unknown Functional Status Question Answer Note LastModified by Organization D etails LastModified Time Do you or have you ever used any other forms of tobacco or nicotine? No [email or web address] Information not available 04/04/2024 Mental Status None [...] 8 completed Zena flower [facility] 09/10/2020 10:11:31 COVID-19, mRNA, LNP-S, PF, 30 mcg/0.3 mL dose 1 completed Cyndi flower [facility] 04/20/2022 08:14:02 COVID-19, mRNA, LNP-S, PF, 30 mcg/0.3 mL dose 1 completed Cyndi flower [facility] 04/20/2022 08:14:10 COVID-19, mRNA, LNP-S, PF, 30 mcg/0.3 mL dose 1 completed Cyndi flower, [facility] 04/20/2022 08:14:17 COVID-19, mRNA, LNP-S, PF, 30 mcg/0.3 mL dose 2 completed Cyndi flower, [facility] 04/20/2022 08:14:24 COVID-19, mRNA, LNP-S, PF, 30 mcg/0.3 mL dose 2 [facility] 11/03/2022 08:01:51 influenza, unspecified formulation 2 completed [facility] 11/03/2022 08:02:05 Pneumococcal conjugate PCV 13 2 completed [facility] 11/03/2022 08:02:30 Tdap 1 completed [facility] 11/03/2022 08:03:07 Pneumococcal Conjugate, unspecified formulation 3 completed SHAHRZAD ACEVES [address] [place] [address], [phone], [facility] 04/04/2024 10:09:09 Respiratory syncytial virus (RSV) MAB, unspecified 3 completed SHAHRZAD ACEVES [address] [place] [address], [phone], [facility] 04/04/2024 10:11:30 Influenza, split virus, quadrivalent, preservative 9 completed Zena flower [facility] 09/10/2020 10:11:31 Influenza, split virus, quadrivalent, preservative 0 completed [facility] 09/10/2020 10:11:31 Influenza, adjuvanted, trivalent, PF 7 completed Zena flower [facility] 09/10/2020 10:11:31 Tdap 5 completed Zena flower [facility] 09/10/2020 10:11:31 pneumococcal, unspecified formulation 6 completed Zena flower [facility] 09/10/2020 10:11:31 pneumococcal, unspecified formulation 1 completed Zena Caceresyajaira ching [facility] 09/10/2020 10:11:31 Past Encounters Encounter ID Performer Location Encounter Start Date Encounter Closed Date Diagnosis/Indication Diagnosis SNOMED-CT Code Diagnosis ICD10 Code Diagnosis Note [id number] Devante Leigh [facility] [address] [facility] [address] 04/27/2025 14:53:58 04/27/2025 15:48:59 Chronic obstructive pulmonary disease 23414621 J41.0 J44.9 stableno flare upsdoesn't use inhaler Essential hypertension 21070624 I10 stable Paroxysmal atrial fibrillation 041066370 I48.0 updated in chart Health Concerns Section Related Observation LastModified by Organization Detai ls LastModified Time None Recorded Concern Status LastModified by Organization Details LastModified Time None Recorded Payers Encounter Date Sequence Insurance Name Policy Number Policy Bai Covered Member ID Bai Member ID Guarantor Name 04/27/2025 2 [employer] (MEDICARE SUPPLEMENT) Oraginny Halle [id number] Ora Davis 04/27/2025 1 [place] [employer] Ora Davis [id number] Ora Davis Notes Date Note Type Note Provider Name a nd Address Organization Details Recorded Time 04/27/2025 text/html hospital d/c patient has been seen multiple times at the ER for recurrent issues with her afibthe patient presented with racing heart, sob, chest pressurefound to be in afib with RVR, hypertensive emergency and pleural effusion due to HFthe patient was scheduled for cardioverson on 7/1had pacemarker placed as wellthe patient has to see Dr. 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
--- OUTSIDE RECORDS SUMMARY | 2025-04-30 13:48 | XMS_ITS | Patient Health Record ---
Author Organization [facility] Address [address] [place] [address] Care Team Providers Care Vacuum Forming Machine Operator Name Role Phone Hans (RETIRED) Osiel WREN Primary Care Provide r Unavailable Benson Sadler Unavailable [phone] Reason For Referral No Information Medications Medication [...] Problem Long-term current use of drug therapy (489394389) Encounter for long-term (current) use of other medications (V58.69) Active confirmed Problem Colon cancer screening (V76.51) Active confirmed Problem History of adenomatous polyp of colon (874120359) History of adenomatous polyp of colon (V12.72) Active confirmed Plan Of Treatment Future Test Test Name Order Date COLONOSCOPY 10/28/2012 Insurance Providers Payer Name Payer Address Payer Phone Subscriber Number Group Number Insured Name Patient Relationship to Insured Coverage Start Date Coverage End Date MEDICARE OF [place] [address] [place] [id number] DARIN THOMPSON Self - patient is the insured [employer] [address] [place] [address] [id number] DARIN THOMPSON Self - patient is the insured Medical (General) History Medical History History ICD Code colonoscopy 04-17-2008-negative colon polyps-tubular adenomas removed in 2002 Right breast cancer with lumpectomy and radiation in November of 1998 hypertension Denies [place],DM,CVA,Lung disease,renal dise ase Surgical History Surgery Date(Month/Year) breast lumpectomy on right in 1998 for niall carl, and had XRT 1998 left knee surgery 2010
== END 2025-04-30 13:49 | disposition home or self-care (01) ==
LOC: HO.HCS 13:03
PROVIDERS: PCP Internal Medicine; Visit Provider Nurse Practitioner Family
DX: I48.91 Unspecified atrial fibrillation (principal); I34.0 Nonrheumatic mitral (valve) insufficiency; I31.39 Other pericardial effusion (noninflammatory); R04.0 Epistaxis; Z79.01 Long term (current) use of anticoagulants; R60.9 Edema, unspecified; Z09 Encounter for follow-up examination after completed treatment for conditions other than malignant neoplasm; Z95.0 Presence of cardiac pacemaker; I49.5 Sick sinus syndrome
CPT/HCPCS: 93010; 99214

== ENCOUNTER → 2025-04-30 13:03 | Outpatient (BNVA) | payer MEDICARE, SELFPAY | PROVIDERS: PCP Internal Medicine; Visit Provider Nurse Practitioner Family | DX: Z09 Encounter for follow-up examination after completed treatment for conditions other than malignant neoplasm (principal); I48.91 Unspecified atrial fibrillation; I31.39 Other pericardial effusion (noninflammatory); I49.5 Sick sinus syndrome; I34.0 Nonrheumatic mitral (valve) insufficiency; R04.0 Epistaxis; R60.9 Edema, unspecified; Z79.01 Long term (current) use of anticoagulants; Z95.0 Presence of cardiac pacemaker; I45.10 Unspecified right bundle-branch block; R94.31 Abnormal electrocardiogram [ECG] [EKG]; Z79.899 Other long term (current) drug therapy | CPT/HCPCS: 93005; 99212 ==

== ENCOUNTER 2025-05-21 15:08 | Outpatient (AMB) | payer MEDICARE, SELFPAY ==
--- OUTSIDE RECORDS SUMMARY | 2025-05-21 15:28 | XMS_ITS | Patient Health Record ---
Author Organization [facility] Address [address] [place] [address] Care Team Providers Care Director Of Manufacturing Operations Name Role Phone Hans (RETIRED) Osiel WREN Primary Care Provide r Unavailable Benson Sadler Unavailable [phone] Reason For Referral No Information Medications Medication [...] Problem Long-term current use of drug therapy ([id number]) Encounter for long-term (current) use of other medications (V58.69) Active confirmed Problem Colon cancer screening (V76.51) Active confirmed Problem History of adenomatous polyp of colon (482472814) History of adenomatous polyp of colon (V12.72) Active confirmed Plan Of Treatment Future Test Test Name Order Date COLONOSCOPY 10/28/2012 Insurance Providers Payer Name Payer Address Payer Phone Subscriber Number Group Number Insured Name Patient Relationship to Insured Coverage Start Date Coverage End Date MEDICARE OF [place] [address] [place] [id number] DARIN THOMPSON Self - patient is the insured [facility] SU[employer] [address] [place] [address] [phone] [id number] DARIN THOMPSON Self - patient is the insured Medical (General) History Medical History History ICD Code colonoscopy 04-17-2008-negative colon polyps-tubular adenomas removed in 2002 Right breast cancer with lumpectomy and radiation in November of 1998 hypertension Denies [place],DM,CVA,Lung disease,renal dise ase Surgical History Surgery Date(Month/Year) breast lumpectomy on right in 1998 for niall carl, and had XRT 1998 left knee surgery 2010
--- OUTSIDE RECORDS SUMMARY | 2025-05-21 15:28 | XMS_ITS | Clinical Summary ---
Author Organization [facility] Address [address] [place] [address] [place] [address] Phone Care Team Providers Care Jelly Maker Name Role Phone Ronaldo Lou MD Unavailable [phone] Osiel Maxwell MD Unavailable Brandi Owens Primary Care Provider Encounters Date Type Department Care Team Description 05/10/2025 9:43 AM EDT - 05/10/2025 11:59 PM EDT Hospital Encounter Non-Invasive Cardiology [address] [place] [address] Howie Terrell MD Discharge Disposition: Home or Self Care 04/24/2025 Procedure Pass Non-Invasive Cardiology [address] [place] [address] 04/24/[address] [facility] [address], [address] [place] [address] Howie Terrell MD Presence of cardiac device [...] 12/30/2012 3:22 AM EDT Plan of Treatment Health Maintenance [...] file Insurance MEDICARE PART A & B [facility] MEDICARE SUPPLEMENT MEDICARE PART A & B [facility] MEDICARE SUPPLEMENT MEDICARE PART A & B MEDICARE SUPPLEMENT MEDICARE PART A & B MEDICARE SUPPLEMENT MEDICARE PART A & B Member Subscriber Plan / Payer (Ef fective 2007-Present) Name:Ora Davis Member ID:[id number] Relation to Subscriber:Self Name:Ora Davis Subscriber ID:[id number] Payer ID:[id number] Group ID:Not on file Type:Medicare Address: [employer] [address] MEDICARE SUPPLEMENT MEDICARE PART A & B [facility] MEDICARE SUPPLEMENT Care Teams Jelly Maker Relationship Specialty Start Date End Date Brandi Owens PA [address] [place] [address] PCP - General Physician 3Rd Grade Teacher 04/23/25 Ronaldo Lou MD [address] [place] [address], [address] [place] [address] [email or web address] Historical LMR Provider 07/28/17 Osiel Maxwell MD [address] [place] [address] [place] [address] Historical LMR Provider 07/28/17 Additional Source Comments The information contained in this document represents components of the legal health record. It is not the complete legal health record.[facility]
[2025-05-21 15:29] VITALS: BP 128/72; PULSE 91; BMI 20.6
--- NOTE | 2025-05-21 15:29 | MHC.OFFVIS ---
Vital Signs 05/21/25 15:29 Height 4 ft 10 in Weight 98 lb 12.273 oz BMI 20.6 BP 128/72 Blood Pressure Location Lt brachial Position Sitting Pulse 91 Pulse Source Monitor Intake Visit Reasons: f/up w/ medtronic visit Kennel Operator Required: No Allergies No Known Allergies (No Known Allergies*) Allergy (Verified 05/21/25 15:35) Medication List - Last Reconciled 05/21/25 by KYLER Falcon acetaminophen (Tylenol) 325 mg PO DAILY PRN albuterol sulfate 90 mcg/actuation 2 puffs inhalation Q4H PRN amiodarone 200 mg orally 2 tablets twice daily for 14 days then reduce dose to 1 tablet daily; 30 days apixaban (Eliquis) 2.5 mg PO BID apixaban (Eliquis) 2.5 mg PO BID yhohjzjwylt-dofsorxgy-zuomnlkw 100-62.5-25 mcg (Trelegy Ellipta) 1 ea inhalation DAILY furosemide (Lasix) 40 mg PO DAILY ibuprofen 200 mg PO Q6H PRN lisinopril 40 mg See Protocol PO DAILY metoprolol succinate ER 100 mg PO DAILY HPI HPI f/up w/ medtronic visit: Details: Ora is an 84-year-old female with past medical history of hypertension, mitral regurgitation, symptomatic AFib which was persistent. She underwent cardioversion with Dr. Ochoa on 04/10/2024 and had significant bradycardia requiring atropine. Her rhythm stabilized and she was discharged home. She presented to the ER on 04/16/2025 with chest discomfort, shortness of breath and heart palpitations. She was found to have recurrent AFib alternating with junctional bradycardia, rates 30s to 40s. Her BNP was elevated and she was treated for mild heart failure. She was transferred to [facility] where she underwent a Medtronic micra leadless pacemaker. This device was chosen due to her low BMI and thin chest tissue. On last visit she was started on Amiodarone load an now presents for follow-up. Today she reports that she has been feeling better overall. She is feeling more like herself lately and was able to do some walking outside and light yd work. She is not having as much shortness of breath. She continues to have bilateral lower leg swelling. She still feels intermittent heart palpitations. No chest discomfort at rest or with activity. No lightheadedness, presyncope, syncope, falls. No PND, orthopnea. No bleeding issues reported. Taking all meds as directed. [facility] Medical History Primary hypertension Breast cancer COPD (chronic obstructive pulmonary disease) Family History Unknown No problems noted. Social History Household Members: None Housing: House Are you a primary acute care physical therapist to a significant other at home: No Do you presently have visiting nurse or other home services: No Alcohol intake: never Comment: steady gait noted. Patient Tobacco Use Status: Former Tobacco user service: No Review of Systems Const All systems reviewed & are unremarkable except as noted in HPI and below ENT Denies dizziness Card Denies chest pain, Denies chest pain at rest, Denies chest pain with activity, Denies rapid heart rate, Denies pedal edema, Denies edema, Reports leg edema, Denies lightheadedness, Denies palpitations, Denies dyspnea, Denies dyspnea on exertion and Denies orthopnea Resp Denies cough, Denies dyspnea and Denies dyspnea on exertion GI Denies hematochezia and Denies change in stool character Musc Denies abnormal gait, Denies limited range of motion, Denies muscle cramps, Denies muscle weakness, Denies numbness, Denies radiating pain into limb, Denies stiffness and Denies tingling Neuro Denies abnormal gait, Denies dizziness, Denies numbness and Denies tingling Endo Denies palpitations Physical Exam Vital Signs: Last Vital Signs Pulse 91 05/21/25 15:29 BP 128/72 05/21/25 15:29 BMI result Body Mass Index 20.6 Const General: cooperative, healthy appearing, comfortable and no acute distress Orientation/consciousness: patient oriented x3 Neck Neck: Yes normal visual inspection Resp Effort & Inspection: normal respiratory effort Auscultation: clear to auscultation bilaterally, rales, no rhonchi and no wheezes Cardio Rate: regular rate Rhythm: abnormal rhythm Heart sounds: S2 normal heart sound present, no gallops, Murmur heart sound present (systolic, mitral region) and no rubs Neuro General: patient oriented x3 Extrem Other: bilateral lower leg and foot edema to level of upper calf, R>L General: No calf tenderness Psych Appearance: grossly normal Mental Status: mental status grossly normal Speech and movement: Normal speech and movement present Office Procedures Cardiac Device Check Cardiac Device Check Details: Medtronic micra AV 2 pacemaker interrogation today, battery 10 years, VVI mode, low rate 60, underlying AFib rates 70-118, V pace 23.9%, RV threshold 0.88 at 0.24 milliseconds [id number] Cardiac Device Check, leadless/single lead pacemaker Procedure code (CPT) selection complete EKG Details: Today, read by me, atrial flutter with variable AV block, right bundle branch block, T-wave abnormality, can not exclude inferior ischemia, rate 91 JT index 95.8 [id number], Complete Assessment & Plan Assessment & Plan (1) Atrial fibrillation: Code(s): I48.91 - Unspecified atrial fibrillation Category: Medical Qualifiers: Atrial fibrillation type: unspecified Qualified Code(s): I48.91 - Unspecified atrial fibrillation Plan: New atrial fibrillation during admission January 2025 that was persistent, symptomatic. She was initially managed with rate control and put on Eliquis for anticoagulation. Echocardiogram had shown EF 55-60% with left atrium severely dilated, right atrium normal. Cardioversion was done 04/10/2025 with significant bradycardia requiring atropine. Her rhythm stabilized and she had recurrent admission a week later for symptomatic PAF alternating with junctional bradycardia: Tachy-lauren syndrome. She underwent Medtronic micra leadless pacemaker placement. EKG done last visit showed AFib, rate 104. She was started on amiodarone load for 2 weeks then 200 mg daily. EKG today showing atrial flutter, variable AV block, rate 91, JT index 95.8. Will check with her primary trailhead construction worker regarding repeat cardioversion. No med changes made at this time. Continue amiodarone, metoprolol, Eliquis.Follow-up visit to be determined. (2) Nonrheumatic mitral valve regurgitation: Code(s): I34.0 - Nonrheumatic mitral (valve) insufficiency Category: Medical Plan: Recent [facility] echocardiogram showing moderate to severe mitral regurgitation which could be exacerbated by atrial fibrillation. Plan was for repeat echocardiogram once sinus rhythm restored. She did have repeat echocardiogram while at [facility] 04/20/2025 which showed EF 65-70%, no regional wall motion abnormalities moderate mitral regurgitation prvsv-sf-zdyhjpdc pericardial effusion no evidence of cardiac tamponade. We will continue to follow. (3) Pericardial effusion: Code(s): I31.39 - Other pericardial effusion (noninflammatory) Category: Medical Plan: Kryay-ue-dpmafldy as above, no tamponade. No concerning symptoms at this time. (4) Anticoagulated: Code(s): Z79.01 - [facility] (current) use of anticoagulants Category: Medical Plan: As above - Eliquis uninterrupted since at least [facility] discharge 04/23/2025. (5) Edema: Code(s): R60.9 - Edema, unspecified Category: Medical Plan: On exam she has bilateral pitting lower leg edema from the knees to her feet. -prior to the start of atrial fibrillation she did not have edema. No other signs of heart failure. Continue Lasix. (6) Pacemaker: Comment: Medtronic micra pacemaker placement 04/20/25 Code(s): Z95.0 - Presence of cardiac pacemaker Category: Medical Plan: Medtronic micra pacemaker placed 04/20/2025 for tachy-lauren syndrome. Device interrogation today shows it is functioning normally. Remote monitoring in use. Next office interrogation due in 6 months. (7) Tachy-lauren syndrome: Code(s): I49.5 - Sick sinus syndrome Category: Medical Plan: As above Plan I discussed with the patient the current status of her atrial fibrillation and the potential for cardioversion, pending consultation with Dr. Sapp. We reviewed her medication regimen and confirmed that refills will be managed by our department for cardiac type medications. I advised her on the importance of monitoring her symptoms and maintaining her current level of activity, with adjustments for hot weather. Medications: New furosemide (Lasix) 40 mg PO DAILY 90 tabs 3RF apixaban (Eliquis) 2.5 mg PO BID 180 tabs 3RF 90 days metoprolol succinate ER 100 mg PO DAILY 90 tabs 3RF 90 days Changed From lisinopril 40 mg See Protocol PO DAILY 90 tabs 0RF To lisinopril 40 mg See Protocol PO DAILY 90 tabs 3RF 90 days Patient Instructions: - Continue taking lisinopril, metoprolol, and Eliquis as prescribed. - Elevate legs to manage edema. - Stay active with yard work and walking, avoiding activity during hot weather. - Await follow-up call regarding cardioversion plan. Patient was informed and verbally consented to the use of an ambient scribe for clinic note documentation during this visit. Visit time spent on chart review, interview, assessment, orders, documentation. Coding Level of Care Code Est Pt Level 4 (64128) Complex EM visit Add On G2211 Diagnoses Atrial fibrillation, unspecified type I48.91 Atrial fibrillation type: unspecified Nonrheumatic mitral valve regurgitation I34.0 Pericardial effusion I31.39 Anticoagulated Z79.01 Edema R60.9 Pacemaker Z95.0 Tachy-lauren syndrome I49.5 CPT Codes Cardiac Device Check - Cardiac Device 1: [id number] Cardiac Device Check, leadless/single lead pacemaker ([id number]) EKG - CPT: 22419-Pukeoeyigkcgqukcf, Complete ([id number]) Time Spent (min) 28
== END 2025-05-21 16:23 | disposition home or self-care (01) ==
LOC: HO.HCS 15:09
PROVIDERS: PCP Internal Medicine; Visit Provider Nurse Practitioner Family
DX: I48.91 Unspecified atrial fibrillation (principal); I34.0 Nonrheumatic mitral (valve) insufficiency; I31.39 Other pericardial effusion (noninflammatory); Z79.01 Long term (current) use of anticoagulants; R60.9 Edema, unspecified; Z95.0 Presence of cardiac pacemaker; I49.5 Sick sinus syndrome
CPT/HCPCS: 93010; 93279; 99214; G2211

== ENCOUNTER → 2025-05-21 15:08 | Outpatient (BNVA) | payer MEDICARE, SELFPAY | PROVIDERS: PCP Internal Medicine; Visit Provider Nurse Practitioner Family | DX: Z45.018 Encounter for adjustment and management of other part of cardiac pacemaker (principal); I48.91 Unspecified atrial fibrillation; I34.0 Nonrheumatic mitral (valve) insufficiency; I31.39 Other pericardial effusion (noninflammatory); R60.9 Edema, unspecified; I49.5 Sick sinus syndrome; Z79.01 Long term (current) use of anticoagulants | CPT/HCPCS: 93005; 99212 ==

== ENCOUNTER 2025-06-06 13:39 | Outpatient (AMB) | payer MEDICARE, SELFPAY ==
--- NOTE | 2025-06-06 13:46 | MHC.OFFVIS ---
Vital Signs 06/06/25 13:47 Height 4 ft 10 in Weight 97 lb 0.054 oz BMI 20.3 BP 122/62 Blood Pressure Location Lt brachial Position Sitting Pulse 87 Pulse Source Monitor Intake Visit Reasons: follow up lasix Allergies No Known Allergies (No Known Allergies*) Allergy (Verified 05/21/25 15:35) Medication List - Last Reconciled 06/06/25 by Donnell Sapp MD acetaminophen (Tylenol) 325 mg PO DAILY PRN albuterol sulfate 90 mcg/actuation 2 puffs inhalation Q4H PRN amiodarone 200 mg orally 2 tablets twice daily for 14 days then reduce dose to 1 tablet daily; 30 days apixaban (Eliquis) 2.5 mg PO BID 90 days hwihzacjxcg-uksxhhtck-aktvalzm 100-62.5-25 mcg (Trelegy Ellipta) 1 ea inhalation DAILY furosemide (Lasix) 40 mg PO DAILY ibuprofen 200 mg PO Q6H PRN lisinopril 40 mg See Protocol PO DAILY 90 days metoprolol succinate ER 100 mg PO DAILY 90 days HPI Comments Details: Ora returns for follow-up. I had originally seen her in January regarding atrial fibrillation. She had palpitations then and found to be in atrial fibrillation with rapid response. She was managed initially with rate control including metoprolol and digoxin. Subsequently, she was set up for an outpatient cardioversion after she apparently had significant bradycardia requiring atropine. Her rhythm stabilized and she was sent home. Then she got readmitted and found to have recurring atrial fibrillation alternating with junctional bradycardia. Then treated for mild heart failure. She was transferred to [facility] where she underwent a micra leadless pacemaker. Apparently done because of low body weight and thin chest issue. Then she was put on amiodarone and now she presents for follow-up. It seems that for the last few days she has been having increasing swelling her lower extremities. Also feeling short of breath. [facility] Medical History Primary hypertension Breast cancer COPD (chronic obstructive pulmonary disease) Family History Unknown No problems noted. Social History Household Members: None Housing: House Are you a primary career education teacher to a significant other at home: No Do you presently have visiting nurse or other home services: No Alcohol intake: never Comment: steady gait noted. Patient Tobacco Use Status: Former Tobacco user service: No Review of Systems Const Denies weakness ENT Denies dizziness Card Denies chest pain, Denies chest pain with activity, Denies syncope, Denies rapid heart rate, Denies pedal edema, Denies edema, Denies leg edema, Denies lightheadedness, Denies palpitations, Reports dyspnea, Denies dyspnea on exertion and Denies orthopnea Resp Denies cough, Reports dyspnea and Denies dyspnea on exertion GI Denies hematochezia and Denies change in stool character Musc Denies abnormal gait, Reports joint swelling, Denies muscle cramps, Denies muscle weakness, Denies numbness, Denies radiating pain into limb and Denies tingling Neuro Denies abnormal gait, Denies dizziness, Denies syncope, Denies numbness, Denies tingling and Denies weakness Endo Denies palpitations Physical Exam Vital Signs: Last Vital Signs Pulse 87 06/06/25 13:47 BP 122/62 06/06/25 13:47 BMI result Body Mass Index 20.3 Const General: comfortable and no acute distress Orientation/consciousness: patient oriented x3 HEENT Other: Unremarkable Head: Yes normal to inspection Neck Neck: Yes normal visual inspection Chest Chest palpation & inspection: normal inspection of the chest Resp Auscultation: crackles Cardio Palpation: normal PMI Heart sounds: S1 normal heart sound present, S2 normal heart sound present, no gallops, Murmur heart sound present systolic III/ and at the apex and no rubs GI Palpation (GI): Soft to palpation Back/Spine/Pelvis Other: unremarkable Skin General skin exam: no rashes or lesions noted Neuro General: patient oriented x3 Extrem Other: 2+ edema B/L General: Yes normal to inspection Psych Mental Status: mental status grossly normal Office Procedures EKG Details: EKG shows atrial flutter at a rate of 87/Min; right bundle-branch block. [id number], Complete Assessment & Plan Assessment & Plan (1) Atrial flutter with rapid ventricular response: Code(s): I48.92 - Unspecified atrial flutter Category: Medical Plan: She is currently on amiodarone/metoprolol/Eliquis. We will plan for another cardioversion. Hopefully we can restore sinus rhythm. Long-term strategy to be decided. I am not clear if she would be a candidate, mainly because of age and low body weight. I am not clear if she truly had atrial fibrillation as even in a prior EKG from January it shows rather flutter. (2) Nonrheumatic mitral valve regurgitation: Code(s): I34.0 - Nonrheumatic mitral (valve) insufficiency Category: Medical Plan: In a prior echocardiogram from January, hiijepnk-dg-anvquo mitral regurgitation but she also had atrial fibrillation at that time. We will need to recheck this when she is back in normal sinus rhythm. (3) Acute diastolic (congestive) heart failure: Code(s): I50.31 - Acute diastolic (congestive) heart failure Category: Medical Plan: Suspect is because of combination of valve dysfunction as well as the atrial arrhythmias. We will need to restore sinus rhythm and expect improvement. Continue diuretics for now. Also to check labs. Coding Level of Care Code Est Pt Level 4 (38930) Complex EM visit Add On G2211 Diagnoses Atrial flutter with rapid ventricular response I48.92 Nonrheumatic mitral valve regurgitation I34.0 Acute diastolic (congestive) heart failure I50.31 CPT Codes EKG - CPT: 62173-Zsuwmisvzszakgmbn, Complete ([id number])
[2025-06-06 13:47] VITALS: BP 122/62; PULSE 87; BMI 20.3
--- OUTSIDE RECORDS SUMMARY | 2025-06-06 14:26 | XMS_ITS | Clinical Summary ---
Author Organization [facility] Address [address] [place] [address] [place] [id number] Phone Care Team Providers Care Manager Research Name Role Phone Ronaldo Lou MD Unavailable [phone] Osiel Maxwell MD Unavailable Brandi Owens Primary Care Provider Encounters Date Type Department Care Team Description 05/10/2025 9:43 AM EDT - 05/10/2025 11:59 PM EDT Hospital Encounter Non-Invasive Cardiology [address] [place] [address] Howie Terrell MD Discharge Disposition: Home or Self Care 04/24/2025 Procedure Pass Non-Invasive Cardiology [address] [place] [address] 04/24/2025 Transcribe [facility] [address], [address] [place] [address] Howie Terrell MD Presence of cardiac device [...] this topic Medical Devices Not on file Procedures Procedure Name Priority Date/Time Associated Diagnosis Comments DEVICE CHECK: PPM IN-PERSON PROGRAMMING LEADLESS Routine 05/15/2025 9:47 AM EDT Presence of cardiac device from Last 3 Months Results * DEVICE CHECK: PPM IN-PERSON PROGRAMMING LEADLESS (05/15/2025 9:47 AM EDT) Narrative Filipe Hussein DO - 05/28/2025 1:53 PM EDT Table formatting from the original result was not included. Reason for appointment: In-office pacemaker interrogation HPI: Routine in-office pacemaker interrogation and would check, using iterative adjustment to test the function of the device and select optimal permanent programmed values. No device related complaints. Indication for device: SSS Examination: Device type: Micra AV2 Pacemaker Rehabilitation Director: [employer] Mode: VVI LRL/URL: 60/- bpm Thresholds, impedances, and sensing stable. High V rates: 0 Ventricular pacin.5% Battery: >10 yrs RA RV LV Sensing 9.8mV Threshold 1.5V@.24ms Impedance 760 ohms Additional comments or changes: normal pacemaker function and stable pacing and sensing thresholds. Rt groin clean and intact, no redness or bleeding Patient will return for in-office device check at [facility] Cardiology Report prepared by Jaquelin Puckett RN Howie Terrell MD [facility] C[facility] SERVICES ORDERABLE S Final Result from Last 3 Months Insurance MEDICARE PART A & B [facility] MEDICARE SUPPLEMENT MEDICARE PART A & B [facility] MEDICARE SUPPLEMENT MEDICARE PART A & B [facility] MEDICARE SUPPLEMENT Member Subscriber Plan / Payer (Ef fective 2024-Present) Name:Ora Davis Relation to Subscriber:Self Name:Ora Davis Payer ID:[id number] (NAIC) Group ID:Not on file Type:Risk I/O Address: [place] [id number] MEDICARE PART A & B MEDICARE SUPPLEMENT MEDICARE PART A & B Member Subscriber Plan / Payer (Ef fective 2007-) Name:Ora Davis Member ID:[id number] Relation to Subscriber:Self Name:Ora Davis Subscriber ID:[id number] Payer ID:[id number] Group ID:Not on file Type:Medicare Address: [employer] [address] MEDICARE SUPPLEMENT MEDICARE PART A & B Member Subscriber Plan / Payer (Ef fective 2007-Present) Name:Ora Davis Member ID:[id number] Relation to Subscriber:Self Name:Ora Davis Subscriber ID:[id number] Payer ID:[id number] Group ID:Not on file Type:Medicare Address: [facility] [employer] [facility] [address] [place] [phone] [facility] MEDICARE SUPPLEMENT Care Teams Manager Research Relationship Specialty Start Date End Date Brandi Owens PA [address] [place] [address] PCP - General Physician Vault Worker 04/23/25 Ronaldo Lou MD [address] [place] [address], [address] [place] [address] Historical LMR Provider 07/28/17 Osiel Maxwell MD NPI: [id number] [place] [address] [place] [address] Historical LMR Provider 07/28/17 Additional Source Comments The information contained in this document represents components of the legal health record. It is not the complete legal health record.[facility]
--- OUTSIDE RECORDS SUMMARY | 2025-06-06 14:26 | XMS_ITS | Encounter Summary ---
Author Organization [facility] Address [address] [place] [address] Phone Care Team Providers Care Screening Nurse Name Role Phone Ronaldo Lou MD Unavailable [phone] Osiel Maxwell MD Unavailable [phone] Brandi Owens Primary Care Provider [phone] Encounter Details Date Type Department Care Team (Late st Contact Info) Description 04/24/2025 Procedure Pass Non-Invasive Cardiology [address] [place] [address] Social History Tobacco Use Types Packs/Day Years [...] on file Sexual Orientation Not on file documented as of this encounter Plan of Treatment Not on file documented as of this encounter Visit Diagnoses Not on filedocumented in this encounter Care Teams Screening Nurse Relationship Specialty Start Date End Date Brandi Owens PA [address] [place] [address] PCP - General Physician Mounter Automatic 04/23/25 Ronaldo Lou MD [address] [place] [address], [address] [place] [address] [email or web address] Historical LMR Provider 07/28/17 Osiel Maxwell MD [address] [place] [address] [place] [address] Historical LMR Provider 07/28/17 documented as of this encounter Additional Source Comments The information contained in this document represents components of the legal health record. It is not the complete legal health record.[facility]
--- OUTSIDE RECORDS SUMMARY | 2025-06-06 14:26 | XMS_ITS | Patient Health Record ---
Author Organization [facility] Address [address] [place] [address] Care Team Providers Care Blade Operator Name Role Phone Hans (RETIRED) Osiel WREN Primary Care Provide r Unavailable Benson Sadler Unavailable [phone] Reason For Referral No Information Medications Medication [...] Problem Long-term current use of drug therapy (283794786) Encounter for long-term (current) use of other medications (V58.69) Active confirmed Problem Colon cancer screening (672334158) Colon cancer screening (V76.51) Active confirmed Problem History of adenomatous polyp of colon (199847988) History of adenomatous polyp of colon (V12.72) Active confirmed Plan Of Treatment Future Test Test Name Order Date COLONOSCOPY 10/28/2012 Insurance Providers Payer Name Payer Address Payer Phone Subscriber Number Group Number Insured Name Patient Relationship to Insured Coverage Start Date Coverage End Date MED[place]ARE OF [place] [address] [place] [address] [id number] DARIN THOMPSON Self - patient is the insured [facility] SUPPLEMENTAL PLAN [address] [place] [address] [id number] DARIN THOMPSON Self - patient is the insured Medical (General) History Medical History History ICD Code colonoscopy 04-17-2008-negative colon polyps-tubular adenomas removed in 2002 Right breast cancer with lumpectomy and radiation in November of 1998 hypertension Denies [place],DM,CVA,Lung disease,renal dise ase Surgical History Surgery Date(Month/Year) breast lumpectomy on right in 1998 for niall carl, and had XRT 1998 left knee surgery 2010
== END 2025-06-06 14:20 | disposition home or self-care (01) ==
LOC: HO.HCS 13:39
PROVIDERS: PCP Internal Medicine; Visit Provider Internal Medicine
DX: I48.92 Unspecified atrial flutter (principal); I34.0 Nonrheumatic mitral (valve) insufficiency; I50.31 Acute diastolic (congestive) heart failure
CPT/HCPCS: 93010; 99214; G2211

== ENCOUNTER → 2025-06-06 13:39 | Outpatient (BNVA) | payer MEDICARE, SELFPAY | PROVIDERS: PCP Internal Medicine; Visit Provider Internal Medicine | DX: I48.92 Unspecified atrial flutter (principal); I34.0 Nonrheumatic mitral (valve) insufficiency; I50.31 Acute diastolic (congestive) heart failure; Z79.899 Other long term (current) drug therapy | CPT/HCPCS: 93005; 99212 ==

== ENCOUNTER 2025-06-08 10:44 | Day surgery (SDC) | payer MEDICARE, SELFPAY ==
--- NOTE | 2025-06-06 15:07 | HO.ANESPROP2 ---
Documented by User: Rubia Aguilar NP 06/06/25 15:12 HPI - Anesthesia Eval Consult details Narrative: 84yo F for Cardioversion Eliquis Leadless pacer in situ - placed 04/2025 for lauren/afib/junctional rhythm s/p cardioversion (required atropine - stabalized and d/c home with subsequent admit through ER) [facility] Active Problems Active Problems: All Active Problems Acute diastolic (congestive) heart failure (Acute) Atrial flutter with rapid ventricular response (Acute) Tachy-lauren syndrome (Acute) Pacemaker (Acute) Hospital discharge follow-up (Acute) CHF (congestive heart failure) (Acute) Edema (Acute) Anticoagulated (Acute) Epistaxis (Acute) Hypokalemia (Acute) Pericardial effusion (Acute) Nonrheumatic mitral valve regurgitation (Acute) Atrial fibrillation (Acute) Past Medical History Medical History (Updated 06/08/25 @ 11:24 by Gris Shepherd RN) History of cardioversion History of pacemaker Primary hypertension Breast cancer COPD (chronic obstructive pulmonary disease) Family History Family History Unknown No problems noted. Surgical History Surgical History (Updated 06/08/25 @ 11:26 by Gris Shepherd RN) Hx of arthroscopic knee surgery History of breast lump removal History of Problems with Anesthesia: No Social History Social History Household Members: None Housing: House Are you a primary direct care counselor to a significant other at home: No Do you presently have visiting nurse or other home services: No Alcohol intake: never Comment: steady gait noted. Patient Tobacco Use Status: Former Tobacco user Have you been hit, kicked, punched, or otherwise hurt by someone within the past year? If so, by whom?: No Are you DNR?: No Advance Directives: No Advance Directives Information Provided: Yes Poor oral hygiene: Yes service: No Meds Allergies Allergy/AdvReac Type Severity Reaction Status Date / Time No Known Allergies (No Known Allergy Verified 06/08/25 11:24 Allergies*) Home Medications ?Medication ?Instructions ?Recorded ?Confirmed ?Last Taken ?Type acetaminophen 325 mg tablet 325 mg PO DAILY PRN Pain 01/30/25 06/08/25 Unknown History (Tylenol) ibuprofen 200 mg tablet 200 mg PO Q6H PRN Pain 01/30/25 06/08/25 Unknown History albuterol sulfate 90 mcg/actuation 2 puff inhalation Q4H PRN 04/16/25 06/08/25 Unknown History aerosol inhaler Shortness Of Breath Or Wheezing fluticasone fur. 100 mcg-umeclid 1 ea inhalation DAILY 04/16/25 06/08/25 06/08/25 History 62.5 mcg-vilant 25 mcg inhalat.powder (Trelegy Ellipta) Exam Pertinent Lab Results Pertinent Lab Results: Laboratory Tests 04/16/25 04/19/25 09:04 14:46 WBC 5.0 Hgb 12.9 Hct 38.4 Plt Count 192 Sodium 141 Potassium 3.6 Chloride 101 Carbon Dioxide 30 H BUN 12 Creatinine 0.82 Narrative Narrative: EKG 05/2025 EKG Details: EKG shows atrial flutter at a rate of 87/Min; right bundle-branch block. Holter 2024 Total monitoring time 2 days. Underlying rhythm is atrial fibrillation with an average rate of 68/Min. Ventricular ectopy noted with a burden of 1.9%. Rare couplets, bigeminy, trigeminy. One run of 4 beats. Cannot exclude aberrant conduction. No significant pauses or high-grade AV blocks. No patient markers or diary events. ECHO 2024 Conclusions: - The left ventricular systolic function is normal. The visually estimated ejection fraction is between 55-60%. - The left atrium is severely dilated. - There is moderate to severe mitral valve regurgitation. - There is mild to moderate tricuspid valve regurgitation. - Mild pulmonary hypertension is present. - There is a moderate pericardial effusion. Assessment and Plan Assessment Anesthesia Assessment: Chart Reviewed Final Anesthetic Review History of Problems with Anesthesia: No Documented by User: Sonu Erwin MD 06/08/25 12:24 [facility] Past Medical History Medical History (Updated 06/08/25 @ 11:24 by Gris Shepherd RN) History of cardioversion History of pacemaker Primary hypertension Breast cancer COPD (chronic obstructive pulmonary disease) Family History Family History Unknown No problems noted. Family history of problems with anesthesia: No Surgical History Surgical History (Updated 06/08/25 @ 11:26 by Gris Shepherd RN) Hx of arthroscopic knee surgery History of breast lump removal Social History Social History Household Members: None Housing: House Are you a primary direct care counselor to a significant other at home: No Do you presently have visiting nurse or other home services: No Alcohol intake: never Comment: steady gait noted. Patient Tobacco Use Status: Former Tobacco user Have you been hit, kicked, punched, or otherwise hurt by someone within the past year? If so, by whom?: No Are you DNR?: No Advance Directives: No Advance Directives Information Provided: Yes Poor oral hygiene: Yes service: No Meds Allergies Allergy/AdvReac Type Severity Reaction Status Date / Time No Known Allergies (No Known Allergy Verified 06/08/25 11:24 Allergies*) Home Medications ?Medication ?Instructions ?Recorded ?Confirmed ?Last Taken ?Type acetaminophen 325 mg tablet 325 mg PO DAILY PRN Pain 01/30/25 06/08/25 Unknown History (Tylenol) ibuprofen 200 mg tablet 200 mg PO Q6H PRN Pain 01/30/25 06/08/25 Unknown History albuterol sulfate 90 mcg/actuation 2 puff inhalation Q4H PRN 04/16/25 06/08/25 Unknown History aerosol inhaler Shortness Of Breath Or Wheezing fluticasone fur. 100 mcg-umeclid 1 ea inhalation DAILY 04/16/25 06/08/25 06/08/25 History 62.5 mcg-vilant 25 mcg inhalat.powder (Trelegy Ellipta) Exam Airway Mallampati Class: II TM Dist: >3cm Neck ROM: Full Denture: Upper Partial: Lower Heart: AF Assessment and Plan Assessment Anesthesia Assessment: Anesthesia Plan Discussed Final Anesthetic Review Family History of Problems with Anesthesia: No NPO: Yes ASA Class: III Final Preanesthetic Review: No Changes in Pt Med Stat, Meds/Allgs Chart Reviewed, Consent Obtained/Reviewed and Anes Risks/Benef Reviewed Patient Risk: Intermediate Procedure Risk: Low Anesthetic Plan Anesthetic Plan: TIVA Disposition: Standard PACU
--- OUTSIDE RECORDS SUMMARY | 2025-06-06 15:33 | XMS_ITS | Encounter Summary ---
Author Organization [facility] Address [address] [place] [address] Care Team Providers Care Kapok Machine Operator Name Role Phone Devante Leigh DO Primary Care Provider Unavaila ble Encounter Details Date Type Department Care Team Description 01/26/2018 Orders Only Medical Records [address] [place] [id number] Abstract, Provider Social History Tobacco Use Types [...] on filedocumented in this encounter Care Teams Kapok Machine Operator Relationship Specialty Start Date End Date Devante Leigh DO PCP - General Internal Medicine 12/23/17 documented as of this encounter
--- OUTSIDE RECORDS SUMMARY | 2025-06-06 15:33 | XMS_ITS | Encounter Summary ---
Author Organization [facility] Address [address] [place] [address] Care Team Providers Care Parliamentary Librarian Name Role Phone Community, Pcp Primary Care Provider Devante Cook DO Primary Care Provider Kailee masters Encounter Details Date Type Department Care Team Description 07/07/2012 Old Medical Records Medical Records [address] [place] [address] Abstract, Provider Social History Tobacco Use Types Packs/Day Years Used Date Smoking Tobacco: Never Assessed Sex Assigned at Date Recorded Not on file Job Start Date Occupation Industry Not on file Not on file Not on file documented as of this encounter Plan of Treatment Not on file documented as of this encounter Visit Diagnoses Not on filedocumented in this encounter Care Teams Parliamentary Librarian Relationship Specialty Start Date End Date Community, Pcp PCP - General 09/07/05 12/22/17 Devante Leigh DO PCP - General Internal Medicine 12/23/17 documented as of this encounter
--- OUTSIDE RECORDS SUMMARY | 2025-06-06 15:33 | XMS_ITS | Encounter Summary ---
Author Organization [facility] Address [facility] [place] [address] Care Team Providers Care Mva Reactor Operator Name Role Phone Devante Leigh DO Primary Care Provider Unavaila ble Encounter Details Date Type Department Care Team Description 01/26/2018 Transfer Records Medical Records [address] [place] [address] Abstract, Provider Social History Tobacco Use Types [...] on filedocumented in this encounter Care Teams Mva Reactor Operator Relationship Specialty Start Date End Date Devante Leigh DO PCP - General Internal Medicine 12/23/17 documented as of this encounter
[2025-06-08 11:03] VITALS: BMI 20.3
[2025-06-08] MEDS: Lactated Ringers 1,000 ML 50 ML IVCONT (11:20)
[2025-06-08 11:25] VITALS: BP 141/84; PULSE 80; RESP 18; TEMP 36.6; O2SAT 96
--- NOTE | 2025-06-08 12:53 | MHC.SHP ---
Pre-Procedural Eval Section A - 24 Hr Update-Section A only Date of Service: 06/08/25 The patient is an INPATIENT: No The patient has been examined within 24 hours of the surgical procedure. The History & Physical has been completed within 30 days and I have reviewed it.: Yes Section B - Complete if H&P > 30 days Chief Complaint: Other persistent atrial fibrillation Allergies: Allergies Allergy/AdvReac Type Severity Reaction Status Date / Time No Known Allergies (No Known Allergy Verified 06/08/25 11:24 Allergies*) Plan I have reviewed the history and physical and performed a pertinent physical examination on my patient. No changes have occurred unless specified. Time Spent With Patient Time: Total time managing care of this patient today ____ minutes.
--- NOTE | 2025-06-08 12:54 | HO.CARDIVERS ---
Cardioversion Procedure Note Cardioversion Date of Procedure: 06/08/2025 Pre-Op Diagnosis: Atrial flutter Post-Op Diagnosis: Sinus rhythm Consent: Informed consent obtained Procedure: After informed consent was obtained, patient was taken to the PACU. The patient was then positioned appropriately. The cardioversion pads were placed in anteroposterior position. Once under anesthesia, 120 joules of synchronized shock was administered. The rhythm converted from atrial flutter to sinus rhythm. Patient remained in sinus rhythm after the end of procedure. Complications: None Impression: Successful cardioversion from atrial flutter to sinus rhythm. Recommendations: Continue amiodarone. Continue anticoagulation. Follow up in clinic.
[2025-06-08 13:05] VITALS: BP 103/58; PULSE 70; RESP 12; TEMP 36.1; O2SAT 97
--- NOTE | 2025-06-08 13:06 | ECG_ITS ---
Test Reason : post cardioversion Blood Pressure : */* mmHG Vent. Rate : 66 BPM Atrial Rate : 66 BPM P-R Int : 90 ms QRS Dur : 150 ms QT Int : 518 ms P-R-T Axes : 74 108 -86 degrees QTcB Int : 543 ms Sinus rhythm with intermitent ventricular paced beats Right bundle branch block Abnormal ECG When compared with ECG of 16-Apr-2025 20:46, Vent. rate has increased by 23 bpm Referred By: Christine Campbell Electronically Signed By: CHRISTINE CAMPBELL
[2025-06-08 13:10] VITALS: BP 108/60; PULSE 64; RESP 20; O2SAT 98
[2025-06-08 13:15] VITALS: BP 108/48; PULSE 64; RESP 16; O2SAT 96
[2025-06-08 13:20] VITALS: BP 108/48; PULSE 63; RESP 19; O2SAT 98
[2025-06-08 13:35] VITALS: BP 133/63; PULSE 60; RESP 16; TEMP 36.2; O2SAT 95
== END 2025-06-08 14:09 | disposition home or self-care (01) ==
PROVIDERS: PCP Physician Assistant; Visit Provider Internal Medicine
PROC: 5A2204Z Restoration of Cardiac Rhythm, Single (ICD-10-PCS; principal; 2025-06-08 12:30)
DX: I48.92 Unspecified atrial flutter (principal); Z79.01 Long term (current) use of anticoagulants; I50.31 Acute diastolic (congestive) heart failure; I10 Essential (primary) hypertension; I34.0 Nonrheumatic mitral (valve) insufficiency; Z95.0 Presence of cardiac pacemaker; J44.9 Chronic obstructive pulmonary disease, unspecified; Z85.3 Personal history of malignant neoplasm of breast; Z79.51 Long term (current) use of inhaled steroids; Z79.1 Long term (current) use of non-steroidal anti-inflammatories (NSAID); Z79.899 Other long term (current) drug therapy; Z87.891 Personal history of nicotine dependence
CPT/HCPCS: 92960; 93005

== ENCOUNTER → 2025-06-08 10:44 | Outpatient (BNV) | payer MEDICARE, SELFPAY | PROVIDERS: PCP Physician Assistant; Visit Provider Internal Medicine | DX: I48.92 Unspecified atrial flutter (principal) | CPT/HCPCS: 92960 ==

== ENCOUNTER → 2025-06-08 13:06 | Outpatient (BNV) | payer MEDICARE, SELFPAY | PROVIDERS: PCP Physician Assistant; Visit Provider Internal Medicine | DX: R94.31 Abnormal electrocardiogram [ECG] [EKG] (principal); I45.10 Unspecified right bundle-branch block | CPT/HCPCS: 93010 ==

== ENCOUNTER 2025-06-19 11:04 | Outpatient (REF) | payer MEDICARE, SELFPAY ==
--- OUTSIDE RECORDS SUMMARY | 2025-06-19 14:16 | XMS_ITS | Encounter Summary ---
Author Organization [facility] Address [address] [place] [address] Phone Care Team Providers Care Manager Chinese Name Role Phone Ronaldo Lou MD Unavailable [phone] Osiel Maxwell MD Unavailable [phone] Brandi Owens Primary Care Provider [phone] Encounter Details Date Type Department Care Team (Late st Contact Info) Description 04/24/2025 Procedure Pass Non-Invasive Cardiology [address] [place] [address] Social History Tobacco Use Types Packs/Day Years [...] on filedocumented in this encounter Care Teams Manager Chinese Relationship Specialty Start Date End Date Brandi Owens PA [address] [place] [address] PCP - General Physician Precision Machine Operator 04/23/25 Ronaldo Lou MD [address] [place] [address], [address] [place] [address] [email or web address] Historical LMR Provider 07/28/17 Osiel Maxwell MD [address] [place] [address] [place] [address] Historical LMR Provider 07/28/17 documented as of this encounter Additional Source Comments The information contained in this document represents components of the legal health record. It is not the complete legal health record.[facility]
--- OUTSIDE RECORDS SUMMARY | 2025-06-19 14:16 | XMS_ITS | Clinical Summary ---
Author Organization [facility] Address [address] [place] [address] [place] [address] Phone Care Team Providers Care Client Service And Consulting Manager Name Role Phone Ronaldo Lou MD Unavailable [phone] Osiel Maxwell MD Unavailable Brandi Owens Primary Care Provider Encounters Date Type Department Care Team Description 05/10/2025 9:43 AM EDT - 05/10/2025 11:59 PM EDT Hospital Encounter Non-Invasive Cardiology [address] [place] [address] Howie Terrell MD Discharge Disposition: Home or Self Care 04/24/2025 Procedure Pass Non-Invasive Cardiology [address] [place] [address] 04/24/2025 Transcribe [facility] [address], [address] [place] [address] Howie Terrell MD Presence of cardiac device [...] VACCINE (1 - 1-dose 75+ series) 12/15/2015 INFLUENZA VACCINE (#1) 2025 COVID-19 VACCINE ( - 2023-2 5 season) 2025 HEPATITIS A VACCINES Aged Out No long [...] SSS Examination: Device type: Micra AV2 Pacemaker Marketing Research Analyst: Medtronic Mode: VVI LRL/URL: 60/- bpm Thresholds, impedances, and sensing stable. High V rates: 0 Ventricular pacin.5% Battery: >10 yrs RA RV LV Sensing 9.8mV Threshold 1.5V@.24ms Impedance 760 ohms Additional comments or changes: normal pacemaker function and stable pacing and sensing thresholds. Rt groin clean and intact, no redness or bleeding Patient will return for in-office device check at [facility] Cardiology Report prepared by Jaquelin Puckett RN Howie Terrell MD CV CARDIAC SERVICES ORDERABLE S Final Result from Last 3 Months Insurance MEDICARE PART A & B Member Subscriber Plan / Payer (Ef fective 2007-Present) Name:Ora Davis Member ID:[id number] Relation to Subscriber:Self Name:Ora Davis Subscriber ID:[id number] Payer ID:[id number] Group ID:Not on file Type:Medicare Address: [facility] [address] [email or web address] [address] [facility] [place] [address] [facility] MEDICARE SUPPLEMENT MEDICARE PART A [place] [address] [place] [address] MEDICARE SUPPLEMENT MEDICARE PART A & B Member Subscriber Plan / Payer (Ef fective 2007-Present) Name:Ora Davis Member ID:[id number] Relation to Subscriber:Self Name:Ora Davis Subscriber ID:[id number] Payer ID:[id number] Group ID:Not on file Type:Medicare Address: [employer] [address] MEDICARE SUPPLEMENT MEDICARE PART A & B MEDICARE SUPPLEMENT MEDICARE PART A & B Member Subscriber Plan / Payer (Ef fective 2007-Present) Name:Ora Davis Member ID:[id number] Relation to Subscriber:Self Name:Ora Davis Subscriber ID:[id number] Payer ID:[id number] Group ID:Not on file Type:Medicare Address: [employer] [address] [place] [address] [place] [address] MEDICARE SUPPLEMENT MEDICARE PART A & B [facility] MEDICARE [place] [address] [place] [phone] Care Teams Client Service And Consulting Manager Relationship Specialty Start Date End Date Brandi Owens PA [address] [place] [address] PCP - General Physician Beauty Therapist 04/23/25 Ronaldo Lou MD [address] [place] [address], [address] [place] [address] Historical LMR Provider 07/28/17 Osiel Maxwell MD [address] [place] [address] [place] [address] Historical LMR Provider 07/28/17 Additional Source Comments The information contained in this document represents components of the legal health record. It is not the complete legal health record.[facility]
== END 2025-06-19 11:05 | disposition home or self-care (01) ==
LOC: HO.LAB 11:04
PROVIDERS: Absent Provider Physician Assistant; PCP Physician Assistant; Visit Provider Internal Medicine
DX: I48.92 Unspecified atrial flutter (principal); I50.31 Acute diastolic (congestive) heart failure; I34.0 Nonrheumatic mitral (valve) insufficiency; Z95.0 Presence of cardiac pacemaker; Z79.01 Long term (current) use of anticoagulants; Z79.899 Other long term (current) drug therapy
CPT/HCPCS: 36415; 84443; 93005; 99212

== ENCOUNTER 2025-06-19 11:04 | Outpatient (AMB) | payer MEDICARE, SELFPAY ==
--- NOTE | 2025-06-19 11:12 | A.OFFVIS_ITS ---
Vital Signs 06/19/25 11:14 Height 4 ft 10 in Weight 97 lb 0.054 oz BMI 20.3 BP 120/70 Blood Pressure Location Lt brachial Position Sitting Pulse 60 Pulse Source Monitor Intake Visit Reasons: 2 week f/up Route Driver Salesperson Required: No Accompanied by: Self / Same As Patient Allergies No Known Allergies (No Known Allergies*) Allergy (Verified 06/08/25 11:24) Medication List - Last Reconciled 06/19/25 by Donnell Sapp MD acetaminophen (Tylenol) 325 mg PO DAILY PRN albuterol sulfate 90 mcg/actuation 2 puffs inhalation Q4H PRN amiodarone 200 mg orally 2 tablets twice daily for 14 days then reduce dose to 1 tablet daily; 30 days apixaban (Eliquis) 2.5 mg PO BID 90 days upspmrvhqrx-rpvhamopi-zuvdzhwd 100-62.5-25 mcg (Trelegy Ellipta) 1 ea inhalation DAILY furosemide (Lasix) 40 mg PO BID ibuprofen 200 mg PO Q6H PRN lisinopril 40 mg See Protocol PO DAILY 90 days metoprolol succinate ER 100 mg PO DAILY 90 days HPI Comments Details: Ora returns for follow-up. I had originally seen her in January regarding atrial fibrillation. She had palpitations then and found to be in atrial fibrillation with rapid response. She was managed initially with rate control including metoprolol and digoxin. Subsequently, she was set up for an outpatient cardioversion after she apparently had significant bradycardia requiring atropine. Her rhythm stabilized and she was sent home. Then she got readmitted and found to have recurring atrial fibrillation alternating with junctional bradycardia. Then treated for mild heart failure. She was transferred to [facility] where she underwent a micra leadless pacemaker. Apparently done because of low body weight and thin chest issue. Then she was put on amiodarone and now she presents for follow-up. It seems that for the last few days she has been having increasing swelling her lower extremities. Also feeling short of breath. [facility] Medical History History of cardioversion History of pacemaker Primary hypertension Breast cancer COPD (chronic obstructive pulmonary disease) Surgical History Hx of arthroscopic knee surgery History of breast lump removal Family History Unknown No problems noted. Social History Household Members: None Housing: House Are you a primary residential child care counselor to a significant other at home: No Do you presently have visiting nurse or other home services: No Alcohol intake: never Comment: steady gait noted. Patient Tobacco Use Status: Former Tobacco user service: No Review of Systems Const Denies chills, Denies fatigue, Denies fever(s), Denies frequent falls, Denies weakness, Denies weight gain and Denies weight loss ENT Denies dizziness Card Denies chest pain, Denies leg edema, Denies lightheadedness, Denies palpitations, Denies dyspnea and Denies dyspnea on exertion Resp Denies cough, Denies dyspnea and Denies dyspnea on exertion GI Denies hematochezia Musc Denies abnormal gait, Denies muscle weakness, Denies numbness, Denies radiating pain into limb and Denies tingling Neuro Denies abnormal gait, Denies dizziness, Denies frequent falls, Denies numbness, Denies tingling and Denies weakness Endo Denies fatigue and Denies palpitations Physical Exam Vital Signs: Last Vital Signs Pulse 60 06/19/25 11:14 BP 120/70 06/19/25 11:14 BMI result Body Mass Index 20.3 Const General: comfortable and no acute distress Orientation/consciousness: patient oriented x3 HEENT Other: Unremarkable Head: Yes normal to inspection Neck Neck: Yes normal visual inspection Chest Chest palpation & inspection: normal inspection of the chest Resp Auscultation: clear to auscultation bilaterally Cardio Palpation: normal PMI Heart sounds: S1 normal heart sound present, S2 normal heart sound present, no gallops, Murmur heart sound present systolic III/ and no rubs GI Palpation (GI): Soft to palpation Back/Spine/Pelvis Other: unremarkable Skin General skin exam: no rashes or lesions noted Neuro General: patient oriented x3 Extrem Other: 1+ leg swelling General: Yes normal to inspection Psych Mental Status: mental status grossly normal Office Procedures EKG Details: EKG shows ventricular rhythm at 60/Min. Not clear regarding the atrial rhythm. 83435-Lttwkxggbnqdzkcvs, Complete Assessment & Plan Assessment & Plan (1) Atrial flutter with rapid ventricular response: Code(s): I48.92 - Unspecified atrial flutter Category: Medical Plan: Status post cardioversion. Today's rhythm is not very clear on the EKG. For meds, on Amiodarone, Metoprolol, Eliquis. We discussed about EP referral for possible ablation. To be decided. (2) Nonrheumatic mitral valve regurgitation: Code(s): I34.0 - Nonrheumatic mitral (valve) insufficiency Category: Medical Plan: In a prior echocardiogram from January, daxjqzxv-fc-agsbbg mitral regurgitation but she also had atrial fibrillation at that time. We will recheck this. (3) Acute diastolic (congestive) heart failure: Code(s): I50.31 - Acute diastolic (congestive) heart failure Category: Medical Plan: She still has some leg swelling. She is on Lasix. Add Farxiga. Plan Discussion Notes I discussed with the patient the need for a follow-up echocardiogram to evaluate her cardiac function and the addition of Farxiga to her medication regimen to manage fluid retention. We also talked about the potential impact of her leaky heart valve on her symptoms and the importance of monitoring her heart rhythm. Patient was informed and verbally consented to the use of an ambient scribe for clinic note documentation during this visit. Orders: Orders TSH reflex Free T4 Today I48.92 - Unspecified atrial flutter, R94.6 - Abnormal results of thyroid function studies CA echo transthoracic complete Today I34.0 - Nonrheumatic mitral (valve) insufficiency Medications: New dapagliflozin propanediol (Farxiga) 10 mg PO DAILY 90 tabs 3RF Patient Instructions: - Continue taking your diuretic as prescribed. - Start taking Farxiga as directed by your doctor. - Attend the scheduled echocardiogram appointment. - Monitor your symptoms and report any changes to your doctor. Coding Level of Care Code Est Pt Level 4 (07471) Complex EM visit Add On G2211 Diagnoses Atrial flutter with rapid ventricular response I48.92 Nonrheumatic mitral valve regurgitation I34.0 Acute diastolic (congestive) heart failure I50.31 CPT Codes EKG - CPT: 33042-Vfptsduipybukxalz, Complete ([id number])
[2025-06-19 11:14] VITALS: BP 120/70; PULSE 60; BMI 20.3
--- OUTSIDE RECORDS SUMMARY | 2025-06-19 13:25 | XMS_ITS | Patient Health Record ---
Author Organization [facility] Address [address] [place] [address] Care Team Providers Care Jigger Machine Operator Name Role Phone Hans (RETIRED) Osiel WREN Primary Care Provide r Unavailable Benson Sadler Unavailable [phone] Reason For Referral No Information Medications Medication [...] Problem Long-term current use of drug therapy (545243792) Encounter for long-term (current) use of other medications (V58.69) Active confirmed Problem Colon cancer screening (681848990) Colon cancer screening (V76.51) Active confirmed Problem History of adenomatous polyp of colon (761824118) History of adenomatous polyp of colon (V12.72) Active confirmed Plan Of Treatment Future Test Test Name Order Date COLONOSCOPY 10/28/2012 Insurance Providers Payer Name Payer Address Payer Phone Subscriber Number Group Number Insured Name Patient Relationship to Insured Coverage Start Date Coverage End Date [place] OF [place] [address] D[place]RIST[place] [address] [id number] DARIN THOMPSON Self - patient is the insured [facility] SUPPLEMENTAL PLAN [address] [place] [address] [id number] DARIN THOMPSON Self - patient is the insured Medical (General) History Medical History History ICD Code colonoscopy 04-17-2008-negative colon polyps-tubular adenomas removed in 2002 Right breast cancer with lumpectomy and radiation in November of 1998 hypertension Denies VT,DM,CVA,Lung disease,renal dise ase Surgical History Surgery Date(Month/Year) breast lumpectomy on right in 1998 for niall carl, and had XRT 1998 left knee surgery 2010
== END 2025-06-19 11:36 | disposition home or self-care (01) ==
LOC: HO.HCS 11:04
PROVIDERS: PCP Physician Assistant; Visit Provider Internal Medicine
DX: I48.92 Unspecified atrial flutter (principal); I34.0 Nonrheumatic mitral (valve) insufficiency; I50.31 Acute diastolic (congestive) heart failure
CPT/HCPCS: 93010; 99214; G2211

== ENCOUNTER → 2025-07-12 08:43 | Outpatient (REF) | payer MEDICARE, SELFPAY ==
--- NOTE | 2025-07-12 08:57 | CA_ITS ---
Transthoracic Echocardiogram Patient (Last, First, Middle): Ora Davis, Gender: F Date of : 1940 Age: 84 Procedure Date: 07/12/2025 Procedure Type: Transthoracic Echocardiogram Location: OP Height: 147.32 cm Weight: 44. kg BSA: 1.34 m2 Heart Rate: bpm BP: 122 / 70 mmHg Manager School: [employer] Referring MD: Donnell Sapp MD Symptoms: I34.0 - Nonrheumatic mitral (valve) insufficiency Study Quality: Adequate ECG Rhythm: Atrial Fibrillation Conclusions: - The left ventricular systolic function is normal. The calculated ejection fraction is 61% by biplane method. - The left atrium is severely dilated. - There is moderate to severe mitral valve regurgitation. - There is mild to moderate tricuspid valve regurgitation. - Skbsm-tl-engrqxvb pericardial effusion. Findings Left Ventricle Normal left ventricular cavity size. There is moderately increased left ventricular wall thickness. The left ventricular systolic function is normal. The calculated ejection fraction is 61% by biplane method. There is no evidence of regional wall motion abnormalities. Diastolic function is indeterminate on the basis of available data. Right Ventricle There is moderately decreased right ventricular systolic function. Atria The left atrium is severely dilated. The right atrium is moderately dilated. Aortic Valve There is a normal trileaflet aortic valve. There is mild calcification of the aortic valve. There is no aortic valve stenosis. There is no aortic valve regurgitation. Mitral Valve There is mild anterior and posterior mitral leaflet thickening. There is moderate mitral annular calcification. There is moderate to severe mitral valve regurgitation. There is no mitral valve stenosis. Pulmonic Valve There is mild pulmonic valve regurgitation. Tricuspid Valve There is mild to moderate tricuspid valve regurgitation. There is no evidence of pulmonary hypertension. Great Vessels The asc aorta is normal in size. Venous The inferior vena cava is normal in size and collapses greater than 50% with inspiration. Pericardium/Pleural There are no definitive echocardiographic findings of tamponade physiology. Nuzgk-kv-ocaqrfvs pericardial effusion. Prior Study Comparison No significant change compared to prior study dated: 01/30/2025. Measurements 2D Linear Measurements IVSd: 1.24 0.6-0.9/0.6-1.0 cm LVIDd: 4.70 3.9-5.3/4.2-5.9 cm LVIDd Index: 3.51 2.4-3.2/2.2-3.1 cm/m2 LVIDs: 2.91 2.0-3.6 cm LVPWd: 1.22 0.7-1.1 cm LA Diam: 4.00 2.7-3.8/3.0-4.0 cm LAIDs Index: 2.99 1.5-2.3 cm/m2 LV Mass: 273.77 67-162/88-224 g LV Mass Index: 204.30 43-95/49-115 g/m2 LVOT Diam: 2.00 3.0+(-)1.3 cm 2D Systolic Function EF 4C: 65.30 >55% EF 2C: 55.50 >55% EF BiP: 60.60 >55% Mitral Valve MV Pk E: 1.26 E'Lateral: 6.55 E'Medial: 4.70 E/E' Med: 26.80 E/E' Lat: 19.20 MR Vol - PW Dopp: 32.20 MR VTI: 1.61 MR ERO: 20.00 MR Alias Lavon: 0.41 MR RAD: 0.60 Aortic Valve AoV Pk Lavon: 1.34 AoV Mn Lavon: 0.99 AoV VTI: 0.31 AoV Pk Grad: 7.00 Aov Mn Grad: 4.00 GLENDA Cont.VTI: 1.86 LVOT LVOT Pk Lavon: 0.92 LVOT Mn Lavon: 0.66 LVOT VTI: 0.19 LVOT Pk Grad: 3.00 LVOT Mn Grad: 2.00 LVOT Diam: 2.00 LVOT Area: 3.14 Diastolic Function MV Pk E: 1.26 E'Medial: 4.70 E/E' Med: 26.80 E' Laterial: 6.55 E/E' Lat: 19.20 Right Ventricle TAPSE (mm): 11.50 TVS' Lavon: 9.20 Tricuspid Valve TR Pk Lavon: 2.74 TR Pk Grad: 30.00 RA Press: 3.00 RVSP: 33.00 Great Vessels Aorta Sinus of Valsalva: 3.00 2.0-3.5 cm Ao Asc: 2.90 2.1-3.4 cm Pulmonary Veins Pulm Vein S/D 0.70 Pulmonary Valve PV Pk Lavon: 0.56 Peak PV Grad: 1.00 WA Pk Lavon: 2.52 Updated in Other Vendor System with Status of Final Donnell Sapp MD electronically signed on 07/14/2025 12:24:05 PM with status of Final
--- OUTSIDE RECORDS SUMMARY | 2025-07-12 09:09 | XMS_ITS | Encounter Summary ---
Author Organization [facility] Address [address] [place] [address] Phone Care Team Providers Care Supervisor Statement Clerks Name Role Phone Ronaldo Lou MD Unavailable [phone] Osiel Maxwell MD Unavailable [phone] Brandi Owens Primary Care Provider [phone] Encounter Details Date Type Department Care Team (Late st Contact Info) Description 04/24/2025 Procedure Pass Non-Invasive Cardiology [address] [place] [address] Social History Tobacco Use Types Packs/Day Years [...] on filedocumented in this encounter Care Teams Supervisor Statement Clerks Relationship Specialty Start Date End Date Brandi Owens PA [address] [place] [address] PCP - General Physician Property Manager 04/23/25 Ronaldo Lou MD [address] [place] [address], 2[address] [place] [address] [email or web address] Historical LMR Provider 07/28/17 Osiel Maxwell MD [address] [place] [address] [place] [address] Historical LMR Provider 07/28/17 documented as of this encounter Additional Source Comments The information contained in this document represents components of the legal health record. It is not the complete legal health record.[facility]
--- OUTSIDE RECORDS SUMMARY | 2025-07-12 09:09 | XMS_ITS | Patient Health Record ---
Author Organization [facility] Address [address] [place] [address] Care Team Providers Care Pizza Chef Name Role Phone Hans (RETIRED) Osiel WREN Primary Care Provide r Unavailable Benson Sadler Unavailable [phone] Reason For Referral No Information Medications Medication [...] Problem Long-term current use of drug therapy (195139329) Encounter for long-term (current) use of other medications (V58.69) Active confirmed Problem Colon cancer screening (399596512) Colon cancer screening (V76.51) Active confirmed Problem History of adenomatous polyp of colon (737571730) History of adenomatous polyp of colon (V12.72) Active confirmed Plan Of Treatment Future Test Test Name Order Date COLONOSCOPY 10/28/2012 Insurance Providers Payer Name Payer Address Payer Phone Subscriber Number Group Number Insured Name Patient Relationship to Insured Coverage Start Date Coverage End Date MEDICARE OF [place] [address] [place] [address] [id number] DARIN THOMPSON Self - patient is the insured [facility] SUPPLEMENTAL PLAN [address] [place] [id number] DARIN THOMPSON Self - patient is the insured Medical (General) History Medical History History ICD Code colonoscopy 04-17-2008-negative colon polyps-tubular adenomas removed in 2002 Right breast cancer with lumpectomy and radiation in November of 1998 hypertension Denies OR,DM,CVA,Lung disease,renal dise ase Surgical History Surgery Date(Month/Year) breast lumpectomy on right in 1998 for niall carl, and had XRT 1998 left knee surgery 2010
--- OUTSIDE RECORDS SUMMARY | 2025-07-12 09:09 | XMS_ITS | Clinical Summary ---
Author Organization [facility] Address [address] [place] [address] [place] [address] Phone Care Team Providers Care Mold Burner Name Role Phone Ronaldo Lou MD Unavailable [phone] Osiel Maxwell MD Unavailable [phone] Brandi Owens Primary Care Provider Encounters Date Type Department Care Team Description 05/10/2025 9:43 AM EDT - 05/10/2025 11:59 PM EDT Hospital Encounter Non-Invasive Cardiology [address] [place] [address] Howie Terrell MD Discharge Disposition: Home or Self Care 04/24/2025 Procedure Pass Non-Invasive Cardiology [address] [place] [address] 04/24/2025 Transcribe [facility] [address], [address] [place] [address] Howie Terrell MD Presence of cardiac device [...] SSS Examination: Device type: Micra AV2 Pacemaker Distribution Analyst: Medtronic Mode: VVI LRL/URL: 60/- bpm Thresholds, impedances, and sensing stable. High V rates: 0 Ventricular pacin.5% Battery: >10 yrs RA RV LV Sensing 9.8mV Threshold 1.5V@.24ms Impedance 760 ohms Additional comments or changes: normal pacemaker function and stable pacing and sensing thresholds. Rt groin clean and intact, no redness or bleeding Patient will return for in-office device check at [facility] Cardiology Report prepared by Jaquelin Puckett RN Howie Terrell MD CV CARDIAC SERVICES ORDERABLE S Final Result from Last 3 Months Insurance MEDICARE PART A & B Member Subscriber Plan / Payer (Ef fective 2007-Present) Name:Ora Davis Member ID:[id number] Relation to Subscriber:Self Name:Ora Davis Subscriber ID:[id number] Payer ID:[id number] Group ID:Not on file Type:Medicare Address: [facility] [employer] [facility] [employer] [facility] [address] [place] [address] [facility] MEDICARE SUPPLEMENT MEDICARE PART A [place] [address] [place] [address] MEDICARE SUPPLEMENT MEDICARE PART A & B [facility] MEDICARE SUPPLEMENT MEDICARE PART A & B MEDICARE SUPPLEMENT MEDICARE PART A & B MEDICARE SUPPLEMENT MEDICARE PART A & B Member Subscriber Plan / Payer (Ef fective 2007-Present) Name:Ora Davis Member ID:[id number] Relation to Subscriber:Self Name:Ora aDvis Subscriber ID:[id number] Payer ID:[id number] Group ID:Not on file Type:Medicare Address: [facility] [employer] [facility] [employer] [facility] [employer] [facility] [address] [place] [phone] [facility] MEDICARE SUPPLEMENT Care Teams Mold Burner Relationship Specialty Start Date End Date Brandi Owens PA [address] [place] [address] PCP - General Physician Insurance Verifier 04/23/25 Ronaldo Lou MD [address] [place] [address], [address] [place] [address] Historical LMR Provider 07/28/17 Osiel Maxwell MD [address] [place] [address] [place] [address] Historical LMR Provider 07/28/17 Additional Source Comments The information contained in this document represents components of the legal health record. It is not the complete legal health record.[facility]
== END ==
LOC: HO.CARD 08:43
PROVIDERS: PCP Physician Assistant; Visit Provider Internal Medicine
DX: I34.0 Nonrheumatic mitral (valve) insufficiency (principal)
CPT/HCPCS: 93306

== ENCOUNTER → 2025-07-12 08:57 | Outpatient (BNV) | payer MEDICARE, SELFPAY | PROVIDERS: PCP Physician Assistant; Visit Provider Internal Medicine | DX: I34.0 Nonrheumatic mitral (valve) insufficiency (principal); I36.1 Nonrheumatic tricuspid (valve) insufficiency; I31.39 Other pericardial effusion (noninflammatory); I51.7 Cardiomegaly | CPT/HCPCS: 93306 ==

== ENCOUNTER 2025-07-24 15:17 | Outpatient (AMB) | payer MEDICARE, SELFPAY ==
--- OUTSIDE RECORDS SUMMARY | 2025-07-24 18:09 | XMS_ITS | Encounter Summary ---
Author Organization [facility] Address [address] [place] [address] Phone Care Team Providers Care Box Machine Operator Name Role Phone Ronaldo Lou MD Unavailable [phone] Osiel Maxwell MD Unavailable [phone] Brandi Owens Primary Care Provider [phone] Encounter Details Date Type Department Care Team (Late st Contact Info) Description 04/24/2025 Procedure Pass Non-Invasive Cardiology [address] [place] [address] Social History Tobacco Use Types Packs/Day Years [...] on filedocumented in this encounter Care Teams Box Machine Operator Relationship Specialty Start Date End Date Brandi Owens PA [address] [place] [address] PCP - General Physician Heel Seat Fitter 04/23/25 Ronaldo Lou MD [address] [place] [address], 2nd [place] [address] [email or web address] Historical LMR Provider 07/28/17 Osiel Maxwell MD [address] [place] [address] [place] [address] Historical LMR Provider 07/28/17 documented as of this encounter Additional Source Comments The information contained in this document represents components of the legal health record. It is not the complete legal health record.[facility]
--- OUTSIDE RECORDS SUMMARY | 2025-07-24 18:09 | XMS_ITS | Clinical Summary ---
Author Organization [facility] Address [address] [place] [address] [place] [address] Phone Care Team Providers Care Steam Clean Machine Operator Name Role Phone Ronaldo Lou MD Unavailable [phone] Osiel Maxwell MD Unavailable [phone] Brandi Owens Primary Care Provider Encounters Date Type Department Care Team Description 05/10/2025 9:43 AM EDT - 05/10/2025 11:59 PM EDT Hospital Encounter Non-Invasive Cardiology [address] [place] [address] Howie Terrell MD Discharge Disposition: Home or Self Care 04/24/2025 Procedure Pass Non-Invasive Cardiology [address] [place] [address] 04/24/2025 Transcribe [facility] [address], [address] [place] [address] Howie Terrell MD Presence of cardiac device [...] VACCINE (#1) 2025 COVID-19 VACCINE ( - 2024-2 6 season) 2025 HEPATITIS A VACCINES Aged Out [...] SSS Examination: Device type: Micra AV2 Pacemaker Size Changer: Medtronic Mode: VVI LRL/URL: 60/- bpm Thresholds, impedances, and sensing stable. High V rates: 0 Ventricular pacin.5% Battery: >10 yrs RA RV LV Sensing 9.8mV Threshold 1.5V@.24ms Impedance 760 ohms Additional comments or changes: normal pacemaker function and stable pacing and sensing thresholds. Rt groin clean and intact, no redness or bleeding Patient will return for in-office device check at [facility] Cardiology Report prepared by Jaquelin Puckett RN Howie Terrell MD [facility] ORDERABLE S Final Result from Last 3 Months Insurance MEDICARE PART A & B [facility] MEDICARE SUPPLEMENT MEDICARE PART A & [place] [address] [place] [address] MEDICARE SUPPLEMENT MEDICARE PART A & B Member Subscriber Plan / Payer (Ef fective 2007-Present) Name:Ora Davis Member ID:[id number] Relation to Subscriber:Self Name:Ora Davis Subscriber ID:[id number] Payer ID:[id number] Group ID:Not on file Type:Medicare Address: [employer] [address] [place] [address] [place] [address] MEDICARE SUPPLEMENT MEDICARE PART A & B MEDICARE SUPPLEMENT MEDICARE PART A & B Member Subscriber Plan / Payer (Ef fective 2007-Present) Name:Ora Davis Member ID:[id number] Relation to Subscriber:Self Name:Ora Davis Subscriber ID:[id number] Payer ID:[id number] Group ID:Not on file Type:Medicare Address: [employer] [address] MEDICARE SUPPLEMENT MEDICARE PART A & B [facility] MEDICARE SUPPLEMENT Care Teams Steam Clean Machine Operator Relationship Specialty Start Date End Date Brandi Owens PA [address] [place] [address] PCP - General Physician Electrogalvanizing Machine Operator 04/23/25 Ronaldo Lou MD [address] [place] [address], [address] [place] [address] [email or web address] Historical LMR Provider 07/28/17 Osiel Maxwell MD [address] [place] [address] [place] [address] Historical LMR Provider 07/28/17 Additional Source Comments The information contained in this document represents components of the legal health record. It is not the complete legal health record.[facility]
--- OUTSIDE RECORDS SUMMARY | 2025-07-24 18:09 | XMS_ITS | Patient Health Record ---
Author Organization [facility] Address [address] [place] [address] Care Team Providers Care Technical Sales Manager Name Role Phone Hans (RETIRED) Osiel WREN Primary Care Provide r Unavailable Benson Sadler Unavailable [phone] Reason For Referral No Information Medications Medication SIG (Take, Route, Frequency, Duration) Notes Start Date End Date Status hydroCHLOROthiazide 12.5mg Active Atenolol 25mg Active Lisinopril 20mg Acti ve Multi Vitamin/Minerals 10/11/20242024 Active Colyte with Flavor Packs 240 GM As directed Orally once; Duration: 1 dose 10/28/2012 Active Problems Problem Type SNOMED Code ICD Code Onset Dates Problem Status W/U Status Risk Notes Problem Long-term current use of drug therapy (192013676) Encounter for long-term (current) use of other medications (V58.69) Active confirmed Problem Colon cancer screening (573715943) Colon cancer screening (V76.51) Active confirmed Problem History of adenomatous polyp of colon (949819090) History of adenomatous polyp of colon (V12.72) Active confirmed Plan Of Treatment Future Test Test Name Order Date COLONOSCOPY 10/28/2012 Insurance Providers Payer Name Payer Address Payer Phone Subscriber Number Group Number Insured Name Patient Relationship to Insured Coverage Start Date Coverage End Date MEDICARE OF [place] [address] [place] [address] [id number] DARIN THOMPSON Self - patient is the insured [facility] SUPPLEMENTAL PLAN [address] [place] [id number] DARIN THOMPSON Self - patient is the insured Medical (General) History Medical History History ICD Code colonoscopy 04-17-2008-negative colon polyps-tubular adenomas removed in 2002 Right breast cancer with lumpectomy and radiation in November of 1998 hypertension Denies [place],DM,CVA,Lung disease,renal dise ase Surgical History Surgery Date(Month/Year) breast lumpectomy on right in 1998 for niall carl, and had XRT 1998 left knee surgery 2010
--- NOTE | 2025-07-26 15:58 | MHC.OFFVIS ---
Intake Visit Reasons: Medtronic check only (HS) after echo Allergies No Known Allergies (No Known Allergies*) Allergy (Verified 06/08/25 11:24) [facility] Medical History History of cardioversion History of pacemaker Primary hypertension Breast cancer COPD (chronic obstructive pulmonary disease) Surgical History Hx of arthroscopic knee surgery History of breast lump removal Family History Unknown No problems noted. Social History Household Members: None Housing: House Are you a primary director of primary care to a significant other at home: No Do you presently have visiting nurse or other home services: No Alcohol intake: never Comment: steady gait noted. Patient Tobacco Use Status: Former Tobacco user service: No Office Procedures Cardiac Device Check Cardiac Device Check Details: Pacemaker interrogated today. Micra pacemaker, programmed VVI at 60 but reprogrammed to VVIR 60/120. Changed extra major settings for rate response sensitivity. We sensed only 21%. We pacing only 79%. Presenting AF/V paced at 60-77/min. Overall, normal device function. [id number]-LX Cardiac Device Check, leadless/single lead pacemaker Procedure code (CPT) selection complete Assessment & Plan Assessment & Plan (1) Pacemaker: Comment: Medtronic micra pacemaker placement 04/20/25 Code(s): Z95.0 - Presence of cardiac pacemaker Category: Medical (2) Atrial flutter with rapid ventricular response: Code(s): I48.92 - Unspecified atrial flutter Category: Medical (3) Tachy-lauren syndrome: Code(s): I49.5 - Sick sinus syndrome Category: Medical (4) Atrial fibrillation: Code(s): I48.91 - Unspecified atrial fibrillation Category: Medical Qualifiers: Atrial fibrillation type: unspecified Qualified Code(s): I48.91 - Unspecified atrial fibrillation Plan x Coding Level of Care Code Procedure Only Diagnoses Pacemaker Z95.0 Atrial flutter with rapid ventricular response I48.92 Tachy-lauren syndrome I49.5 Atrial fibrillation, unspecified type I48.91 Atrial fibrillation type: unspecified CPT Codes Cardiac Device Check - Cardiac Device 1: 61740-YS Cardiac Device Check, leadless/single lead pacemaker ([id number])
== END 2025-07-24 16:16 | disposition home or self-care (01) ==
LOC: HO.HCS 15:18
PROVIDERS: PCP Physician Assistant; Visit Provider Internal Medicine
DX: I48.92 Unspecified atrial flutter (principal); Z95.0 Presence of cardiac pacemaker; I49.5 Sick sinus syndrome; I48.91 Unspecified atrial fibrillation
CPT/HCPCS: 93279

== ENCOUNTER 2025-08-22 10:01 | Outpatient (AMB) | payer MEDICARE, SELFPAY ==
--- NOTE | 2025-08-22 10:02 | A.OFFVIS_ITS ---
Vital Signs 08/22/25 10:03 Height 4 ft 10 in Weight 88 lb 2.958 oz BMI 18.4 BP 116/60 Blood Pressure Location Lt brachial Position Sitting Pulse 84 Pulse Source Monitor Intake Visit Reasons: f/up- per HS Allergies No Known Allergies (No Known Allergies*) Allergy (Verified 06/08/25 11:24) Medication List - Last Reconciled 08/22/25 by Donnell Sapp MD acetaminophen (Tylenol) 325 mg PO DAILY PRN albuterol sulfate 90 mcg/actuation 2 puffs inhalation Q4H PRN amiodarone 200 mg PO DAILY apixaban (Eliquis) 2.5 mg PO BID 90 days Farxiga (dapagliflozin propanediol) 10 mg PO DAILY NS imawdjchipp-euhzlofou-jsnorgbe 100-62.5-25 mcg (Trelegy Ellipta) 1 ea inhalation DAILY PRN furosemide (Lasix) 40 mg PO BID ibuprofen 200 mg PO Q6H PRN lisinopril 40 mg See Protocol PO DAILY 90 days metoprolol tartrate 50 mg PO BID HPI Comments Details: Ora returns for follow-up. I had originally seen her in January regarding atrial fibrillation. She had palpitations then and found to be in atrial fibrillation with rapid response. She was managed initially with rate control including metoprolol and digoxin. Subsequently, she was set up for an outpatient cardioversion after she apparently had significant bradycardia requiring atropine. Her rhythm stabilized and she was sent home. Then she got readmitted and found to have recurring atrial fibrillation alternating with junctional bradycardia. Then treated for mild heart failure. She was transferred to [facility] where she underwent a micra leadless pacemaker. Apparently done because of low body weight and thin chest wall. Then she was put on amiodarone and she underwent another cardioversion. She would convert but I am not clear if the rhythm is still sinus today as it is difficult to interpret. Otherwise, she states she has got good days and bad days. Sometimes she feels short of breath but not on other times. Otherwise, seems to be getting alone. She is still losing weight. [facility] Medical History History of cardioversion History of pacemaker Primary hypertension Breast cancer COPD (chronic obstructive pulmonary disease) Surgical History Hx of arthroscopic knee surgery History of breast lump removal Family History Unknown No problems noted. Social History Household Members: None Housing: House Are you a primary geriatric personal care aide to a significant other at home: No Do you presently have visiting nurse or other home services: No Alcohol intake: never Comment: steady gait noted. Patient Tobacco Use Status: Former Tobacco user service: No Review of Systems Const Denies weakness ENT Denies dizziness Card Denies chest pain, Denies chest pain with activity, Denies syncope, Denies rapid heart rate, Denies pedal edema, Denies edema, Denies leg edema, Denies lightheadedness, Denies palpitations, Denies dyspnea, Denies dyspnea on exertion and Denies orthopnea Resp Denies cough, Denies dyspnea and Denies dyspnea on exertion GI Denies hematochezia and Denies change in stool character Musc Denies abnormal gait, Denies muscle cramps, Denies muscle weakness, Denies numbness, Denies radiating pain into limb and Denies tingling Neuro Denies abnormal gait, Denies dizziness, Denies syncope, Denies numbness, Denies tingling and Denies weakness Endo Denies palpitations Physical Exam Vital Signs: Last Vital Signs Pulse 84 08/22/25 10:03 BP 116/60 08/22/25 10:03 BMI result Body Mass Index 18.4 Const General: comfortable and no acute distress Orientation/consciousness: patient oriented x3 HEENT Other: Unremarkable Head: Yes normal to inspection Neck Neck: Yes normal visual inspection Chest Chest palpation & inspection: normal inspection of the chest Resp Auscultation: clear to auscultation bilaterally Cardio Palpation: normal PMI Heart sounds: S1 normal heart sound present, S2 normal heart sound present, no gallops, Murmur heart sound present systolic III/ and no rubs GI Palpation (GI): Soft to palpation Back/Spine/Pelvis Other: unremarkable Skin General skin exam: no rashes or lesions noted Neuro General: patient oriented x3 Extrem Other: 1+ leg swelling General: Yes normal to inspection Psych Mental Status: mental status grossly normal Office Procedures EKG Details: EKG with ventricular paced rhythm at 84/Min. Possible P-waves in some leads but difficult to assess rhythm overall. 71492-Lezloaltahswxtgke, Complete Assessment & Plan Assessment & Plan (1) Atrial flutter with rapid ventricular response: Code(s): I48.92 - Unspecified atrial flutter Category: Medical Plan: Status post cardioversion. Today's rhythm is not very clear on the EKG. For meds, on Amiodarone, Metoprolol, Eliquis. We will try to interrogate the device next time and get more information about the rhythm. She may not be a good ablation candidate because of the degree of mitral regurgitation as well as because of age and low body weight. (2) Nonrheumatic mitral valve regurgitation: Code(s): I34.0 - Nonrheumatic mitral (valve) insufficiency Category: Medical Plan: In the echocardiogram, vhviatro-mp-jlxtdd mitral regurgitation. We discussed about potentially transesophageal echocardiogram/mitral clip, but with her low body weight I am not clear if it is going to be feasible or not. We need to weigh the risks and benefits. Anyway, she would like to hold off on all this for now. (3) Chronic heart failure with preserved ejection fraction: Code(s): I50.32 - Chronic diastolic (congestive) heart failure Category: Medical Plan: She is currently on Lasix and Farxiga. We can increase the Lasix dose as and when necessary. Plan Discussion Notes I discussed with the patient the presence of mitral valve regurgitation and the potential need for a transesophageal echocardiogram to evaluate the severity of the condition. We also talked about the possibility of a mitral clip procedure if the valve dysfunction is significant. The patient was advised on the management of her diuretic therapy, including the option to take an additional dose if symptoms worsen. Patient was informed and verbally consented to the use of an ambient scribe for clinic note documentation during this visit. Patient Instructions: - Continue taking diuretics as prescribed, with an additional dose if symptoms worsen. - Attend the scheduled appointment for pacemaker evaluation. - Monitor weight and report any further loss to the healthcare provider. Coding Level of Care Code Est Pt Level 4 (64910) Complex EM visit Add On G2211 Diagnoses Atrial flutter with rapid ventricular response I48.92 Nonrheumatic mitral valve regurgitation I34.0 Chronic heart failure with preserved ejection fraction I50.32 CPT Codes EKG - CPT: 54316-Xhorjunaywmnalrjs, Complete ([id number])
[2025-08-22 10:03] VITALS: BP 116/60; PULSE 84; BMI 18.4
--- OUTSIDE RECORDS SUMMARY | 2025-08-22 11:42 | XMS_ITS | Clinical Summary ---
Author Organization [facility] Address [address] [place] [address] Care Team Providers Care X Ray Control Equipment Repairer Name Role Phone Devante Leigh DO Primary [...] 62 01/15/2023 11:09 AM EDT Temperature 36.2 C (97.1 F) 01/15/2023 11:09 AM EDT Respiratory Rate 16 01/15/2023 11:0 [...] (2 - PCV) 01/02/2024 01/01/2023 Covid-19 Vaccine ( - 2022-2 4 season) 2025 08/04/2022, 01/14/2022, 07/15/2021, Additional history exists INFLUENZA (#1) 2025 06/11/2021, 07/13/2018 DTAP/TDAP/TD (3 - Td or Tdap) 04/15/2031 04/15/2021, 12/09/2014 Insurance Payer Benefit Plan / Group Subscriber ID Effective Dates Phone Address Type [place]/$0 [id number] 2005-Pre sent [address] [place] [address] MEDICARE [id number] [facility] CH/AARP/20%/ F/MEDSUP [id number] 2018-Pre sent [phone] [facility]/AARP [address] [place] [address] [place] [id number] 2005-Pre sent [address] [place] [address] MEDICARE [id number] [facility] AARP MEDICARE SUPP $0 [place] [id number] 2018-Pre sent [facility] [address] [place] [address] MEDICARE SUPPLEMENTAL Care Teams X Ray Control Equipment Repairer Relationship Specialty Start Date End Date Devante Leigh DO PCP - General Internal Medicine 12/23/17
--- OUTSIDE RECORDS SUMMARY | 2025-08-22 11:42 | XMS_ITS | Patient Health Record ---
Author Organization [facility] Address [address] [place] [address] Care Team Providers Care Retort Furnace Helper Name Role Phone Hans (RETIRED) Osiel WREN Primary Care Provide r Unavailable Benson Sadler Unavailable [phone] Reason For Referral No Information Medications Medication [...] Problem Long-term current use of drug therapy (687400887) Encounter for long-term (current) use of other medications (V58.69) Active confirmed Problem Colon cancer screening (380667421) Colon cancer screening (V76.51) Active confirmed Problem History of adenomatous polyp of colon (426666154) History of adenomatous polyp of colon (V12.72) Active confirmed Plan Of Treatment Future Test Test Name Order Date COLONOSCOPY 10/28/2012 Insurance Providers Payer Name Payer Address Payer Phone Subscriber Number Group Number Insured Name Patient Relationship to Insured Coverage Start Date Coverage End Date MEDICARE OF [place] [address] [place] [id number] DARIN THOMPSON Self - patient is the insured [facility] SUPPLEMENTAL PLAN [address] [place] [address] [phone] [id number] DARIN THOMPSON Self - patient is the insured Medical (General) History Medical History History ICD Code colonoscopy 04-17-2008-negative colon polyps-tubular adenomas removed in 2002 Right breast cancer with lumpectomy and radiation in November of 1998 hypertension Denies [place],DM,CVA,Lung disease,renal dise ase Surgical History Surgery Date(Month/Year) breast lumpectomy on right in 1998 for niall carl, and had XRT 1998 left knee surgery 2010
--- OUTSIDE RECORDS SUMMARY | 2025-08-22 11:42 | XMS_ITS | Clinical Summary ---
Author Organization [facility] Address [address] [place] [address] Phone Care Team Providers Care Cobol Programmer Name Role Phone Ronaldo Lou MD Unavailable [phone] Osiel Maxwell MD Unavailable [phone] Brandi Owens Primary Care Provider [phone] Social History Tobacco Use Types Packs/Day Years [...] 12/15/2015 INFLUENZA VACCINE (#1) 2025 COVID-19 VACCINE (1 - 2024-2 6 season) 2025 HEPATITIS A VACCINES Aged Out No long er eligible based on patient's age to complete this topic HIB VACCINES Aged Out No longer eligi ble based on patient's age to complete this topic IPV VACCINES Aged Out No longer eligi ble based on patient's age to complete this topic MENINGOCOCCAL VACCINES (ACWY) Aged Out No longer eligible based on patient's age to complete this topic MENINGOCOCCAL VACCINES (B) Aged Out N o longer eligible based on patient's age to complete this topic Medical Devices Not on file Insurance MEDICARE PART A & B [facility] MEDICARE SUPPLEMENT MEDICARE PART A & B Member Subscriber Plan / Payer (Ef fective 2007-Present) Name:Ora Davis Member ID:[id number] Relation to Subscriber:Self Name:Ora Davis Subscriber ID:[id number] Payer ID:[id number] Group ID:Not on file Type:Medicare Address: [email or web address] [address] [place] [address] [place] [address] MEDICARE SUPPLEMENT MEDICARE PART A & B [facility] MEDICARE SUPPLEMENT MEDICARE PART A & B MEDICARE SUPPLEMENT MEDICARE PART A & B [facility] MEDICARE SUPPLEMENT MEDICARE PART A & B [facility] MEDICARE SUPPLEMENT Care Teams Cobol Programmer Relationship Specialty Start Date End Date Brandi Owens PA [address] [place] [address] PCP - General Physician Special Service Representative 04/23/25 Ronaldo Lou MD [address] [place] [address] [email or web address] Historical LMR Provider 07/28/17 Osiel Maxwell MD [address] [place] [address] Dr Zamora, [place] [address] Historical LMR Provider 07/28/17 Additional Source Comments The information contained in this document represents components of the legal health record. It is not the complete legal health record.[facility]
--- OUTSIDE RECORDS SUMMARY | 2025-08-22 11:43 | XMS_ITS | Encounter Summary ---
Author Organization [facility] Address [facility] [place] [address] Care Team Providers Care Design Sales Consultant Name Role Phone Devante Leigh DO Primary Care Provider Unavaila ble Encounter Details Date Type Department Care Team Description 01/27/2018 Release of Information Medical Records [address] [place] [address] Abstract, Provider Social History Tobacco Use Types [...] on filedocumented in this encounter Care Teams Design Sales Consultant Relationship Specialty Start Date End Date Devante Leigh DO PCP - General Internal Medicine 12/23/17 documented as of this encounter
--- OUTSIDE RECORDS SUMMARY | 2025-08-22 11:43 | XMS_ITS | Encounter Summary ---
Author Organization [facility] Address [facility] [place] [address] Care Team Providers Care Structural Mill Supervisor Name Role Phone Devante Leigh DO Primary Care Provider Unavaila ble Encounter Details Date Type Department Care Team Description 01/26/2018 Transfer Records Medical Records [address] [place] [address] Abstract, Provider Social History Tobacco Use Types [...] on filedocumented in this encounter Care Teams Structural Mill Supervisor Relationship Specialty Start Date End Date Devante Leigh DO PCP - General Internal Medicine 12/23/17 documented as of this encounter
--- OUTSIDE RECORDS SUMMARY | 2025-08-22 11:43 | XMS_ITS | Encounter Summary ---
Author Organization [facility] Address [address] [place] [address] Phone Care Team Providers Care Pulp Maker Name Role Phone Ronaldo Lou MD Unavailable [phone] Osiel Maxwell MD Unavailable [phone] Brandi Owens Primary Care Provider [phone] Encounter Details Date Type Department Care Team (Late st Contact Info) Description 04/24/2025 Procedure Pass Non-Invasive Cardiology [address] [place] [address] Social History Tobacco Use Types Packs/Day Years [...] on filedocumented in this encounter Care Teams Pulp Maker Relationship Specialty Start Date End Date Brandi Owens PA [address] [place] [address] PCP - General Physician Bit Shaver 04/23/25 Ronaldo Lou MD [address] [place] [address], [address] [place] [address] [email or web address] Historical LMR Provider 07/28/17 Osiel Maxwell MD [address] [place] [address] [place] [address] Historical LMR Provider 07/28/17 documented as of this encounter Additional Source Comments The information contained in this document represents components of the legal health record. It is not the complete legal health record.[facility]
== END 2025-08-22 10:28 | disposition home or self-care (01) ==
PROVIDERS: PCP Physician Assistant; Visit Provider Internal Medicine
DX: I48.92 Unspecified atrial flutter (principal); I34.0 Nonrheumatic mitral (valve) insufficiency; I50.32 Chronic diastolic (congestive) heart failure
CPT/HCPCS: 93010; 99214; G2211

== ENCOUNTER → 2025-08-22 10:01 | Outpatient (BNVA) | payer MEDICARE, SELFPAY | PROVIDERS: PCP Physician Assistant; Visit Provider Internal Medicine | DX: I34.0 Nonrheumatic mitral (valve) insufficiency (principal); I50.32 Chronic diastolic (congestive) heart failure; I48.92 Unspecified atrial flutter | CPT/HCPCS: 93005; 99212 ==

== ENCOUNTER → 2025-10-03 15:26 | Outpatient (BNV) | payer MEDICARE, SELFPAY | PROVIDERS: PCP Physician Assistant; Visit Provider Internal Medicine | DX: Z45.018 Encounter for adjustment and management of other part of cardiac pacemaker (principal) | CPT/HCPCS: 93294 ==